=== PATIENT | female | born 1945 | race African-American/Black ===

== ENCOUNTER 2020-10-30 15:00 | Outpatient (RCR) | payer MEDICARE, SELFPAY | END 2020-10-30 23:55 | disposition home or self-care (01) | LOC: HO.PAOS 15:00 | PROVIDERS: Visit Provider Psychologist | DX: F43.20 Adjustment disorder, unspecified (principal) | CPT/HCPCS: 90832; 90834 ==

== ENCOUNTER 2021-01-26 08:24 | Outpatient (REF) | payer MEDICARE, SELFPAY ==
[2021-01-26 09:03] LABS: MANUAL DIFF FLAG NO
[2021-01-26 09:14] LABS: Eosinophils Absolute Auto 0.1 X10*3/uL (0.0-0.4); Eosinophils Percent Auto 3.5 % (0-4); Hematocrit 41.8 % (37-47); Hemoglobin 13.3 g/dl (12.0-16.0); Imm Gran Abs Auto 0.01 X10*3/uL (0.00-0.03); Imm Gran Pct Auto 0.3 % (0.0-0.4); Lymphocytes Absolute Auto 1.2 X10*3/uL (1.2-4.9); Mean Corpuscular HGB Conc 31.8 g/dl (31.0-35.0); Mean Corpuscular Hemoglobin 26.5 pg (27.0-33.0); Mean Corpuscular Volume 83.3 fL (80-98); Mean Platelet Volume 12.5 fL (9.4-12.3); Monocytes Absolute Auto 0.5 X10*3/uL (0.1-1.2); Monocytes Percent Auto 11.8 % (2-11); Neutrophils Absolute Auto 2.1 X10*3/uL (2.0-8.3); Neutrophils Percent Auto 53.4 % (45-73); Platelet Count 142 X10*3/uL (160-400); Red Blood Count 5.02 X10*6/uL (4.20-5.50); Red Cell Distribution Width 15.9 % (11.0-16.0)
[2021-01-26 09:35] LABS: Alanine Aminotransferase 13 U/L (0-31); Albumin Level 4.1 g/dL (3.5-5.0); Alkaline Phosphatase 102 U/L (39-117); Anion Gap 11 (12-20); Aspartate Amino Transferase 21 U/L (5-31); Bilirubin Total 1.2 mg/dL (0.0-1.0); Blood Urea Nitrogen 17 mg/dL (9-16); Calcium 9.1 mg/dL (8.4-10.2); Carbon Dioxide 31 mmol/L (22-29); Chloride 105 mmol/L (96-108); Cholesterol 211 mg/dL; Estimated Glomerular Filt Rate > 60; Glucose Random 94 mg/dL (60-115); HDL Cholesterol 92 mg/dL; LDL Cholesterol Calculated 109 mg/dl; Potassium 4.3 mmol/L (3.3-5.1); Sodium 143 mmol/L (135-145); Triglycerides 51 mg/dL
[2021-01-26 09:57] LABS: Free T4 (Free Thyroxine) 1.12 ng/dL (0.71-1.85); Thyroid Stimulating Hormone 2.73 uIU/mL (0.32-4.0); Vitamin D 25-OH Total 44.8 ng/mL (>30)
[2021-01-26 10:03] LABS: Folate > 20.0 ng/mL (> or = 4.0); Vitamin B12 1561 pg/mL (200-900)
== END 2021-01-26 08:25 | disposition home or self-care (01) ==
LOC: HO.LAB 08:24
PROVIDERS: PCP Internal Medicine; Visit Provider Internal Medicine
DX: I10 Essential (primary) hypertension (principal); E78.00 Pure hypercholesterolemia, unspecified
CPT/HCPCS: 36415; 80053; 80061; 82306; 82607; 82746; 84439; 84443; 85025

== ENCOUNTER 2021-06-02 10:21 | Outpatient (REF) | payer MEDICARE, SELFPAY ==
--- NOTE | ~2021-06-02 | MM_ITS ---
EXAMINATION: MM SCREENING DIGITAL BREAST TOMOSYNTHESIS, BILATERAL CLINICAL INFORMATION: Screening. Asymptomatic. The lifetime risk of breast cancer based on the Tyrer-Cuzick Model is 3%. COMPARISON: Mammography: 05/27/2020, 05/22/2019, 04/14/2018, 03/28/2017, 03/24/2016, 01/22/2015, 11/27/2013 TECHNIQUE: Digital breast tomosynthesis is performed in both the craniocaudal and mediolateral oblique views along with computer-aided detection (CAD). Synthesized 2D images are generated from the tomosynthesis. FINDINGS: The breasts are heterogeneously dense, which may obscure small masses (ACR BI-RADS breast composition Category c). There is fine fibronodular parenchymal pattern with distribution similar to prior studies. Again, there is old scar with adjacent biopsy clip marker central 11:00 left breast. There is a ring biopsy clip marker also present in the central upper outer left breast. Neither breast shows interval mass or interval architectural abnormality. Again, there are scattered benign coarse and bulky popcorn calcifications consistent with degenerating fibroadenomas. There are no significant changes. MM/MM tomosynthesis screening BI IMPRESSION: No significant changes from prior studies. ASSESSMENT: BI-RADS 2: Benign RECOMMENDATION: Routine annual mammography screening. This patient's information was entered into a reminder system with a target due date for their next mammogram.
== END 2021-06-02 10:22 | disposition home or self-care (01) ==
LOC: HO.MAMMO 10:21
PROVIDERS: PCP Internal Medicine; Visit Provider Internal Medicine
DX: Z12.31 Encounter for screening mammogram for malignant neoplasm of breast (principal)
CPT/HCPCS: 77063; 77067

== ENCOUNTER → 2022-03-02 10:21 | Outpatient (BNVA) | payer MEDICARE, SELFPAY | PROVIDERS: PCP Internal Medicine; Visit Provider Advanced Practice Midwife | DX: Z01.419 Encounter for gynecological examination (general) (routine) without abnormal findings (principal) ==

== ENCOUNTER 2022-04-15 08:58 | Outpatient (REF) | payer MEDICARE, SELFPAY ==
--- NOTE | ~2022-04-15 | MM_ITS ---
EXAMINATION: BONE DENSITOMETRY CLINICAL INDICATION: Osteoporosis. COMPARISON: Previous BD dated 12/06/2018 and baseline BD dated 09/13/2006. TECHNIQUE: Using a [employer] DXA System (software version: 13.1) manufactured by [employer], dual-energy x-ray absorptiometry was performed of the lumbar spine and left hip. The images are of good technical quality. Summary results are attached. FINDINGS: AP SPINE L1-L2 (excluding L3 and L4): The data of L1-L4 has been changed to exclude the L3 and L4 vertebral bodies, because degenerative sclerosis at these levels may cause overestimation of lumbar spine density. Current: BMD 1.191 g/cm2, Z-score 0.6, T-score 0.2, normal, 5.0% decrease from previous, 2.6% decrease from baseline (<5% change is not significant). Prior: BMD 1.254 g/cm2. Baseline: BMD 1.223 g/cm2. LEFT FEMUR, NECK: Current: BMD 0.889 g/cm2, Z-score -0.4, T-score -1.1, osteopenia. Prior: BMD 0.928 g/cm2. Baseline: BMD 0.984 g/cm2. LEFT FEMUR, TOTAL: Current: BMD 0.936 g/cm2, Z-score -0.1, T-score -0.6, normal, 12.4% decrease from previous, 13.2% decrease from baseline (<5% change is not significant). Prior: BMD 1.069 g/cm2. Baseline: BMD 1.078 g/cm2. IDENTIFIED RISK FACTORS: Early menopause, height loss, history of fracture (adult), hysterectomy, bilateral oophorectomy, chronic liver disease, osteoporosis, recurrent falls, secondary osteoporosis, Thiazide. HISTORY OF FRACTURE: Wrist. MEDICATIONS: Calcium, vitamin D. MM/XR DEXA axial skeleton IMPRESSION: 1. DIAGNOSIS: Osteopenia based on the lowest T-score value of -1.1 in the femoral neck applying World Health Organization criteria. 2. 10-YEAR FRACTURE RISK PREDICTION, FRAX: Major osteoporotic fracture (clinical spine, forearm, hip or shoulder) 7.4%. Hip fracture 1.2%. 3. Treatment Recommendations: NOF guidelines recommend consideration for treatment in postmenopausal women and men age 50 and older presenting with the following: -A hip or vertebral (clinical or morphometric) fracture. -T-score less than or equal to -2.5 at the femoral neck or spine after appropriate evaluation to exclude secondary causes. -Low bone mass at the hip or spine and a 10-year fracture probability by FRAX of greater than or equal to 3% for hip fracture or greater than or equal to 20% for major osteoporotic fracture based on the [place] adapted WHO algorithm. 4. Other Recommendations: All treatment decisions require clinical judgment and consideration of individual patient factors, including patient preferences, comorbidities, previous drug use, risk factors not captured in the FRAX model (e.g. frailty, falls, vitamin D deficiency, increased bone turnover, interval significant decline in bone density) and possible under or overestimation of fracture risk by FRAX. Additional medical evaluation for secondary cause of low bone mineral density may be appropriate. FUTURE SCAN RECOMMENDATION: People with diagnosed cases of osteoporosis or at high risk for fracture should have regular bone mineral density tests. For patients eligible for Medicare, routine testing is allowed once every 2 years. The testing frequency can be increased to one year for patients who have rapidly progressing disease, those who are receiving or discontinuing medical therapy to restore bone mass, or have additional risk factors.
== END 2022-04-15 08:59 | disposition home or self-care (01) ==
LOC: HO.MAMMO 08:58
PROVIDERS: PCP Internal Medicine; Visit Provider Internal Medicine
DX: M81.0 Age-related osteoporosis without current pathological fracture (principal); Z78.0 Asymptomatic menopausal state
CPT/HCPCS: 77080

== ENCOUNTER 2022-06-01 10:05 | Emergency (ER) | payer MEDICARE, SELFPAY ==
[2022-06-01 10:17] VITALS: BP 145/84; PULSE 68; RESP 18; TEMP 36.6; O2SAT 99; BMI 26.6
[2022-06-01] MEDS: diphenhydrAMINE HCL 50 MG/ML VIAL 25 MG IM (13:27)
--- NOTE | 2022-06-01 14:14 | ED.GENADULT ---
HPI - General Adult General Chief complaint: General Medical Stated complaint: Left Hand Tremors Time Seen by Provider: 06/01/22 12:35 Source: patient Mode of arrival: ambulatory History of Present Illness HPI narrative: 77-year-old female with a past medical history of GERD, HLD, HTN, leukopenia, pernicious anemia, schizophrenia, thrombocytopenia, presenting to the ED complaining of intermittent left 3rd through 4th finger twitching x weeks, admits symptoms are improved at present. Patient states she is having tardive dyskinesia and requesting Cogentin. Patient has been on antipsychotics x many years without recent changes. Denies pain, injury, numbness, tingling Onset (ago): day(s) Related Data Home Medications Medication Instructions Recorded Confirmed artificial tears solution eye drops 1 drp ophthalmic (eye) TID 09/26/20 11/10/21 aspirin 81 mg tablet 81 mg PO DAILY 12/24/20 11/10/21 garlic 1,000 mg capsule 1,000 mg PO DAILY 12/24/20 11/10/21 Previous Rx's Medication Instructions Recorded hydrocortisone-acetic acid 1 %-2 % 4 drp otic (ear) right QID 6 days 09/14/21 ear drops #10 mL atorvastatin 10 mg tablet 10 mg PO DAILY #90 tabs 11/10/21 hydrochlorothiazide 25 mg tablet 25 mg PO DAILY #30 tabs 11/10/21 triamcinolone acetonide 0.1 % 1 appl topical BID 30 days #60 mL 11/10/21 lotion omeprazole magnesium 20 mg 20 mg PO DAILY 90 days #90 caps 11/20/21 capsule,delayed release hydroxyzine HCl 10 mg tablet 10 mg PO DAILY PRN Anxiety 90 days 12/05/21 #90 tabs losartan 25 mg tablet 25 mg PO DAILY 90 days #90 tabs 12/31/21 trifluoperazine 5 mg tablet 5 mg PO DAILY #90 tabs 02/10/22 DISPOSABLE UNDERWEAR #120 ea 04/14/22 Disposable Underpad 30 x 36 heavy #100 ea 04/14/22 flow OFFSET HANDLE CANE #1 ea 04/14/22 PERSONAL CLEASING WIPES #100 ea 04/14/22 diphenhydramine HCl 25 mg capsule 25 mg PO BID PRN Extra pyramidal 06/01/22 (Benadryl) symptoms 30 days #60 caps Allergies Allergy/AdvReac Type Severity Reaction Status Date / Time MYESHA Inhibitors Allergy Severe ANGIOEDEMA Verified 04/09/22 08:29 WITH LISINOPRIL caffeine [CAFFEINE] Allergy Severe EXTREME Verified 04/09/22 08:29 PAIN IN BILATERAL KIDNEYS clozapine [From Clozaril] Allergy Severe Stomach Verified 04/09/22 08:29 Upset lisinopril Allergy Severe ANGIOEDEMA Verified 04/09/22 08:29 amoxicillin [AMOXICILLIN] Allergy Intermediate Stomach Verified 04/09/22 08:29 Upset atropine [Lomotil] Allergy Intermediate Stomach Verified 04/09/22 08:29 Upset bee pollen [BEE STINGS] Allergy Intermediate Swelling Verified 04/09/22 08:29 lovastatin Allergy Intermediate Cramps Verified 04/09/22 08:29 penicillin V Allergy Intermediate Stomach Verified 04/09/22 08:29 Upset ziprasidone [From GEODON] Allergy Intermediate HALLUCINATI Verified 04/09/22 08:29 ONS trifluoperazine Allergy Mild Stomach Verified 04/09/22 08:29 Upset TUNA FISH Allergy Severe SEVERE Uncoded 04/09/22 08:29 INDIGESTION, rash From PROLIXIN Allergy Intermediate UNKNOWN Uncoded 04/09/22 08:29 lovastatin Allergy Intermediate cramping Uncoded 04/09/22 08:29 prolixen Allergy Intermediate seizure Uncoded 04/09/22 08:29 amox Allergy Mild GI upset Uncoded 04/09/22 08:29 Review of Systems Review of Systems: Constitutional: No Fever, No Chills, No Fatigue, No Malaise ENT/Mouth: No Ear Pain, No Nasal Congestion, No sore throat, No Rhinorrhea, No Swallowing Difficulty, +tongue movements Eyes: No Eye Pain, No Swelling, No Redness, No Vision Changes Cardiovascular: No Chest Pain, No SOB, No Palpitations Respiratory: No Cough, No Sputum, No Dyspnea Gastrointestinal: No Nausea, No Vomiting, No Diarrhea, No Constipation, No Abdominal pain Genitourinary: No Dysuria, No Urinary Frequency, No Hematuria, No Flank Pain Musculoskeletal: No joint pain, No Myalgias, No Joint Swelling Skin: No Skin Lesions, No rash Neuro: No Weakness, No Numbness, +tremors,No Dizziness, No Headache Yes all other systems are reviewed and are negative Neurologic: Reports Abnormal speech present PMFSH Past Medical History Attestation statement: The following information was validated with the patient. Medical History GERD (gastroesophageal reflux disease) Hyperbilirubinemia Hypercholesterolemia Hypertension Impacted cerumen Leukopenia Obesity (BMI 30-39.9) Pernicious anemia Schizophrenia Thrombocytopenia Urinary incontinence Vitamin D deficiency Surgical History H/O right wrist surgery History of tonsillectomy History of tooth extraction History of total abdominal hysterectomy and bilateral salpingo-oophorectomy Family History Family History Father Cancer Colon cancer Mother Cancer Colon cancer History of breast cancer Social History Social History Housing: Apartment Alcohol intake: never Patient Tobacco Use Status: Former Tobacco user Tobacco use type: Cigarette e-Cigarette/Vaping Use: Never Used Second Hand Smoke Exposure: No service: No Current occupational status: disabled Cognitive needs: No Hearing needs: No Vision needs: Yes Physical Exam ED Vital Signs: Vital Signs - 24 hr 06/01/22 10:17 06/01/22 14:34 Temperature 98 F 98.5 F Pulse Rate 68 62 Respiratory Rate 18 14 Blood Pressure 145/84 H 180/90 H Pulse Oximetry 99 98 Oxygen Delivery Method Room Air Room Air BMI result Body Mass Index 26.6 Const General: cooperative, healthy appearing and no acute distress Orientation/consciousness: patient oriented x3 Limitations: no limitations HENMT Head: Yes normal to inspection and Yes atraumatic Ears: hearing grossly normal bilaterally General nose exam: Normal external nose present Face and sinus: Yes normal facial exam Mouth: tongue abnormal (+abdnormal movements) and no trismus Throat: Yes tonsils normal, Yes uvula midline, No peritonsillar mass and No uvular edema Eyes General: appearance normal, both eyes and all related structures EOM: EOMs intact bilaterally Neck Neck: Yes normal visual inspection, Yes no meningeal signs, Yes supple and No anterior neck swelling Resp Effort & Inspection: normal respiratory effort and no respiratory distress Cardio Rate: regular rate Heart sounds: S1 normal heart sound present and S2 normal heart sound present Skin Rashes: no rashes Wounds: no wounds Neuro General: patient oriented x3, gait normal, tone normal, moves all extremities, no meningeal signs and no focal motor deficits Speech: Abnormal speech present slurred Gait exam (Neuro): Normal gait present Motor exam (neuro): no tremor noted Extrem General: Yes normal to inspection Course Course Course Narrative: Patient's speech/tongue movements improved after IM Benadryl. 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 Has follow-up with her PCP Dr. Bailey tomorrow. Will initiate Benadryl 25 mg b.i.d. as patient is chronically on her medications. Discussed worrisome signs and symptoms and strict return precautions Medical Decision Making MDM Narrative Medical decision making narrative: 77-year-old female with a past medical history of GERD, HLD, HTN, leukopenia, pernicious anemia, schizophrenia, thrombocytopenia, presenting to the ED complaining of intermittent left 3rd through 4th finger twitching x weeks. Patient states she is having tardive dyskinesia and requesting Cogentin. On exam vital signs stable, NAD, +appreciable abnormal tongue movements and slurred speech/dysarthria consistent with tardive dyskinesia. No appreciable twitching in other locations. No focal neuro deficits. Case discussed with Dr. Moe who also evaluated patient and is in agreement with plan Plan: IM Benadryl Discharge Plan Discharge Clinical Impression: Tardive dyskinesia Patient Disposition: Home, Self-Care Instructions: Tremors (ED) Additional Instructions: Continue taking prescribed medications, in addition start taking Benadryl twice daily. Please follow up with her doctor tomorrow as scheduled. If symptoms recur/persist or worsen please return to the emergency department Prescriptions: New diphenhydramine HCl [Benadryl] 25 mg capsule 25 mg PO BID PRN (Reason: Extra pyramidal symptoms) 30 Days Qty: 60 0RF No Action hydrocortisone-acetic acid 1-2 % drops 4 drp otic (ear) right QID 6 Days Qty: 10 0RF omeprazole magnesium 20 mg capsule,delayed release(DR/EC) 20 mg PO DAILY 90 Days Qty: 90 1RF hydroxyzine HCl 10 mg tablet 10 mg PO DAILY PRN (Reason: Anxiety) 90 Days Qty: 90 1RF losartan 25 mg tablet 25 mg PO DAILY 90 Days Qty: 90 2RF trifluoperazine 5 mg tablet 5 mg PO DAILY Qty: 90 0RF (DME) OFFSET HANDLE CANE See Rx Instructions .Route .MEDSUPPLY Qty: 1 0RF Rx Instructions: As directed (DME) Disposable Underpad 30 x 36 heavy flow See Rx Instructions .Route .MEDSUPPLY Qty: 100 12RF Rx Instructions: As directed (DME) PERSONAL CLEASING WIPES See Rx Instructions .Route .MEDSUPPLY Qty: 100 12RF Rx Instructions: As directed (DME) DISPOSABLE UNDERWEAR XL MODERATE ABSORBENCY See Rx Instructions .Route .MEDSUPPLY Qty: 120 12RF Rx Instructions: As directed artificial tears solution Drops 1 drp OPHTHALMIC (EYE) TID aspirin 81 mg tablet 81 mg PO DAILY garlic 1,000 mg capsule 1,000 mg PO DAILY triamcinolone acetonide 0.1 % lotion 1 appl topical BID 30 Days Qty: 60 0RF atorvastatin 10 mg tablet 10 mg PO DAILY Qty: 90 2RF hydrochlorothiazide 25 mg tablet 25 mg PO DAILY Qty: 30 3RF Referrals: Po,Erik Almonte MD [Primary Care Provider] - 1 day (As scheduled) Interventions: ED Discharge Assessment Last Done: 06/01/22 14:38 Discharge Date/Time: 06/01/22 14:39
[2022-06-01 14:34] VITALS: BP 180/90; PULSE 62; RESP 14; TEMP 36.9; O2SAT 98
== END 2022-06-01 14:39 | disposition home or self-care (01) ==
PROVIDERS: Emergency Provider Emergency Medicine; PCP Internal Medicine
DX: G24.01 Drug induced subacute dyskinesia (principal); I10 Essential (primary) hypertension; Z79.899 Other long term (current) drug therapy; Z87.891 Personal history of nicotine dependence
CPT/HCPCS: 96372; 99283; 99284; J1200

== ENCOUNTER 2022-06-01 14:43 | Outpatient (REF) | payer MEDICARE, SELFPAY ==
[2022-06-01 15:05] LABS: MANUAL DIFF FLAG NO
[2022-06-01 15:27] LABS: Basophils Absolute Auto 0.1 X10*3/uL (0.0-0.2); Basophils Percent Auto 1.1 % (0-2); Eosinophils Absolute Auto 0.1 X10*3/uL (0.0-0.4); Eosinophils Percent Auto 2.4 % (0-4); Hematocrit 42.6 % (37.0-47.0); Hemoglobin 13.6 g/dl (12.0-16.0); Imm Gran Abs Auto 0.01 X10*3/uL (0.00-0.03); Imm Gran Pct Auto 0.2 % (0.0-0.4); Lymphocytes Absolute Auto 1.6 X10*3/uL (1.2-4.9); Lymphocytes Percent Auto 35.9 % (20-40); Mean Corpuscular HGB Conc 31.9 g/dl (31.0-35.0); Mean Corpuscular Hemoglobin 26.5 pg (27.0-33.0); Mean Corpuscular Volume 82.9 fL (80.0-98.0); Mean Platelet Volume 12.2 fL (9.4-12.3); Monocytes Absolute Auto 0.5 X10*3/uL (0.1-1.2); Monocytes Percent Auto 11.6 % (2-11); Neutrophils Absolute Auto 2.2 x10*3/uL (2.0-8.3); Neutrophils Percent Auto 48.8 % (45-73); Platelet Count 155 X10*3/uL (160-400); Red Blood Count 5.14 X10*6/uL (4.20-5.50); Red Cell Distribution Width 15.9 % (11.0-16.0); White Blood Count 4.5 X10*3/uL (4.8-10.8)
[2022-06-01 16:08] LABS: Alanine Aminotransferase 14 U/L (0-31); Albumin Level 4.4 g/dL (3.5-5.0); Alkaline Phosphatase 111 U/L (39-117); Anion Gap 12 (12-20); Aspartate Amino Transferase 22 U/L (5-31); Bilirubin Total 1.1 mg/dL (0.0-1.0); Blood Urea Nitrogen 19 mg/dL (9-16); Calcium 9.4 mg/dL (8.4-10.2); Carbon Dioxide 30 mmol/L (22-29); Chloride 104 mmol/L (96-108); Cholesterol 232 mg/dL; Estimated Glomerular Filt Rate 55; Glucose Random 91 mg/dL (60-115); HDL Cholesterol 81 mg/dL; LDL Cholesterol Calculated 134 mg/dl; Sodium 142 mmol/L (135-145); Total Protein 7.4 g/dL (6.5-8.0); Triglycerides 85 mg/dL
[2022-06-01 16:29] LABS: Free T4 (Free Thyroxine) 1.12 ng/dL (0.71-1.85); Thyroid Stimulating Hormone 1.87 uIU/mL (0.32-4.0); Vitamin D 25-OH Total 50.1 ng/mL (>30)
[2022-06-01 16:57] LABS: Folate > 20.0 ng/mL (> or = 4.0); Vitamin B12 > 2000 pg/mL (200-900)
== END 2022-06-01 14:44 | disposition home or self-care (01) ==
LOC: HO.LAB 14:43
PROVIDERS: PCP Internal Medicine; Visit Provider Internal Medicine
DX: E78.00 Pure hypercholesterolemia, unspecified (principal); I10 Essential (primary) hypertension; M81.0 Age-related osteoporosis without current pathological fracture
CPT/HCPCS: 36415; 80053; 80061; 82306; 82607; 82746; 84439; 84443; 85025; 86900; 86901

== ENCOUNTER 2022-06-15 13:19 | Emergency (ER) | payer MEDICARE, SELFPAY ==
--- NOTE | ~2022-06-15 | CT_ITS ---
EXAMINATION: CT HEAD WITHOUT CONTRAST CLINICAL INFORMATION: Speech difficulty for 2 days. COMPARISON: Head CT from 09/14/2016 TECHNIQUE: Contiguous axial imaging was performed from the skull base to vertex without intravenous administration of contrast. This CT examination was performed using dose optimization techniques as appropriate, variously including the following: *Automated exposure control *Adjustment of mA and/or kV according to patient size (this includes techniques or standardized protocols for targeted exams where dose is matched to indication/reason for exam; i.e. extremities or head) *Use of iterative reconstruction technique DLP: 648 mGy-cm FINDINGS: No intracranial hemorrhage, extra-axial fluid collection, focal mass effect or midline shift. No evidence of an acute major vascular territory infarction. The medeiros-white matter differentiation is maintained. 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 There appear to be old lacunar infarcts in gangliocapsular regions, and findings include old lacunar infarct involving the right caudate head. The mild parenchymal volume loss is associated with commensurate prominence of ventricles and sulci. No hydrocephalus. No acute findings within the posterior fossa. The brainstem is unremarkable. The cerebellar tonsils are in normal position. The visualized paranasal sinuses, mastoid air cells and middle ear cavities are well aerated. The degeneration of temporomandibular joints is mild on the right, moderate on the left. CT/CT head/brain wo con IMPRESSION: No evidence of intracranial mass, hemorrhage or other acute intracranial pathology compared to 09/14/2016. 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
[2022-06-15 14:58] VITALS: BP 134/86; PULSE 65; RESP 18; TEMP 36.4; O2SAT 99; BMI 29.9
[2022-06-15 17:22] LABS: MANUAL DIFF FLAG NO
[2022-06-15 17:25] LABS: Basophils Percent Auto 0.7 % (0-2); Eosinophils Absolute Auto 0.2 X10*3/uL (0.0-0.4); Eosinophils Percent Auto 3.4 % (0-4); Hematocrit 43.3 % (37.0-47.0); Hemoglobin 14.1 g/dl (12.0-16.0); Imm Gran Abs Auto 0.01 X10*3/uL (0.00-0.03); Imm Gran Pct Auto 0.2 % (0.0-0.4); Lymphocytes Absolute Auto 1.3 X10*3/uL (1.2-4.9); Lymphocytes Percent Auto 30.4 % (20-40); Mean Corpuscular HGB Conc 32.6 g/dl (31.0-35.0); Mean Corpuscular Hemoglobin 26.6 pg (27.0-33.0); Mean Corpuscular Volume 81.5 fL (80.0-98.0); Mean Platelet Volume 12.8 fL (9.4-12.3); Monocytes Absolute Auto 0.5 X10*3/uL (0.1-1.2); Monocytes Percent Auto 11.3 % (2-11); Neutrophils Absolute Auto 2.4 x10*3/uL (2.0-8.3); Platelet Count 128 X10*3/uL (160-400); Red Blood Count 5.31 X10*6/uL (4.20-5.50); Red Cell Distribution Width 15.7 % (11.0-16.0); White Blood Count 4.4 X10*3/uL (4.8-10.8)
[2022-06-15 17:31] LABS: Prothrombin Time 11.7 SEC (10.0-13.1)
[2022-06-15 17:34] LABS: Partial Thromboplastin Time 34.5 SEC (24.1-38.0)
[2022-06-15 17:47] LABS: Alanine Aminotransferase 11 U/L (0-31); Albumin Level 4.3 g/dL (3.5-5.0); Alkaline Phosphatase 109 U/L (39-117); Anion Gap 13 (12-20); Aspartate Amino Transferase 20 U/L (5-31); Bilirubin Direct 0.4 mg/dL (0.0-0.5); Bilirubin Total 1.2 mg/dL (0.0-1.0); Blood Urea Nitrogen 22 mg/dL (9-16); Calcium 9.5 mg/dL (8.4-10.2); Carbon Dioxide 27 mmol/L (22-29); Chloride 106 mmol/L (96-108); Estimated Glomerular Filt Rate 49; Ethanol < 10 mg/dL; Glucose Random 90 mg/dL (60-115); Magnesium 2.1 mg/dL (1.6-2.6); Potassium 4.3 mmol/L (3.3-5.1); Sodium 142 mmol/L (135-145); Total Protein 7.4 g/dL (6.5-8.0)
--- NOTE | 2022-06-15 21:35 | ED_ITS ---
HPI - Neuro Symptoms/Deficit General Chief Complaint: Neuro Symptoms/Deficit Stated Complaint: Tremors Time Seen by Provider: 06/15/22 15:11 Source: patient Mode of arrival: ambulatory Limitations: no limitations History of Present Illness HPI Narrative: Patient is a 76 year old female presenting to the emergency department today with resolved tremors and a possible bladder infection. Patient states that she had an episode of tremors a couple days ago that resolved and now she is concerned that she has a bladder infection. Patient denies any dizziness, lightheadedness, abdominal pain, nausea, vomiting, fever, chills, blurry vision, double vision, loss of vision, chest pain, difficulty breathing, shortness of breath, back pain, night sweats, pain with urination, increased urinary frequency, increased urinary urgency, blood in her urine or stool, syncope or a near syncopal episode, recent trauma or falls, bowel incontinence, bladder incontinence, bowel retention, bladder retention, or any other complaints at this time. Onset (ago): day(s) (2) Treatments Prior to Arrival: none Related Data Home Medications Medication Instructions Recorded Confirmed artificial tears solution eye drops 1 drp ophthalmic (eye) TID 09/26/20 06/02/22 aspirin 81 mg tablet 81 mg PO DAILY 12/24/20 06/02/22 garlic 1,000 mg capsule 1,000 mg PO DAILY 12/24/20 06/02/22 Previous Rx's Medication Instructions Recorded hydrocortisone-acetic acid 1 %-2 % 4 drp otic (ear) right QID 6 days 09/14/21 ear drops #10 mL hydrochlorothiazide 25 mg tablet 25 mg PO DAILY #30 tabs 11/10/21 triamcinolone acetonide 0.1 % 1 appl topical BID 30 days #60 mL 11/10/21 lotion omeprazole magnesium 20 mg 20 mg PO DAILY 90 days #90 caps 11/20/21 capsule,delayed release hydroxyzine HCl 10 mg tablet 10 mg PO DAILY PRN Anxiety 90 days 12/05/21 #90 tabs trifluoperazine 5 mg tablet 5 mg PO DAILY #90 tabs 02/10/22 DISPOSABLE UNDERWEAR #120 ea 04/14/22 Disposable Underpad 30 x 36 heavy #100 ea 04/14/22 flow OFFSET HANDLE CANE #1 ea 04/14/22 PERSONAL CLEASING WIPES #100 ea 04/14/22 atorvastatin 10 mg tablet 10 mg PO DAILY #90 tabs 06/02/22 diphenhydramine HCl 25 mg capsule 25 mg PO BID PRN Extra pyramidal 06/02/22 (Benadryl) symptoms 30 days #60 caps losartan 25 mg tablet 25 mg PO DAILY 90 days #90 tabs 06/02/22 cephalexin 500 mg tablet 500 mg PO QID 7 days #28 tabs 06/15/22 Allergies Allergy/AdvReac Type Severity Reaction Status Date / Time MYESHA Inhibitors Allergy Severe ANGIOEDEMA Verified 06/15/22 14:58 WITH LISINOPRIL caffeine [CAFFEINE] Allergy Severe EXTREME Verified 06/15/22 14:58 PAIN IN BILATERAL KIDNEYS clozapine [From Clozaril] Allergy Severe Stomach Verified 06/15/22 14:58 Upset lisinopril Allergy Severe ANGIOEDEMA Verified 06/15/22 14:58 amoxicillin [AMOXICILLIN] Allergy Intermediate Stomach Verified 06/15/22 14:58 Upset atropine [Lomotil] Allergy Intermediate Stomach Verified 06/15/22 14:58 Upset bee pollen [BEE STINGS] Allergy Intermediate Swelling Verified 06/15/22 14:58 lovastatin Allergy Intermediate Cramps Verified 06/15/22 14:58 penicillin V Allergy Intermediate Stomach Verified 06/15/22 14:58 Upset ziprasidone [From GEODON] Allergy Intermediate HALLUCINATI Verified 06/15/22 14:58 ONS trifluoperazine Allergy Mild Stomach Verified 06/15/22 14:58 Upset TUNA FISH Allergy Severe SEVERE Uncoded 06/02/22 11:21 INDIGESTION, rash From PROLIXIN Allergy Intermediate UNKNOWN Uncoded 06/02/22 11:21 lovastatin Allergy Intermediate cramping Uncoded 06/02/22 11:21 prolixen Allergy Intermediate seizure Uncoded 06/02/22 11:21 amox Allergy Mild GI upset Uncoded 06/02/22 11:21 Review of Systems Constitutional: Constitutional: Reports no additional constitutional c omplaints, Denies chills, Denies fever(s) and Denies night sweats Eyes: Eyes: Reports no additional eye complaints, Denies blurry vision, Denies change in vision, Denies diplopia, Denies eye discharge, Denies loss of vision and Denies eye pain ENT: Denies dizziness Cardiovascular: Cardiovascular: Reports no additional cardiovascular complaints, Denies chest pain, Denies lightheadedness, Denies Loss of Consciousness and Denies dyspnea Respiratory: Respiratory: Reports no additional respiratory complaints and Denies dyspnea Gastrointestinal: Gastrointestinal: Reports no additional gastrointestinal complaints, Denies abdominal pain, Denies melena, Denies hematochezia, Denies change in bowel habits and Denies change in stool character Genitourinary: Genitourinary: Denies hematuria, Denies urinary frequency, Denies dysuria, Denies urinary incontinence, Denies urinary hesitancy and Denies urinary urgency Musculoskeletal: Musculoskeletal: Reports no additional musculoskeletal complaints, Denies numbness and Denies tingling Neurologic: Denies dizziness, Denies loss of vision, Denies numbness and Denies tingling Psychiatric: Psychiatric: Reports no additional psychiatric complaints Endocrine: Endocrine: Reports no additional endocrine complaints Hematologic/Lymphatic: Hematologic/Lymphatic: Reports no additional hematologic/lymphatic complaints Allergic/Immunologic: Allergic/Immunologic: Reports no additional allergic/immunologic complaints PMFSH Past Medical History Attestation statement: The following information was validated with the patient. Source: old records reviewed Medical History GERD (gastroesophageal reflux disease) Hyperbilirubinemia Hypercholesterolemia Hypertension Impacted cerumen Leukopenia Obesity (BMI 30-39.9) Pernicious anemia Schizophrenia Thrombocytopenia Urinary incontinence Vitamin D deficiency Surgical History H/O right wrist surgery History of tonsillectomy History of tooth extraction History of total abdominal hysterectomy and bilateral salpingo-oophorectomy Family History Family History Father Cancer Colon cancer Mother Cancer Colon cancer History of breast cancer Social History Social History Housing: Apartment Alcohol intake: never Patient Tobacco Use Status: Former Tobacco user Tobacco use type: Cigarette e-Cigarette/Vaping Use: Never Used Second Hand Smoke Exposure: No Use of substances other than those prescribed or required for medical reasons: No Advance Directives: No Advance Directives Information Provided: No service: No Current occupational status: disabled Cognitive needs: No Hearing needs: No Vision needs: Yes Physical Exam Vital Signs: Vital Signs: Last Vital Signs Temp 97.7 F 06/15/22 21:39 Pulse 60 06/15/22 21:39 Resp 16 06/15/22 21:39 BP 185/87 H 06/15/22 21:39 Pulse Ox 98 06/15/22 21:39 O2 Del Method 06/15/22 21:39 BMI result Body Mass Index 29.9 Const: General: cooperative, no acute distress, alert and awake Nutritional Appearance: well nourished Orientation/consciousness: patient oriented x3 Limitations: no limitations HEENT: Head: Yes normal to inspection and Yes atraumatic Ears: hearing gr ossly normal bilaterally and external ears normal General nose exam: Normal external nose present, no nasal discharge noted and no epistaxis Face and sinus: Yes normal facial exam, No abrasion and No laceration Mouth: Normal oral and palatal mucosa present, no drooling and no muffled voice Eyes: General: appearance normal, both eyes and all related structures Periorbital: periorbital findings normal Eyelids: Yes eyelids normal Conjunctivae: conjunctivae normal Pupils: Equal, round and reactive pupils present EOM: EOMs intact bilaterally Neck: Neck: Yes normal visual inspection, Yes full ROM and Yes no lymphadenopathy Chest: Chest palpation & inspection: normal inspection of the chest Resp: Effort & Inspection: normal respiratory effort and able to speak in c omplete sentences Auscultation: clear to auscultation bilaterally Cardio: Rate: regular rate Rhythm: regular rhythm GI: Inspection: Yes normal to inspection Neuro: General: patient oriented x3 and moves all extremities Cranial nerves: Yes Equal, round and reactive pupils present Cognition (Neuro): normal cognition Motor exam (neuro): 5/5 motor strength present throughout Sensory Exam: Normal double simultaneous stimulation for sensation Coordination: [id number] test normal Extrem: General: Yes normal to inspection, Yes full ROM and Yes capillary refill normal Psych: Appearance: grossly normal Mental Status: mental status grossly normal Affect: normal affect Attitude: cooperative Thought process: Normal thought process present Thought content: Normal thought content present Insight: Good insight present (Psych) MDM - Neuro Symptoms/Deficit MDM Narrative Medical decision making narrative: Patient is a 77 year old female presenting to the emergency department today with resolved tremors and a UTI. Patient's physical exam was unremarkable. Patient's blood work was unremarkable. Patient's urine showed an acute urinary tract infection. Patient's head CT showed no acute process. I explained my physical exam findings as well as all test results to the patient. I answered all questions asked by the patient. I stressed the importance of the patient taking her medication as prescribed. I stressed the importance of the patient following up with her primary care provider and her psychiatrist. I stressed the importance of the patient returning to the emergency department immediately if her symptoms were to worsen or if she were to develop any dizziness, shortness of breath, difficulty breathing, chest pain, blurry vision, loss of vision, nausea, vomiting, abdominal pain, fever, chills, back pain, or any other complaints. Patient verbalized agreement and understanding with this treatment plan and discharge. Medical Records Attestation: I reviewed the patient's medical records. Lab Data Attestation: I reviewed the patient's lab results. Result diagrams: 06/15/22 17:17 06/15/22 17:17 Labs: Lab Results 06/15/22 06/15/22 06/15/22 Range/Units 17:17 17:17 17:17 WBC 4.4 L (4.8-10.8) X10*3/uL RBC 5.31 (4.20-5.50) X10*6/uL Hgb 14.1 (12.0-16.0) g/dl Hct 43.3 (37.0-47.0) % MCV 81.5 (80.0-98.0) fL MCH 26.6 L (27.0-33.0) pg MCHC 32.6 (31.0-35.0) g/dl RDW 15.7 (11.0-16.0) % Plt Count 128 L (160-400) X10*3/uL MPV 12.8 H (9.4-12.3) fL Immature Gran % (Auto) 0.2 (0.0-0.4) % Neut % (Auto) 54.0 (45-73) % Lymph % (Auto) 30.4 (20-40) % [place] % (Auto) 11.3 H (2-11) % Eos % (Auto) 3.4 (0-4) % Baso % (Auto) 0.7 (0-2) % Lymph # (Auto) 1.3 (1.2-4.9) X10*3/uL [place] # (Auto) 0.5 (0.1-1.2) X10*3/uL Eos # (Auto) 0.2 (0.0-0.4) X10*3/uL Baso # (Auto) 0.0 (0.0-0.2) X10*3/uL Abs Immat Gran (auto) 0.01 (0.00-0.03) X10*3/uL Absolute Neuts (auto) 2.4 (2.0-8.3) x10*3/uL Absolute Nucleated RBC 0.000 (0.0-0.012) X10*3/uL Nucleated RBC % (auto) 0.0 (0.0-0.2) /100WBC PT 11.7 (10.0-13.1) SEC INR 1.0 (0.9-1.1) APTT 34.5 (24.1-38.0) SEC Sodium 142 (135-145) mmol/L Potassium 4.3 (3.3-5.1) mmol/L Chloride 106 (96-108) mmol/L Carbon Dioxide 27 (22-29) mmol/L Anion Gap 13 (12-20) BUN 22 H (9-16) mg/dL Creatinine 1.07 (0.5-1.4) mg/dL Estim Creat Clear Calc 45.0 Estimated GFR 49 Random Glucose 90 (60-115) mg/dL Calcium 9.5 (8.4-10.2) mg/dL Magnesium 2.1 (1.6-2.6) mg/dL Total Bilirubin 1.2 H (0.0-1.0) mg/dL Direct Bilirubin 0.4 (0.0-0.5) mg/dL AST 20 (5-31) U/L ALT 11 (0-31) U/L Alkaline Phosphatase 109 (39-117) U/L Total Protein 7.4 (6.5-8.0) g/dL Albumin 4.3 (3.5-5.0) g/dL Urine Color Urine Appearance Urine pH (5.0-8.0) Ur Specific [place] (1.005-1.025) Urine Protein (NEG-TRACE) MG/DL Urine Glucose (UA) (NEG) MG/DL Urine Ketones (NEG) MG/DL Urine Blood (NEG) Urine Nitrite (NEG) Ur Leukocyte Esterase (NEG) Urine RBC (0) /HPF Urine WBC (0-4) /HPF Ur Squamous Epith Cells /LPF Urine Bacteria /LPF Urine Mucus /LPF Urine Opiates Screen (Not Detect) Urine Fentanyl Screen (Not Detect) Ur Barbiturates Screen (Not Detect) Ur Phencyclidine Scrn (Not Detect) Ur Amphetamines Screen (Not Detect) U Benzodiazepines Scrn (Not Detect) Urine Cocaine Screen (Not Detect) U Marijuana (THC) Screen (Not Detect) Ethyl Alcohol < 10 mg/dL 06/15/22 06/15/22 Range/Units 23:02 23:02 WBC (4.8-10.8) X10*3/uL RBC (4.20-5.50) X10*6/uL Hgb (12.0-16.0) g/dl Hct (37.0-47.0) % MCV (80.0-98.0) fL MCH (27.0-33.0) pg MCHC (31.0-35.0) g/dl RDW (11.0-16.0) % Plt Count (160-400) X10*3/uL MPV (9.4-12.3) fL Immature Gran % (Auto) (0.0-0.4) % Neut % (Auto) (45-73) % Lymph % (Auto) (20-40) % [place] % (Auto) (2-11) % Eos % (Auto) (0-4) % Baso % (Auto) (0-2) % Lymph # (Auto) (1.2-4.9) X10*3/uL [place] # (Auto) (0.1-1.2) X10*3/uL Eos # (Auto) (0.0-0.4) X10*3/uL Baso # (Auto) (0.0-0.2) X10*3/uL Abs Immat Gran (auto) (0.00-0.03) X10*3/uL Absolute Neuts (auto) (2.0-8.3) x10*3/uL Absolute Nucleated RBC (0.0-0.012) X10*3/uL Nucleated RBC % (auto) (0.0-0.2) /100WBC PT (10.0-13.1) SEC INR (0.9-1.1) APTT (24.1-38.0) SEC Sodium (135-145) mmol/L Potassium (3.3-5.1) mmol/L Chloride (96-108) mmol/L Carbon Dioxide (22-29) mmol/L Anion Gap (12-20) BUN (9-16) mg/dL Creatinine (0.5-1.4) mg/dL Estim Creat Clear Calc Estimated GFR Random Glucose (60-115) mg/dL Calcium (8.4-10.2) mg/dL Magnesium (1.6-2.6) mg/dL Total Bilirubin (0.0-1.0) mg/dL Direct Bilirubin (0.0-0.5) mg/dL AST (5-31) U/L ALT (0-31) U/L Alkaline Phosphatase (39-117) U/L Total Protein (6.5-8.0) g/dL Albumin (3.5-5.0) g/dL Urine Color YELLOW Urine Appearance HAZY Urine pH 6.0 (5.0-8.0) Ur Specific [place] >= 1.030 H (1.005-1.025) Urine Protein NEG (NEG-TRACE) MG/DL Urine Glucose (UA) NEG (NEG) MG/DL Urine Ketones 15 (NEG) MG/DL Urine Blood TRACE (NEG) Urine Nitrite NEG (NEG) Ur Leukocyte Esterase 2+ H (NEG) Urine RBC 1-4 (0) /HPF Urine WBC 15-29 H (0-4) /HPF Ur Squamous Epith Cells 1+ /LPF Urine Bacteria 2+ /LPF Urine Mucus 1+ /LPF Urine Opiates Screen Not Detected (Not Detect) Urine Fentanyl Screen Not Detected (Not Detect) Ur Barbiturates Screen Not Detected (Not Detect) Ur Phencyclidine Scrn Not Detected (Not Detect) Ur Amphetamines Screen Not Detected (Not Detect) U Benzodiazepines Scrn Not Detected (Not Detect) Urine Cocaine Screen Not Detected (Not Detect) U Marijuana (THC) Screen Not Detected (Not Detect) Ethyl Alcohol mg/dL Imaging Data CT scan - head: Attestation: I personally reviewed and interpreted this imaging study as follows: My impression: No acute process. Radiologist's impression: EXAMINATION: CT HEAD WITHOUT CONTRAST CLINICAL INFORMATION: Speech difficulty for 2 days.? COMPARISON: Head CT from 09/14/2016 TECHNIQUE: Contiguous axial imaging was performed from the skull base to vertex without intravenous administration of contrast. This CT examination was performed using dose optimization techniques as appropriate, variously including the following: *Automated exposure control *Adjustment of mA and/or kV according to patient size (this includes techniques or standardized protocols for targeted exams where dose is matched to indication/reason for exam; i.e. extremities or head) *Use of iterative reconstruction technique DLP: 648 mGy-cm FINDINGS: No intracranial hemorrhage, extra-axial fluid collection, focal mass effect or midline shift. No evidence of an acute major vascular territory infarction. The medeiros-white matter differentiation is maintained. 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 There appear to be old lacunar infarcts in gangliocapsular regions, and findings include old lacunar infarct involving the right caudate head. The mild parenchymal volume loss is associated with commensurate prominence of ventricles and sulci. No hydrocephalus. No acute findings within the posterior fossa. The brainstem is unremarkable. The cerebellar tonsils are in normal position. The visualized paranasal sinuses, mastoid air cells and middle ear cavities are well aerated. The degeneration of temporomandibular joints is mild on the right, moderate on the left. CT/CT head/brain wo con IMPRESSION: No evidence of intracranial mass, hemorrhage or other acute intracranial pathology compared to 09/14/2016. 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 Dictated By: Reyes Aj MD Signed By: Electronically signed by Reyes Aj MD 06/15/22 1673 Discharge Plan Discharge Clinical Impression: Schizophrenia, Urinary tract infection Patient Disposition: Home, Self-Care Instructions: Urinary Tract Infection in Women (ED), Schizophrenia (ED) Additional Instructions: Follow up with your primary care provider and a psychiatrist. Return to the emergency department immediately if your symptoms worsen or if you develop any dizziness, shortness of breath, difficulty breathing, chest pain, blurry vision, loss of vision, nausea, vomiting, abdominal pain, fever, chills, back pain, or any other complaints. Call [phone] to follow up with [facility], per your request. Prescriptions: New cephalexin 500 mg tablet 500 mg PO QID 7 Days Qty: 28 0RF No Action hydrocortisone-acetic acid 1-2 % drops 4 drp otic (ear) right QID 6 Days Qty: 10 0RF omeprazole magnesium 20 mg capsule,delayed release(DR/EC) 20 mg PO DAILY 90 Days Qty: 90 1RF hydroxyzine HCl 10 mg tablet 10 mg PO DAILY PRN (Reason: Anxiety) 90 Days Qty: 90 1RF trifluoperazine 5 mg tablet 5 mg PO DAILY Qty: 90 0RF (DME) OFFSET HANDLE CANE See Rx Instructions .Route .MEDSUPPLY Qty: 1 0RF Rx Instructions: As directed (DME) Disposable Underpad 30 x 36 heavy flow See Rx Instructions .Route .MEDSUPPLY Qty: 100 12RF Rx Instructions: As directed (DME) PERSONAL CLEASING WIPES See Rx Instructions .Route .MEDSUPPLY Qty: 100 12RF Rx Instructions: As directed (DME) DISPOSABLE UNDERWEAR XL MODERATE ABSORBENCY See Rx Instructions .Route .MEDSUPPLY Qty: 120 12RF Rx Instructions: As directed artificial tears solution Drops 1 drp OPHTHALMIC (EYE) TID aspirin 81 mg tablet 81 mg PO DAILY garlic 1,000 mg capsule 1,000 mg PO DAILY diphenhydramine HCl [Benadryl] 25 mg capsule 25 mg PO BID PRN (Reason: Extra pyramidal symptoms) 30 Days Qty: 60 0RF losartan 25 mg tablet 25 mg PO DAILY 90 Days Qty: 90 2RF atorvastatin 10 mg tablet 10 mg PO DAILY Qty: 90 2RF triamcinolone acetonide 0.1 % lotion 1 appl topical BID 30 Days Qty: 60 0RF hydrochlorothiazide 25 mg tablet 25 mg PO DAILY Qty: 30 3RF Referrals: Leo,Erik Almonte MD [Primary Care Provider] - Interventions: ED Discharge Assessment Last Done: 06/15/22 23:55 Discharge Date/Time: 06/15/22 23:56 Print Language: [place]
[2022-06-15 21:39] VITALS: BP 185/87; PULSE 60; RESP 16; TEMP 36.5; O2SAT 98
[2022-06-15 23:11] LABS: Appearance Urine HAZY; Color Urine YELLOW; Glucose Urine UA NEG (NEG); Leukocyte Esterase Urine 2+ (NEG); Nitrite Urine NEG (NEG); Specific Gravity - Urine >= 1.030 (1.005-1.025); UACC Culture Trigger YES; Urine Blood TRACE (NEG); Urine Ketones 15 MG/DL (NEG); Urine Protein NEG (NEG-TRACE)
[2022-06-15 23:28] LABS: Bacteria Urine 2+ /LPF; Mucus Urine 1+ /LPF; Squamous Epithelial Cell Urine 1+ /LPF
[2022-06-15 23:47] LABS: Amphetamine Screen Urine Not Detected (Not Detect); Barbiturates, Urine Not Detected (Not Detect); Benzodiazepines Screen Urine Not Detected (Not Detect); Cannabinoid Screen Urine Not Detected (Not Detect); Cocaine Screen Urine Not Detected (Not Detect); Fentanyl, urine Not Detected (Not Detect); Opiate Screen Urine Not Detected (Not Detect); Phencyclidine Screen Urine Not Detected (Not Detect)
--- NOTE | 2022-06-15 23:52 | PC.NURSE ---
I assumed care of [place] upon her arrival to bed 15 from the waiting room. She presents alert, ambulatory with steady gait, calm and cooperative, flat affect. She makes eye contact with RN. Pt was able to ambulate to and from bathroom and provide urine sample without difficulty. She has been discharged at this time. She denies SI/HI.
== END 2022-06-15 23:56 | disposition home or self-care (01) ==
PROVIDERS: Physician Assistant; Emergency Provider Emergency Medicine; PCP Internal Medicine
DX: F20.9 Schizophrenia, unspecified (principal); N39.0 Urinary tract infection, site not specified; I10 Essential (primary) hypertension; E78.00 Pure hypercholesterolemia, unspecified; Z87.891 Personal history of nicotine dependence; Z79.82 Long term (current) use of aspirin; Z79.02 Long term (current) use of antithrombotics/antiplatelets; Z79.899 Other long term (current) drug therapy
CPT/HCPCS: 36415; 70450; 80048; 80076; 80307; 81001; 82077; 83735; 85025; 85610; 85730; 87086; 99284

== ENCOUNTER 2022-06-20 06:11 | Emergency (ER) | payer MEDICARE, SELFPAY ==
--- NOTE | ~2022-06-20 | CT_ITS ---
EXAMINATION: CT HEAD WITHOUT CONTRAST CLINICAL INFORMATION: Speak changes with 3 days COMPARISON: CT brain 06/15/2022 TECHNIQUE: Contiguous axial imaging was performed from the skull base to vertex without intravenous administration of contrast. This CT examination was performed using dose optimization techniques as appropriate, variously including the following: *Automated exposure control *Adjustment of mA and/or kV according to patient size (this includes techniques or standardized protocols for targeted exams where dose is matched to indication/reason for exam; i.e. extremities or head) *Use of iterative reconstruction technique DLP: 620 mGy-cm FINDINGS: There is no evidence of acute intracranial hemorrhage or territorial infarction. No abnormal mass effect or midline shift is seen. [place] to white matter differentiation is well preserved. No extra-axial fluid collections are identified. The lateral ventricles are symmetrical in size and configuration with mild enlargement. There is diffuse periventricular hypodensity in both cerebral hemispheres suggestive of chronic small vessel ischemic changes. Small lacunar infarction seen in the right basal ganglia. The osseous structures and soft tissues are normal. The mastoid air cells and visualized portions of the paranasal sinuses are well aerated. CT/CT head/brain wo con IMPRESSION: No acute intracranial process seen. Age related cerebral volume loss with chronic small vessel ischemic changes in both cerebral hemispheres. No change from previous study 06/15/2022.
--- NOTE | ~2022-06-20 | CT_ITS ---
EXAMINATION: CT ABDOMEN AND PELVIS WITHOUT CONTRAST CLINICAL INFORMATION: Left flank pain/cord pain COMPARISON: None TECHNIQUE: Multidetector volumetric imaging was performed from the superior aspect of the liver through the pubic symphysis. Sagittal and coronal reformatted images were obtained on the technologist's workstation. This CT examination was performed using dose optimization techniques as appropriate, variously including the following: *Automated exposure control *Adjustment of mA and/or kV according to patient size (this includes techniques or standardized protocols for targeted exams where dose is matched to indication/reason for exam; i.e. extremities or head) *Use of iterative reconstruction technique DLP: 619 mGy-cm FINDINGS: LUNG BASES: There is bibasilar bandlike atelectasis. There is dense breast calcifications. Heart size is normal. LIVER, GALLBLADDER, AND BILIARY TREE: The liver is normal in size, shape, and attenuation. No focal hepatic lesion or biliary ductal dilatation is present. The gallbladder is unremarkable with no evidence of radiopaque gallstones, gallbladder wall thickening, or obvious pericholecystic inflammatory changes. PANCREAS: Unremarkable. SPLEEN: Unremarkable. ADRENAL GLANDS: Unremarkable. KIDNEYS AND URETERS: The kidneys are normal in size, shape, and attenuation. No hydronephrosis, hydroureter, or calculi seen. No perinephric stranding. BLADDER: Unremarkable. GASTROINTESTINAL TRACT: There is scattered stool, diverticula and gas seen throughout the colon without any significant distention or diverticulitis. The small bowel loops are normal caliber. Appendix is normal caliber ABDOMINAL WALL: No significant hernia is appreciated. LYMPH NODES: Normal. VASCULAR: Unremarkable. PELVIC VISCERA: There is no free fluid air or free fluid. OSSEOUS STRUCTURES: No aggressive lytic or sclerotic process seen.. CT/CT abdomen pelvis wo con IMPRESSION: No acute intra-abdominal process seen. Colonic diverticulosis without colitis. There is moderate constipation without obstruction. Fleischner guidelines were followed.
--- NOTE | ~2022-06-20 | XR_ITS ---
EXAMINATION: XR CHEST CLINICAL INFORMATION: Left chest pain COMPARISON: None TECHNIQUE: Frontal view of the chest was obtained. FINDINGS: No significant abnormality is noted involving the heart, lungs, mediastinum, bony thorax or soft tissues. XR/XR chest 1V IMPRESSION: Unremarkable chest examination.
[2022-06-20 06:21] VITALS: PULSE 86; O2SAT 96
[2022-06-20 06:25] VITALS: BP 148/82; PULSE 74; RESP 18; TEMP 37.3; O2SAT 98; BMI 29.9
--- NOTE | 2022-06-20 06:41 | ECG_ITS ---
Test Reason : BACK PAIN Blood Pressure : / mmHG Vent. Rate : 074 BPM Atrial Rate : 074 BPM P-R Int : 144 ms QRS Dur : 128 ms QT Int : 396 ms P-R-T Axes : 051 -57 015 degrees QTc Int : 439 ms Normal sinus rhythm Right bundle branch block Left anterior fascicular block Bifascicular block Abnormal ECG When compared with ECG of 09-OCT-2016 05:03, Left anterior fascicular block is now Present Referred By: Radha Fallon Electronically Signed By:DIANE TAFOYA
[2022-06-20 07:12] LABS: MANUAL DIFF FLAG NO
[2022-06-20 07:14] LABS: Basophils Percent Auto 0.5 % (0-2); Eosinophils Percent Auto 0.2 % (0-4); Hematocrit 42.6 % (37.0-47.0); Hemoglobin 14.1 g/dl (12.0-16.0); Imm Gran Abs Auto 0.02 X10*3/uL (0.00-0.03); Imm Gran Pct Auto 0.3 % (0.0-0.4); Lymphocytes Absolute Auto 0.7 X10*3/uL (1.2-4.9); Mean Corpuscular HGB Conc 33.1 g/dl (31.0-35.0); Mean Corpuscular Hemoglobin 27.1 pg (27.0-33.0); Mean Corpuscular Volume 81.9 fL (80.0-98.0); Mean Platelet Volume 12.8 fL (9.4-12.3); Monocytes Absolute Auto 0.6 X10*3/uL (0.1-1.2); Monocytes Percent Auto 9.7 % (2-11); Neutrophils Absolute Auto 4.7 x10*3/uL (2.0-8.3); Neutrophils Percent Auto 77.3 % (45-73); Platelet Count 107 X10*3/uL (160-400); Red Cell Distribution Width 15.3 % (11.0-16.0); White Blood Count 6.1 X10*3/uL (4.8-10.8)
[2022-06-20 07:21] VITALS: BP 146/97; PULSE 108; RESP 23; TEMP 37.2; O2SAT 95
--- NOTE | 2022-06-20 07:23 | ED_ITS ---
HPI - General Adult General Chief complaint: Back Pain/Injury Stated complaint: back pain Time Seen by Provider: 06/20/22 06:41 Source: patient Mode of arrival: EMS History of Present Illness HPI narrative: 77-year-old female with history of hypertension, hyperlipidemia who presents with left ?kidney pain? that started approximately 21:00 last night and has not been associated with any nausea, vomiting, fever, chills and patient denies any diarrhea and states her last bowel movement was yesterday. Patient denies any worsening of pain with deep inspiration but states that there is more pain when she moves. She ambulates with a cane at baseline, denies any recent fever or chills or shortness of breath but states that she did have some chest tightness over the past week that has since resolved. She also describes urinary pain. But denies any new cough or sore throat. Related Data Home Medications Medication Instructions Recorded Confirmed artificial tears solution eye drops 1 drp ophthalmic (eye) TID 09/26/20 06/02/22 aspirin 81 mg tablet 81 mg PO DAILY 12/24/20 06/02/22 garlic 1,000 mg capsule 1,000 mg PO DAILY 12/24/20 06/02/22 Previous Rx's Medication Instructions Recorded hydrocortisone-acetic acid 1 %-2 % 4 drp otic (ear) right QID 6 days 09/14/21 ear drops #10 mL hydrochlorothiazide 25 mg tablet 25 mg PO DAILY #30 tabs 11/10/21 triamcinolone acetonide 0.1 % 1 appl topical BID 30 days #60 mL 11/10/21 lotion omeprazole magnesium 20 mg 20 mg PO DAILY 90 days #90 caps 11/20/21 capsule,delayed release hydroxyzine HCl 10 mg tablet 10 mg PO DAILY PRN Anxiety 90 days 12/05/21 #90 tabs trifluoperazine 5 mg tablet 5 mg PO DAILY #90 tabs 02/10/22 DISPOSABLE UNDERWEAR #120 ea 04/14/22 Disposable Underpad 30 x 36 heavy #100 ea 04/14/22 flow OFFSET HANDLE CANE #1 ea 04/14/22 PERSONAL CLEASING WIPES #100 ea 04/14/22 atorvastatin 10 mg tablet 10 mg PO DAILY #90 tabs 06/02/22 diphenhydramine HCl 25 mg capsule 25 mg PO BID PRN Extra pyramidal 06/02/22 (Benadryl) symptoms 30 days #60 caps losartan 25 mg tablet 25 mg PO DAILY 90 days #90 tabs 06/02/22 cephalexin 500 mg tablet 500 mg PO QID 7 days #28 tabs 06/15/22 Allergies Allergy/AdvReac Type Severity Reaction Status Date / Time MYESHA Inhibitors Allergy Severe ANGIOEDEMA Verified 06/20/22 06:27 WITH LISINOPRIL caffeine [CAFFEINE] Allergy Severe EXTREME Verified 06/20/22 06:27 PAIN IN BILATERAL KIDNEYS clozapine [From Clozaril] Allergy Severe Stomach Verified 06/20/22 06:27 Upset lisinopril Allergy Severe ANGIOEDEMA Verified 06/20/22 06:27 amoxicillin [AMOXICILLIN] Allergy Intermediate Stomach Verified 06/20/22 06:27 Upset atropine [Lomotil] Allergy Intermediate Stomach Verified 06/20/22 06:27 Upset bee pollen [BEE STINGS] Allergy Intermediate Swelling Verified 06/20/22 06:27 lovastatin Allergy Intermediate Cramps Verified 06/20/22 06:27 penicillin V Allergy Intermediate Stomach Verified 06/20/22 06:27 Upset ziprasidone [From GEODON] Allergy Intermediate HALLUCINATI Verified 06/20/22 06:27 ONS trifluoperazine Allergy Mild Stomach Verified 06/20/22 06:27 Upset TUNA FISH Allergy Severe SEVERE Uncoded 06/20/22 06:27 INDIGESTION, rash From PROLIXIN Allergy Intermediate UNKNOWN Uncoded 06/20/22 06:27 lovastatin Allergy Intermediate cramping Uncoded 06/20/22 06:27 prolixen Allergy Intermediate seizure Uncoded 06/20/22 06:27 amox Allergy Mild GI upset Uncoded 06/20/22 06:27 Review of Systems Review of Systems: Pertinent positives and negatives as stated in HPI 10 point review of systems is otherwise negative. [facility] Past Medical History Source: nursing notes reviewed Medical History GERD (gastroesophageal reflux disease) Hyperbilirubinemia Hypercholesterolemia Hypertension Impacted cerumen Leukopenia Meningitis Obesity (BMI 30-39.9) Pernicious anemia Schizophrenia Thrombocytopenia Urinary incontinence Vitamin D deficiency Surgical History H/O right wrist surgery History of tonsillectomy History of tooth extraction History of total abdominal hysterectomy and bilateral salpingo-oophorectomy Family History Family History Father Cancer Colon cancer Mother Cancer Colon cancer History of breast cancer Social History Social History Housing: Apartment Alcohol intake: never Patient Tobacco Use Status: Former Tobacco user Tobacco use type: Cigarette e-Cigarette/Vaping Use: Never Used Second Hand Smoke Exposure: No Use of substances other than those prescribed or required for medical reasons: No Advance Directives: No Advance Directives Information Provided: Yes service: No Current occupational status: disabled Cognitive needs: No Hearing needs: No Vision needs: Yes Physical Exam ED Vital Signs: Vital Signs - 24 hr 06/20/22 06:25 06/20/22 07:21 Temperature 99.2 F 98.9 F Pulse Rate 74 108 H Respiratory Rate 18 23 H Blood Pressure 148/82 H 146/97 H Pulse Oximetry 98 95 Oxygen Delivery Method Room Air Room Air BMI result Body Mass Index 29.9 VITAL SIGNS: Reviewed. GENERAL: Well developed, well nourished, in no acute distress. HEAD: Normocephalic/atraumatic EYES: PERRLA, EOMI EARS: Ext canals without abnormality OROPHARYNX: no oral lesions noted, posterior pharynx clear LUNGS: Normal breath sounds. No adventitious sounds or accessory muscle use. SpO2<98> CARDIOVASCULAR: Regular rate and rhythm without noted murmurs, no JVD or lower extremity edema. ABDOMEN: Soft, patient has significant discomfort on palpation over the left abdomen from upper quadrant down into lower quadrant without rebound, non- distended with bowel sounds. MUSCULOSKELETAL: No tenderness, deformities, or effusions noted on gross inspection. EXTREMITIES: No cyanosis, clubbing or edema. SKIN: Inspection of the skin reveals no rashes, ulcerations, jaundice, pallor, or petechiae. NEUROLOGIC: Alert and oriented x 4. Strength and sensation to light touch were grossly intact x 4, no facial asymmetry, no pronator drift. Course Course Course Narrative: 77-year-old female with history and clinical presentation mildly suggestive of possible diverticulitis, renal colic, UTI/pyelonephritis. Review of all investigations consistent with UTI and although patient expressed concerns regarding her speech pattern which started approximately [address] of the head is negative and patient was otherwise nonfocal. Patient states her pain has improved after receiving Tylenol and she was provided with 1 dose of Macrobid and patient endorses that she was unable to cook pickled meat her prescription because she was not feeling well. She is otherwise discharged home in stable condition and we will contact her emergency contact to arrange for her antibiotic to be picked up from the pharmacy. Medical Decision Making Lab Data Result diagrams: 06/20/22 07:08 06/20/22 07:08 Labs: Lab Results 06/20/22 06/20/22 06/20/22 Range/Units 07:08 07:08 07:08 WBC 6.1 (4.8-10.8) X10*3/uL RBC 5.20 (4.20-5.50) X10*6/uL Hgb 14.1 (12.0-16.0) g/dl Hct 42.6 (37.0-47.0) % MCV 81.9 (80.0-98.0) fL MCH 27.1 (27.0-33.0) pg MCHC 33.1 (31.0-35.0) g/dl RDW 15.3 (11.0-16.0) % Plt Count 107 L (160-400) X10*3/uL MPV 12.8 H (9.4-12.3) fL Immature Gran % (Auto) 0.3 (0.0-0.4) % Neut % (Auto) 77.3 H (45-73) % Lymph % (Auto) 12.0 L (20-40) % [place] % (Auto) 9.7 (2-11) % Eos % (Auto) 0.2 (0-4) % Baso % (Auto) 0.5 (0-2) % Lymph # (Auto) 0.7 L (1.2-4.9) X10*3/uL [place] # (Auto) 0.6 (0.1-1.2) X10*3/uL Eos # (Auto) 0.0 (0.0-0.4) X10*3/uL Baso # (Auto) 0.0 (0.0-0.2) X10*3/uL Abs Immat Gran (auto) 0.02 (0.00-0.03) X10*3/uL Absolute Neuts (auto) 4.7 (2.0-8.3) x10*3/uL Absolute Nucleated RBC 0.000 (0.0-0.012) X10*3/uL Nucleated RBC % (auto) 0.0 (0.0-0.2) /100WBC PT 12.0 (10.0-13.1) SEC INR 1.0 (0.9-1.1) Sodium 139 (135-145) mmol/L Potassium 3.9 (3.3-5.1) mmol/L Chloride 105 (96-108) mmol/L Carbon Dioxide 21 L (22-29) mmol/L Anion Gap 17 (12-20) BUN 15 (9-16) mg/dL Creatinine 0.87 (0.5-1.4) mg/dL Estim Creat Clear Calc 55.3 Estimated GFR > 60 Random Glucose 115 (60-115) mg/dL Calcium 8.9 D (8.4-10.2) mg/dL Total Bilirubin 1.1 H (0.0-1.0) mg/dL AST 20 (5-31) U/L ALT 9 (0-31) U/L Alkaline Phosphatase 106 (39-117) U/L Troponin I High Sens (<3.5-17.0) ng/L B-Natriuretic Peptide (<100) pg/mL Total Protein 7.1 (6.5-8.0) g/dL Albumin 4.0 (3.5-5.0) g/dL Urine Color Urine Appearance Urine pH (5.0-8.0) Ur Specific [place] (1.005-1.025) Urine Protein (NEG-TRACE) MG/DL Urine Glucose (UA) (NEG) MG/DL Urine Ketones (NEG) MG/DL Urine Blood (NEG) Urine Nitrite (NEG) Ur Leukocyte Esterase (NEG) Urine RBC (0) /HPF Urine WBC (0-4) /HPF Ur Squamous Epith Cells /LPF Urine Bacteria /LPF Urine Mucus /LPF COVID-19 ([facility]) (Negative) COVID-19 Clin Com 06/20/22 06/20/22 06/20/22 Range/Units 07:08 07:49 09:56 WBC (4.8-10.8) X10*3/uL RBC (4.20-5.50) X10*6/uL Hgb (12.0-16.0) g/dl Hct (37.0-47.0) % MCV (80.0-98.0) fL MCH (27.0-33.0) pg MCHC (31.0-35.0) g/dl RDW (11.0-16.0) % Plt Count (160-400) X10*3/uL MPV (9.4-12.3) fL Immature Gran % (Auto) (0.0-0.4) % Neut % (Auto) (45-73) % Lymph % (Auto) (20-40) % [place] % (Auto) (2-11) % Eos % (Auto) (0-4) % Baso % (Auto) (0-2) % Lymph # (Auto) (1.2-4.9) X10*3/uL [place] # (Auto) (0.1-1.2) X10*3/uL Eos # (Auto) (0.0-0.4) X10*3/uL Baso # (Auto) (0.0-0.2) X10*3/uL Abs Immat Gran (auto) (0.00-0.03) X10*3/uL Absolute Neuts (auto) (2.0-8.3) x10*3/uL Absolute Nucleated RBC (0.0-0.012) X10*3/uL Nucleated RBC % (auto) (0.0-0.2) /100WBC PT (10.0-13.1) SEC INR (0.9-1.1) Sodium (135-145) mmol/L Potassium (3.3-5.1) mmol/L Chloride (96-108) mmol/L Carbon Dioxide (22-29) mmol/L Anion Gap (12-20) BUN (9-16) mg/dL Creatinine (0.5-1.4) mg/dL Estim Creat Clear Calc Estimated GFR Random Glucose (60-115) mg/dL Calcium (8.4-10.2) mg/dL Total Bilirubin (0.0-1.0) mg/dL AST (5-31) U/L ALT (0-31) U/L Alkaline Phosphatase (39-117) U/L Troponin I High Sens 4.8 (<3.5-17.0) ng/L B-Natriuretic Peptide 36 (<100) pg/mL Total Protein (6.5-8.0) g/dL Albumin (3.5-5.0) g/dL Urine Color YELLOW Urine Appearance HAZY Urine pH 6.0 (5.0-8.0) Ur Specific [place] 1.010 (1.005-1.025) Urine Protein NEG (NEG-TRACE) MG/DL Urine Glucose (UA) NEG (NEG) MG/DL Urine Ketones 40 (NEG) MG/DL Urine Blood NEG (NEG) Urine Nitrite NEG (NEG) Ur Leukocyte Esterase 2+ H (NEG) Urine RBC 0-2 (0) /HPF Urine WBC 5-9 H (0-4) /HPF Ur Squamous Epith Cells 1+ /LPF Urine Bacteria 1+ /LPF Urine Mucus 1+ /LPF COVID-19 ([facility]) Negative (Negative) COVID-19 Clin Com See Note 06/20/22 Range/Units 10:30 WBC (4.8-10.8) X10*3/uL RBC (4.20-5.50) X10*6/uL Hgb (12.0-16.0) g/dl Hct (37.0-47.0) % MCV (80.0-98.0) fL MCH (27.0-33.0) pg MCHC (31.0-35.0) g/dl RDW (11.0-16.0) % Plt Count (160-400) X10*3/uL MPV (9.4-12.3) fL Immature Gran % (Auto) (0.0-0.4) % Neut % (Auto) (45-73) % Lymph % (Auto) (20-40) % [place] % (Auto) (2-11) % Eos % (Auto) (0-4) % Baso % (Auto) (0-2) % Lymph # (Auto) (1.2-4.9) X10*3/uL [place] # (Auto) (0.1-1.2) X10*3/uL Eos # (Auto) (0.0-0.4) X10*3/uL Baso # (Auto) (0.0-0.2) X10*3/uL Abs Immat Gran (auto) (0.00-0.03) X10*3/uL Absolute Neuts (auto) (2.0-8.3) x10*3/uL Absolute Nucleated RBC (0.0-0.012) X10*3/uL Nucleated RBC % (auto) (0.0-0.2) /100WBC PT (10.0-13.1) SEC INR (0.9-1.1) Sodium (135-145) mmol/L Potassium (3.3-5.1) mmol/L Chloride (96-108) mmol/L Carbon Dioxide (22-29) mmol/L Anion Gap (12-20) BUN (9-16) mg/dL Creatinine (0.5-1.4) mg/dL Estim Creat Clear Calc Estimated GFR Random Glucose (60-115) mg/dL Calcium (8.4-10.2) mg/dL Total Bilirubin (0.0-1.0) mg/dL AST (5-31) U/L ALT (0-31) U/L Alkaline Phosphatase (39-117) U/L Troponin I High Sens 4.9 (<3.5-17.0) ng/L B-Natriuretic Peptide (<100) pg/mL Total Protein (6.5-8.0) g/dL Albumin (3.5-5.0) g/dL Urine Color Urine Appearance Urine pH (5.0-8.0) Ur Specific [place] (1.005-1.025) Urine Protein (NEG-TRACE) MG/DL Urine Glucose (UA) (NEG) MG/DL Urine Ketones (NEG) MG/DL Urine Blood (NEG) Urine Nitrite (NEG) Ur Leukocyte Esterase (NEG) Urine RBC (0) /HPF Urine WBC (0-4) /HPF Ur Squamous Epith Cells /LPF Urine Bacteria /LPF Urine Mucus /LPF COVID-19 ([facility]) (Negative) COVID-19 Clin Com ECG Data Attestation: I personally reviewed and interpreted this ECG as follows: Prior ECG tracings: available for review Interpretation: Normal sinus rhythm, RBBB, HR-74, no STEMI, UT/QTC are within normal limits. Discharge Plan Discharge Clinical Impression: Acute UTI, Abdominal pain Patient Disposition: Home, Self-Care Instructions: Urinary Tract Infection in Women (ED), Abdominal Pain (ED) Additional Instructions: 1. Resume all home medications as prescribed. 2. You must complete the entire course of antibiotics as prescribed to resolve your urinary tract infection. 3. Follow-up with your primary care provider by calling the office in the morning for re-evaluation. Return to the ER for any worsening symptoms. Prescriptions: No Action hydrocortisone-acetic acid 1-2 % drops 4 drp otic (ear) right QID 6 Days Qty: 10 0RF omeprazole magnesium 20 mg capsule,delayed release(DR/EC) 20 mg PO DAILY 90 Days Qty: 90 1RF hydroxyzine HCl 10 mg tablet 10 mg PO DAILY PRN (Reason: Anxiety) 90 Days Qty: 90 1RF trifluoperazine 5 mg tablet 5 mg PO DAILY Qty: 90 0RF (DME) OFFSET HANDLE CANE See Rx Instructions .Route .MEDSUPPLY Qty: 1 0RF Rx Instructions: As directed (DME) Disposable Underpad 30 x 36 heavy flow See Rx Instructions .Route .MEDSUPPLY Qty: 100 12RF Rx Instructions: As directed (DME) PERSONAL CLEASING WIPES See Rx Instructions .Route .MEDSUPPLY Qty: 100 12RF Rx Instructions: As directed (DME) DISPOSABLE UNDERWEAR XL MODERATE ABSORBENCY See Rx Instructions .Route .MEDSUPPLY Qty: 120 12RF Rx Instructions: As directed artificial tears solution Drops 1 drp OPHTHALMIC (EYE) TID cephalexin 500 mg tablet 500 mg PO QID 7 Days Qty: 28 0RF aspirin 81 mg tablet 81 mg PO DAILY garlic 1,000 mg capsule 1,000 mg PO DAILY diphenhydramine HCl [Benadryl] 25 mg capsule 25 mg PO BID PRN (Reason: Extra pyramidal symptoms) 30 Days Qty: 60 0RF losartan 25 mg tablet 25 mg PO DAILY 90 Days Qty: 90 2RF atorvastatin 10 mg tablet 10 mg PO DAILY Qty: 90 2RF triamcinolone acetonide 0.1 % lotion 1 appl topical BID 30 Days Qty: 60 0RF hydrochlorothiazide 25 mg tablet 25 mg PO DAILY Qty: 30 3RF Referrals: Po,Erik Almonte MD [Primary Care Provider] - (Patient has UTI.)
[2022-06-20 07:33] LABS: Troponin-I High Sensitivity 4.8 ng/L (<3.5-17.0)
[2022-06-20 07:34] LABS: Alanine Aminotransferase 9 U/L (0-31); Alkaline Phosphatase 106 U/L (39-117); Anion Gap 17 (12-20); Aspartate Amino Transferase 20 U/L (5-31); Bilirubin Total 1.1 mg/dL (0.0-1.0); Blood Urea Nitrogen 15 mg/dL (9-16); Calcium 8.9 mg/dL (8.4-10.2); Carbon Dioxide 21 mmol/L (22-29); Chloride 105 mmol/L (96-108); Creatinine Clr Calc Pharmacy 55.3; Estimated Glomerular Filt Rate > 60; Glucose Random 115 mg/dL (60-115); Potassium 3.9 mmol/L (3.3-5.1); Sodium 139 mmol/L (135-145); Total Protein 7.1 g/dL (6.5-8.0)
[2022-06-20] MEDS: Acetaminophen 325 MG TABLET 975 MG PO (07:45)
[2022-06-20 08:11] LABS: COVID-19 Test Negative (Negative)
[2022-06-20 09:50] LABS: B Type Natriuretic Peptide 36 pg/mL (<100)
[2022-06-20 10:07] LABS: Appearance Urine HAZY; Color Urine YELLOW; Glucose Urine UA NEG (NEG); Leukocyte Esterase Urine 2+ (NEG); Nitrite Urine NEG (NEG); UACC Culture Trigger YES; Urine Blood NEG (NEG); Urine Ketones 40 MG/DL (NEG); Urine Protein NEG (NEG-TRACE)
[2022-06-20 10:16] LABS: RBC Urine 0-2 /HPF (0)
[2022-06-20 10:17] LABS: Bacteria Urine 1+ /LPF; Mucus Urine 1+ /LPF; Squamous Epithelial Cell Urine 1+ /LPF
[2022-06-20 10:59] LABS: Troponin-I High Sensitivity 4.9 ng/L (<3.5-17.0)
[2022-06-20] MEDS: Nitrofurantoin Monohyd/M-Cryst 100 MG CAPSULE PO (11:08)
== END 2022-06-20 12:14 | disposition home or self-care (01) ==
PROVIDERS: Emergency Provider Student in an Organized Health Care Education/Training Program; PCP Internal Medicine
DX: N39.0 Urinary tract infection, site not specified (principal); R10.9 Unspecified abdominal pain; M54.50 Low back pain, unspecified; R51.9 Headache, unspecified; R07.89 Other chest pain; R06.02 Shortness of breath; Z20.822 Contact with and (suspected) exposure to COVID-19; Z79.899 Other long term (current) drug therapy; Z87.891 Personal history of nicotine dependence
CPT/HCPCS: 36415; 70450; 71045; 74176; 80053; 81001; 83880; 84484; 85025; 85610; 87086; 87635; 93005; 99285

== ENCOUNTER 2022-06-23 12:16 | Emergency (ER) | payer MEDICARE, SELFPAY ==
[2022-06-23 13:06] VITALS: BP 158/96; PULSE 88; O2SAT 96
[2022-06-23 13:13] VITALS: BMI 26.6
[2022-06-23 13:16] VITALS: BP 157/83; PULSE 86; RESP 16; TEMP 37.2; O2SAT 98
--- NOTE | 2022-06-23 15:50 | ED.BACK ---
HPI - Back Pain/Injury General Chief Complaint: Back Pain/Injury <ROBERTH Sal Last Filed: 06/23/22 18:46> Stated Complaint: LOW BACK PAIN 06/30 <ROBERTH Sal Last Filed: 06/23/22 18:46> Time Seen by Provider: 06/23/22 15:03 <ROBERTH Sal Last Filed: 06/23/22 18:46> Source: patient and EMS <ROBERTH Sal Last Filed: 06/23/22 18:46> Mode of arrival: EMS <ROBERTH Sal Last Filed: 06/23/22 18:46> History of Present Illness HPI Narrative: 77-year-old female with a past medical history of GERD, HLD, HTN, meningitis, pernicious anemia, schizophrenia, thrombocytopenia, urinary incontinence, recently seen and treated in our ED on 06/15 and 06/20/2022 diagnosed with UTI, presenting to the ED complaining of persistent left-sided lower back pain intermittently radiating down LLE. Also reports persistent abdominal discomfort. Reports pain worse with movement/ambulation. Denies fever, chills, numbness, tingling, weakness, urinary incontinence/retention, dysuria/hematuria <ROBERTH Sal Last Filed: 06/23/22 18:46> MD elicited complaint: back pain <ROBERTH Sal Last Filed: 06/23/22 18:46> Pertinent past history: prior back pain <ROBERTH Sal Last Filed: 06/23/22 18:46> Onset (ago): day(s) <ROBERTH Sal Last Filed: 06/23/22 18:46> Timing: constant <ROBERTH Sal Last Filed: 06/23/22 18:46> Related Data Home Medications: Home Medications Medication Instructions Recorded Confirmed artificial tears solution eye drops 1 drp ophthalmic (eye) TID 09/26/20 06/02/22 aspirin 81 mg tablet 81 mg PO DAILY 12/24/20 06/02/22 garlic 1,000 mg capsule 1,000 mg PO DAILY 12/24/20 06/02/22 Previous Rx's Medication Instructions Recorded hydrocortisone-acetic acid 1 %-2 % 4 drp otic (ear) right QID 6 days 09/14/21 ear drops #10 mL hydrochlorothiazide 25 mg tablet 25 mg PO DAILY #30 tabs 11/10/21 triamcinolone acetonide 0.1 % 1 appl topical BID 30 days #60 mL 11/10/21 lotion omeprazole magnesium 20 mg 20 mg PO DAILY 90 days #90 caps 11/20/21 capsule,delayed release hydroxyzine HCl 10 mg tablet 10 mg PO DAILY PRN Anxiety 90 days 12/05/21 #90 tabs trifluoperazine 5 mg tablet 5 mg PO DAILY #90 tabs 02/10/22 DISPOSABLE UNDERWEAR #120 ea 04/14/22 Disposable Underpad 30 x 36 heavy #100 ea 04/14/22 flow OFFSET HANDLE CANE #1 ea 04/14/22 PERSONAL CLEASING WIPES #100 ea 04/14/22 atorvastatin 10 mg tablet 10 mg PO DAILY #90 tabs 06/02/22 diphenhydramine HCl 25 mg capsule 25 mg PO BID PRN Extra pyramidal 06/02/22 (Benadryl) symptoms 30 days #60 caps losartan 25 mg tablet 25 mg PO DAILY 90 days #90 tabs 06/02/22 cephalexin 500 mg tablet 500 mg PO QID 7 days #28 tabs 06/15/22 acetaminophen 500 mg tablet 500 mg PO Q6H PRN fever or pain 06/23/22 (Tylenol Extra Strength) #14 tabs cyclobenzaprine 5 mg tablet 5 mg PO Q8H PRN pain (scale score 06/23/22 7-10) 5 days #14 tabs lidocaine 5 % topical patch 1 patch topical DAILY PRN pain #30 06/23/22 (Lidoderm) ea naproxen 500 mg tablet 500 mg PO BID PRN pain 10 days #20 06/23/22 tabs <ROBERTH Sal - Last Filed: 06/23/22 18:46> Allergies/Adverse Reactions: Allergies Allergy/AdvReac Type Severity Reaction Status Date / Time MYESHA Inhibitors Allergy Severe ANGIOEDEMA Verified 06/23/22 13:07 WITH LISINOPRIL caffeine [CAFFEINE] Allergy Severe EXTREME Verified 06/20/22 06:27 PAIN IN BILATERAL KIDNEYS clozapine [From Clozaril] Allergy Severe Stomach Verified 06/20/22 06:27 Upset lisinopril Allergy Severe ANGIOEDEMA Verified 06/20/22 06:27 amoxicillin [AMOXICILLIN] Allergy Intermediate Stomach Verified 06/20/22 06:27 Upset atropine [Lomotil] Allergy Intermediate Stomach Verified 06/20/22 06:27 Upset bee pollen [BEE STINGS] Allergy Intermediate Swelling Verified 06/20/22 06:27 lovastatin Allergy Intermediate Cramps Verified 06/20/22 06:27 penicillin V Allergy Intermediate Stomach Verified 06/20/22 06:27 Upset ziprasidone [From GEODON] Allergy Intermediate HALLUCINATI Verified 06/20/22 06:27 ONS trifluoperazine Allergy Mild Stomach Verified 06/20/22 06:27 Upset TUNA FISH Allergy Severe SEVERE Uncoded 06/20/22 06:27 INDIGESTION, rash From PROLIXIN Allergy Intermediate UNKNOWN Uncoded 06/20/22 06:27 lovastatin Allergy Intermediate cramping Uncoded 06/20/22 06:27 prolixen Allergy Intermediate seizure Uncoded 06/20/22 06:27 amox Allergy Mild GI upset Uncoded 06/20/22 06:27 <ROBERTH Sal Last Filed: 06/23/22 18:46> Review of Systems Review of Systems: Constitutional: No Fever, No Chills, No Fatigue, No Malaise ENT/Mouth: No Ear Pain, No Nasal Congestion, No Sinus Pain, No sore throat, No Rhinorrhea, No Swallowing Difficulty Eyes: No Eye Pain, No Swelling, No Discharge, No Vision Changes Cardiovascular: No Chest Pain, No SOB, No Dyspnea on Exertion, No Orthopnea, No Edema, No Palpitations Respiratory: No Cough, No Sputum, No Dyspnea Gastrointestinal: No Nausea, No Vomiting, No Diarrhea, No Constipation, + Abdominal pain Genitourinary: No Dysuria, No Urinary Frequency, No Hematuria, No Urinary Incontinence/retention, No Urgency, No Flank Pain Musculoskeletal: + back pain, No Myalgias, No Joint Swelling Skin: No Skin Lesions, No rash Neuro: No Weakness, No Numbness, No Paresthesias, No Loss of Consciousness, No Dizziness, No Headache <ROBERTH Sal Last Filed: 06/23/22 18:46> Yes all other systems are reviewed and are negative <ROBERTH Sal Last Filed: 06/23/22 18:46> Constitutional: Constitutional: Reports as per HPI <ROBERTH Sal - Last Filed: 06/23/22 18:46> [facility] Past Medical History Attestation statement: The following information was validated with the patient. <ROBERTH Sal - Last Filed: 06/23/22 18:46> Medical History: Medical History GERD (gastroesophageal reflux disease) Hyperbilirubinemia Hypercholesterolemia Hypertension Impacted cerumen Leukopenia Meningitis Obesity (BMI 30-39.9) Pernicious anemia Schizophrenia Thrombocytopenia Urinary incontinence Vitamin D deficiency <ROBERTH Sal - Last Filed: 06/23/22 18:46> Surgical History: Surgical History H/O right wrist surgery History of tonsillectomy History of tooth extraction History of total abdominal hysterectomy and bilateral salpingo-oophorectomy <ROBERTH Sal - Last Filed: 06/23/22 18:46> Family History Family History: Family History Father Cancer Colon cancer Mother Cancer Colon cancer History of breast cancer <ROBERTH Sal - Last Filed: 06/23/22 18:46> Social History Social History: Social History Housing: Apartment Alcohol intake: never Patient Tobacco Use Status: Former Tobacco user Tobacco use type: Cigarette e-Cigarette/Vaping Use: Never Used Second Hand Smoke Exposure: No Advance Directives: No Advance Directives Information Provided: Yes service: No Current occupational status: disabled Cognitive needs: No Hearing needs: No Vision needs: Yes <ROBERTH Sal - Last Filed: 06/23/22 18:46> Physical Exam Vital Signs: Vital Signs: Last Vital Signs Temp 98.3 F 06/23/22 20:16 Pulse 77 06/23/22 20:16 Resp 16 06/23/22 20:16 BP 131/89 06/23/22 20:16 Pulse Ox 97 06/23/22 20:16 O2 Del Method 06/23/22 20:16 BMI result Body Mass Index 26.6 <ROBERTH Sal - Last Filed: 06/23/22 18:46> Vital Signs: Last Vital Signs Temp 98.3 F 06/23/22 20:16 Pulse 77 06/23/22 20:16 Resp 16 06/23/22 20:16 BP 131/89 06/23/22 20:16 Pulse Ox 97 06/23/22 20:16 O2 Del Method 06/23/22 20:16 BMI result Body Mass Index 26.6 <ROBERTH Morris - Last Filed: 06/23/22 21:32> Const: General: cooperative, healthy appearing and no acute distress <ROBERTH Sal - Last Filed: 06/23/22 18:46> Orientation/consciousness: patient oriented x3 <ROBERTH Sal - Last Filed: 06/23/22 18:46> Limitations: no limitations <ROBERTH Sal - Last Filed: 06/23/22 18:46> HEENT: Head: Yes normal to inspection and Yes atraumatic <ROBERTH Sal - Last Filed: 06/23/22 18:46> Ears: hearing grossly normal bilaterally <ROBERTH Sal - Last Filed: 06/23/22 18:46> General nose exam: Normal external nose present <ROBERTH Sal - Last Filed: 06/23/22 18:46> Face and sinus: Yes normal facial exam <ROBERTH Sal - Last Filed: 06/23/22 18:46> Eyes: General: appearance normal, both eyes and all related structures <ROBERTH Sal - Last Filed: 06/23/22 18:46> EOM: EOMs intact bilaterally <ROBERTH Sal - Last Filed: 06/23/22 18:46> Neck: Neck: Yes normal visual inspection and Yes no meningeal signs <ROBERTH Sal - Last Filed: 06/23/22 18:46> Resp: Effort & Inspection: normal respiratory effort and no respiratory distress <ROBERTH aSl - Last Filed: 06/23/22 18:46> Auscultation: clear to auscultation bilaterally <ROBERTH Sal - Last Filed: 06/23/22 18:46> Cardio: Rate: regular rate <ROBERTH Sal - Last Filed: 06/23/22 18:46> Heart sounds: S1 normal heart sound present and S2 normal heart sound present <ROBERTH Sal - Last Filed: 06/23/22 18:46> GI: Inspection: Yes normal to inspection <ROBERTH Sal - Last Filed: 06/23/22 18:46> Palpation (GI): Soft to palpation, Tenderness to palpation present (GI) in the RLQ; with no rebound tenderness, no guarding and not rigid <ROBERTH Sal - Last Filed: 06/23/22 18:46> : General: Yes CVA tenderness on the left <ROBERTH Sal - Last Filed: 06/23/22 18:46> Back/Spine/Pelvis: Other: No midline thoracic/lumbar spinous tenderness/step-off or deformity. + left-sided lower lumbar MSK tenderness/left buttock tenderness reproducing subjective complaint <ROBERTH Sal - Last Filed: 06/23/22 18:46> Back: CVA tenderness <ROBERTH Sal - Last Filed: 06/23/22 18:46> Skin: Rashes: no rashes <ROBERTH Sal - Last Filed: 06/23/22 18:46> Wounds: no wounds <ROBERTH Sal - Last Filed: 06/23/22 18:46> Neuro: Other: Strength intact throughout. No saddle anesthesia. Sensation intact to light touch. Neurovascular intact distally <ROBERTH Sal - Last Filed: 06/23/22 18:46> General: patient oriented x3, tone normal, moves all extremities and no meningeal signs <ROBERTH Sal - Last Filed: 06/23/22 18:46> Extrem: General: Yes normal to inspection <ROBERTH Sal Last Filed: 06/23/22 18:46> Course Course Course Narrative: -1843--no leukocytosis. BUN chronically elevated. Total bili chronically elevated. Labs otherwise reassuring -1900-- ED care transferred to ROBERTH Wyman pending UA and anticipated d/c home <ROBERTH Sal - Last Filed: 06/23/22 18:46> Reevaluation(s) Reevaluation #1: UA normal. patient has normal gait. patient walked around the ED. patient safe for discharge. <ROBERTH Morris - Last Filed: 06/23/22 21:32> Time: 20:10 <ROBERTH Morris - Last Filed: 06/23/22 21:32> MDM - Back Pain/Injury MDM Narrative Medical decision making narrative: 77-year-old female with a past medical history of GERD, HLD, HTN, meningitis, pernicious anemia, schizophrenia, thrombocytopenia, urinary incontinence, recently seen and treated in our ED on 06/15 and 06/20/2022 diagnosed with UTI, presenting to the ED complaining of persistent left-sided lower back pain intermittently radiating down LLE. Also reports persistent abdominal discomfort. On exam vital signs stable, NAD, nontoxic appearing, abdomen soft with are acute tenderness, no rebound or guarding, + left CVAT, no midline spinous tenderness throughout or red flag symptoms. Concern for MSK back pain/strain vs sciatica vs persistent UTI/? Pyelonephritis. Appendicitis on differential however lower due to recent negative CT on 06/20. Plan: Repeat labs, repeat UA, symptomatic treatment, re-evaluate. Will avoid repeat CT at this time <ROBERTH Sal - Last Filed: 06/23/22 18:46> Differential Diagnosis Differential diagnosis: Likely lumbar radiculopathy, renal colic, pyelonephritis and thoracic back pain <ROBERTH Sal - Last Filed: 06/23/22 18:46> Medical Records Attestation: I reviewed the patient's medical records. <ROBERTH Sal - Last Filed: 06/23/22 18:46> Lab Data Attestation: I reviewed the patient's lab results. <ROBERTH Sal - Last Filed: 06/23/22 18:46> Result diagrams: : 06/23/22 18:05 06/23/22 18:05 <ROBERTH Sal - Last Filed: 06/23/22 18:46> Labs: Lab Results 06/23/22 06/23/22 06/23/22 Range/Units 18:05 18:05 19:37 WBC 8.5 (4.8-10.8) X10*3/uL RBC 5.13 (4.20-5.50) X10*6/uL Hgb 13.6 (12.0-16.0) g/dl Hct 41.1 (37.0-47.0) % MCV 80.1 (80.0-98.0) fL MCH 26.5 L (27.0-33.0) pg MCHC 33.1 (31.0-35.0) g/dl RDW 15.1 (11.0-16.0) % Plt Count 120 L (160-400) X10*3/uL MPV 12.7 H (9.4-12.3) fL Immature Gran % (Auto) 0.5 H (0.0-0.4) % Neut % (Auto) 72.4 (45-73) % Lymph % (Auto) 13.6 L (20-40) % [place] % (Auto) 12.9 H (2-11) % Eos % (Auto) 0.2 (0-4) % Baso % (Auto) 0.4 (0-2) % Lymph # (Auto) 1.2 (1.2-4.9) X10*3/uL [place] # (Auto) 1.1 (0.1-1.2) X10*3/uL Eos # (Auto) 0.0 (0.0-0.4) X10*3/uL Baso # (Auto) 0.0 (0.0-0.2) X10*3/uL Abs Immat Gran (auto) 0.04 H (0.00-0.03) X10*3/uL Absolute Neuts (auto) 6.1 (2.0-8.3) x10*3/uL Absolute Nucleated RBC 0.000 (0.0-0.012) X10*3/uL Nucleated RBC % (auto) 0.0 (0.0-0.2) /100WBC Sodium 141 (135-145) mmol/L Potassium 4.1 (3.3-5.1) mmol/L Chloride 101 (96-108) mmol/L Carbon Dioxide 25 (22-29) mmol/L Anion Gap 19 (12-20) BUN 21 H (9-16) mg/dL Creatinine 0.90 (0.5-1.4) mg/dL Estim Creat Clear Calc 50.6 Estimated GFR > 60 Random Glucose 97 (60-115) mg/dL Calcium 9.0 (8.4-10.2) mg/dL Magnesium 2.1 (1.6-2.6) mg/dL Total Bilirubin 1.9 H (0.0-1.0) mg/dL Direct Bilirubin 0.6 H (0.0-0.5) mg/dL AST 22 (5-31) U/L ALT 10 (0-31) U/L Alkaline Phosphatase 97 (39-117) U/L Total Protein 7.2 (6.5-8.0) g/dL Albumin 3.9 (3.5-5.0) g/dL Lipase 24 (8-78) U/L Urine Color YELLOW Urine Appearance CLEAR Urine pH 6.0 (5.0-8.0) Ur Specific [place] 1.025 (1.005-1.025) Urine Protein TRACE (NEG-TRACE) MG/DL Urine Glucose (UA) NEG (NEG) MG/DL Urine Ketones 40 (NEG) MG/DL Urine Blood NEG (NEG) Urine Nitrite NEG (NEG) Ur Leukocyte Esterase NEG (NEG) <ROBERTH Sal - Last Filed: 06/23/22 18:46> Lab Results 06/23/22 06/23/22 06/23/22 Range/Units 18:05 18:05 19:37 WBC 8.5 (4.8-10.8) X10*3/uL RBC 5.13 (4.20-5.50) X10*6/uL Hgb 13.6 (12.0-16.0) g/dl Hct 41.1 (37.0-47.0) % MCV 80.1 (80.0-98.0) fL MCH 26.5 L (27.0-33.0) pg MCHC 33.1 (31.0-35.0) g/dl RDW 15.1 (11.0-16.0) % Plt Count 120 L (160-400) X10*3/uL MPV 12.7 H (9.4-12.3) fL Immature Gran % (Auto) 0.5 H (0.0-0.4) % Neut % (Auto) 72.4 (45-73) % Lymph % (Auto) 13.6 L (20-40) % [place] % (Auto) 12.9 H (2-11) % Eos % (Auto) 0.2 (0-4) % Baso % (Auto) 0.4 (0-2) % Lymph # (Auto) 1.2 (1.2-4.9) X10*3/uL [place] # (Auto) 1.1 (0.1-1.2) X10*3/uL Eos # (Auto) 0.0 (0.0-0.4) X10*3/uL Baso # (Auto) 0.0 (0.0-0.2) X10*3/uL Abs Immat Gran (auto) 0.04 H (0.00-0.03) X10*3/uL Absolute Neuts (auto) 6.1 (2.0-8.3) x10*3/uL Absolute Nucleated RBC 0.000 (0.0-0.012) X10*3/uL Nucleated RBC % (auto) 0.0 (0.0-0.2) /100WBC Sodium 141 (135-145) mmol/L Potassium 4.1 (3.3-5.1) mmol/L Chloride 101 (96-108) mmol/L Carbon Dioxide 25 (22-29) mmol/L Anion Gap 19 (12-20) BUN 21 H (9-16) mg/dL Creatinine 0.90 (0.5-1.4) mg/dL Estim Creat Clear Calc 50.6 Estimated GFR > 60 Random Glucose 97 (60-115) mg/dL Calcium 9.0 (8.4-10.2) mg/dL Magnesium 2.1 (1.6-2.6) mg/dL Total Bilirubin 1.9 H (0.0-1.0) mg/dL Direct Bilirubin 0.6 H (0.0-0.5) mg/dL AST 22 (5-31) U/L ALT 10 (0-31) U/L Alkaline Phosphatase 97 (39-117) U/L Total Protein 7.2 (6.5-8.0) g/dL Albumin 3.9 (3.5-5.0) g/dL Lipase 24 (8-78) U/L Urine Color YELLOW Urine Appearance CLEAR Urine pH 6.0 (5.0-8.0) Ur Specific [place] 1.025 (1.005-1.025) Urine Protein TRACE (NEG-TRACE) MG/DL Urine Glucose (UA) NEG (NEG) MG/DL Urine Ketones 40 (NEG) MG/DL Urine Blood NEG (NEG) Urine Nitrite NEG (NEG) Ur Leukocyte Esterase NEG (NEG) <ROBERTH Morris - Last Filed: 06/23/22 21:32> Discharge Plan Discharge Clinical Impression: Low back pain <ROBERTH Sal - Last Filed: 06/23/22 18:46> Patient Disposition: Home, Self-Care <ROBERTH Sal Last Filed: 06/23/22 18:46> Instructions: Back Pain (ED) <ROBERTH Sal - Last Filed: 06/23/22 18:46> Additional Instructions: Your blood work was reassuring today in the emergency department. Your pain is likely musculoskeletal Flexeril is a muscle relaxer, take at night as it makes you drowsy, do not drive, drink alcohol, or operate machinery while taking it Naproxen as an anti-inflammatory / pain medication, take with food Lidoderm patches are numbing patches, apply to painful area In addition take Tylenol at home If symptoms persist or worsen, pain becomes unbearable, you developed urinary retention or incontinence, or weakness return to the ED <ROBERTH Sal - Last Filed: 06/23/22 18:46> Prescriptions: New acetaminophen [Tylenol Extra Strength] 500 mg tablet 500 mg PO Q6H PRN (Reason: fever or pain) Qty: 14 0RF lidocaine [Lidoderm] 5 % adhesive patch,medicated 1 patch topical DAILY MDD remove after 12 hours PRN (Reason: pain) Qty: 30 0RF Rx Instructions: leave on most painful area for up to 12 hrs naproxen 500 mg tablet 500 mg PO BID PRN (Reason: pain) 10 Days Qty: 20 0RF cyclobenzaprine 5 mg tablet 5 mg PO Q8H PRN (Reason: pain (scale score 7-10)) 5 Days Qty: 14 0RF No Action hydrocortisone-acetic acid 1-2 % drops 4 drp otic (ear) right QID 6 Days Qty: 10 0RF omeprazole magnesium 20 mg capsule,delayed release(DR/EC) 20 mg PO DAILY 90 Days Qty: 90 1RF hydroxyzine HCl 10 mg tablet 10 mg PO DAILY PRN (Reason: Anxiety) 90 Days Qty: 90 1RF trifluoperazine 5 mg tablet 5 mg PO DAILY Qty: 90 0RF (DME) OFFSET HANDLE CANE See Rx Instructions .Route .MEDSUPPLY Qty: 1 0RF Rx Instructions: As directed (DME) Disposable Underpad 30 x 36 heavy flow See Rx Instructions .Route .MEDSUPPLY Qty: 100 12RF Rx Instructions: As directed (DME) PERSONAL CLEASING WIPES See Rx Instructions .Route .MEDSUPPLY Qty: 100 12RF Rx Instructions: As directed (DME) DISPOSABLE UNDERWEAR XL MODERATE ABSORBENCY See Rx Instructions .Route .MEDSUPPLY Qty: 120 12RF Rx Instructions: As directed artificial tears solution Drops 1 drp OPHTHALMIC (EYE) TID cephalexin 500 mg tablet 500 mg PO QID 7 Days Qty: 28 0RF aspirin 81 mg tablet 81 mg PO DAILY garlic 1,000 mg capsule 1,000 mg PO DAILY diphenhydramine HCl [Benadryl] 25 mg capsule 25 mg PO BID PRN (Reason: Extra pyramidal symptoms) 30 Days Qty: 60 0RF losartan 25 mg tablet 25 mg PO DAILY 90 Days Qty: 90 2RF atorvastatin 10 mg tablet 10 mg PO DAILY Qty: 90 2RF triamcinolone acetonide 0.1 % lotion 1 appl topical BID 30 Days Qty: 60 0RF hydrochlorothiazide 25 mg tablet 25 mg PO DAILY Qty: 30 3RF <ROBERTH Sal - Last Filed: 06/23/22 18:46> Referrals: Po,Erik Almonte MD [Primary Care Provider] - 2 days <ROBERTH Sal - Last Filed: 06/23/22 18:46> Interventions: ED Discharge Assessment Last Done: 06/23/22 20:34 <ROBERTH Sal - Last Filed: 06/23/22 18:46> Discharge Date/Time: 06/23/22 20:35 <ROBERTH Sal - Last Filed: 06/23/22 18:46>
[2022-06-23] MEDS: Ketorolac Tromethamine 30 MG/ML VIAL IM (17:11)
[2022-06-23] MEDS: Cyclobenzaprine HCl 5 MG TABLET PO (17:11)
[2022-06-23 18:14] LABS: MANUAL DIFF FLAG NO
[2022-06-23 18:17] LABS: Basophils Percent Auto 0.4 % (0-2); Eosinophils Percent Auto 0.2 % (0-4); Hematocrit 41.1 % (37.0-47.0); Hemoglobin 13.6 g/dl (12.0-16.0); Imm Gran Abs Auto 0.04 X10*3/uL (0.00-0.03); Imm Gran Pct Auto 0.5 % (0.0-0.4); Lymphocytes Absolute Auto 1.2 X10*3/uL (1.2-4.9); Lymphocytes Percent Auto 13.6 % (20-40); Mean Corpuscular HGB Conc 33.1 g/dl (31.0-35.0); Mean Corpuscular Hemoglobin 26.5 pg (27.0-33.0); Mean Corpuscular Volume 80.1 fL (80.0-98.0); Mean Platelet Volume 12.7 fL (9.4-12.3); Monocytes Absolute Auto 1.1 X10*3/uL (0.1-1.2); Monocytes Percent Auto 12.9 % (2-11); Neutrophils Absolute Auto 6.1 x10*3/uL (2.0-8.3); Neutrophils Percent Auto 72.4 % (45-73); Platelet Count 120 X10*3/uL (160-400); Red Blood Count 5.13 X10*6/uL (4.20-5.50); Red Cell Distribution Width 15.1 % (11.0-16.0); White Blood Count 8.5 X10*3/uL (4.8-10.8)
[2022-06-23 18:34] LABS: Alanine Aminotransferase 10 U/L (0-31); Albumin Level 3.9 g/dL (3.5-5.0); Alkaline Phosphatase 97 U/L (39-117); Anion Gap 19 (12-20); Aspartate Amino Transferase 22 U/L (5-31); Bilirubin Direct 0.6 mg/dL (0.0-0.5); Bilirubin Total 1.9 mg/dL (0.0-1.0); Blood Urea Nitrogen 21 mg/dL (9-16); Carbon Dioxide 25 mmol/L (22-29); Chloride 101 mmol/L (96-108); Creatinine Clr Calc Pharmacy 50.6; Estimated Glomerular Filt Rate > 60; Glucose Random 97 mg/dL (60-115); Lipase 24 U/L (8-78); Magnesium 2.1 mg/dL (1.6-2.6); Potassium 4.1 mmol/L (3.3-5.1); Sodium 141 mmol/L (135-145); Total Protein 7.2 g/dL (6.5-8.0)
[2022-06-23 19:45] LABS: Appearance Urine CLEAR; Color Urine YELLOW; Glucose Urine UA NEG (NEG); Leukocyte Esterase Urine NEG (NEG); Nitrite Urine NEG (NEG); Specific Gravity - Urine 1.025 (1.005-1.025); Urine Blood NEG (NEG); Urine Ketones 40 MG/DL (NEG); Urine Protein TRACE MG/DL (NEG-TRACE)
[2022-06-23 20:16] VITALS: BP 131/89; PULSE 77; RESP 16; TEMP 36.8; O2SAT 97
== END 2022-06-23 20:35 | disposition home or self-care (01) ==
PROVIDERS: Physician Assistant; Emergency Provider Emergency Medicine Emergency Medical Services; PCP Internal Medicine
DX: M54.50 Low back pain, unspecified (principal); I10 Essential (primary) hypertension; Z87.440 Personal history of urinary (tract) infections; Z79.899 Other long term (current) drug therapy; Z87.891 Personal history of nicotine dependence
CPT/HCPCS: 36415; 80048; 80076; 81003; 83690; 83735; 85025; 96372; 99284; J1885

== ENCOUNTER 2022-12-13 16:32 | Emergency (ER) | payer MEDICARE, SELFPAY ==
--- NOTE | 2022-12-13 16:38 | ECG_ITS ---
Test Reason : WEAKNESS Blood Pressure : / mmHG Vent. Rate : 071 BPM Atrial Rate : 071 BPM P-R Int : 142 ms QRS Dur : 124 ms QT Int : 392 ms P-R-T Axes : 051 -54 014 degrees QTc Int : 425 ms Normal sinus rhythm Right bundle branch block Left anterior fascicular block Bifascicular block Abnormal ECG When compared with ECG of 20-JUN-2022 06:43, No significant change was found Referred By: Digna Carrillo Electronically Signed By:DIANE TAFOYA
[2022-12-13 16:46] VITALS: BP 153/74; BP 156/79; PULSE 77; PULSE 89; RESP 18; TEMP 37; O2SAT 98; O2SAT 99; BMI 25.3
[2022-12-13 16:53] VITALS: RESP 16
--- NOTE | 2022-12-13 16:57 | ED.GENADULT ---
HPI - General Adult General Chief complaint: General Medical Stated complaint: GENERAL WEAKNESS Time Seen by Provider: 12/13/22 16:37 Source: patient and EMS Mode of arrival: EMS Limitations: no limitations History of Present Illness HPI narrative: Patient comes to the emergency room via EMS from home. EMS states that the family called for a well check. The patient's family had not heard from the patient for the last 2 weeks. Patient reports that she has been feeling weak for the last 2 weeks, has difficulty ambulating. Patient thinks that all her symptoms are secondary to taking hydroxyzine, states that this is a new medication. Since patient has not been able to get up for couple of days, patient states that she has not taking anything to drink or eat for at least 48 hours. Related Data Home Medications Medication Instructions Recorded Confirmed artificial tears solution eye drops 1 drp ophthalmic (eye) TID 09/26/20 09/15/22 aspirin 81 mg tablet 81 mg PO DAILY 12/24/20 09/15/22 garlic 1,000 mg capsule 1,000 mg PO DAILY 12/24/20 09/15/22 magnesium chloride 64 mg mg PO 09/15/22 09/15/22 (magnesium chloride) tablet Previous Rx's Medication Instructions Recorded omeprazole magnesium 20 mg 20 mg PO DAILY 90 days #90 caps 11/20/21 capsule,delayed release DISPOSABLE UNDERWEAR #120 ea 04/14/22 Disposable Underpad 30 x 36 heavy #100 ea 04/14/22 flow OFFSET HANDLE CANE #1 ea 04/14/22 PERSONAL CLEASING WIPES #100 ea 04/14/22 acetaminophen 500 mg tablet 500 mg PO Q6H PRN fever or pain 06/23/22 (Tylenol Extra Strength) #14 tabs atorvastatin 10 mg tablet 10 mg PO DAILY #90 tabs 08/03/22 hydroxyzine HCl 10 mg tablet 10 mg PO DAILY PRN Anxiety 90 days 08/03/22 #90 tabs losartan 25 mg tablet 25 mg PO DAILY 90 days #90 tabs 08/03/22 triamcinolone acetonide 0.1 % 1 appl topical BID 30 days #60 mL 08/03/22 lotion trifluoperazine 5 mg tablet 5 mg PO DAILY #90 tabs 08/31/22 hydrocortisone-acetic acid 1 %-2 % 4 drp otic (ear) right QID 6 days 09/15/22 ear drops #10 mL FOLDING ALUMINUM ROLLATOR WALKER #1 ea 10/08/22 POWDER FREESYNTHETIC EXAM GLOVES #1 ea 10/08/22 Allergies Allergy/AdvReac Type Severity Reaction Status Date / Time MYESHA Inhibitors Allergy Severe ANGIOEDEMA Verified 12/13/22 16:51 WITH LISINOPRIL caffeine [CAFFEINE] Allergy Severe EXTREME Verified 12/13/22 16:51 PAIN IN BILATERAL KIDNEYS clozapine [From Clozaril] Allergy Severe Stomach Verified 12/13/22 16:51 Upset lisinopril Allergy Severe ANGIOEDEMA Verified 12/13/22 16:51 amoxicillin [AMOXICILLIN] Allergy Intermediate Stomach Verified 12/13/22 16:51 Upset atropine [Lomotil] Allergy Intermediate Stomach Verified 12/13/22 16:51 Upset bee pollen [BEE STINGS] Allergy Intermediate Swelling Verified 12/13/22 16:51 lovastatin Allergy Intermediate Cramps Verified 12/13/22 16:51 penicillin V Allergy Intermediate Stomach Verified 12/13/22 16:51 Upset ziprasidone [From GEODON] Allergy Intermediate HALLUCINATI Verified 12/13/22 16:51 ONS TUNA FISH Allergy Severe SEVERE Uncoded 09/15/22 12:26 INDIGESTION, rash From PROLIXIN Allergy Intermediate UNKNOWN Uncoded 09/15/22 12:26 lovastatin Allergy Intermediate cramping Uncoded 09/15/22 12:26 prolixen Allergy Intermediate seizure Uncoded 09/15/22 12:26 amox Allergy Mild GI upset Uncoded 09/15/22 12:26 Review of Systems Review of Systems: Constitutional : No Weight loss, No Fever, No Chills, No Night Sweats, complaining of fatigue and weakness, generalized malaise ENT/Mouth : No Hearing loss, No Ear Pain, complaining of mild Nasal Congestion, No Sinus Pain, No Hoarseness, No sore throat, No Rhinorrhea, No Swallowing Difficulty Eyes: No Eye Pain, No Swelling, No Redness, No Foreign Body, No Discharge, No Vision Changes Cardiovascular : No Chest Pain, No SOB, No Dyspnea on Exertion, No Orthopnea, No Edema, No Palpitations Respiratory : No Cough, No Sputum, No Wheezing, No Smoke Exposure, No Dyspnea Gastrointestinal : No Nausea, No Vomiting, No Diarrhea, No Constipation, No abdominal Pain, No Hematochezia, No Melena Genitourinary : no irregular bleeding, No Dysuria, No Urinary Frequency, No Hematuria, No Urinary Incontinence, No Urgency, No Flank Pain, No Urinary Flow Changes, No Hesitancy Musculoskeletal : No joint pain, No Myalgias, No Joint Swelling Skin : No Skin Lesions, No rash Neuro : No Weakness, No Numbness, No Paresthesias, No Loss of Consciousness, No Dizziness, No Headache Psych : No Anxiety/Panic, No Depression, No SI/HI/AH/VH, No Social Issues, Heme/Lymph: No Bruising, No Bleeding,No Lymphadenopathy Endocrine : No Polyuria, No Polydipsia, No Temperature Intolerance [facility] Past Medical History Medical History GERD (gastroesophageal reflux disease) Hyperbilirubinemia Hypercholesterolemia Hypertension Impacted cerumen Leukopenia Meningitis Nasal congestion Obesity (BMI 30-39.9) Otitis externa of right ear Pernicious anemia Schizophrenia Thrombocytopenia Tremors of nervous system Upper respiratory infection Urinary incontinence UTI (urinary tract infection) Vitamin D deficiency Surgical History H/O right wrist surgery History of tonsillectomy History of tooth extraction History of total abdominal hysterectomy and bilateral salpingo-oophorectomy Family History Family History Father Cancer Colon cancer Mother Cancer Colon cancer History of breast cancer Social History Social History (Updated 09/15/22 @ 12:53 by Erik Bailey MD) Housing: Apartment Alcohol intake: never Patient Tobacco Use Status: Former Tobacco user Tobacco use type: Cigarette Years Smoked: quit 1960 Smoked in Last 30 Days: No e-Cigarette/Vaping Use: Never Used Second Hand Smoke Exposure: No Use of substances other than those prescribed or required for medical reasons: No Advance Directives: No Advance Directives Information Provided: Yes service: No Current occupational status: disabled Cognitive needs: No Hearing needs: No Vision needs: Yes Physical Exam ED Vital Signs: Vital Signs - 24 hr 12/13/22 16:46 12/13/22 16:53 12/13/22 20:49 Temperature 98.6 F 98.4 F Pulse Rate 77 77 Respiratory Rate 18 16 20 Blood Pressure 156/79 H 187/81 H Pulse Oximetry 99 96 Oxygen Delivery Method Room Air Room Air BMI result Body Mass Index 25.3 Const Other: Appearance: Alert. Oriented X2. No acute distress. Weak Eyes: Pupils equal, round and reactive to light. ENT: Pharynx normal. Neck: Normal inspection. Neck supple. No lymph nodes noted. No crepitus CVS: Normal heart rate and rhythm. Pulses normal. Normal S1 and S2 Respiratory: No respiratory distress. Breath sounds normal. No Wheezing. No rales Abdomen: Soft and nontender. No rigidity. No distention. Skin: Skin warm and dry. Normal skin color. Normal skin turgor. Extremities: No lower extremity edema. No Lacerations. No Rash Neuro: Oriented X 2. No motor deficit. No sensory deficit. Moving all extremities. No slurred speech. CN 2 through 12 grossly intact. Patient has disorganized speech Psych: calm, cooperative, normal affect Course Course Course Narrative: -of patient's labs, EKG, imaging pending -patient being hydrated with IV fluids at this time, patient has no complaints other than feeling weak and having nasal congestion -patient has disorganized speech -patient would likely need to be admitted. Otherwise, patient will need case management Medications Administered Discontinued Medications Generic Name Dose Route Start Last Admin Trade Name Freq PRN Reason Stop Dose Admin Sodium Chloride 1,000 mls @ 999 mls/hr 12/13/22 16:54 12/13/22 20:14 Ns IVCONT 12/13/22 17:54 Infused .Q1H1M ONE Infusion Medical Decision Making Medical Decision Making [facility] Narrative: -patient is significantly weak. However, her labs do not show any significant abnormality to be admitted. -case management and physical therapy consult pending -physician observation started at 21:40 Differential Diagnosis Differential Diagnoses: The differential diagnosis associated with the presentation includes (Failed to thrive, UTI, viral syndrome) Admission/Observation Consideration of admission/observation: Escalation of care including admission/observation considered (I considered admitting the patient if there was any clinical abnormality or lab abnormality which could be treated. However, patient will be seen by Physical therapy. Patient is too weak to go home by herself) Consult Healthcare Provider I discussed the case with case management Lab Data [facility] Lab Attestation statement: I reviewed the patient's lab results. 12/13/22 17:29 12/13/22 18:01 Labs: Lab Results 12/13/22 12/13/22 12/13/22 Range/Units 17:29 17:29 17:29 WBC 7.1 (4.8-10.8) X10*3/uL RBC 5.36 (4.20-5.50) X10*6/uL Hgb 14.0 (12.0-16.0) g/dl Hct 43.3 (37.0-47.0) % MCV 80.8 (80.0-98.0) fL MCH 26.1 L (27.0-33.0) pg MCHC 32.3 (31.0-35.0) g/dl RDW 14.4 (11.0-16.0) % Plt Count 151 L D (160-400) X10*3/uL MPV 12.7 H (9.4-12.3) fL Immature Gran % (Auto) 1.0 H (0.0-0.4) % Neut % (Auto) 76.0 H (45-73) % Lymph % (Auto) 9.1 L (20-40) % [place] % (Auto) 13.2 H (2-11) % Eos % (Auto) 0.3 (0-4) % Baso % (Auto) 0.4 (0-2) % Lymph # (Auto) 0.7 L (1.2-4.9) X10*3/uL [place] # (Auto) 0.9 (0.1-1.2) X10*3/uL Eos # (Auto) 0.0 (0.0-0.4) X10*3/uL Baso # (Auto) 0.0 (0.0-0.2) X10*3/uL Abs Immat Gran (auto) 0.07 H (0.00-0.03) X10*3/uL Absolute Neuts (auto) 5.4 (2.0-8.3) x10*3/uL Absolute Nucleated RBC 0.000 (0.0-0.012) X10*3/uL Nucleated RBC % (auto) 0.0 (0.0-0.2) /100WBC Sodium Cancelled Potassium Cancelled Chloride Cancelled Carbon Dioxide Cancelled Anion Gap Cancelled BUN Cancelled Creatinine Cancelled Estim Creat Clear Calc Cancelled Estimated GFR Cancelled Random Glucose Cancelled Calcium Cancelled Magnesium (1.6-2.6) mg/dL Total Bilirubin Cancelled Direct Bilirubin (0.0-0.5) mg/dL AST Cancelled ALT Cancelled Alkaline Phosphatase Cancelled Troponin I High Sens 6.1 (<3.5-17.0) ng/L Total Protein Cancelled Albumin Cancelled Lipase (8-78) U/L TSH Urine Color Urine Appearance Urine pH (5.0-9.0) Ur Specific [place] (1.005-1.025) Urine Protein (Neg-Trace) mg/dL Urine Glucose (UA) (Negative) mg/dL Urine Ketones (Negative) mg/dL Urine Blood (Negative) Urine Nitrite (Negative) Ur Leukocyte Esterase (Negative) Urine Opiates Screen (Not Detect) Urine Fentanyl Screen (Not Detect) Ur Barbiturates Screen (Not Detect) Ur Phencyclidine Scrn (Not Detect) Ur Amphetamines Screen (Not Detect) U Benzodiazepines Scrn (Not Detect) Urine Cocaine Screen (Not Detect) U Marijuana (THC) Screen (Not Detect) COVID-19 (MARTY) (Negative) COVID-19 Clin Com Influenza Type A (KEVIN) (Negative) Influenza Type B (KEVIN) (Negative) Influenza A & B Note 12/13/22 12/13/22 12/13/22 Range/Units 17:29 17:29 17:29 WBC (4.8-10.8) X10*3/uL RBC (4.20-5.50) X10*6/uL Hgb (12.0-16.0) g/dl Hct (37.0-47.0) % MCV (80.0-98.0) fL MCH (27.0-33.0) pg MCHC (31.0-35.0) g/dl RDW (11.0-16.0) % Plt Count (160-400) X10*3/uL MPV (9.4-12.3) fL Immature Gran % (Auto) (0.0-0.4) % Neut % (Auto) (45-73) % Lymph % (Auto) (20-40) % [place] % (Auto) (2-11) % Eos % (Auto) (0-4) % Baso % (Auto) (0-2) % Lymph # (Auto) (1.2-4.9) X10*3/uL [place] # (Auto) (0.1-1.2) X10*3/uL Eos # (Auto) (0.0-0.4) X10*3/uL Baso # (Auto) (0.0-0.2) X10*3/uL Abs Immat Gran (auto) (0.00-0.03) X10*3/uL Absolute Neuts (auto) (2.0-8.3) x10*3/uL Absolute Nucleated RBC (0.0-0.012) X10*3/uL Nucleated RBC % (auto) (0.0-0.2) /100WBC Sodium Potassium Chloride Carbon Dioxide Anion Gap BUN Creatinine Estim Creat Clear Calc Estimated GFR Random Glucose Calcium Magnesium (1.6-2.6) mg/dL Total Bilirubin Direct Bilirubin (0.0-0.5) mg/dL AST ALT Alkaline Phosphatase Troponin I High Sens (<3.5-17.0) ng/L Total Protein Albumin Lipase (8-78) U/L TSH Cancelled Urine Color Urine Appearance Urine pH (5.0-9.0) Ur Specific [place] (1.005-1.025) Urine Protein (Neg-Trace) mg/dL Urine Glucose (UA) (Negative) mg/dL Urine Ketones (Negative) mg/dL Urine Blood (Negative) Urine Nitrite (Negative) Ur Leukocyte Esterase (Negative) Urine Opiates Screen (Not Detect) Urine Fentanyl Screen (Not Detect) Ur Barbiturates Screen (Not Detect) Ur Phencyclidine Scrn (Not Detect) Ur Amphetamines Screen (Not Detect) U Benzodiazepines Scrn (Not Detect) Urine Cocaine Screen (Not Detect) U Marijuana (THC) Screen (Not Detect) COVID-19 (MARTY) Negative (Negative) COVID-19 Clin Com See Note Influenza Type A (KEVIN) Negative (Negative) Influenza Type B (KEVIN) Negative (Negative) Influenza A & B Note See Note 12/13/22 12/13/22 12/13/22 Range/Units 18:01 19:52 19:52 WBC (4.8-10.8) X10*3/uL RBC (4.20-5.50) X10*6/uL Hgb (12.0-16.0) g/dl Hct (37.0-47.0) % MCV (80.0-98.0) fL MCH (27.0-33.0) pg MCHC (31.0-35.0) g/dl RDW (11.0-16.0) % Plt Count (160-400) X10*3/uL MPV (9.4-12.3) fL Immature Gran % (Auto) (0.0-0.4) % Neut % (Auto) (45-73) % Lymph % (Auto) (20-40) % [place] % (Auto) (2-11) % Eos % (Auto) (0-4) % Baso % (Auto) (0-2) % Lymph # (Auto) (1.2-4.9) X10*3/uL [place] # (Auto) (0.1-1.2) X10*3/uL Eos # (Auto) (0.0-0.4) X10*3/uL Baso # (Auto) (0.0-0.2) X10*3/uL Abs Immat Gran (auto) (0.00-0.03) X10*3/uL Absolute Neuts (auto) (2.0-8.3) x10*3/uL Absolute Nucleated RBC (0.0-0.012) X10*3/uL Nucleated RBC % (auto) (0.0-0.2) /100WBC Sodium 143 Potassium 4.7 Chloride 104 Carbon Dioxide 26 Anion Gap 18 BUN 28 H Creatinine 0.84 Estim Creat Clear Calc 53.0 Estimated GFR > 60 Random Glucose 97 Calcium 9.6 D Magnesium 2.3 (1.6-2.6) mg/dL Total Bilirubin 1.2 H Direct Bilirubin 0.4 (0.0-0.5) mg/dL AST 17 ALT 9 Alkaline Phosphatase 114 Troponin I High Sens (<3.5-17.0) ng/L Total Protein 8.1 H Albumin 4.1 Lipase 29 (8-78) U/L TSH 1.00 Urine Color Yellow Urine Appearance Clear Urine pH 5.5 (5.0-9.0) Ur Specific [place] 1.025 (1.005-1.025) Urine Protein Trace (Neg-Trace) mg/dL Urine Glucose (UA) Negative (Negative) mg/dL Urine Ketones 40 (Negative) mg/dL Urine Blood Negative (Negative) Urine Nitrite Negative (Negative) Ur Leukocyte Esterase Negative (Negative) Urine Opiates Screen Not Detected (Not Detect) Urine Fentanyl Screen Not Detected (Not Detect) Ur Barbiturates Screen Not Detected (Not Detect) Ur Phencyclidine Scrn Not Detected (Not Detect) Ur Amphetamines Screen Not Detected (Not Detect) U Benzodiazepines Scrn Not Detected (Not Detect) Urine Cocaine Screen Not Detected (Not Detect) U Marijuana (THC) Screen Not Detected (Not Detect) COVID-19 (MARTY) (Negative) COVID-19 Clin Com Influenza Type A (KEVIN) (Negative) Influenza Type B (KEVIN) (Negative) Influenza A & B Note Discharge Plan Discharge Clinical Impression: Weakness Patient Disposition: Still a Patient Prescriptions: No Action omeprazole magnesium 20 mg capsule,delayed release(DR/EC) 20 mg PO DAILY 90 Days Qty: 90 1RF (DME) OFFSET HANDLE CANE See Rx Instructions .Route .MEDSUPPLY Qty: 1 0RF Rx Instructions: As directed (DME) Disposable Underpad 30 x 36 heavy flow See Rx Instructions .Route .MEDSUPPLY Qty: 100 12RF Rx Instructions: As directed (DME) PERSONAL CLEASING WIPES See Rx Instructions .Route .MEDSUPPLY Qty: 100 12RF Rx Instructions: As directed (DME) DISPOSABLE UNDERWEAR XL MODERATE ABSORBENCY See Rx Instructions .Route .MEDSUPPLY Qty: 120 12RF Rx Instructions: As directed trifluoperazine 5 mg tablet 5 mg PO DAILY Qty: 90 0RF (DME) FOLDING ALUMINUM ROLLATOR WALKER See Rx Instructions .Route .MEDSUPPLY Qty: 1 12RF Rx Instructions: As directed (DME) POWDER FREESYNTHETIC EXAM GLOVES See Rx Instructions .Route .MEDSUPPLY Qty: 1 0RF Rx Instructions: As directed artificial tears solution Drops 1 drp OPHTHALMIC (EYE) TID acetaminophen [Tylenol Extra Strength] 500 mg tablet 500 mg PO Q6H PRN (Reason: fever or pain) Qty: 14 0RF aspirin 81 mg tablet 81 mg PO DAILY garlic 1,000 mg capsule 1,000 mg PO DAILY magnesium chloride 64 mg magnesium tablet PO hydrocortisone-acetic acid 1-2 % drops 4 drp otic (ear) right QID 6 Days Qty: 10 0RF atorvastatin 10 mg tablet 10 mg PO DAILY Qty: 90 2RF hydroxyzine HCl 10 mg tablet 10 mg PO DAILY PRN (Reason: Anxiety) 90 Days Qty: 90 1RF losartan 25 mg tablet 25 mg PO DAILY 90 Days Qty: 90 2RF triamcinolone acetonide 0.1 % lotion 1 appl topical BID 30 Days Qty: 60 0RF
[2022-12-13] MEDS: 0.9 % Sodium Chloride 1,000 ML 999 ML IVCONT (17:30)
--- NOTE | 2022-12-13 17:35 | PC.NURSE ---
pt alert and oriented, skin appropriate for ethnicity, oral mucosal very dry in appearance, pt reports not feeling well for the last couple of days-general weakness/congestion and unable to ambulate today do to weakness. vs stable at this time, respirations even and unlabored, pt does have some peding edema in the lower extremities about +2, poor po intake per pt
[2022-12-13 17:37] LABS: MANUAL DIFF FLAG NO
[2022-12-13 17:59] LABS: COVID-19 Test Negative (Negative); IDNOW Serial# 16C4AD1C; IDNOW Serial# BCCEAD1C; Influenza A Negative (Negative); Influenza B2 Negative (Negative)
[2022-12-13 18:00] LABS: Basophils Percent Auto 0.4 % (0-2); Eosinophils Percent Auto 0.3 % (0-4); Hematocrit 43.3 % (37.0-47.0); Imm Gran Abs Auto 0.07 X10*3/uL (0.00-0.03); Lymphocytes Absolute Auto 0.7 X10*3/uL (1.2-4.9); Lymphocytes Percent Auto 9.1 % (20-40); Mean Corpuscular HGB Conc 32.3 g/dl (31.0-35.0); Mean Corpuscular Hemoglobin 26.1 pg (27.0-33.0); Mean Corpuscular Volume 80.8 fL (80.0-98.0); Mean Platelet Volume 12.7 fL (9.4-12.3); Monocytes Absolute Auto 0.9 X10*3/uL (0.1-1.2); Monocytes Percent Auto 13.2 % (2-11); Neutrophils Absolute Auto 5.4 x10*3/uL (2.0-8.3); Platelet Count 151 X10*3/uL (160-400); Red Blood Count 5.36 X10*6/uL (4.20-5.50); Red Cell Distribution Width 14.4 % (11.0-16.0); White Blood Count 7.1 X10*3/uL (4.8-10.8)
[2022-12-13 18:01] LABS: Troponin-I High Sensitivity 6.1 ng/L (<3.5-17.0)
[2022-12-13 18:35] LABS: Alanine Aminotransferase 9 U/L (0-31); Albumin Level 4.1 g/dL (3.5-5.0); Alkaline Phosphatase 114 U/L (39-117); Anion Gap 18 (12-20); Aspartate Amino Transferase 17 U/L (5-31); Bilirubin Direct 0.4 mg/dL (0.0-0.5); Bilirubin Total 1.2 mg/dL (0.0-1.0); Blood Urea Nitrogen 28 mg/dL (9-16); Calcium 9.6 mg/dL (8.4-10.2); Carbon Dioxide 26 mmol/L (22-29); Chloride 104 mmol/L (96-108); Estimated Glomerular Filt Rate > 60; Glucose Random 97 mg/dL (60-115); Lipase 29 U/L (8-78); Magnesium 2.3 mg/dL (1.6-2.6); Potassium 4.7 mmol/L (3.3-5.1); Sodium 143 mmol/L (135-145); Total Protein 8.1 g/dL (6.5-8.0)
--- NOTE | 2022-12-13 19:58 | PC.NURSE ---
pt stated that she needed to use the bedpan. this rn placed pt on bedpan at this time. pt able to provide urine at this time. urine obtained and sent down to lab. pt resting on back at this time watching tv. no new needs
[2022-12-13 20:10] LABS: Amphetamine Screen Urine Not Detected (Not Detect); Barbiturates, Urine Not Detected (Not Detect); Benzodiazepines Screen Urine Not Detected (Not Detect); Cannabinoid Screen Urine Not Detected (Not Detect); Cocaine Screen Urine Not Detected (Not Detect); Fentanyl, urine Not Detected (Not Detect); Opiate Screen Urine Not Detected (Not Detect); Phencyclidine Screen Urine Not Detected (Not Detect)
[2022-12-13 20:16] LABS: Appearance Urine Clear; Color Urine Yellow; Glucose Urine UA Negative (Negative); Leukocyte Esterase Urine Negative (Negative); Nitrite Urine Negative (Negative); PH 5.5 (5.0-9.0); Specific Gravity - Urine 1.025 (1.005-1.025); Urine Blood Negative (Negative); Urine Ketones 40 mg/dL (Negative); Urine Protein Trace mg/dL (Neg-Trace)
--- NOTE | 2022-12-13 20:41 | PC.NURSE ---
pt sleeping comfortably on back on stretcher at this time. pt HOB elevated with call schuster within reach
[2022-12-13 20:49] VITALS: BP 187/81; PULSE 77; RESP 20; TEMP 36.9; O2SAT 96
[2022-12-13 22:29] VITALS: BP 160/82; PULSE 83; RESP 20; O2SAT 96
--- NOTE | 2022-12-13 22:48 | PC.NURSE ---
this rn provided pt with pitcher of water and warm blanket. pt repositioned to back at this time. pt reports no new needs at this time
--- NOTE | 2022-12-13 23:21 | MHC.CM.ED ---
CM asked to meet with pt with generalized weakness, difficulty ambulating, poor po intake. Family called ambulance for well check. Pt has hx schizophrenia. Able to answer all CM questions. PCP Dr. Bailey. HCP at ? at home. Pt unsure. Believes HCP is her brother, Bert Geronimo ([phone]). Pt has isotope technician at [facility]-Manuel Jara. Will need to contact both brother and [facility] in the morning. Moderna x2. Pfizer x1. States has no current services, but did have services in the past. Pt agreeable to STR. PT evaluation pending. First choice [facility]. Has been there in the past. Referrals placed that contract with [employer]. Pt will need PASRR level 1. No recent psych hospitalization at [facility].D/C plan: STR. CM to follow for d/c planning.
[2022-12-14 01:33] VITALS: BP 159/72; PULSE 77; RESP 20; TEMP 36.9; O2SAT 96
[2022-12-14] MEDS: Acetaminophen 325 MG TABLET 650 MG PO (01:39)
--- NOTE | 2022-12-14 01:42 | PC.NURSE ---
department editor informed this rn that pt was requesting tylenol for knee pain. this rn notified dr bob of pt request. placed order for 650mg of tylenol po. pt medicated according to jan. pt tolerated po liquids and meds well. pt reports no new needs at this time
[2022-12-14 06:00] VITALS: BP 174/91; PULSE 74; RESP 16; TEMP 36.2; O2SAT 96
--- NOTE | 2022-12-14 06:01 | MHC.EDTECH ---
0600 ROUNDING AND VITALS DONE ,PATIENT AWAKE ,AND DRY PURE CALL LEOS WITHIN REACH .
[2022-12-14] MEDS: Losartan Potassium 25 MG TABLET PO ×2 (06:30→10:50)
--- NOTE | 2022-12-14 07:01 | PC.NURSE ---
Med rec completed with pt's most recent and up to date pharmacy pick ups. This RN unsure if this is a complete list of current home meds. Recommend pharmacy consult.
[2022-12-14 08:06] VITALS: BP 179/84; PULSE 73; RESP 22; O2SAT 100
--- NOTE | 2022-12-14 08:24 | MHC.EDTECH ---
Called kitchen 2x for breakfast tray.
[2022-12-14] MEDS: Atorvastatin Calcium 10 MG TABLET PO (09:39)
[2022-12-14] MEDS: Omeprazole 20 MG CAPSULE.DR PO (09:40)
--- NOTE | 2022-12-14 10:00 | PC.NURSE ---
DIET ORDER PLACED, KITCHEN NOTIFIED X2 FOR BREAKFAST TRAY. A.M. CARE AND COMPLETE BED CHANGE DONE. MEDS GIVEN DOCUMENTED.
--- NOTE | 2022-12-14 10:06 | MHC.CM.ED ---
Addendum entered by Amina Thrasher 12/14/22 13:08: Left voicemail for [employer] welfare case worker, Manuel Ruth at [phone], requesting return telephone call. Original Note: Patient remains in ED overflow. Physical therapy eval completed. Short term rehab is recommended. Clinical updates sent to facilities still following patient: [facility], [facility] and [facility]. Patient will need [facility] PASRR Level 2. T/W already submitted Level 1. Continue to monitor for d/c needs.
--- NOTE | 2022-12-14 14:32 | MHC.CM.ED ---
[facility] is able to offer a bed. Patient aware and accepts bed. [facility] is in the process of obtaining insurance auth. Received return telephone call from Manuel at [facility]. They do not have a HCP on file. Met with patient. HCP completed, signed and witnessed. Original given to patient. Copy placed in chart. Continue to monitor for d/c needs.
--- NOTE | 2022-12-14 17:19 | PC.NURSE ---
THIS RN SPOKE WITH YOANNA IN PHARMACY ABOUT PT'S MED REC. PER YOANNA MED REC COMPLETED. PT'S BROTHER VISITING. PT WAS SEEN BY AI BRENNAN, HOTEL RESERVATION AGENT EARLIER TODAY, HEALTH CARE PROXY SIGNATURE WITNESSED BY THIS RN.
[2022-12-14] MEDS: Acetaminophen 325 MG TABLET 975 MG PO (18:21)
[2022-12-14 18:23] VITALS: BP 151/90; PULSE 77; RESP 16; O2SAT 94
--- NOTE | 2022-12-14 20:32 | PC.NURSE ---
Addendum entered by Erma Harris RN 12/15/22 06:57: Report given to AI Knowles Addendum entered by Erma Harris RN 12/15/22 04:56: incontinent care and bed changed provided Original Note: report received from AI Kuhn pt appear asleep no signs of acute distress notice breathing equally unlabored close monitoring maintain
--- NOTE | 2022-12-14 20:39 | MHC.CM.ED ---
CM met with patient. Aware that [facility] has offered a bed and that we are waiting for insurance authorization. Pt has [facility]. CM to follow for discharge planning.
--- NOTE | 2022-12-15 | ECG_ITS ---
Test Reason : chest pain Blood Pressure : / mmHG Vent. Rate : 072 BPM Atrial Rate : 072 BPM P-R Int : 128 ms QRS Dur : 122 ms QT Int : 410 ms P-R-T Axes : 048 -54 017 degrees QTc Int : 448 ms Normal sinus rhythm Possible Left atrial enlargement Right bundle branch block Left anterior fascicular block Bifascicular block Abnormal ECG When compared with ECG of 13-DEC-2022 17:41, No significant change was found Referred By: Generic ED Physician Electronically Signed By:DIANE TAFOYA
[2022-12-15 04:30] VITALS: BP 181/87; PULSE 70; RESP 16; TEMP 36.7; O2SAT 97
[2022-12-15] MEDS: Omeprazole 20 MG CAPSULE.DR PO (05:29)
[2022-12-15 09:14] VITALS: BP 165/75; PULSE 87; RESP 16; TEMP 36.8; O2SAT 98
[2022-12-15] MEDS: Losartan Potassium 25 MG TABLET PO (09:32)
[2022-12-15] MEDS: Atorvastatin Calcium 10 MG TABLET PO (09:32)
[2022-12-15 17:29] VITALS: BP 149/89; PULSE 79; RESP 18; TEMP 36.7; O2SAT 95
[2022-12-15 22:00] VITALS: BP 145/88; PULSE 77; RESP 18; TEMP 37; O2SAT 99
[2022-12-16] VITALS: BP 150/81; PULSE 86; RESP 14; TEMP 37.1; O2SAT 94
[2022-12-16] MEDS: Omeprazole 20 MG CAPSULE.DR PO (05:38)
[2022-12-16 06:00] VITALS: BP 156/84; PULSE 82; RESP 16; TEMP 37; O2SAT 98
[2022-12-16] MEDS: Ibuprofen 400 MG TABLET PO (08:47)
[2022-12-16] MEDS: Lidocaine 4 % Patch ADH..PATCH 1 PATCH TRANSDERMA (08:48)
[2022-12-16] MEDS: Atorvastatin Calcium 10 MG TABLET PO (08:48)
[2022-12-16] MEDS: Losartan Potassium 25 MG TABLET PO (09:37)
[2022-12-16 13:13] LABS: COVID-19 Test Negative (Negative); IDNOW Serial# BCCEAD1C
--- NOTE | 2022-12-16 14:48 | MHC.CM.ED ---
[facility] has obtained insurance auth. Patient can leave at 2pm. Ricardo HAHN booked. Med nec with chart. Patient, Elena CLOUD and Candice LEPE aware. Continue to monitor for d/c needs.
[2022-12-16 14:50] VITALS: BP 147/85; PULSE 77; TEMP 36.2; O2SAT 99
--- NOTE | 2022-12-16 17:12 | PC.NURSE ---
Pt d/c to [facility] via EMS. Pt denies SOB,chest pain, headache, N/V/D. Pt belonging were given and she left on stretcher with no problem. T/w try to call the facility twice with no response so as to give a report.
== END 2022-12-16 15:00 | disposition skilled nursing facility (03) ==
PROVIDERS: Emergency Medicine; Physician Assistant; Emergency Provider Emergency Medicine
DX: R53.1 Weakness (principal); Z20.822 Contact with and (suspected) exposure to COVID-19; I10 Essential (primary) hypertension; E78.00 Pure hypercholesterolemia, unspecified; Z87.891 Personal history of nicotine dependence; Z79.899 Other long term (current) drug therapy; Z79.82 Long term (current) use of aspirin; Z79.02 Long term (current) use of antithrombotics/antiplatelets
CPT/HCPCS: 36415; 80053; 80076; 80307; 81003; 82248; 83690; 83735; 84443; 84484; 85025; 87502; 87635; 93005; 97162; 97530; 99285

== ENCOUNTER 2023-03-23 17:35 | Inpatient (IN) | payer OTHER, SELFPAY ==
--- NOTE | ~2023-03-23 | XR_ITS ---
EXAMINATION: XR ABDOMEN KUB CLINICAL INDICATION: Pre-MRI COMPARISON: None available. TECHNIQUE: AP view of the abdomen. FINDINGS: There is no radiopaque metallic foreign body seen. The bowel gas pattern is nonspecific. No radiopaque calculi. Mild degenerative facet joint arthropathy L5 L4-L5 and L3-L4 facet joints. No lytic or sclerotic process. XR/XR abdomen 1V IMPRESSION: 1. No radiopaque metallic foreign body seen. 2. Mild degenerative facet joint arthropathy L3-L4 and L4-L5 disc levels.
--- NOTE | ~2023-03-23 | MR_ITS ---
EXAMINATION: MR BRAIN WITHOUT CONTRAST CLINICAL INFORMATION: Change in speech. COMPARISON: CT from 03/24/2023. TECHNIQUE: Multiplanar, multisequence imaging of the brain was performed without contrast. Limited study with motion artifacts. FINDINGS: No diffusion abnormalities are identified to suggest an acute infarct. The ventricles are normal in size. No mass effect or midline shift is seen. Moderate generalized parenchymal volume loss noted with moderate chronic white matter microangiopathy. There is ex vacuo dilatation of the ventricles without evidence of hydrocephalus. No extra-axial fluid collections are seen. The brainstem is normal. Mild small vessel ischemic changes noted in the cerebellar vermis. The gradient refocused acquisition is normal. The craniovertebral junction and marrow signal are normal. The major intracranial flow voids at the level of the [place] are preserved. The dural venous sinus flow voids are maintained. There is a pneumatization variant in the sphenoid bone to the left of midline. The paranasal sinuses are otherwise fairly well aerated. There is trace fluid in the dependent mastoid air cells. An incidental small right-sided 1 cm nasolabial cyst is noted. MR/MR head/brain wo con IMPRESSION: Limited study with motion artifacts. No acute infarct. No acute intracranial process. Moderate chronic white matter microangiopathy and diffuse parenchymal volume loss.
--- NOTE | ~2023-03-23 | XR_ITS ---
EXAMINATION: XR CHEST CLINICAL INFORMATION: Pre-MRI COMPARISON: None available. TECHNIQUE: Frontal view of the chest was obtained. FINDINGS: Lungs are well-expanded and clear. The heart size and pulmonary vascularity is normal. Mild lateral lower dorsal spine spondylosis is noted. XR/XR chest 1V IMPRESSION: No acute cardiopulmonary process seen.
--- NOTE | ~2023-03-23 | CT_ITS ---
EXAMINATION: CT HEAD WITHOUT CONTRAST CLINICAL INFORMATION: Dysphagia. COMPARISON: CT brain 06/15/2022 TECHNIQUE: Contiguous axial imaging was performed from the skull base to vertex without intravenous administration of contrast. This CT examination was performed using dose optimization techniques as appropriate, variously including the following: *Automated exposure control *Adjustment of mA and/or kV according to patient size (this includes techniques or standardized protocols for targeted exams where dose is matched to indication/reason for exam; i.e. extremities or head) *Use of iterative reconstruction technique DLP: 659 mGy-cm FINDINGS: There is no acuteintra-axial, extra-axial bleed, collection, masses or midline shift. There is periventricular hypodensity in both cerebral hemispheres without mass effect. Small punctate calcification is seen in the basal ganglia with small lacunar infarction in right basal ganglia. No mass effect. The lateral ventricles are symmetrical in size and configuration without enlargement. CT/CT head/brain wo IV con IMPRESSION: 1. No acute intracranial process seen. 2. Chronic small vessel ischemic changes in both cerebral hemispheres. 3. No major change compared to previous study 06/15/2022.
--- NOTE | ~2023-03-23 | CT_ITS ---
EXAMINATION: CT ANGIOGRAM NECK WITH CONTRAST CT ANGIOGRAM BRAIN WITH CONTRAST CLINICAL INFORMATION: Change in speech. COMPARISON: Head CT March 23, 2023 TECHNIQUE: Test bolus sequences followed by intravenous administration 100 mL of Omnipaque 350. Helical imaging was performed in the axial plane from the thoracic inlet to the skull vertex. Delayed postcontrast imaging of the head was also performed. The data was processed at the agricultural engineering technologist workstation for generation of MIP sequences. Angled MIPs and volume rendered reformatted images were also generated at an offline 3D workstation. Stenoses are assessed in accordance with NASCET criteria unless otherwise indicated. This CT examination was performed using dose optimization techniques as appropriate, variously including the following: *Automated exposure control *Adjustment of mA and/or kV according to patient size (this includes techniques or standardized protocols for targeted exams where dose is matched to indication/reason for exam; i.e. extremities or head) *Use of iterative reconstruction technique DLP: 2311 mGy-cm FINDINGS: Head CT: There is no intracranial hemorrhage, extra-axial collection, mass effect, or acute large territorial infarction. There are chronic lacunar infarcts within the right basal ganglia moderate chronic microangiopathic changes are seen within the cerebral white matter. The ventricles and sulci are commensurate with mild degree of brain parenchymal volume loss. No hydrocephalus is seen. There is severe degenerative change at the left temporomandibular joint. The extra cranial structures are otherwise unremarkable. Neck CTA: The aortic arch and great vessel origins are patent mild atheromatous changes noted. The bilateral common and internal carotid arteries are patent. No carotid bifurcation stenosis is seen. Both vertebral arteries are patent. Head CTA: No large vessel occlusion is seen. The anterior and posterior circulations are patent without significant stenosis. No aneurysm is seen. Non-vascular findings: The upper lungs are clear. Multilevel degenerative changes are seen in the spine. CT/CT angio head neck IMPRESSION: CT HEAD: No intracranial hemorrhage or large acute infarction. Chronic lacunar infarcts in the right basal ganglia. Moderate chronic microangiopathic changes. CTA NECK: No hemodynamically significant stenosis in the major arteries of the neck. CTA HEAD: No large vessel occlusion or significant stenosis within the intracranial circulation.
[2023-03-23 18:09] VITALS: BP 113/86; PULSE 68; RESP 18; TEMP 36.6; O2SAT 98; BMI 22.5
--- NOTE | 2023-03-23 18:09 | ECG_ITS ---
Test Reason : weakness Blood Pressure : / mmHG Vent. Rate : 077 BPM Atrial Rate : 077 BPM P-R Int : 116 ms QRS Dur : 128 ms QT Int : 438 ms P-R-T Axes : 049 -65 033 degrees QTc Int : 495 ms Normal sinus rhythm Right bundle branch block Left anterior fascicular block Bifascicular block Abnormal ECG When compared with ECG of 15-DEC-2022 04:18, No significant change was found Referred By: Jaspal Mauricio Electronically Signed By:SIMRAN BERNARDO MD
--- NOTE | 2023-03-23 18:10 | ED_ITS ---
HPI - General Adult General Chief complaint: General Medical Stated complaint: abdominal pain, confused, difficulty communicating Time Seen by Provider: 03/23/23 23:12 Related Data Home Medications ?Medication ?Instructions ?Recorded ?Confirmed garlic 1,000 mg capsule 1,000 mg PO DAILY 03/24/23 09/26/23 peg [id number] 1 drp ophthalmic (eye) TID 03/24/23 09/26/23 %-0.2 %-0.2 % eye drops (Artificial Tears ([id number])) trifluoperazine 5 mg tablet 5 mg PO DAILY 03/24/23 09/26/23 Previous Rx's ?Medication ?Instructions ?Recorded DISPOSABLE UNDERWEAR #120 ea 04/14/22 Disposable Underpad 30 x 36 heavy #100 ea 04/14/22 flow OFFSET HANDLE CANE #1 ea 04/14/22 PERSONAL CLEASING WIPES #100 ea 04/14/22 FOLDING ALUMINUM ROLLATOR WALKER #1 ea 10/08/22 POWDER FREESYNTHETIC EXAM GLOVES #1 ea 10/08/22 hydroxyzine HCl 10 mg tablet 10 mg PO DAILY PRN Anxiety 90 days 01/27/23 #90 tabs losartan 25 mg tablet 25 mg PO DAILY 90 days #90 tabs 09/15/23 atorvastatin 10 mg tablet 10 mg PO DAILY #90 tabs 09/27/23 triamcinolone acetonide 0.1 % 1 appl topical BID #30 grams 09/28/23 topical ointment INCONTINENCE BED PADS #100 ea 09/29/23 INCONTINENCE WIPES #1 ea 09/29/23 Incontinence pull ups LARGE #100 ea 09/29/23 QUAD CANE #1 ea 09/29/23 gloves #1 ea 09/29/23 hydrochlorothiazide 25 mg tablet 25 mg PO DAILY #90 tabs 10/30/23 esomeprazole magnesium 20 mg 20 mg PO DAILY #60 caps 05/09/24 capsule,delayed release Allergies Allergy/AdvReac Type Severity Reaction Status Date / Time MYESHA Inhibitors Allergy Severe ANGIOEDEMA Verified 05/17/24 13:33 WITH LISINOPRIL caffeine [CAFFEINE] Allergy Severe EXTREME Verified 05/17/24 13:33 PAIN IN BILATERAL KIDNEYS clozapine [From Clozaril] Allergy Severe Stomach Verified 05/17/24 13:33 Upset lisinopril Allergy Severe ANGIOEDEMA Verified 05/17/24 13:33 amoxicillin [AMOXICILLIN] Allergy Intermediate Stomach Verified 05/17/24 13:33 Upset atropine [Lomotil] Allergy Intermediate Stomach Verified 05/17/24 13:33 Upset bee pollen [BEE STINGS] Allergy Intermediate Swelling Verified 05/17/24 13:33 lovastatin Allergy Intermediate Cramps Verified 05/17/24 13:33 ziprasidone [From GEODON] Allergy Intermediate HALLUCINATI Verified 05/17/24 13:33 ONS TUNA FISH Allergy Severe SEVERE Uncoded 05/17/24 13:33 INDIGESTION, rash From PROLIXIN Allergy Intermediate UNKNOWN Uncoded 05/17/24 13:33 lovastatin Allergy Intermediate cramping Uncoded 05/17/24 13:33 prolixen Allergy Intermediate seizure Uncoded 05/17/24 13:33 amox Allergy Mild GI upset Uncoded 05/17/24 13:33 PMFSH Past Medical History Medical History (Updated 05/20/24 @ 00:01 by Zeferino Yepez) Colon cancer screening Nasal congestion Tremors of nervous system UTI (urinary tract infection) Meningitis Upper respiratory infection Impacted cerumen Otitis externa of right ear Pernicious anemia Obesity (BMI 30-39.9) Hyperbilirubinemia Hypercholesterolemia Schizophrenia Vitamin D deficiency Urinary incontinence GERD (gastroesophageal reflux disease) Hypertension Thrombocytopenia Leukopenia Surgical History History of total abdominal hysterectomy and bilateral salpingo-oophorectomy H/O right wrist surgery History of tooth extraction History of tonsillectomy Family History Family History Father Cancer Colon cancer Mother Cancer Colon cancer History of breast cancer Social History Social History Household Members: Unknown / Unable to assess Household Members Other:: patient states Alone Housing: Apartment Alcohol intake: never Patient Tobacco Use Status: Former Tobacco user Tobacco use type: Cigarette Years Smoked: quit 1960 e-Cigarette/Vaping Use: Never Used Second Hand Smoke Exposure: No Advance Directives: Yes Advance Directives on File: Yes Advance Directives Date on File: 12/14/22 service: No Current occupational status: disabled Cognitive needs: No Hearing needs: No Vision needs: Yes Physical Exam ED Vital Signs: BMI result Body Mass Index 22.5 Course Course Course Narrative: This is an RME: Additional HPI, ROS, PE not included below will be deferred to primary provider. 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 Patient alert and oriented x4, has a very slow speech with aphasia. According to patient this is not new as of today, this has been going on progressively worsening for the past week. physical exam aphasia. Plan labs, imaging. Medications Administered Discontinued Medications Generic Name Dose Route Start Last Admin Trade Name Freq PRN Reason Stop Dose Admin Acetaminophen 650 mg 03/24/23 04:37 03/29/23 00:07 Acetaminophen 325 Mg Tablet PO 650 mg Q6H PRN Administration Pain, Mild (Pain Scale 1-3) Artificial Tears 1 drop 03/24/23 15:00 03/29/23 15:03 Artificial Tears 15 Ml Drops EYE-BOTH Not Given TID NICHELLE Aspirin 81 mg 03/25/23 09:00 03/29/23 08:59 Aspirin Enteric Coated 81 Mg Tablet.Dr PO 81 mg DAILY NICHELLE Administration Atorvastatin Calcium 10 mg 03/25/23 09:00 03/29/23 08:59 Atorvastatin Calcium 10 Mg Tablet PO 10 mg DAILY NICHELLE Administration Diphenhydramine HCl 50 mg 03/28/23 23:35 03/29/23 00:06 Diphenhydramine Hcl 50 Mg/Ml Vial IVPUSH 03/28/23 23:36 50 mg ONCE ONE Administration Enoxaparin Sodium 40 mg 03/24/23 06:00 03/29/23 05:06 Enoxaparin Sodium 40 Mg/0.4 Ml Syringe SUBCUT 40 mg Q24H NICHELLE Administration Hydrochlorothiazide 25 mg 03/25/23 09:00 03/29/23 08:59 Hydrochlorothiazide 25 Mg Tablet PO 25 mg DAILY NICHELLE Administration Protocol Ceftriaxone Sodium 1 gm/ 50 mls @ 100 mls/hr 03/24/23 02:16 03/24/23 04:08 Sodium Chloride IV 03/24/23 02:45 Infused ONCE ONE Infusion Sodium Chloride 1,000 mls @ 999 mls/hr 03/24/23 02:22 03/24/23 19:18 Ns IV 03/24/23 03:22 Infused .Q1H1M ONE Infusion Lactated Ringer's 1,000 mls @ 100 mls/hr 03/24/23 04:45 03/26/23 12:34 Lr IVCONT Infused .Q10H NICHELLE Infusion Ceftriaxone Sodium 1 gm/ 50 mls @ 100 mls/hr 03/24/23 07:30 03/27/23 08:49 Sodium Chloride IV Infused Q24H NICHELLE Infusion Insulin Human Lispro 0 unit 03/24/23 07:30 03/29/23 17:31 Insulin Lispro 100 Unit/Ml 3 Ml Vial SUBCUT Not Given QIDACHS [facility] Protocol Iohexol 100 ml 03/24/23 16:00 03/24/23 16:00 Iohexol 350 Mg/Ml 100 Ml Infus..Btl IV 03/24/23 16:01 70 ml ONCE ONE Administration Lorazepam 0.5 mg 03/24/23 20:23 03/24/23 20:29 Lorazepam 2 Mg/Ml Vial IVPUSH 03/24/23 20:24 0.5 mg ONCE ONE Administration Losartan Potassium 25 mg 03/25/23 09:00 03/29/23 08:59 Losartan Potassium 25 Mg Tablet PO 25 mg DAILY [facility] Administration Protocol Omeprazole 20 mg 03/25/23 06:30 03/29/23 05:06 Omeprazole 20 Mg Capsule.Dr PO 20 mg DAILY@0630 [facility] Administration Sodium Chloride 3 ml 03/24/23 08:00 03/29/23 17:59 0.9 % Sodium Chloride Flush 3 Ml Syringe IVFLUSH Not Given [facility] Trifluoperazine HCl 5 mg 03/25/23 09:00 03/29/23 08:59 Trifluoperazine Hcl 5 Mg Tablet PO 5 mg DAILY NICHELLE Administration Medical Decision Making Lab Data 03/24/23 06:02 03/24/23 Unknown Labs: Lab Results 03/23/23 03/23/23 03/24/23 Range/Units 20:06 23:31 02:34 WBC 5.2 (4.8-10.8) X10*3/uL RBC 4.75 (4.20-5.50) X10*6/uL Hgb 12.6 (12.0-16.0) g/dl Hct 38.6 (37.0-47.0) % MCV 81.3 (80.0-98.0) fL MCH 26.5 L (27.0-33.0) pg MCHC 32.6 (31.0-35.0) g/dl RDW 17.3 H (11.0-16.0) % Plt Count 132 L (160-400) X10*3/uL MPV 12.3 (9.4-12.3) fL Immature Gran % (Auto) 0.2 (0.0-0.4) % Neut % (Auto) 61.5 (45-73) % Lymph % (Auto) 25.1 (20-40) % [place] % (Auto) 11.2 H (2-11) % Eos % (Auto) 0.8 (0-4) % Baso % (Auto) 1.2 (0-2) % Lymph # (Auto) 1.3 (1.2-4.9) X10*3/uL [place] # (Auto) 0.6 (0.1-1.2) X10*3/uL Eos # (Auto) 0.0 (0.0-0.4) X10*3/uL Baso # (Auto) 0.1 (0.0-0.2) X10*3/uL Abs Immat Gran (auto) 0.01 (0.00-0.03) X10*3/uL Absolute Neuts (auto) 3.2 (2.0-8.3) x10*3/uL Absolute Nucleated RBC 0.000 (0.0-0.012) X10*3/uL Nucleated RBC % (auto) 0.0 (0.0-0.2) /100WBC Sodium 143 (135-145) mmol/L Potassium 4.2 (3.3-5.1) mmol/L Chloride 107 (96-108) mmol/L Carbon Dioxide 23 (22-29) mmol/L Anion Gap 17 (12-20) BUN 22 H (9-16) mg/dL Creatinine 0.92 (0.5-1.4) mg/dL Estim Creat Clear Calc 43.9 Estimated GFR 59 Random Glucose 72 (60-115) mg/dL Lactic Acid 0.7 (0.5-2.0) mmol/L Calcium 9.6 (8.4-10.2) mg/dL Magnesium 2.1 (1.6-2.6) mg/dL Total Bilirubin 2.6 H (0.0-1.0) mg/dL AST 21 (5-31) U/L ALT 11 (0-31) U/L Alkaline Phosphatase 100 (39-117) U/L Total Protein 7.4 (6.5-8.0) g/dL Albumin 4.3 (3.5-5.0) g/dL Lipase 17 (8-78) U/L Urine Color Yellow Urine Appearance Clear Urine pH 5.5 (5.0-9.0) Ur Specific [place] 1.025 (1.005-1.025) Urine Protein 30 (1+) H (Neg-Trace) mg/dL Urine Glucose (UA) Negative (Negative) mg/dL Urine Ketones 80 (Negative) mg/dL Urine Blood Negative (Negative) Urine Nitrite Negative (Negative) Ur Leukocyte Esterase Small (1+) H (Negative) Urine RBC 0-2 (0-2) /HPF Urine WBC 21-50 H (0-5) /HPF Ur Squamous Epith Cells 3-5 (0-2) /HPF Urine Bacteria None Seen (None Seen) Hyaline Casts 0-2 (0-2) /LPF COVID-19 (MARTY) Negative (Negative) COVID-19 Clin Com See Note Discharge Plan Discharge Clinical Impression: Metabolic encephalopathy, Schizophrenia, Acute UTI Patient Disposition: Admitted As Inpatient Interventions: Admission Worksheet (ED) Last Done: 03/24/23 18:40 Discharge Date/Time: 03/24/23 18:41
[2023-03-23 20:11] LABS: MANUAL DIFF FLAG NO
[2023-03-23 20:14] LABS: Basophils Absolute Auto 0.1 X10*3/uL (0.0-0.2); Basophils Percent Auto 1.2 % (0-2); Eosinophils Percent Auto 0.8 % (0-4); Hematocrit 38.6 % (37.0-47.0); Hemoglobin 12.6 g/dl (12.0-16.0); Imm Gran Abs Auto 0.01 X10*3/uL (0.00-0.03); Imm Gran Pct Auto 0.2 % (0.0-0.4); Lymphocytes Absolute Auto 1.3 X10*3/uL (1.2-4.9); Lymphocytes Percent Auto 25.1 % (20-40); Mean Corpuscular HGB Conc 32.6 g/dl (31.0-35.0); Mean Corpuscular Hemoglobin 26.5 pg (27.0-33.0); Mean Corpuscular Volume 81.3 fL (80.0-98.0); Mean Platelet Volume 12.3 fL (9.4-12.3); Monocytes Absolute Auto 0.6 X10*3/uL (0.1-1.2); Monocytes Percent Auto 11.2 % (2-11); Neutrophils Absolute Auto 3.2 x10*3/uL (2.0-8.3); Neutrophils Percent Auto 61.5 % (45-73); Platelet Count 132 X10*3/uL (160-400); Red Blood Count 4.75 X10*6/uL (4.20-5.50); Red Cell Distribution Width 17.3 % (11.0-16.0); White Blood Count 5.2 X10*3/uL (4.8-10.8)
[2023-03-23 20:26] LABS: COVID-19 Test Negative (Negative); IDNOW Serial# BCCEAD1C
[2023-03-23 20:35] LABS: Alanine Aminotransferase 11 U/L (0-31); Albumin Level 4.3 g/dL (3.5-5.0); Alkaline Phosphatase 100 U/L (39-117); Anion Gap 17 (12-20); Aspartate Amino Transferase 21 U/L (5-31); Bilirubin Total 2.6 mg/dL (0.0-1.0); Blood Urea Nitrogen 22 mg/dL (9-16); Calcium 9.6 mg/dL (8.4-10.2); Carbon Dioxide 23 mmol/L (22-29); Chloride 107 mmol/L (96-108); Creatinine Clr Calc Pharmacy 43.9; Estimated Glomerular Filt Rate 59; Glucose Random 72 mg/dL (60-115); Lipase 17 U/L (8-78); Magnesium 2.1 mg/dL (1.6-2.6); Potassium 4.2 mmol/L (3.3-5.1); Sodium 143 mmol/L (135-145); Total Protein 7.4 g/dL (6.5-8.0)
[2023-03-23 22:00] VITALS: BP 115/68; PULSE 70; RESP 18; TEMP 36.7; O2SAT 97
[2023-03-23 23:47] LABS: Appearance Urine Clear; Color Urine Yellow; Glucose Urine UA Negative (Negative); Leukocyte Esterase Urine Small (1+) (Negative); Nitrite Urine Negative (Negative); PH 5.5 (5.0-9.0); Specific Gravity - Urine 1.025 (1.005-1.025); UMIC TRIGGER UACC YES; Urine Blood Negative (Negative); Urine Ketones 80 mg/dL (Negative); Urine Protein 30 (1+) mg/dL (Neg-Trace)
[2023-03-23 23:52] LABS: Bacteria Urine None Seen (None Seen); Hyaline Casts Urine 0-2 /LPF (0-2); RBC Urine 0-2 /HPF (0-2); UACC Culture Trigger YES; WBC Urine 21-50 /HPF (0-5)
[2023-03-24 01:42] VITALS: BP 112/76; PULSE 67; RESP 16; TEMP 36.6; O2SAT 96
--- NOTE | 2023-03-24 02:13 | ED_ITS ---
HPI - General Adult General Chief complaint: General Medical Stated complaint: abdominal pain, confused, difficulty communicating Time Seen by Provider: 03/23/23 23:12 History of Present Illness HPI narrative: Patient 78 years old with history of schizophrenia hypercholesteremia hyperten irina very poor historian came with slow speech unsteady gait for last 1 week with multiple complaints unable to get the right answer no fever no chills no vomiting patient lives alone Related Data Previous Rx's Medication Instructions Recorded omeprazole magnesium 20 mg 20 mg PO DAILY 90 days #90 caps 11/20/21 capsule,delayed release DISPOSABLE UNDERWEAR #120 ea 04/14/22 Disposable Underpad 30 x 36 heavy #100 ea 04/14/22 flow OFFSET HANDLE CANE #1 ea 04/14/22 PERSONAL CLEASING WIPES #100 ea 04/14/22 atorvastatin 10 mg tablet 10 mg PO DAILY #90 tabs 08/03/22 losartan 25 mg tablet 25 mg PO DAILY 90 days #90 tabs 08/03/22 FOLDING ALUMINUM ROLLATOR WALKER #1 ea 10/08/22 POWDER FREESYNTHETIC EXAM GLOVES #1 ea 10/08/22 hydroxyzine HCl 10 mg tablet 10 mg PO DAILY PRN Anxiety 90 days 01/27/23 #90 tabs Allergies Allergy/AdvReac Type Severity Reaction Status Date / Time MYESHA Inhibitors Allergy Severe ANGIOEDEMA Verified 12/13/22 16:51 WITH LISINOPRIL caffeine [CAFFEINE] Allergy Severe EXTREME Verified 12/13/22 16:51 PAIN IN BILATERAL KIDNEYS clozapine [From Clozaril] Allergy Severe Stomach Verified 12/13/22 16:51 Upset lisinopril Allergy Severe ANGIOEDEMA Verified 12/13/22 16:51 amoxicillin [AMOXICILLIN] Allergy Intermediate Stomach Verified 12/13/22 16:51 Upset atropine [Lomotil] Allergy Intermediate Stomach Verified 12/13/22 16:51 Upset bee pollen [BEE STINGS] Allergy Intermediate Swelling Verified 12/13/22 16:51 lovastatin Allergy Intermediate Cramps Verified 12/13/22 16:51 penicillin V Allergy Intermediate Stomach Verified 12/13/22 16:51 Upset ziprasidone [From GEODON] Allergy Intermediate HALLUCINATI Verified 12/13/22 16:51 ONS TUNA FISH Allergy Severe SEVERE Uncoded 09/15/22 12:26 INDIGESTION, rash From PROLIXIN Allergy Intermediate UNKNOWN Uncoded 09/15/22 12:26 lovastatin Allergy Intermediate cramping Uncoded 09/15/22 12:26 prolixen Allergy Intermediate seizure Uncoded 09/15/22 12:26 amox Allergy Mild GI upset Uncoded 09/15/22 12:26 Review of Systems Review of Systems: Yes Unobtainable due to mental status [facility] Past Medical History Medical History GERD (gastroesophageal reflux disease) Hyperbilirubinemia Hypercholesterolemia Hypertension Impacted cerumen Leukopenia Meningitis Nasal congestion Obesity (BMI 30-39.9) Otitis externa of right ear Pernicious anemia Schizophrenia Thrombocytopenia Tremors of nervous system Upper respiratory infection Urinary incontinence UTI (urinary tract infection) Vitamin D deficiency Surgical History H/O right wrist surgery History of tonsillectomy History of tooth extraction History of total abdominal hysterectomy and bilateral salpingo-oophorectomy Family History Family History Father Cancer Colon cancer Mother Cancer Colon cancer History of breast cancer Social History Social History Housing: Apartment Alcohol intake: never Patient Tobacco Use Status: Former Tobacco user Tobacco use type: Cigarette Years Smoked: quit 1960 Smoked in Last 30 Days: No e-Cigarette/Vaping Use: Never Used Second Hand Smoke Exposure: No Use of substances other than those prescribed or required for medical reasons: No Advance Directives: Yes Advance Directives on File: Yes Advance Directives Date on File: 12/14/22 service: No Current occupational status: disabled Cognitive needs: No Hearing needs: No Vision needs: Yes Physical Exam ED Vital Signs: Vital Signs - 24 hr 03/23/23 18:09 03/23/23 22:00 03/24/23 01:42 Temperature 98 F 98.1 F 97.9 F Pulse Rate 68 70 67 Respiratory Rate 18 18 16 Blood Pressure 113/86 115/68 112/76 Pulse Oximetry 98 97 96 Oxygen Delivery Method Room Air Room Air Room Air BMI result Body Mass Index 22.5 Appearance: Alert. Oriented X2. No acute distress. Confused Eyes: PERRLA, No Nystagmus ENT: Pharynx normal. Oral Mucosa moist Neck: Normal inspection. Neck supple. CVS: Normal heart rate and rhythm. Pulses normal. Respiratory: No respiratory distress. Equal air entry bilateral, no wheezing/rales/rhonchi Abdomen: Soft and nontender. Bowel sounds are present, no mass palpable, no CVA tenderness Skin: Skin warm and dry. Normal skin color. Normal skin turgor. Extremities: No lower extremity edema. No calf tenderness Neuro: Oriented X2. No motor deficit. No sensory deficit.No cerebellar signs , cranial nerves II-XII intact Medical Decision Making Medical Decision Making [facility] [place] Narrative: Patient with UTI with metabolic encephalopathy with schizophrenia lives alone will admit patient for IV antibiotics and re-evaluation Consult Healthcare Provider Management of the patient was discussed with: Hospitalist Lab Data [facility] [place] Lab Attestation statement: I reviewed the patient's lab results. 03/23/23 20:06 03/23/23 20:06 Labs: Lab Results 03/23/23 03/23/23 03/23/23 Range/Units 20:06 20:06 20:06 WBC 5.2 (4.8-10.8) X10*3/uL RBC 4.75 (4.20-5.50) X10*6/uL Hgb 12.6 (12.0-16.0) g/dl Hct 38.6 (37.0-47.0) % MCV 81.3 (80.0-98.0) fL MCH 26.5 L (27.0-33.0) pg MCHC 32.6 (31.0-35.0) g/dl RDW 17.3 H (11.0-16.0) % Plt Count 132 L (160-400) X10*3/uL MPV 12.3 (9.4-12.3) fL Immature Gran % (Auto) 0.2 (0.0-0.4) % Neut % (Auto) 61.5 (45-73) % Lymph % (Auto) 25.1 (20-40) % [place] % (Auto) 11.2 H (2-11) % Eos % (Auto) 0.8 (0-4) % Baso % (Auto) 1.2 (0-2) % Lymph # (Auto) 1.3 (1.2-4.9) X10*3/uL [place] # (Auto) 0.6 (0.1-1.2) X10*3/uL Eos # (Auto) 0.0 (0.0-0.4) X10*3/uL Baso # (Auto) 0.1 (0.0-0.2) X10*3/uL Abs Immat Gran (auto) 0.01 (0.00-0.03) X10*3/uL Absolute Neuts (auto) 3.2 (2.0-8.3) x10*3/uL Absolute Nucleated RBC 0.000 (0.0-0.012) X10*3/uL Nucleated RBC % (auto) 0.0 (0.0-0.2) /100WBC Sodium 143 (135-145) mmol/L Potassium 4.2 (3.3-5.1) mmol/L Chloride 107 (96-108) mmol/L Carbon Dioxide 23 (22-29) mmol/L Anion Gap 17 (12-20) BUN 22 H (9-16) mg/dL Creatinine 0.92 (0.5-1.4) mg/dL Estim Creat Clear Calc 43.9 Estimated GFR 59 Random Glucose 72 (60-115) mg/dL Calcium 9.6 (8.4-10.2) mg/dL Magnesium 2.1 (1.6-2.6) mg/dL Total Bilirubin 2.6 H (0.0-1.0) mg/dL AST 21 (5-31) U/L ALT 11 (0-31) U/L Alkaline Phosphatase 100 (39-117) U/L Total Protein 7.4 (6.5-8.0) g/dL Albumin 4.3 (3.5-5.0) g/dL Lipase 17 (8-78) U/L Urine Color Urine Appearance Urine pH (5.0-9.0) Ur Specific [place] (1.005-1.025) Urine Protein (Neg-Trace) mg/dL Urine Glucose (UA) (Negative) mg/dL Urine Ketones (Negative) mg/dL Urine Blood (Negative) Urine Nitrite (Negative) Ur Leukocyte Esterase (Negative) Urine RBC (0-2) /HPF Urine WBC (0-5) /HPF Ur Squamous Epith Cells (0-2) /HPF Urine Bacteria (None Seen) Hyaline Casts (0-2) /LPF COVID-19 (M[facility]Y) Negative (Negative) COVID-19 Clin Com See Note 03/23/23 Range/Units 23:31 WBC (4.8-10.8) X10*3/uL RBC (4.20-5.50) X10*6/uL Hgb (12.0-16.0) g/dl Hct (37.0-47.0) % MCV (80.0-98.0) fL MCH (27.0-33.0) pg MCHC (31.0-35.0) g/dl RDW (11.0-16.0) % Plt Count (160-400) X10*3/uL MPV (9.4-12.3) fL Immature Gran % (Auto) (0.0-0.4) % Neut % (Auto) (45-73) % Lymph % (Auto) (20-40) % [place] % (Auto) (2-11) % Eos % (Auto) (0-4) % Baso % (Auto) (0-2) % Lymph # (Auto) (1.2-4.9) X10*3/uL [place] # (Auto) (0.1-1.2) X10*3/uL Eos # (Auto) (0.0-0.4) X10*3/uL Baso # (Auto) (0.0-0.2) X10*3/uL Abs Immat Gran (auto) (0.00-0.03) X10*3/uL Absolute Neuts (auto) (2.0-8.3) x10*3/uL Absolute Nucleated RBC (0.0-0.012) X10*3/uL Nucleated RBC % (auto) (0.0-0.2) /100WBC Sodium (135-145) mmol/L Potassium (3.3-5.1) mmol/L Chloride (96-108) mmol/L Carbon Dioxide (22-29) mmol/L Anion Gap (12-20) BUN (9-16) mg/dL Creatinine (0.5-1.4) mg/dL Estim Creat Clear Calc Estimated GFR Random Glucose (60-115) mg/dL Calcium (8.4-10.2) mg/dL Magnesium (1.6-2.6) mg/dL Total Bilirubin (0.0-1.0) mg/dL AST (5-31) U/L ALT (0-31) U/L Alkaline Phosphatase (39-117) U/L Total Protein (6.5-8.0) g/dL Albumin (3.5-5.0) g/dL Lipase (8-78) U/L Urine Color Yellow Urine Appearance Clear Urine pH 5.5 (5.0-9.0) Ur Specific [place] 1.025 (1.005-1.025) Urine Protein 30 (1+) H (Neg-Trace) mg/dL Urine Glucose (UA) Negative (Negative) mg/dL Urine Ketones 80 (Negative) mg/dL Urine Blood Negative (Negative) Urine Nitrite Negative (Negative) Ur Leukocyte Esterase Small (1+) H (Negative) Urine RBC 0-2 (0-2) /HPF Urine WBC 21-50 H (0-5) /HPF Ur Squamous Epith Cells 3-5 (0-2) /HPF Urine Bacteria None Seen (None Seen) Hyaline Casts 0-2 (0-2) /LPF COVID-19 ([facility]Y) (Negative) COVID-19 Clin Com Discharge Plan Discharge Clinical Impression: Lower extremity injury Patient Disposition: Elopement Prescriptions: No Action omeprazole magnesium 20 mg capsule,delayed release(DR/EC) 20 mg PO DAILY 90 Days Qty: 90 1RF (DME) OFFSET HANDLE CANE See Rx Instructions .Route .MEDSUPPLY Qty: 1 0RF Rx Instructions: As directed (DME) Disposable Underpad 30 x 36 heavy flow See Rx Instructions .Route .MEDSUPPLY Qty: 100 12RF Rx Instructions: As directed (DME) PERSONAL CLEASING WIPES See Rx Instructions .Route .MEDSUPPLY Qty: 100 12RF Rx Instructions: As directed (DME) DISPOSABLE UNDERWEAR XL MODERATE ABSORBENCY See Rx Instructions .Route .MEDSUPPLY Qty: 120 12RF Rx Instructions: As directed (DME) FOLDING ALUMINUM ROLLATOR WALKER See Rx Instructions .Route .MEDSUPPLY Qty: 1 12RF Rx Instructions: As directed (DME) POWDER FREESYNTHETIC EXAM GLOVES See Rx Instructions .Route .MEDSUPPLY Qty: 1 0RF Rx Instructions: As directed hydroxyzine HCl 10 mg tablet 10 mg PO DAILY PRN (Reason: Anxiety) 90 Days Qty: 90 1RF atorvastatin 10 mg tablet 10 mg PO DAILY Qty: 90 2RF losartan 25 mg tablet 25 mg PO DAILY 90 Days Qty: 90 2RF
[2023-03-24] MEDS: 0.9 % Sodium Chloride 1,000 ML 999 ML IV (02:48)
[2023-03-24] MEDS: cefTRIAXone sodium 1 GM in 0.9 % Sodium Chloride 50 ML IV ×2 (02:48→08:34)
[2023-03-24 02:54] LABS: Lactic Acid 0.7 mmol/L (0.5-2.0)
--- NOTE | 2023-03-24 03:20 | PC.NURSE ---
hand off to nicolás khan
[2023-03-24 04:07] VITALS: BP 151/72; PULSE 69; RESP 14; TEMP 36.3; O2SAT 100
--- NOTE | 2023-03-24 04:42 | P.HPHOSP_ITS ---
History of Present Illness Date of Service: 03/24/23 Chief Complaint: Altered mental status 78-year-old female with past medical history of schizophrenia, diabetes, HLD, GERD, presents to the hospital with ?altered mental status, change speech per patient has been going on for few weeks, otherwise very difficult to get much history from the patient otherwise. Has extrapyramidal movements, difficult to express herself, but denies any weakness numbness or tingling in her arms legs. She has no numbness tingling and face. Have any change in vision, unable to assess much of the rest of her review of system On arrival to the ED patient hemodynamically stable with no significant abnormal vitals Labs are significant for WBC of 5.2, otherwise unremarkable, UA shows small leukocyte Estrace and WBC Head CT shows no acute intracranial process, chronic small-vessel ischemic changes, no major change compared to previous study Patient started on antibiotics and will be admitted for further management Review of Systems Review of Systems: Yes all other systems are reviewed and are negative [facility] Medical History GERD (gastroesophageal reflux disease) Hyperbilirubinemia Hypercholesterolemia Hypertension Impacted cerumen Leukopenia Meningitis Nasal congestion Obesity (BMI 30-39.9) Otitis externa of right ear Pernicious anemia Schizophrenia Thrombocytopenia Tremors of nervous system Upper respiratory infection Urinary incontinence UTI (urinary tract infection) Vitamin D deficiency Family History Father Cancer Colon cancer Mother Cancer Colon cancer History of breast cancer Surgical History H/O right wrist surgery History of tonsillectomy History of tooth extraction History of total abdominal hysterectomy and bilateral salpingo-oophorectomy Social History Housing: Apartment Alcohol intake: never Patient Tobacco Use Status: Former Tobacco user Tobacco use type: Cigarette Years Smoked: quit 1960 Smoked in Last 30 Days: No e-Cigarette/Vaping Use: Never Used Second Hand Smoke Exposure: No Use of substances other than those prescribed or required for medical reasons: No Advance Directives: Yes Advance Directives on File: Yes Advance Directives Date on File: 12/14/22 service: No Current occupational status: disabled Cognitive needs: No Hearing needs: No Vision needs: Yes Meds Allergies Allergy/AdvReac Type Severity Reaction Status Date / Time MYESHA Inhibitors Allergy Severe ANGIOEDEMA Verified 12/13/22 16:51 WITH LISINOPRIL caffeine [CAFFEINE] Allergy Severe EXTREME Verified 12/13/22 16:51 PAIN IN BILATERAL KIDNEYS clozapine [From Clozaril] Allergy Severe Stomach Verified 12/13/22 16:51 Upset lisinopril Allergy Severe ANGIOEDEMA Verified 12/13/22 16:51 amoxicillin [AMOXICILLIN] Allergy Intermediate Stomach Verified 12/13/22 16:51 Upset atropine [Lomotil] Allergy Intermediate Stomach Verified 12/13/22 16:51 Upset bee pollen [BEE STINGS] Allergy Intermediate Swelling Verified 12/13/22 16:51 lovastatin Allergy Intermediate Cramps Verified 12/13/22 16:51 penicillin V Allergy Intermediate Stomach Verified 12/13/22 16:51 Upset ziprasidone [From GEODON] Allergy Intermediate HALLUCINATI Verified 12/13/22 16:51 ONS TUNA FISH Allergy Severe SEVERE Uncoded 09/15/22 12:26 INDIGESTION, rash From PROLIXIN Allergy Intermediate UNKNOWN Uncoded 09/15/22 12:26 lovastatin Allergy Intermediate cramping Uncoded 09/15/22 12:26 prolixen Allergy Intermediate seizure Uncoded 09/15/22 12:26 amox Allergy Mild GI upset Uncoded 09/15/22 12:26 Physical Exam Vital Signs and Narrative: Vital Signs: Last Vital Signs Temp 97.4 F 03/24/23 04:07 Pulse 69 03/24/23 04:07 Resp 14 03/24/23 04:07 BP 151/72 H 03/24/23 04:07 Pulse Ox 100 03/24/23 04:07 O2 Del Method Room Air 03/24/23 04:07 BMI result Body Mass Index 22.5 Const: Other: Speech is heavy, but patient is awake, alert, unable to assess orientation General: cooperative and no acute distress HEENT: Other: No facial droop Eyes: General: appearance normal, both eyes and all related structures Pu pils: Equal, round and reactive pupils present Resp: Effort & Inspection: normal respiratory effort Auscultation: clear to auscultation bilaterally Cardio: Rate: regular rate Rhythm: regular rhythm GI: Palpation (GI): Soft to palpation Auscultation: normal bowel sounds Skin: General skin exam: no rashes or lesions noted Neuro: Other: Strength is 5/5 in all extremities, no visual changes Except for heavy speech which patient denies being her baseline, patient does not have any cranial nerve deficiencies Cranial nerves: Yes Equal, round and reactive pupils present Cognition (Neuro): normal cognition Extrem: General: Yes normal to inspection and Yes no pedal edema Results Labs 03/23/23 20:06 03/23/23 20:06 Labs: Laboratory Results - last 24 hr 03/23/23 03/23/23 03/23/23 20:06 20:06 20:06 MCV 81.3 MCH 26.5 L MCHC 32.6 RDW 17.3 H Plt Count 132 L MPV 12.3 Immature Gran % (Auto) 0.2 Neut % (Auto) 61.5 Lymph % (Auto) 25.1 [place] % (Auto) 11.2 H Eos % (Auto) 0.8 Baso % (Auto) 1.2 Lymph # (Auto) 1.3 [place] # (Auto) 0.6 Eos # (Auto) 0.0 Baso # (Auto) 0.1 Abs Immat Gran (auto) 0.01 Absolute Neuts (auto) 3.2 Absolute Nucleated RBC 0.000 Nucleated RBC % (auto) 0.0 Anion Gap 17 Estim Creat Clear Calc 43.9 Estimated GFR 59 Random Glucose 72 Lactic Acid Calcium 9.6 Magnesium 2.1 Total Bilirubin 2.6 H AST 21 ALT 11 Alkaline Phosphatase 100 Total Protein 7.4 Albumin 4.3 Lipase 17 Urine Color Urine Appearance Urine pH Ur Specific [place] Urine Protein Urine Glucose (UA) Urine Ketones Urine Blood Urine Nitrite Ur Leukocyte Esterase Urine RBC Urine WBC Ur Squamous Epith Cells Urine Bacteria Hyaline Casts COVID-19 ([facility]) Negative COVID-19 Clin Com See Note 03/23/23 03/24/23 23:31 02:34 MCV MCH MCHC RDW Plt Count MPV Immature Gran % (Auto) Neut % (Auto) Lymph % (Auto) [place] % (Auto) Eos % (Auto) Baso % (Auto) Lymph # (Auto) [place] # (Auto) Eos # (Auto) Baso # (Auto) Abs Immat Gran (auto) Absolute Neuts (auto) Absolute Nucleated RBC Nucleated RBC % (auto) Anion Gap Estim Creat Clear Calc Estimated GFR Random Glucose Lactic Acid 0.7 Calcium Magnesium Total Bilirubin AST ALT Alkaline Phosphatase Total Protein Albumin Lipase Urine Color Yellow Urine Appearance Clear Urine pH 5.5 Ur Specific [place] 1.025 Urine Protein 30 (1+) H Urine Glucose (UA) Negative Urine Ketones 80 Urine Blood Negative Urine Nitrite Negative Ur Leukocyte Esterase Small (1+) H Urine RBC 0-2 Urine WBC 21-50 H Ur Squamous Epith Cells 3-5 Urine Bacteria None Seen Hyaline Casts 0-2 COVID-19 ([facility]Y) COVID-19 Clin Com Imaging Radiologist's Impressions: Impressions Head CT 03/23/23 20:30 IMPRESSION: 1. No acute intracranial process seen. 2. Chronic small vessel ischemic changes in both cerebral hemispheres. 3. No major change compared to previous study 06/15/2022. Assessment and Plan (1) Alteration in speech: Status: Acute Plan 78-year-old female with history of schizophrenia, diabetes presents to the hospital with altered mentation and speech # altered speech - CVA? Versus baseline although patient denies her speech being a baseline, states been going on for several weeks - head CT negative - will obtain head and neck CT angiogram, MRI - neurology consulted - PT # UTI - has a mild UTI -will treat with IV antibiotics - follow cultures # diabetes - low-dose sinus scale insulin - diabetic diet # hyperlipidemia - continue statin # hypertension - stable - continue antihypertensives DVT prophylaxis: Lovenox Time Spent With Patient Time: Total time managing care of this patient today ____ minutes. Quality Stroke Does the patient have a stroke diagnosis?: No VTE Prior VTE?: No VTE Risk Level:: Medical - moderate - high VTE Device Contraindication: Treatment Not Indicated VTE Drug Contraindication: N/A - Med Ordered
[2023-03-24] MEDS: Enoxaparin Sodium 40 MG/0.4 ML SYRINGE SUBCUT (05:35)
[2023-03-24] MEDS: Lactated Ringers 1,000 ML 100 ML IVCONT ×2 (05:35→17:35)
[2023-03-24 06:00] VITALS: BMI 22.4
[2023-03-24 06:09] VITALS: BP 142/66; PULSE 72; RESP 18; TEMP 36.5; O2SAT 100
--- NOTE | 2023-03-24 06:26 | MHC.EDTECH ---
THIS PCT JUST ASSUMED CARE OF PATIENT ,0600 MORNING WEIGHT DONE ,AND I & O'S ,PATIENT AWAKE IN BED ,FRESH ICE WATER GIVEN .
[2023-03-24 07:09] LABS: Basophils Percent Auto 0.8 % (0-2); Eosinophils Absolute Auto 0.1 X10*3/uL (0.0-0.4); Eosinophils Percent Auto 1.9 % (0-4); Hematocrit 35.5 % (37.0-47.0); Hemoglobin 11.7 g/dl (12.0-16.0); Imm Gran Abs Auto 0.01 X10*3/uL (0.00-0.03); Imm Gran Pct Auto 0.2 % (0.0-0.4); Lymphocytes Absolute Auto 1.1 X10*3/uL (1.2-4.9); Lymphocytes Percent Auto 23.7 % (20-40); MANUAL DIFF FLAG SCAN; Mean Corpuscular Volume 81.8 fL (80.0-98.0); Monocytes Absolute Auto 0.7 X10*3/uL (0.1-1.2); Monocytes Percent Auto 13.5 % (2-11); Neutrophils Absolute Auto 2.9 x10*3/uL (2.0-8.3); Neutrophils Percent Auto 59.9 % (45-73); PLT CLUMP 1; Red Blood Count 4.34 X10*6/uL (4.20-5.50); Red Cell Distribution Width 17.2 % (11.0-16.0); SCAN SMEAR FLAG 1
[2023-03-24 07:10] LABS: White Blood Count 4.8 X10*3/uL (4.8-10.8)
[2023-03-24 07:22] LABS: Platelet Count 105 X10*3/uL (160-400)
[2023-03-24 07:23] LABS: SLIDE REVIEW VERIFIED
[2023-03-24 08:22] LABS: Estimated Average Glucose 97 mg/dL
--- NOTE | 2023-03-24 08:34 | PHA.MEDREC ---
Addendum entered by Tom Kelsey [facility] 03/24/23 10:58: SPOKE WITH [facility] AND UPDATED MED LIST. NURSE SAID SHE DOESN'T BELIEVE PATIENT HAS BEEN TAKING MEDICATIONS Original Note: Pharmacy Consult ? Medication Reconciliation Pharmacy has completed the medication reconciliation. Used pharmacy claims as patient is confused with slurred speech
--- NOTE | 2023-03-24 09:07 | PC.NURSE ---
pt is ao x baseline. ate breakfast. medicated per emar. pt at bedside earlier and ambulated independently with minimal use of walker. plan for ct and mri today.
[2023-03-24 10:19] LABS: Anion Gap 16 (12-20); Blood Urea Nitrogen 17 mg/dL (9-16); Calcium 8.8 mg/dL (8.4-10.2); Carbon Dioxide 22 mmol/L (22-29); Chloride 110 mmol/L (96-108); Creatinine Clr Calc Pharmacy 54.5; Estimated Glomerular Filt Rate > 60; Glucose Random 66 mg/dL (60-115); Potassium 3.9 mmol/L (3.3-5.1); Sodium 144 mmol/L (135-145)
--- NOTE | 2023-03-24 13:54 | MHC.SP.ADU ---
Referring provider: Dr. Conley Reason for Referral: Difficulty with speaking Type of Treatment: 24192 Evaluation Speech Sound Production WITH Language Date of Plan of Treatment: 03/24/24 Onset of Symptoms/Illness: 03/21/24 Date Treatment Started: 03/24/24 Medical Diagnosis: AMS with change in speech. Primary Speech Language Diagnosis: R47.81 Slurred speech Secondary Speech Language Diagnosis: R41.841 Cognitive communication disorder History Patient is an [age] year old woman who was brought to the ED due to concerns regarding increased confusion and slurred speech. Head CT on admission: No acute intercranial process, chronic small vessel ischemic changes in both hemispheres. Patient has significant HX Schizophrenia. Medical History: Diabetes Emotional or Psychological Issues High Blood Pressure Other: Schizophrenia, HLD, GERD, impacted cerumen, leukopenia, meningitis, obesity, otitis externa in R ear; thrombocytopenia, tremors, upper respiratory in fection, urea uti, Vitamin D Deficiency. Medication List: See Chart Recent Hospitalizations: No Respiratory Needs: Room Air Patient Orientation: Person, Place Only Social History: Employment Status: Retired Highest level of education obtained: Unknown/Unable to report Current Living Situation: Patient reportedly lives alone in a private apartment. Assistive Devices in use: Comment: Past Speech Language Therapy: None reported Other Therapies Seen in Current Calendar Year: Other: Swallowing History: Dysphagia Specific: Within Functional Limits Comments: Nursing reports no difficulty with swallowing at this time, patient denies any difficulty with swallowing. Pre-eval Risk for Aspiration: Neurological Condition Pre-evaluation Dietary Consistencies: Regular Pre-eval Liquid Intake: Pre-eval Medication Intake: Reported Speech, Language, Cognition difficulties: Cognition Speaking Comments: Patient noted to have continuous, uncontrolled movement of lips, tongue, jaw and other aspect of facial movement (e.g. eye blinking, head movement) consistent with Tardive Dyskinesia, which patient reported is an existing diagnosis for her, but denies taking any medication for the condition. Speech is at times slurred with imprecise articulation secondary to TD. Patient additionally presents with difficulty planning/sequencing speech, with whole word and syllable repetitions noted, hesitancies, sometimes prolonged, and effortful production of speech at times. Other aspects of communication are also impaired, with slow processing, word finding, disruptive thought, difficulty following directions and general comprehension all areas of weakness. Quality of Life: Guarded Patient Stated Goal of Speech-Language Therapy: Assess scope of communication impairment. Assessment Speech Production: Disorganized Dysarthric Nonfluent Clinical Impression: Impaired Observations: Speech is at times slurred with imprecise articulation secondary to TD. Patient additionally presents with difficulty planning/sequencing speech, with whole word and syllable repetitions noted, hesitancies, sometimes prolonged, and effortful production of speech at times. Informal Voice Assessment: Voice Loudness: Normal Voice Nasal Resonance: Normal Voice Oral Resonance: Normal Voice Phonatory-based Quality: Normal Voice Pitch: Normal Voice Other Observations: Clinical Impression: Intact Clinicial Observations: Tests of Speech & Lang Adults: BDAE BNT Clinical Impression: Impaired Observations: The short form of the BNT/BDAE were attempted today. On the BNT, patient identified 14 of 15 items correctly, however on each presentation, patient evidenced prolonged delays characterized by apparent search for the word, false starts and effortful production of each word. Single error was easel for pallet. On comprehension tasks, patient evidenced some initial confusion, prolonged periods of processing simple direction, completion of some initial tasks for each area with cessation/confusion/interruption with thoughts/comments. Patient became increasingly distracted and uncooperative with tasks (although not agitated, simply pausing for prolonged periods, then making off task comments (e.g. I think you are a psychiatrist I need spiritual counselling. ) Testing was incomplete due to prolonged pauses, difficulty progressing though tasks and level of patient confusion. Tests of Cognition: Clinical Impression: Observations: Augmentative and Alternative Communication: Observations: Impressions and Recommendations Summary: Impact on Daily Function/Activity Limitations: Daily Activities: Severe Interpersonal Interactions: Severe Education: Employment: Community: Severe Prognosis for Improvement: Guarded Comment: Recommendation for Speech Therapy: Further Testing Needed Frequency/Duration: Date Range for Service Requested: Time to Reassess: Epic Kaleidoscope Analyst Goals: Short Term Goals: Goal # : Goal Status: Goal# : Goal Status: Goal # : Goal Status: Goal # : Goal Status: Recommended Referrals to be Discussed with Primary Care Provider: Psychiatric consult Patient Education: Completed: Yes Patient/Caregiver Education: Described Results of Evaluation Comments/Barriers to Learning: Difficult to determine patient's level of understanding at this time. Community Fundraiser Clinican/Clinical Fellow: No Supervisory Statement: N/A Speech Language Pathologist: Aydee Louis M.A., CCC-YEAST WASHER
[2023-03-24 14:38] VITALS: BP 164/76; PULSE 63; RESP 18; TEMP 36.6; O2SAT 96
--- NOTE | 2023-03-24 15:28 | PM.EVENT ---
Event Note Date of Service: 03/24/23 Event Note: Day hospitalist update S: Limited history but states has had speech difficulties for several weeks. Has marked TD. 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
[2023-03-24] MEDS: iohexoL 350 MG/ML 100 ML INFUS..BTL IV (16:00)
[2023-03-24] MEDS: 0.9 % Sodium Chloride Flush 3 ML SYRINGE IVFLUSH ×2 (17:35→20:30)
[2023-03-24 19:32] VITALS: BP 121/84; PULSE 99; RESP 19; TEMP 37.2; O2SAT 99
[2023-03-24 20:20] LABS: Glucose, Whole Blood 117 mg/dL (60-115)
[2023-03-24] MEDS: LORazepam 2 MG/ML VIAL 0.5 MG IVPUSH (20:29)
--- NOTE | 2023-03-24 22:34 | MHC.CM.PN ---
Addendum entered by Ariana Garces 03/24/23 22:44: PT and Speech consults have been ordered, so perhaps STR is an option at discharge. Original Note: IMM 03/24. Reviewed with HCP/brother Bert Geronimo. Pt with speech difficulties and ?ams. CM was unable to understand patient and unsure if pt was altered. Spoke with HCP/brother Bert, as bedside ([phone]). Pt lives alone. Pt has schizophrenia. Had services in past with [facility]. Brother unsure if patient still has services and patient is unable to confirm if she does. Brother states staff reporter is Mr. Ruth at [facility]. Pt lives in [facility] [phone]. CM unable to verify services with [facility] at this time. Pt has had speech difficulties for past several weeks. Uses a cane/walker. [employer] x2 according to medical record. Brother does grocery shopping and assists with rides to MD appointments. D/C plan uncertain at this time pending confirmation of services at patient's home and if she is safe to live alone without services. Brother tells CM that his sister can move in with him in April, as he has a border currently. CM following for discharge planning. CM will need to call [facility].
[2023-03-24 23:30] VITALS: BP 186/91; PULSE 78; RESP 20; TEMP 36.2; O2SAT 98
[2023-03-25] VITALS (7 sets, daily range): BP systolic 130–153; BP diastolic 58–81; PULSE 66–76; RESP 18–20; TEMP 36–36.9; O2SAT 98–100; BMI 23.6
[2023-03-25] MEDS: Omeprazole 20 MG CAPSULE.DR PO (05:12)
[2023-03-25] MEDS: Enoxaparin Sodium 40 MG/0.4 ML SYRINGE SUBCUT (05:12)
[2023-03-25 06:56] LABS: Glucose, Whole Blood 67 mg/dL (60-115)
[2023-03-25 06:56] LABS: Glucose, Whole Blood 60 mg/dL (60-115)
[2023-03-25 06:56] LABS: Glucose, Whole Blood 86 mg/dL (60-115)
[2023-03-25 07:24] LABS: Glucose, Whole Blood 85 mg/dL (60-115)
[2023-03-25 07:38] LABS: Cholesterol 197 mg/dL; HDL Cholesterol 56 mg/dL; LDL Cholesterol Calculated 128 mg/dl; Triglycerides 65 mg/dL
[2023-03-25] MEDS: Trifluoperazine HCL 5 MG TABLET PO (07:58)
[2023-03-25] MEDS: hydroCHLOROthiazide 25 MG TABLET PO (07:59)
[2023-03-25] MEDS: Atorvastatin Calcium 10 MG TABLET PO (07:59)
[2023-03-25] MEDS: Aspirin Enteric Coated 81 MG TABLET.DR PO (07:59)
[2023-03-25] MEDS: cefTRIAXone sodium 1 GM in 0.9 % Sodium Chloride 50 ML IV (08:00)
[2023-03-25] MEDS: 0.9 % Sodium Chloride Flush 3 ML SYRINGE IVFLUSH ×2 (08:00→20:29)
[2023-03-25] MEDS: Losartan Potassium 25 MG TABLET PO (08:06)
[2023-03-25 08:08] LABS: Reflex LDLD? No
--- NOTE | 2023-03-25 09:33 | HO.PM.IMPN ---
Subjective Subjective Date of Service: 03/25/23 Interval History: f/u on cocern of stroke, aphasia interval history: speech is a bit better,MRI is non-diagnostic Physical Exam Vital Signs: Vital Signs: Last Vital Signs Temp 98.0 F 03/25/23 07:29 Pulse 71 03/25/23 07:29 Resp 18 03/25/23 07:29 BP 151/79 H 03/25/23 07:29 Pulse Ox 99 03/25/23 07:29 O2 Del Method Room Air 03/25/23 07:29 BMI result Body Mass Index 23.6 General: AO X 3, no acute distress Resp: CTA bilateral CVS: S1,S2,RRR GI: +BS, NT, no distention Skin: No rash Neuro: motor grossly intact but speech difficult to understand Psych: appropriate affect Objective Data Active Medications Acetaminophen (Acetaminophen 325 Mg Tablet) 650 mg PO Q6H PRN PRN Reason: Pain, Mild (Pain Scale 1-3) Artificial Tears (Artificial Tears 15 Ml Drops) 1 drop EYE-BOTH TID [facility] Last Admin: 03/25/23 08:01 Dose: Not Given Documented By: ELIZABETH Non-Admin Reason: waiting for pharmacy to bring med Aspirin (Aspirin Enteric Coated 81 Mg Tablet.) 81 mg PO DAILY [facility] Last Admin: 03/25/23 07:59 Dose: 81 mg Documented By: ELIZABETH Atorvastatin Calcium (Atorvastatin Calcium 10 Mg Tablet) 10 mg PO DAILY [facility] Last Admin: 03/25/23 07:59 Dose: 10 mg Documented By: ELIZABETH Docusate Sodium (Docusate Sodium 100 Mg Capsule) 100 mg PO DAILY PRN PRN Reason: Constipation Enoxaparin Sodium (Enoxaparin Sodium 40 Mg/0.4 Ml Syringe) 40 mg SUBCUT Q24H [facility] Last Admin: 03/25/23 05:12 Dose: 40 mg Documented By: EFRA Glucose (Glucose Gel 15 Gm Gel..Gram.) 15 gm PO Q15M PRN; Protocol PRN Reason: per Hypoglycemia Standing Ord. Hydrochlorothiazide (Hydrochlorothiazide 25 Mg Tablet) 25 mg PO DAILY [facility]; Protocol Last Admin: 03/25/23 07:59 Dose: 25 mg Documented By: ELIZABETH Hydroxyzine HCl (Hydroxyzine Hcl 10 Mg Tablet) 10 mg PO DAILY PRN PRN Reason: Anxiety Lactated Ringer's (Lr) 1,000 mls @ 100 mls/hr IVCONT .Q10H [facility] Last Infusion: 03/25/23 03:57 Dose: 100 mls/hr Documented By: EFRA Dextrose (D10) 250 mls @ 750 mls/hr IV Q15M PRN; Protocol PRN Reason: per Hypoglycemia Standing Ord. Ceftriaxone Sodium 1 gm/ (Sodium Chloride) 50 mls @ 100 mls/hr IV Q24H [facility] Last Infusion: 03/25/23 08:30 Dose: 0 mls/hr Documented By: ELIZABETH Insulin Human Lispro (Insulin Lispro 100 Unit/Ml 3 Ml Vial) 0 unit SUBCUT QIDACHS [facility]; Protocol Last Admin: 03/25/23 07:29 Dose: Not Given Documented By: ELIZABETH Non-Admin Reason: No Insulin Coverage Losartan Potassium (Losartan Potassium 25 Mg Tablet) 25 mg PO DAILY [facility]; Protocol Last Admin: 03/25/23 08:06 Dose: 25 mg Documented By: ELIZABETH Omeprazole (Omeprazole 20 Mg Capsule.Dr) 20 mg PO DAILY@0630 [facility] Last Admin: 03/25/23 05:12 Dose: 20 mg Documented By: EFRA Ondansetron HCl (Ondansetron Hcl 4 Mg/2 Ml Vial) 4 mg IVPUSH Q8H PRN PRN Reason: Nausea and Vomiting Sodium Chloride (0.9 % Sodium Chloride Flush 3 Ml Syringe) 3 ml IVFLUSH QSHIFT [facility] Last Admin: 03/25/23 08:00 Dose: 3 ml Documented By: ELIZABETH Trifluoperazine HCl (Trifluoperazine Hcl 5 Mg Tablet) 5 mg PO DAILY [facility] Last Admin: 03/25/23 07:58 Dose: 5 mg Documented By: ELIZABETH Labs 03/24/23 06:02 03/24/23 Unknown Labs: Laboratory Results - last 24 hr 03/24/23 03/24/23 03/24/23 07:26 11:55 17:16 Anion Gap Estim Creat Clear Calc Estimated GFR POC Glucose 60 86 67 Random Glucose Calcium Triglycerides Cholesterol LDL Cholesterol, Calc HDL Cholesterol 03/24/23 03/24/23 03/25/23 20:05 Unknown 06:29 Anion Gap 16 Estim Creat Clear Calc 54.5 Estimated GFR > 60 POC Glucose 117 H Random Glucose 66 Calcium 8.8 D Triglycerides 65 Cholesterol 197 LDL Cholesterol, Calc 128 HDL Cholesterol 56 03/25/23 07:02 Anion Gap Estim Creat Clear Calc Estimated GFR POC Glucose 85 Random Glucose Calcium Triglycerides Cholesterol LDL Cholesterol, Calc HDL Cholesterol Microbiology Microbiology Results: Microbiology 03/24/23 02:34 Blood Culture - Preliminary Blood - Venous No growth after 24 hours. 03/24/23 02:34 Blood Culture - Preliminary Blood - Venous No growth after 24 hours. 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 Time Spent With Patient Time: Total time managing care of this patient today ____ minutes. Quality Stroke Does the patient have a stroke diagnosis?: No VTE Prior VTE?: No VTE Risk Level:: Medical - moderate - high VTE Device Contraindication: Treatment Not Indicated VTE Drug Contraindication: N/A - Med Ordered
[2023-03-25 11:56] LABS: Glucose, Whole Blood 128 mg/dL (60-115)
--- NOTE | 2023-03-25 13:09 | P.CNNE_ITS ---
History of Present Illness Data of Consult Service Date: 03/25/23 Primary Care Provider: Erik Bailey MD HPI Reason for consult: Changed speech 78 years old woman who stated that few months ago she could not speak. He said that now she was much better. She said that she could not say what she wanted to say. There was no associated focal weakness. There was no headache or swallowing difficulty. Review of Systems Review of Systems: No breathing or swallowing difficulty PMFSH Past Medical History Medical History GERD (gastroesophageal reflux disease) Hyperbilirubinemia Hypercholesterolemia Hypertension Impacted cerumen Leukopenia Meningitis Nasal congestion Obesity (BMI 30-39.9) Otitis externa of right ear Pernicious anemia Schizophrenia Thrombocytopenia Tremors of nervous system Upper respiratory infection Urinary incontinence UTI (urinary tract infection) Vitamin D deficiency Family History Family History Father Cancer Colon cancer Mother Cancer Colon cancer History of breast cancer Surgical History Surgical History H/O right wrist surgery History of tonsillectomy History of tooth extraction History of total abdominal hysterectomy and bilateral salpingo-oophorectomy Social History Social History Household Members: Unknown / Unable to assess Household Members Other:: patient states Alone Housing: Apartment Alcohol intake: never Patient Tobacco Use Status: Former Tobacco user Tobacco use type: Cigarette Years Smoked: quit 1960 e-Cigarette/Vaping Use: Never Used Second Hand Smoke Exposure: No Advance Directives Date on File: 12/14/22 service: No Current occupational status: disabled Cognitive needs: No Hearing needs: No Vision needs: Yes Meds Allergies Allergy/AdvReac Type Severity Reaction Status Date / Time MYESHA Inhibitors Allergy Severe ANGIOEDEMA Verified 12/13/22 16:51 WITH LISINOPRIL caffeine [CAFFEINE] Allergy Severe EXTREME Verified 12/13/22 16:51 PAIN IN BILATERAL KIDNEYS clozapine [From Clozaril] Allergy Severe Stomach Verified 12/13/22 16:51 Upset lisinopril Allergy Severe ANGIOEDEMA Verified 12/13/22 16:51 amoxicillin [AMOXICILLIN] Allergy Intermediate Stomach Verified 12/13/22 16:51 Upset atropine [Lomotil] Allergy Intermediate Stomach Verified 12/13/22 16:51 Upset bee pollen [BEE STINGS] Allergy Intermediate Swelling Verified 12/13/22 16:51 lovastatin Allergy Intermediate Cramps Verified 12/13/22 16:51 penicillin V Allergy Intermediate Stomach Verified 12/13/22 16:51 Upset ziprasidone [From GEODON] Allergy Intermediate HALLUCINATI Verified 12/13/22 16:51 ONS TUNA FISH Allergy Severe SEVERE Uncoded 09/15/22 12:26 INDIGESTION, rash From PROLIXIN Allergy Intermediate UNKNOWN Uncoded 09/15/22 12:26 lovastatin Allergy Intermediate cramping Uncoded 09/15/22 12:26 prolixen Allergy Intermediate seizure Uncoded 09/15/22 12:26 amox Allergy Mild GI upset Uncoded 09/15/22 12:26 Active Medications: Current Medications Acetaminophen (Acetaminophen 325 Mg Tablet) 650 mg PO Q6H PRN PRN Reason: Pain, Mild (Pain Scale 1-3) Artificial Tears (Artificial Tears 15 Ml Drops) 1 drop EYE-BOTH TID [facility] Last Admin: 03/25/23 08:01 Dose: Not Given Aspirin (Aspirin Enteric Coated 81 Mg Tablet.Dr) 81 mg PO DAILY [facility] Last Admin: 03/25/23 07:59 Dose: 81 mg Atorvastatin Calcium (Atorvastatin Calcium 10 Mg Tablet) 10 mg PO DAILY [facility] Last Admin: 03/25/23 07:59 Dose: 10 mg Docusate Sodium (Docusate Sodium 100 Mg Capsule) 100 mg PO DAILY PRN PRN Reason: Constipation Enoxaparin Sodium (Enoxaparin Sodium 40 Mg/0.4 Ml Syringe) 40 mg SUBCUT Q24H [facility] Last Admin: 03/25/23 05:12 Dose: 40 mg Glucose (Glucose Gel 15 Gm Gel..Gram.) 15 gm PO Q15M PRN; Protocol PRN Reason: per Hypoglycemia Standing Ord. Hydrochlorothiazide (Hydrochlorothiazide 25 Mg Tablet) 25 mg PO DAILY [facility]; Protocol Last Admin: 03/25/23 07:59 Dose: 25 mg Hydroxyzine HCl (Hydroxyzine Hcl 10 Mg Tablet) 10 mg PO DAILY PRN PRN Reason: Anxiety Lactated Ringer's (Lr) 1,000 mls @ 100 mls/hr IVCONT .Q10H [facility] Last Admin: 03/25/23 11:22 Dose: Not Given Dextrose (D10) 250 mls @ 750 mls/hr IV Q15M PRN; Protocol PRN Reason: per Hypoglycemia Standing Ord. Ceftriaxone Sodium 1 gm/ (Sodium Chloride) 50 mls @ 100 mls/hr IV Q24H [facility] Last Infusion: 03/25/23 08:30 Dose: Infused Insulin Human Lispro (Insulin Lispro 100 Unit/Ml 3 Ml Vial) 0 unit SUBCUT QIDACHS [facility]; Protocol Last Admin: 03/25/23 12:32 Dose: Not Given Losartan Potassium (Losartan Potassium 25 Mg Tablet) 25 mg PO DAILY [facility]; Remi col Last Admin: 03/25/23 08:06 Dose: 25 mg Omeprazole (Omeprazole 20 Mg Capsule.Dr) 20 mg PO DAILY@0630 [facility] Last Admin: 03/25/23 05:12 Dose: 20 mg Ondansetron HCl (Ondansetron Hcl 4 Mg/2 Ml Vial) 4 mg IVPUSH Q8H PRN PRN Reason: Nausea and Vomiting Sodium Chloride (0.9 % Sodium Chloride Flush 3 Ml Syringe) 3 ml IVFLUSH QSHIFT [facility] Last Admin: 03/25/23 08:00 Dose: 3 ml Trifluoperazine HCl (Trifluoperazine Hcl 5 Mg Tablet) 5 mg PO DAILY [facility] Last Admin: 03/25/23 07:58 Dose: 5 mg Home Medications Medication Instructions Recorded Confirmed Last Taken Type aspirin 81 mg tablet,delayed 81 mg PO DAILY 03/24/23 03/24/23 Unknown History release garlic 1,000 mg capsule 1,000 mg PO DAILY 03/24/23 03/24/23 Unknown History hydrochlorothiazide 25 mg tablet 25 mg PO DAILY 03/24/23 03/24/23 Unknown History omeprazole 20 mg capsule,delayed 20 mg PO DAILY 03/24/23 03/24/23 Unknown History release peg [id number] 1 1 drp ophthalmic (eye) TID 03/24/23 03/24/23 Unknown History %-0.2 %-0.2 % eye drops (Artificial Tears ([id number])) triamcinolone acetonide 0.1 % 1 appl topical BID 03/24/23 03/24/23 Unknown History topical ointment trifluoperazine 5 mg tablet 5 mg PO DAILY 03/24/23 03/24/23 Unknown History Physical Exam Vital Signs: Vital Signs: Last Vital Signs Temp 98.1 F 03/25/23 11:18 Pulse 71 03/25/23 11:18 Resp 20 03/25/23 11:18 BP 130/70 03/25/23 11:18 Pulse Ox 99 03/25/23 11:18 O2 Del Method Room Air 03/25/23 11:18 BMI result Body Mass Index 23.6 Neuro: Other: She is alert and awake with little bit hoarse and pressured speech. Fluency and comprehension intact. She is able to name and repeat. There is no obvious dysarthria. Tongue is midline. Palate elevates symmetrically. Face is symmetrical. Visual nicholson are full. There is no ptosis. Results Labs 03/24/23 06:02 03/24/23 Unknown Labs: Moderately diffuse cerebral atrophy and moderate chronic microvascular ischemic changes are noted on her brain scan. Microbiology Microbiology Results: Microbiology 03/24/23 08:27 Urine clean catch - Clean Catch Midstream Urine Culture - Final 03/24/23 02:34 Urine clean catch - Urine medeiros top Urine Culture - Final 03/24/23 02:34 Blood - Venous Blood Culture - Preliminary No growth after 24 hours. 03/24/23 02:34 Blood - Venous Blood Culture - Preliminary No growth after 24 hours. Assessment and Plan (1) Alteration in speech: Status: Acute At this point there is no clear indication of aphasia or dysarthria. Her speech is somewhat pressured but not consistently a little bit hoarse. I am not sure if it is due to dry throat or psychogenic. For now outpatient clinical follow- up is recommended, if this problem would reappear Time Spent With Patient Time: Total time managing care of this patient today ____ minutes. Procedures Date of Service Date of Service: 03/25/23
[2023-03-25 16:26] LABS: Glucose, Whole Blood 137 mg/dL (60-115)
[2023-03-25] MEDS: Lactated Ringers 1,000 ML 100 ML IVCONT (17:18)
[2023-03-25] MEDS: Artificial Tears 15 ML DROPS 1 DROP EYE-BOTH (20:29)
[2023-03-25 20:44] LABS: Glucose, Whole Blood 116 mg/dL (60-115)
[2023-03-26] MEDS: Lactated Ringers 1,000 ML 100 ML IVCONT (02:40)
[2023-03-26 03:34] VITALS: BP 166/80; PULSE 71; RESP 18; TEMP 36.8; O2SAT 99
[2023-03-26] MEDS: Enoxaparin Sodium 40 MG/0.4 ML SYRINGE SUBCUT (05:28)
[2023-03-26] MEDS: Omeprazole 20 MG CAPSULE.DR PO (05:28)
[2023-03-26 06:00] VITALS: BMI 24.0
[2023-03-26 07:30] LABS: Glucose, Whole Blood 109 mg/dL (60-115)
[2023-03-26 07:46] VITALS: BP 157/77; PULSE 59; RESP 20; TEMP 36.9; O2SAT 100
[2023-03-26] MEDS: Losartan Potassium 25 MG TABLET PO (08:00)
[2023-03-26] MEDS: Artificial Tears 15 ML DROPS 1 DROP EYE-BOTH ×3 (08:00→21:45)
[2023-03-26] MEDS: Aspirin Enteric Coated 81 MG TABLET.DR PO (08:00)
[2023-03-26] MEDS: Trifluoperazine HCL 5 MG TABLET PO (08:00)
[2023-03-26] MEDS: cefTRIAXone sodium 1 GM in 0.9 % Sodium Chloride 50 ML IV (08:00)
[2023-03-26] MEDS: Acetaminophen 325 MG TABLET 650 MG PO (08:00)
[2023-03-26] MEDS: hydroCHLOROthiazide 25 MG TABLET PO (08:00)
[2023-03-26] MEDS: Atorvastatin Calcium 10 MG TABLET PO (08:00)
[2023-03-26] MEDS: 0.9 % Sodium Chloride Flush 3 ML SYRINGE IVFLUSH ×3 (08:01→21:47)
--- NOTE | 2023-03-26 09:13 | HO.PM.IMPN ---
Subjective Subjective Date of Service: 03/26/23 Interval History: no significant nursing events overnight. Patient states she feels much better since admission. Was evaluated by PT who recommended STR Constitutional Constitutional: Reports no additional constitutional complaints Cardiovascular Cardiovascular: Reports no additional cardiovascular complaints Respiratory Respiratory: Reports no additional respiratory complaints Physical Exam Vital Signs: Vital Signs: Last Vital Signs Temp 98.5 F 03/26/23 07:46 Pulse 59 03/26/23 07:46 Resp 20 03/26/23 07:46 BP 157/77 H 03/26/23 07:46 Pulse Ox 100 03/26/23 07:46 O2 Del Method Room Air 03/26/23 07:46 BMI result Body Mass Index 24.0 Const: Other: Speech is heavy, but patient is awake, alert, unable to assess orientation General: cooperative and no acute distress HEENT: Other: No facial droop Eyes: General: appearance normal, both eyes and all related structures Pupils: Equal, round and reactive pupils present Resp: Effort & Inspection: normal respiratory effort Auscultation: clear to auscultation bilaterally Cardio: Rate: regular rate Rhythm: regular rhythm GI: Palpation (GI): Soft to palpation Auscultation: normal bowel sounds Skin: General skin exam: no rashes or lesions noted Neuro: Other: Strength is 5/5 in all extremities, no visual changes Except for heavy speech which patient denies being her baseline, patient does not have any cranial nerve deficiencies Cranial nerves: Yes Equal, round and reactive pupils present Cognition (Neuro): normal cognition Extrem: General: Yes normal to inspection and Yes no pedal edema Objective Data Active Medications Acetaminophen (Acetaminophen 325 Mg Tablet) 650 mg PO Q6H PRN PRN Reason: Pain, Mild (Pain Scale 1-3) Last Admin: 03/26/23 08:00 Dose: 650 mg Documented By: EVI Artificial Tears (Artificial Tears 15 Ml Drops) 1 drop EYE-BOTH TID [facility] Last Admin: 03/26/23 08:00 Dose: 1 drop Documented By: EVI Aspirin (Aspirin Enteric Coated 81 Mg Tablet.) 81 mg PO DAILY [facility] Last Admin: 03/26/23 08:00 Dose: 81 mg Documented By: EVI Atorvastatin Calcium (Atorvastatin Calcium 10 Mg Tablet) 10 mg PO DAILY [facility] Last Admin: 03/26/23 08:00 Dose: 10 mg Documented By: EVI Docusate Sodium (Docusate Sodium 100 Mg Capsule) 100 mg PO DAILY PRN PRN Reason: Constipation Enoxaparin Sodium (Enoxaparin Sodium 40 Mg/0.4 Ml Syringe) 40 mg SUBCUT Q24H [facility] Last Admin: 03/26/23 05:28 Dose: 40 mg Documented By: DIMA Glucose (Glucose Gel 15 Gm Gel..Gram.) 15 gm PO Q15M PRN; Protocol PRN Reason: per Hypoglycemia Standing Ord. Hydrochlorothiazide (Hydrochlorothiazide 25 Mg Tablet) 25 mg PO DAILY [facility]; Protocol Last Admin: 03/26/23 08:00 Dose: 25 mg Documented By: EVI Hydroxyzine HCl (Hydroxyzine Hcl 10 Mg Tablet) 10 mg PO DAILY PRN PRN Reason: Anxiety Dextrose (D10) 250 mls @ 750 mls/hr IV Q15M PRN; Protocol PRN Reason: per Hypoglycemia Standing Ord. Ceftriaxone Sodium 1 gm/ (Sodium Chloride) 50 mls @ 100 mls/hr IV Q24H [facility] Last Infusion: 03/26/23 08:51 Dose: 0 mls/hr Documented By: EVI Insulin Human Lispro (Insulin Lispro 100 Unit/Ml 3 Ml Vial) 0 unit SUBCUT QIDACHS [facility]; Protocol Last Admin: 03/26/23 07:41 Dose: Not Given Documented By: EVI Non-Admin Reason: No Insulin Coverage Losartan Potassium (Losartan Potassium 25 Mg Tablet) 25 mg PO DAILY [facility]; Protocol Last Admin: 03/26/23 08:00 Dose: 25 mg Documented By: EVI Omeprazole (Omeprazole 20 Mg Capsule.) 20 mg PO DAILY@0630 [facility] Last Admin: 03/26/23 05:28 Dose: 20 mg Documented By: DIMA Ondansetron HCl (Ondansetron Hcl 4 Mg/2 Ml Vial) 4 mg IVPUSH Q8H PRN PRN Reason: Nausea and Vomiting Sodium Chloride (0.9 % Sodium Chloride Flush 3 Ml Syringe) 3 ml IVFLUSH QSHIFT [facility] Last Admin: 03/26/23 08:01 Dose: 3 ml Documented By: EVI Trifluoperazine HCl (Trifluoperazine Hcl 5 Mg Tablet) 5 mg PO DAILY [facility] Last Admin: 03/26/23 08:00 Dose: 5 mg Documented By: FOGARTB Labs 03/24/23 06:02 03/24/23 Unknown Labs: Laboratory Results - last 24 hr 03/25/23 03/25/23 03/25/23 11:22 16:07 20:32 POC Glucose 128 H 137 H 116 H 03/26/23 07:13 POC Glucose 109 Microbiology Microbiology Results: Microbiology 03/24/23 02:34 Blood Culture - Preliminary Blood - Venous No growth after 48 hours. 03/24/23 02:34 Blood Culture - Preliminary Blood - Venous No growth after 48 hours. 03/24/23 08:27 Urine Culture - Final Urine clean catch - Clean Catch Midstream 03/24/23 02:34 Urine Culture - Final Urine clean catch - Urine medeiros top Assessment and Plan (1) Alteration in speech: Status: Acute Plan 78yo F with schizophrenia + DM presenting with subacute speech difficulties + ?mental status changes though history limited # altered speech - CT negative, MRI no acute changes, distorted by motion artifact - evaluated by Neurology who recommended outpatient follow-up. Psych consult pending. - Evaluated by Physical therapy who recommended STR # UTI - UCx pending, continue ceftriaxone ( initiated 03/24) # HTN - continue losartan + HCTZ # schizophrenia - continue Stelazine # Tardive Dyskenesia - Psych consult pending # VTE ppx: LMWH # dispo: STR In my clinical judgment, the patient requires continued inpatient hospitalization for the following reasons: safe disposition Time Spent With Patient Time: Total time managing care of this patient today ____ minutes. Quality Stroke Does the patient have a stroke diagnosis?: No VTE Prior VTE?: No VTE Risk Level:: Medical - moderate - high VTE Device Contraindication: Treatment Not Indicated VTE Drug Contraindication: N/A - Med Ordered
[2023-03-26 12:00] VITALS: BP 131/71; PULSE 65; RESP 20; TEMP 36.2; O2SAT 100
[2023-03-26 12:08] LABS: Glucose, Whole Blood 151 mg/dL (60-115)
[2023-03-26] MEDS: Insulin Lispro 100 UNIT/ML 3 ML VIAL SUBCUT (12:33)
[2023-03-26 15:23] VITALS: BP 167/73; PULSE 70; RESP 20; TEMP 36.3; O2SAT 99
[2023-03-26 16:24] LABS: Glucose, Whole Blood 95 mg/dL (60-115)
[2023-03-26 19:02] VITALS: BP 153/87; PULSE 80; RESP 20; TEMP 37.1; O2SAT 96
[2023-03-26 20:07] LABS: Glucose, Whole Blood 108 mg/dL (60-115)
[2023-03-26 23:23] VITALS: BP 158/87; PULSE 70; RESP 12; TEMP 36.9; O2SAT 99
[2023-03-27 03:38] VITALS: BP 145/78; PULSE 68; RESP 18; TEMP 36.8; O2SAT 98
[2023-03-27] MEDS: Omeprazole 20 MG CAPSULE.DR PO (05:23)
[2023-03-27] MEDS: Enoxaparin Sodium 40 MG/0.4 ML SYRINGE SUBCUT (05:23)
[2023-03-27 05:27] VITALS: BMI 23.5
[2023-03-27 07:24] LABS: Glucose, Whole Blood 99 mg/dL (60-115)
[2023-03-27 07:41] VITALS: BP 144/82; PULSE 62; RESP 20; TEMP 37; O2SAT 99
[2023-03-27] MEDS: Atorvastatin Calcium 10 MG TABLET PO (08:13)
[2023-03-27] MEDS: Losartan Potassium 25 MG TABLET PO (08:13)
[2023-03-27] MEDS: 0.9 % Sodium Chloride Flush 3 ML SYRINGE IVFLUSH ×3 (08:13→20:14)
[2023-03-27] MEDS: cefTRIAXone sodium 1 GM in 0.9 % Sodium Chloride 50 ML IV (08:13)
[2023-03-27] MEDS: Artificial Tears 15 ML DROPS 1 DROP EYE-BOTH ×3 (08:14→20:14)
[2023-03-27] MEDS: hydroCHLOROthiazide 25 MG TABLET PO (08:14)
[2023-03-27] MEDS: Trifluoperazine HCL 5 MG TABLET PO (08:14)
[2023-03-27] MEDS: Aspirin Enteric Coated 81 MG TABLET.DR PO (08:14)
[2023-03-27] MEDS: Acetaminophen 325 MG TABLET 650 MG PO (08:20)
--- NOTE | 2023-03-27 09:33 | HO.PM.IMPN ---
Subjective Subjective Date of Service: 03/27/23 Interval History: No significant nursing events overnight. Patient states she feels much better since admission. Was evaluated by PT who recommended STR. Her speech seems to be improving Constitutional Constitutional: Reports no additional constitutional complaints Cardiovascular Cardiovascular: Reports no additional cardiovascular complaints Respiratory Respiratory: Reports no additional respiratory complaints Gastrointestinal Gastrointestinal: Reports no additional gastrointestinal complaints Physical Exam Vital Signs: Vital Signs: Last Vital Signs Temp 98.6 F 03/27/23 07:41 Pulse 62 03/27/23 07:41 Resp 20 03/27/23 07:41 BP 144/82 H 03/27/23 07:41 Pulse Ox 99 03/27/23 07:41 O2 Del Method Room Air 03/27/23 07:41 BMI result Body Mass Index 23.5 Const:?? Other: Speech is heavy, but patient is awake, alert, unable to assess o rientation ? Gener al: cooperative an d no acute distres s HEENT:?? Other: No facial droop Eyes:?? General: appearanc e normal, both eye s and all related structures? Pupils : Equal, round and reactive pupils p resent Resp:?? Effort & Inspectio n: normal respirat ory effort? Auscul tation: clear to a uscultation bilate rally Cardio:?? Rate: regular rate ? Rhythm: regular rhythm GI:?? Palpation (GI): So ft to palpation? A uscultation: yamilet l bowel sounds Skin:?? General skin exam: no rashes or lesi ons noted Neuro:?? Other: Strength i s 5/5 in all extre mities, no visual changes Except for heavy speech whic h patient denies b eing her baseline, patient does not have any cranial n erve deficiencies ? Cranial nerves: Yes Equal, round a nd reactive pupils present? Cognitio n (Neuro): normal cognition Extrem:?? General: Yes yamilet l to inspection an d Yes no pedal sherwin ma Const: Other: Speech is heavy, but patient is awake, alert, unable to assess orientation General: cooperative and no acute distress HEENT: Other: No facial droop Eyes: General: appearance normal, both eyes and all related structures Pupils: Equal, round and reactive pupils present Resp: Effort & Inspection: normal respiratory effort Auscultation: clear to auscultation bilaterally Cardio: Rate: regular rate Rhythm: regular rhythm GI: Palpation (GI): Soft to palpation Auscultation: normal bowel sounds Skin: General skin exam: no rashes or lesions noted Neuro: Other: Strength is 5/5 in all extremities, no visual changes Except for heavy speech which patient denies being her baseline, patient does not have any cranial nerve deficiencies Cranial nerves: Yes Equal, round and reactive pupils present Cognition (Neuro): normal cognition Extrem: General: Yes normal to inspection and Yes no pedal edema Objective Data Active Medications Acetaminophen (Acetaminophen 325 Mg Tablet) 650 mg PO Q6H PRN PRN Reason: Pain, Mild (Pain Scale 1-3) Last Admin: 03/27/23 08:20 Dose: 650 mg Documented By: EVI Artificial Tears (Artificial Tears 15 Ml Drops) 1 drop EYE-BOTH TID [facility] Last Admin: 03/27/23 08:14 Dose: 1 drop Documented By: EVI Aspirin (Aspirin Enteric Coated 81 Mg Tablet.Dr) 81 mg PO DAILY [facility] Last Admin: 03/27/23 08:14 Dose: 81 mg Documented By: EVI Atorvastatin Calcium (Atorvastatin Calcium 10 Mg Tablet) 10 mg PO DAILY [facility] Last Admin: 03/27/23 08:13 Dose: 10 mg Documented By: EVI Docusate Sodium (Docusate Sodium 100 Mg Capsule) 100 mg PO DAILY PRN PRN Reason: Constipation Enoxaparin Sodium (Enoxaparin Sodium 40 Mg/0.4 Ml Syringe) 40 mg SUBCUT Q24H [facility] Last Admin: 03/27/23 05:23 Dose: 40 mg Documented By: JOHNATHAN Glucose (Glucose Gel 15 Gm Gel..Gram.) 15 gm PO Q15M PRN; Protocol PRN Reason: per Hypoglycemia Standing Ord. Hydrochlorothiazide (Hydrochlorothiazide 25 Mg Tablet) 25 mg PO DAILY [facility]; Protocol Last Admin: 03/27/23 08:14 Dose: 25 mg Documented By: EVI Hydroxyzine HCl (Hydroxyzine Hcl 10 Mg Tablet) 10 mg PO DAILY PRN PRN Reason: Anxiety Dextrose (D10) 250 mls @ 750 mls/hr IV Q15M PRN; Protocol PRN Reason: per Hypoglycemia Standing Ord. Ceftriaxone Sodium 1 gm/ (Sodium Chloride) 50 mls @ 100 mls/hr IV Q24H [facility] Last Infusion: 03/27/23 08:49 Dose: 0 mls/hr Documented By: VEI Insulin Human Lispro (Insulin Lispro 100 Unit/Ml 3 Ml Vial) 0 unit SUBCUT QIDACHS [facility]; Protocol Last Admin: 03/27/23 07:23 Dose: Not Given Documented By: EVI Non-Admin Reason: No Insulin Coverage Losartan Potassium (Losartan Potassium 25 Mg Tablet) 25 mg PO DAILY [facility]; Protocol Last Admin: 03/27/23 08:13 Dose: 25 mg Documented By: EVI Omeprazole (Omeprazole 20 Mg Capsule.) 20 mg PO DAILY@0630 [facility] Last Admin: 03/27/23 05:23 Dose: 20 mg Documented By: JOHNATHAN Ondansetron HCl (Ondansetron Hcl 4 Mg/2 Ml Vial) 4 mg IVPUSH Q8H PRN PRN Reason: Nausea and Vomiting Sodium Chloride (0.9 % Sodium Chloride Flush 3 Ml Syringe) 3 ml IVFLUSH QSHIFT [facility] Last Admin: 03/27/23 08:13 Dose: 3 ml Documented By: EVI Trifluoperazine HCl (Trifluoperazine Hcl 5 Mg Tablet) 5 mg PO DAILY [facility] Last Admin: 03/27/23 08:14 Dose: 5 mg Documented By: EVI Labs 03/24/23 06:02 03/24/23 Unknown Labs: Laboratory Results - last 24 hr 03/26/23 03/26/23 03/26/23 11:45 16:15 20:00 POC Glucose 151 H 95 108 03/27/23 07:07 POC Glucose 99 Assessment and Plan (1) Alteration in speech: Status: Acute Plan 78yo F with schizophrenia + DM presenting with subacute speech difficulties + ?mental status changes though history limited # altered speech - CT negative, MRI no acute changes, distorted by motion artifact - evaluated by Neurology who recommended outpatient follow-up. - Evaluated by Physical therapy who recommended STR # UTI - Completed Abx course # HTN - continue losartan + HCTZ # schizophrenia - continue Stelazine # Tardive Dyskenesia - Psych consult pending # VTE ppx: LMWH # dispo: STR In my clinical judgment, the patient requires continued inpatient hospitalization for the following reasons: safe disposition Time Spent With Patient Time: Total time managing care of this patient today ____ minutes. Quality Stroke Does the patient have a stroke diagnosis?: No VTE Prior VTE?: No VTE Risk Level:: Medical - moderate - high VTE Device Contraindication: Treatment Not Indicated VTE Drug Contraindication: N/A - Med Ordered
[2023-03-27 11:59] LABS: Glucose, Whole Blood 129 mg/dL (60-115)
[2023-03-27 12:00] VITALS: BP 123/74; PULSE 69; RESP 20; TEMP 36.1; O2SAT 98
[2023-03-27 14:57] VITALS: BP 151/81; PULSE 77; RESP 20; TEMP 37.1; O2SAT 98
[2023-03-27 16:13] LABS: Glucose, Whole Blood 146 mg/dL (60-115)
[2023-03-27 19:55] VITALS: BP 148/86; PULSE 78; RESP 18; TEMP 37.1; O2SAT 100
[2023-03-27 19:57] LABS: Glucose, Whole Blood 128 mg/dL (60-115)
[2023-03-27 23:55] VITALS: BP 143/76; PULSE 76; RESP 18; TEMP 36.8; O2SAT 100
[2023-03-28 04:00] VITALS: BP 144/72; PULSE 75; RESP 18; TEMP 37; O2SAT 100
[2023-03-28] MEDS: Enoxaparin Sodium 40 MG/0.4 ML SYRINGE SUBCUT (05:11)
[2023-03-28] MEDS: Omeprazole 20 MG CAPSULE.DR PO (05:11)
[2023-03-28 06:00] VITALS: BMI 21.9
[2023-03-28 07:25] VITALS: BP 136/77; PULSE 70; RESP 20; TEMP 36.3; O2SAT 97
[2023-03-28] MEDS: Trifluoperazine HCL 5 MG TABLET PO (08:45)
[2023-03-28] MEDS: Losartan Potassium 25 MG TABLET PO (08:45)
[2023-03-28] MEDS: Aspirin Enteric Coated 81 MG TABLET.DR PO (08:46)
[2023-03-28] MEDS: hydroCHLOROthiazide 25 MG TABLET PO (08:46)
[2023-03-28] MEDS: Artificial Tears 15 ML DROPS 1 DROP EYE-BOTH ×3 (08:46→21:22)
[2023-03-28] MEDS: Atorvastatin Calcium 10 MG TABLET PO (08:46)
[2023-03-28] MEDS: 0.9 % Sodium Chloride Flush 3 ML SYRINGE IVFLUSH ×3 (08:47→21:23)
--- NOTE | 2023-03-28 10:46 | P.PNIM_ITS ---
Subjective Subjective Date of Service: 03/28/23 Interval History: f/u altered in speech, and stroke rule out weak, PT is recommending rehab, speech is back to baseline Physical Exam Vital Signs: Vital Signs: Last Vital Signs Temp 97.3 F 03/28/23 07:25 Pulse 70 03/28/23 07:25 Resp 20 03/28/23 07:25 BP 136/77 03/28/23 07:25 Pulse Ox 97 03/28/23 07:25 O2 Del Method Room Air 03/28/23 07:25 BMI result Body Mass Index 21.9 Const: Other: General: AO X 3, no acute distress (generally weak) Resp: CTA bilateral CVS: S1,S2,RRR GI: +BS, NT, no distention Skin: No rash Neuro: motor grossly intact Psych: appropriate affect Objective Data Active Medications Acetaminophen (Acetaminophen 325 Mg Tablet) 650 mg PO Q6H PRN PRN Reason: Pain, Mild (Pain Scale 1-3) Last Admin: 03/27/23 08:20 Dose: 650 mg Documented By: EVI Artificial Tears (Artificial Tears 15 Ml Drops) 1 drop EYE-BOTH TID [facility] Last Admin: 03/28/23 08:46 Dose: 1 drop Documented By: LEIGHA Aspirin (Aspirin Enteric Coated 81 Mg Tablet.Dr) 81 mg PO DAILY [facility] Last Admin: 03/28/23 08:46 Dose: 81 mg Documented By: LEIGHA Atorvastatin Calcium (Atorvastatin Calcium 10 Mg Tablet) 10 mg PO DAILY [facility] Last Admin: 03/28/23 08:46 Dose: 10 mg Documented By: LEIGHA Docusate Sodium (Docusate Sodium 100 Mg Capsule) 100 mg PO DAILY PRN PRN Reason: Constipation Enoxaparin Sodium (Enoxaparin Sodium 40 Mg/0.4 Ml Syringe) 40 mg SUBCUT Q24H [facility] Last Admin: 03/28/23 05:11 Dose: 40 mg Documented By: LAMBERTO-MEHRDAD Glucose (Glucose Gel 15 Gm Gel..Gram.) 15 gm PO Q15M PRN; Protocol PRN Reason: per Hypoglycemia Standing Ord. Hydrochlorothiazide (Hydrochlorothiazide 25 Mg Tablet) 25 mg PO DAILY [facility]; Protocol Last Admin: 03/28/23 08:46 Dose: 25 mg Documented By: LEIGHA Hydroxyzine HCl (Hydroxyzine Hcl 10 Mg Tablet) 10 mg PO DAILY PRN PRN Reason: Anxiety Dextrose (D10) 250 mls @ 750 mls/hr IV Q15M PRN; Protocol PRN Reason: per Hypoglycemia Standing Ord. Insulin Human Lispro (Insulin Lispro 100 Unit/Ml 3 Ml Vial) 0 unit SUBCUT QIDACHS [facility]; Protocol Last Admin: 03/28/23 08:15 Dose: Not Given Documented By: LEIGHA Non-Admin Reason: No Insulin Coverage Losartan Potassium (Losartan Potassium 25 Mg Tablet) 25 mg PO DAILY [facility]; Protocol Last Admin: 03/28/23 08:45 Dose: 25 mg Documented By: LEIGHA Omeprazole (Omeprazole 20 Mg Capsule.) 20 mg PO DAILY@0630 [facility] Last Admin: 03/28/23 05:11 Dose: 20 mg Documented By: JODY Ondansetron HCl (Ondansetron Hcl 4 Mg/2 Ml Vial) 4 mg IVPUSH Q8H PRN PRN Reason: Nausea and Vomiting Sodium Chloride (0.9 % Sodium Chloride Flush 3 Ml Syringe) 3 ml IVFLUSH QSHIFT [facility] Last Admin: 03/28/23 08:47 Dose: 3 ml Documented By: LEIGHA Trifluoperazine HCl (Trifluoperazine Hcl 5 Mg Tablet) 5 mg PO DAILY [facility] Last Admin: 03/28/23 08:45 Dose: 5 mg Documented By: LEIGHA Labs 03/24/23 06:02 03/24/23 Unknown Labs: Laboratory Results - last 24 hr 03/27/23 03/27/23 03/27/23 11:44 16:05 19:52 POC Glucose 129 H 146 H 128 H Assessment and Plan (1) Alteration in speech: Status: Acute Plan 78yo F with schizophrenia + DM presenting with subacute speech difficulties + ?mental status changes though history limited # altered speech--speech is back to baseline ? Psychogenic changes - CT negative, MRI no acute changes, distorted by motion artifact - evaluated by Neurology who recommended outpatient follow-up. - Physical therapy who recommended STR # UTI - Completed Abx course # HTN - continue losartan + HCTZ # schizophrenia - continue Stelazine # Tardive Dyskenesia - Psych consult pending # VTE ppx: LMWH # dispo: STR In my clinical judgment, the patient requires continued inpatient hospitalization for the following reasons: safe disposition Time Spent With Patient Time: Total time managing care of this patient today ____ minutes. Quality Stroke Does the patient have a stroke diagnosis?: No VTE Prior VTE?: No VTE Risk Level:: Medical - moderate - high VTE Device Contraindication: Treatment Not Indicated VTE Drug Contraindication: N/A - Med Ordered
[2023-03-28 11:10] VITALS: BP 111/76; PULSE 89; RESP 20; TEMP 36.7; O2SAT 98
[2023-03-28 11:46] LABS: Glucose, Whole Blood 131 mg/dL (60-115)
[2023-03-28 11:46] LABS: Glucose, Whole Blood 112 mg/dL (60-115)
--- NOTE | 2023-03-28 13:30 | MHC.CM.PN ---
Patient has been clinically accepted at [facility] pending their confirmation that they have a MD to prescribe the Antipsychotic AND [facility] auth. CM met with Patient at bedside and addressed the IMM with her, providing her vwith the original and placing a copy on the chart. Patient and her Brother/HCP/Bert @ [phone] are aware of and in agreement with the dc plan. CM awaits word from [facility] for final confirmations.
[2023-03-28 15:46] VITALS: BP 128/62; PULSE 71; RESP 18; TEMP 36.7; O2SAT 100
[2023-03-28 16:55] LABS: Glucose, Whole Blood 103 mg/dL (60-115)
[2023-03-28 19:45] VITALS: BP 114/59; PULSE 82; RESP 17; TEMP 36.2; O2SAT 97
[2023-03-28 20:49] LABS: Glucose, Whole Blood 117 mg/dL (60-115)
[2023-03-29] VITALS: BP 113/61; PULSE 83; RESP 16; TEMP 37.6; O2SAT 98
[2023-03-29] MEDS: diphenhydrAMINE HCL 50 MG/ML VIAL IVPUSH (00:06)
[2023-03-29] MEDS: Acetaminophen 325 MG TABLET 650 MG PO (00:07)
[2023-03-29 03:09] VITALS: BP 118/78; PULSE 73; RESP 18; TEMP 37.2; O2SAT 97
[2023-03-29] MEDS: Enoxaparin Sodium 40 MG/0.4 ML SYRINGE SUBCUT (05:06)
[2023-03-29] MEDS: Omeprazole 20 MG CAPSULE.DR PO (05:06)
[2023-03-29 06:00] VITALS: BMI 21.2
[2023-03-29 07:20] LABS: Glucose, Whole Blood 101 mg/dL (60-115)
[2023-03-29 07:27] VITALS: BP 136/73; PULSE 60; RESP 18; TEMP 37; O2SAT 100
[2023-03-29] MEDS: Losartan Potassium 25 MG TABLET PO (08:59)
[2023-03-29] MEDS: hydroCHLOROthiazide 25 MG TABLET PO (08:59)
[2023-03-29] MEDS: Aspirin Enteric Coated 81 MG TABLET.DR PO (08:59)
[2023-03-29] MEDS: Trifluoperazine HCL 5 MG TABLET PO (08:59)
[2023-03-29] MEDS: Atorvastatin Calcium 10 MG TABLET PO (08:59)
[2023-03-29] MEDS: 0.9 % Sodium Chloride Flush 3 ML SYRINGE IVFLUSH (09:00)
[2023-03-29] MEDS: Artificial Tears 15 ML DROPS 1 DROP EYE-BOTH (09:01)
[2023-03-29 11:16] LABS: Glucose, Whole Blood 95 mg/dL (60-115)
[2023-03-29 11:21] VITALS: BP 140/86; PULSE 70; RESP 19; TEMP 37.1; O2SAT 98
--- NOTE | 2023-03-29 11:26 | PM.DS ---
DS: Providers Provider Date of Service: 03/29/23 Date of admission: 03/24/23 04:36 Primary care physician: Erik Bailey MD Consults: 03/24/23 07:04 Consult to Neurology Routine Consulting Provider: [facility] Reason for consultation: changed speech Has provider been notified: No 03/24/23 11:16 Consult to Psychiatry Routine Consulting Provider: Psych [facility] Reason for consultation: tardive dyskinesia DS: Diagnosis Discharge Diagnosis (1) Alteration in speech: Status: Resolved DS: Summary Hospital Course Hospital Course: Chief Complaint: Altered mental status 78-year-old female with past medical history of schizophrenia, diabetes, HLD, GERD, presents to the hospital with ?altered mental status, change speech per patient has been going on for few weeks, otherwise very difficult to get much history from the patient otherwise.? Has extrapyramidal movements, difficult to express herself, but denies any weakness numbness or tingling in her arms legs.? She has no numbness tingling and face.? Have any change in vision, unable to assess much of the rest of her review of system On arrival to the ED patient hemodynamically stable with no significant abnormal vitals Labs are significant for WBC of 5.2, otherwise unremarkable, UA shows small leukocyte Estrace and WBC Head CT shows no acute intracranial process, chronic small-vessel ischemic changes, no major change compared to previous study Patient started on antibiotics and will be admitted for further management Hospital course: She presented with altered speech with initial concern of stroke. Head CT was unremarkable and MRI showed no acute finding, however with some distortion with motion artifact. She was seen by speech and Neurology, the pattern of speech seems to come and go. Neurology saw her with no further recommendation for work up and her presentation likely Psychogenic in nature. # UTI- Completed Abx course, urine culture negative # HTN - continue losartan and HCTZ # schizophrenia - continue Stelazine # Tardive Dyskenesia--initial concern seems to have resolved. Patient was seen by PT with recommendation for STR for less than 30 days Time Spent with Patient Time attestation: Total time managing care of this patient today ____ minutes. Discharge coordination time: Greater than 30 minutes Quality: Safe Use of Opioids Does Pt have an Active Cancer Diagnosis on the Problem List?: No Quality: Stroke Does the patient have a stroke diagnosis?: No Physical Exam Vital Signs: Vital Signs: Last Vital Signs Temp 98.8 F 03/29/23 11:21 Pulse 70 03/29/23 11:21 Resp 19 03/29/23 11:21 BP 140/86 H 03/29/23 11:21 Pulse Ox 98 03/29/23 11:21 O2 Del Method Room Air 03/29/23 11:21 BMI result Body Mass Index 21.2 Const: Other: General: AO X 3, no acute distress Resp: CTA bilateral CVS: S1,S2,RRR GI: +BS, NT, no distention Skin: No rash Neuro: motor grossly intact Psych: appropriate affect DS: Data Data Completed and Pending Labs on day of discharge: Laboratory Results - last 24 hr 03/28/23 03/28/23 03/28/23 07:27 11:13 15:52 POC Glucose 112 131 H 103 03/28/23 03/29/23 03/29/23 19:50 07:06 11:02 POC Glucose 117 H 101 95 Discharge Plan Discharge Anticipated Discharge Date/Time: 03/29/23 11:26 Patient Disposition: Xfer SNF Discharge Diagnosis: Altered speech, weakness Referrals: [facility] [Outside] - 1 Week Po,Erik Almonte MD [Primary Care Provider] - 1 Week Discharge Medications: Continued (DME) OFFSET HANDLE CANE See Rx Instructions .Route .MEDSUPPLY Qty: 1 0RF Rx Instructions: As directed (DME) Disposable Underpad 30 x 36 heavy flow See Rx Instructions .Route .MEDSUPPLY Qty: 100 12RF Rx Instructions: As directed (DME) PERSONAL CLEASING WIPES See Rx Instructions .Route .MEDSUPPLY Qty: 100 12RF Rx Instructions: As directed (DME) DISPOSABLE UNDERWEAR XL MODERATE ABSORBENCY See Rx Instructions .Route .MEDSUPPLY Qty: 120 12RF Rx Instructions: As directed (DME) FOLDING ALUMINUM ROLLATOR WALKER See Rx Instructions .Route .MEDSUPPLY Qty: 1 12RF Rx Instructions: As directed (DME) POWDER FREESYNTHETIC EXAM GLOVES See Rx Instructions .Route .MEDSUPPLY Qty: 1 0RF Rx Instructions: As directed hydroxyzine HCl 10 mg tablet 10 mg PO DAILY PRN (Reason: Anxiety) 90 Days Qty: 90 1RF Artificial Tears([id number]) 1-0.2-0.2 % Drops 1 drp ophthalmic (eye) TID trifluoperazine 5 mg Tablet 5 mg PO DAILY aspirin 81 mg Tablet,Delayed Release (Dr/Ec) 81 mg PO DAILY garlic 1,000 mg Capsule 1,000 mg PO DAILY omeprazole 20 mg Capsule,Delayed Release(Dr/Ec) 20 mg PO DAILY atorvastatin 10 mg tablet 10 mg PO DAILY Qty: 90 2RF losartan 25 mg tablet 25 mg PO DAILY 90 Days Qty: 90 2RF No Action hydrochlorothiazide 25 mg tablet 25 mg PO DAILY Qty: 90 1RF triamcinolone acetonide 0.1 % ointment 1 appl TOPICAL BID Qty: 30 0RF Discharge Orders: Discharge Order (Routine); Ordered 03/29/23 Ordered By: Abrahan Kumar Diet: Advance to usual diet Activity on Discharge: As tolerated Stand Alone Forms: Patient Portal Discharge page Care Plan Goals: Full recovery from weakness, altered speech. Health Concerns: General weakness, altered speech, schizophrenia. Plan of Treatment: To short-term rehab Assessment: as above Discharge Date/Time: 03/29/23 18:15
--- NOTE | 2023-03-29 13:49 | P.PNIM_ITS ---
Subjective Subjective Date of Service: 03/29/23 Interval History: f/u altered in speech, and stroke rule out no new issues. Speech is normal Physical Exam Vital Signs: Vital Signs: Last Vital Signs Temp 98.8 F 03/29/23 11:21 Pulse 70 03/29/23 11:21 Resp 19 03/29/23 11:21 BP 140/86 H 03/29/23 11:21 Pulse Ox 98 03/29/23 11:21 O2 Del Method Room Air 03/29/23 11:21 BMI result Body Mass Index 21.2 Const: Other: General: AO X 3, no acute distress Resp: CTA bilateral CVS: S1,S2,RRR GI: +BS, NT, no distention Skin: No rash Neuro: motor grossly intact Psych: appropriate affect Objective Data Active Medications Acetaminophen (Acetaminophen 325 Mg Tablet) 650 mg PO Q6H PRN PRN Reason: Pain, Mild (Pain Scale 1-3) Last Admin: 03/29/23 00:07 Dose: 650 mg Documented By: JODY Artificial Tears (Artificial Tears 15 Ml Drops) 1 drop EYE-BOTH TID [facility] Last Admin: 03/29/23 09:01 Dose: 1 drop Documented By: IJGNA Aspirin (Aspirin Enteric Coated 81 Mg Tablet.Dr) 81 mg PO DAILY [facility] Last Admin: 03/29/23 08:59 Dose: 81 mg Documented By: JIGNA Atorvastatin Calcium (Atorvastatin Calcium 10 Mg Tablet) 10 mg PO DAILY [facility] Last Admin: 03/29/23 08:59 Dose: 10 mg Documented By: JIGNA Docusate Sodium (Docusate Sodium 100 Mg Capsule) 100 mg PO DAILY PRN PRN Reason: Constipation Enoxaparin Sodium (Enoxaparin Sodium 40 Mg/0.4 Ml Syringe) 40 mg SUBCUT Q24H [facility] Last Admin: 03/29/23 05:06 Dose: 40 mg Documented By: JODY Glucose (Glucose Gel 15 Gm Gel..Gram.) 15 gm PO Q15M PRN; Protocol PRN Reason: per Hypoglycemia Standing Ord. Hydrochlorothiazide (Hydrochlorothiazide 25 Mg Tablet) 25 mg PO DAILY [facility]; Protocol Last Admin: 03/29/23 08:59 Dose: 25 mg Documented By: JIGNA Hydroxyzine HCl (Hydroxyzine Hcl 10 Mg Tablet) 10 mg PO DAILY PRN PRN Reason: Anxiety Dextrose (D10) 250 mls @ 750 mls/hr IV Q15M PRN; Protocol PRN Reason: per Hypoglycemia Standing Ord. Insulin Human Lispro (Insulin Lispro 100 Unit/Ml 3 Ml Vial) 0 unit SUBCUT QIDACHS [facility]; Protocol Last Admin: 03/29/23 11:23 Dose: Not Given Documented By: JIGNA Non-Admin Reason: No Insulin Coverage Losartan Potassium (Losartan Potassium 25 Mg Tablet) 25 mg PO DAILY [facility]; Protocol Last Admin: 03/29/23 08:59 Dose: 25 mg Documented By: JIGNA Melatonin (Melatonin 3 Mg Tablet) 6 mg PO BEDTIME PRN PRN Reason: Insomnia Omeprazole (Omeprazole 20 Mg Capsule.Dr) 20 mg PO DAILY@0630 [facility] Last Admin: 03/29/23 05:06 Dose: 20 mg Documented By: JODY Ondansetron HCl (Ondansetron Hcl 4 Mg/2 Ml Vial) 4 mg IVPUSH Q8H PRN PRN Reason: Nausea and Vomiting Sodium Chloride (0.9 % Sodium Chloride Flush 3 Ml Syringe) 3 ml IVFLUSH QSHIFT [facility] Last Admin: 03/29/23 09:00 Dose: 3 ml Documented By: JIGNA Trifluoperazine HCl (Trifluoperazine Hcl 5 Mg Tablet) 5 mg PO DAILY [facility] Last Admin: 03/29/23 08:59 Dose: 5 mg Documented By: JIGNA Labs 03/24/23 06:02 03/24/23 Unknown Labs: Laboratory Results - last 24 hr 03/28/23 03/28/23 03/29/23 15:52 19:50 07:06 POC Glucose 103 117 H 101 03/29/23 11:02 POC Glucose 95 Microbiology Microbiology Results: Microbiology 03/24/23 02:34 Blood Culture - Final Blood - Venous No growth after 5 days. 03/24/23 02:34 Blood Culture - Final Blood - Venous No growth after 5 days. Assessment and Plan (1) Alteration in speech: Status: Acute Plan 78yo F with schizophrenia + DM presenting with subacute speech difficulties + ?mental status changes though history limited # altered speech--speech is back to baseline ? Psychogenic changes - CT negative, MRI no acute changes, distorted by motion artifact - evaluated by Neurology who recommended outpatient follow-up. - Physical therapy who recommended STR # UTI - Completed Abx course # HTN - continue losartan + HCTZ # schizophrenia - continue Stelazine # Tardive Dyskenesia concern.. no longer having it and Psych consult no longer indicated # VTE ppx: LMWH # dispo: STR In my clinical judgment, the patient requires continued inpatient hospitalization for the following reasons: safe disposition Time Spent With Patient Time: Total time managing care of this patient today ____ minutes. Quality Stroke Does the patient have a stroke diagnosis?: No VTE Prior VTE?: No VTE Risk Level:: Medical - moderate - high VTE Device Contraindication: Treatment Not Indicated VTE Drug Contraindication: N/A - Med Ordered
--- NOTE | 2023-03-29 14:51 | MHC.CM.PN ---
Patient has been medically cleared for dc to SNF/STR today. Patient will dc to [facility] today at 6PM, via [facility]. IMM was addressed yesterday at bedside with Patient (original given to her and a copy placed on the chart). CM has left a detailed message for Patient's Brother/HCP/Bert @ [phone], informing him of the dc plan.
[2023-03-29 15:41] LABS: COVID-19 Test Negative (Negative); IDNOW Serial# BCCEAD1C
[2023-03-29 16:00] VITALS: BP 125/66; PULSE 71; RESP 20; TEMP 36.4; O2SAT 98
--- NOTE | 2023-03-29 16:29 | PC.NURSE ---
called x 2 to do nurse to nurse report - unsuccessful in getting though - calls were dropped.
[2023-03-29 17:15] LABS: Glucose, Whole Blood 131 mg/dL (60-115)
--- NOTE | 2023-03-29 18:13 | PC.NURSE ---
IV out, EMS to transport pt to receiving facility. belongings given back to pt. pt A&O, vitals within normal limits.
== END 2023-03-29 18:15 | disposition skilled nursing facility (03) | DRG 690 ==
LOC: HO.ED 03-24 02:41 → HO.EDOVER 03-24 04:45 → HO.IMC 03-24 17:04
PROVIDERS: Family Medicine; Physician Assistant; Student in an Organized Health Care Education/Training Program; Admitting Provider Internal Medicine; Emergency Provider Internal Medicine; PCP Internal Medicine; Visit Provider Internal Medicine
DX: N39.0 Urinary tract infection, site not specified (principal); E78.00 Pure hypercholesterolemia, unspecified; F20.9 Schizophrenia, unspecified; E11.9 Type 2 diabetes mellitus without complications; E78.5 Hyperlipidemia, unspecified; G24.01 Drug induced subacute dyskinesia; I10 Essential (primary) hypertension; Z20.822 Contact with and (suspected) exposure to COVID-19; Z87.891 Personal history of nicotine dependence; Z88.0 Allergy status to penicillin; Z88.8 Allergy status to other drugs, medicaments and biological substances; Z79.899 Other long term (current) drug therapy
CPT/HCPCS: 36415; 70450; 70496; 70498; 70551; 71045; 74018; 80048; 80053; 80061; 81001; 82947; 83036; 83605; 83690; 83735; 85025; 87040; 87086; 87635; 92523; 93005; 97116; 97162; 97530; 99222; 99285; J0696; J1200; J1650; J2060; Q9967

== ENCOUNTER 2023-09-26 12:24 | Outpatient (AMB) | payer MEDICARE, SELFPAY ==
[2023-09-26 12:26] VITALS: BP 148/88; PULSE 57; O2SAT 99; BMI 24.3
--- NOTE | 2023-09-26 12:26 | A.OFFPC_ITS ---
Vital Signs 3 09/26/23 12:26 Height 5 ft 5 in Weight 146 lb BMI 24.3 BP 148/88 H Blood Pressure Location Lt brachial Position Sitting Pulse 57 Pulse Source Pulse Oximeter Pulse Oximetry (%) 99 Oxygen Delivery Method Room Air Intake Visit Reasons: Annual Physical Allergies MYESHA Inhibitors Allergy (Severe, Verified 09/26/23 12:27) ANGIOEDEMA WITH LISINOPRIL caffeine [CAFFEINE] Allergy (Severe, Verified 09/26/23 12:27) EXTREME PAIN IN BILATERAL KIDNEYS clozapine [From Clozaril] Allergy (Severe, Verified 09/26/23 12:27) Stomach Upset lisinopril Allergy (Severe, Verified 09/26/23 12:27) ANGIOEDEMA amoxicillin [AMOXICILLIN] Allergy (Intermediate, Verified 09/26/23 12:27) Stomach Upset atropine [Lomotil] Allergy (Intermediate, Verified 09/26/23 12:27) Stomach Upset bee pollen [BEE STINGS] Allergy (Intermediate, Verified 09/26/23 12:27) Swelling lovastatin Allergy (Intermediate, Verified 09/26/23 12:27) Cramps penicillin V Allergy (Intermediate, Verified 09/26/23 12:27) Stomach Upset ziprasidone [From GEODON] Allergy (Intermediate, Verified 09/26/23 12:27) HALLUCINATIONS TUNA FISH Allergy (Severe, Uncoded 09/26/23 12:27) SEVERE INDIGESTION, rash From PROLIXIN Allergy (Intermediate, Uncoded 09/26/23 12:27) UNKNOWN lovastatin Allergy (Intermediate, Uncoded 09/26/23 12:27) cramping prolixen Allergy (Intermediate, Uncoded 09/26/23 12:27) seizure amox Allergy (Mild, Uncoded 09/26/23 12:27) GI upset Medication List - Last Reconciled 09/26/23 by Erik Bailey MD atorvastatin 10 mg PO DAILY [Disposable Underpad 30 x 36 heavy flow As directed] [DISPOSABLE UNDERWEAR As directed] [FOLDING ALUMINUM ROLLATOR WALKER As directed] garlic 1,000 mg PO DAILY hydrochlorothiazide 25 mg PO DAILY hydroxyzine HCl 10 mg PO DAILY PRN 90 days losartan 25 mg PO DAILY 90 days [OFFSET HANDLE CANE As directed] omeprazole 20 mg PO DAILY omeprazole 20 mg PO DAILY peg [id number] 1-0.2-0.2 % (Artificial Tears ([id number])) 1 drp ophthalmic (eye) TID [PERSONAL CLEASING WIPES As directed] [POWDER FREESYNTHETIC EXAM GLOVES As directed] triamcinolone acetonide 0.1% 1 appl topical BID trifluoperazine 5 mg PO DAILY Tobacco use date assessed: 05/12/23 Fall risk assessment: No Falls in past year Last assessed Fall Risk: 09/26/23 Dental Screening Dental Screen Date: 09/26/23 Did you have a dental visit in the last 12 months?: Yes Did you have a dental problem in the last 6 months where you did not have access to dental care?: No Was dental information given to patient?: Patient has dentist HPI Annual Physical 2 HPI0 Details 78 year old female with hypertension, hy percholesterolemia, GERD coming in for annual well visit. Last seen in April 2023. Patient's mammogram is due bone density up-to-date as for colonoscopy patient has declined testing. ? L breast mass. occ dizzy. has hemorrhoids - will use prep h and not constipated anymore. mass breast 2 months ago L eft [facility] Medical History (Updated 09/26/23 @ 13:00 by Erik Bailey MD) Colon cancer screening Nasal congestion Tremors of nervous system UTI (urinary tract infection) Meningitis Upper respiratory infection Impacted cerumen Otitis externa of right ear Pernicious anemia Obesity (BMI 30-39.9) Hyperbilirubinemia Hypercholesterolemia Schizophrenia Vitamin D deficiency Urinary incontinence GERD (gastroesophageal reflux disease) Hypertension Thrombocytopenia Leukopenia Surgical History History of total abdominal hysterectomy and bilateral salpingo-oophorectomy H/O right wrist surgery History of tooth extraction History of tonsillectomy Family History (Updated 09/26/23 @ 12:28 by Claudia Arredondo CMA) Father Cancer Colon cancer Mother Cancer Colon cancer History of breast cancer Social History Household Members: Unknown / Unable to assess Household Members Other:: patient states Alone Housing: Apartment Alcohol intake: never Patient Tobacco Use Status: Former Tobacco user Tobacco use type: Cigarette Years Smoked: quit 1960 e-Cigarette/Vaping Use: Never Used Second Hand Smoke Exposure: No Advance Directives Date on File: 12/14/22 service: No Current occupational status: disabled Cognitive needs: No Hearing needs: No Vision needs: Yes Questionnaire PHQ-9 Over the last 2 weeks, how often have you been bothered by any of the following problems? 1. Little interest or pleasure in doing things: several days 2. Feeling down, depressed, or hopeless: several days 3. Trouble falling or staying asleep, or sleeping too much: not at all 4. Feeling tired or having little energy: not at all 5. Poor appetite or overeating: not at all 6. Feeling bad about yourself - or that you are a failure or have let yourself or your family down: not at all 7. Trouble concentrating on things, such as reading the newspaper or watching television: not at all 8. Moving or speaking so slowly that other people could have noticed. Or the opposite - being so fidgety or restless that you have been moving around a lot more than usual: not at all 9. Thoughts that you would be better off or of hurting yourself in some way: not at all Total score: 2 Depression Screening Interpretation: Positive Depression Screening Done: Yes Source: Developed by Drs. Alejandro Barnes, Kianna Garcia, Devan Freeman and colleagues, with an educational neetu from [employer]. Thrive Questionnaire Date Thrive assessed: 09/26/23 I am a: Patient What is your living situation today?: I have a steady place to live Within the past 12 months, did the food you bought not last and you didn't have the money to get more?: Never true Within the past 12 months, did you worry whether your food would run out before you got money to buy more?: Never true Do you have trouble paying for medicines?: No Do you have trouble getting transportation to medical appointments?: No Do you have trouble paying your heating and electricity bill?: No Do you have trouble taking care of your child, family member or friend?: No Do you have trouble with day-to-day activities such as bathing, preparing meals, shopping, managing finances, etc.?: No Are you currently unemployed and looking for a job?: No Are you interested in more education?: No Currently or been in a relationship where the following occur: no concerns reported AUDIT C Alcohol Use Questionnaire (AUDIT-C) 1. How often do you have a drink containing alcohol?: Never 3. How often do you have six or more drinks on one occasion?: Never Total Score: 0 TRACEE-7 AMB Questionnaire TRACEE-7 Date TRACEE - 7 assessed: 09/26/23 Feeling nervous, anxious, or on edge: 0 = Not at all Not being able to stop or control worryin = Not at all Worrying too much about different things: 0 = Not at all Trouble relaxin = Not at all Being so restless that it is hard to sit still: 0 = Not at all Becoming easily annoyed or irritable: 0 = Not at all Feeling afraid as if something awful might happen: 0 = Not at all Total RTACEE-7 score (0-4 normal; 5-9 mild; 10-14 moderate; 15-21 severe): 0 Source: Developed by Drs. Alejandro Barnes, Kianna Garcia, Devan Freeman and colleagues, with an educational neetu from [employer]. Review of Systems Const Denies poor appetite and Denies weakness Eyes Denies no additional complaints ENT Reports Normal hearing present, Denies dizziness, Denies nasal congestion, Denies tinnitus and Denies sore throat Card Denies chest pain, Denies syncope, Denies rapid heart rate and Denies dyspnea Resp Denies cough and Denies dyspnea GI Denies change in stool character, Reports constipation, Denies diarrhea, Denies nausea and Denies vomiting Denies urinary frequency, Denies difficulty voiding and Denies dysuria Neuro Reports Normal hearing present, Denies confusion, Denies dizziness, Denies syncope and Denies weakness Psych Denies confusion Physical exam (Primary Care) Vital Signs: Last Vital Signs Pulse 57 09/26/23 12:26 BP 148/88 H 09/26/23 12:26 Pulse Ox 99 09/26/23 12:26 Oxygen Delivery Method Room Air 09/26/23 12:26 BMI result Body Mass Index 24.3 Tobacco/Smoking Status: Tobacco use Status Tobacco use date assessed 05/12/23 09/26/23 12:33 Patient Tobacco Use Status Former Tobacco user 09/26/23 12:33 Tobacco use type Cigarette 09/26/23 12:33 e-Cigarette/Vaping Use Never Used 09/26/23 12:33 PHQ-9: PHQ-9 Score PHQ-9: Total score 2 09/26/23 12:33 Depression Screening Interpretation: Positive Thrive Assessment: Date of Thrive Assessment Date Thrive assessed 09/26/23 09/26/23 12:33 Currently or been in a relationship where the following occur: no concerns reported Const General: No confusion Orientation/consciousness: No confusion HENMT Head: Yes normocephalic Ears: external ears normal and TM's normal bilaterally Face and sinus: Yes normal facial exam Mouth: moist mucous membranes Throat: Yes tonsils normal Eyes Conjunctivae: conjunctivae normal Pupils: Equal, round and reactive pupils present and Pupil accommodation reflex normal Direct Ophthalmoscopy: normal light reflex Neck Neck: No lymphadenopathy Thyroid: Thyroid normal Chest Chest palpation & inspection: normal inspection of the chest Resp Effort & Inspection: normal respiratory effort and no audible wheezes Auscultation: clear to auscultation bilaterally, no crackles, no wheezes and lung sounds not diminished Cardio Rate: regular rate Rhythm: regular rhythm Peripheral pulses: radial pulses present and dorsalis pedis present GI Palpation (GI): no masses Auscultation: normal bowel sounds and normoactive bowel sounds Rectal Exam - Female: deferred Abdomen image: 2 1. 2 cm mass 3 oclocl area L breast Skin General skin exam: no rashes or lesions noted Rashes: no rashes Neuro General: No confusion Cranial nerves: Yes Equal, round and reactive pupils present and Yes Normal hearing present Cognition (Neuro): normal cognition Gait exam (Neuro): Normal gait present Motor exam (neuro): 5/5 motor strength present throughout Deep tendon reflexes (DTR's): Right brachioradialis reflex intensity grade: 2+, Left brachioradialis reflex intensity grade: 2+, Right patellar reflex intensity grade: 2+ and Left patellar reflex intensity grade: 2+ Extrem General: No edema Assessment and Plan Assessment & Plan (1) Hypertension: Code(s): I10 - Essential (primary) hypertension Qualifiers: Hypertension type: essential hypertension Qualified Code(s): I10 - Essential (primary) hypertension Plan: Blood pressure is elevated today, monitor BP , continue with present med and will ff up (2) GERD (gastroesophageal reflux disease): Code(s): K21.9 - Gastro-esophageal reflux disease without esophagitis Qualifiers: Esophagitis presence: without esophagitis Qualified Code(s): K21.9 - Gastro-esophageal reflux disease without esophagitis Plan: Avoid the foods that causes that usually spicy foods, tomato products, juices, coffee, soda and foods that your sensitive to. After eating do not lie down, allow 3-4 hours before in lie down. And keep the head of bed above 30 degrees to avoid the acid from going up. (3) Hypercholesterolemia: Code(s): E78.00 - Pure hypercholesterolemia, unspecified Plan: Avoid fried foods, chicken skin, eggs, butter margarine, pastries and meat. Be it pork or beef they have a lot of cholesterol LDL goal of less than 130 and triglyceride of less than 150 (4) Annual physical exam: Code(s): Z00.00 - Encounter for general adult medical examination without abnormal findings (5) Hearing difficulty of right ear: Code(s): H91.91 - Unspecified hearing loss, right ear Plan: impacted cerumen bilateral - need to have irrigation (6) Left breast mass: Comment: 3 oclock L breast mass 2 cm rounded Code(s): N63.20 - Unspecified lump in the left breast, unspecified quadrant Plan: Diagnostic mammogram as well as ultrasound requested Orders: Orders 2 MM diagnostic mammo BI Today N63.20 - Unspecified lump in the left breast, unspecified quadrant US breast LT limited Today N63.20 - Unspecified lump in the left breast, unspecified quadrant Referrals 2 Gastroenterology Referral K21.9 - Gastro-esophageal reflux disease without esophagitis Coding Level of Care Code Est Pt Prev Care >65y(60245) Diagnoses Essential hypertension I10 Hypertension type: essential hypertension Gastroesophageal reflux disease without esophagitis K21.9 Esophagitis presence: without esophagitis Hypercholesterolemia E78.00 Annual physical exam Z00.00 Hearing difficulty of right ear H91.91 Left breast mass N63.20
== END 2023-09-26 13:19 | disposition home or self-care (01) ==
PROVIDERS: Visit Provider Internal Medicine
DX: Z00.00 Encounter for general adult medical examination without abnormal findings (principal); I10 Essential (primary) hypertension; K21.9 Gastro-esophageal reflux disease without esophagitis; E78.00 Pure hypercholesterolemia, unspecified; H91.91 Unspecified hearing loss, right ear; N63.21 Unspecified lump in the left breast, upper outer quadrant; Z23 Encounter for immunization
CPT/HCPCS: 90471; 90686; 99397

== ENCOUNTER 2023-10-25 10:58 | Outpatient (AMB) | payer OTHER, SELFPAY ==
[2023-10-25 11:00] VITALS: BP 152/82; PULSE 60; O2SAT 99; BMI 23.9
--- NOTE | 2023-10-25 11:00 | MHC.PC.OV ---
Vital Signs 10/25/23 11:00 Height 5 ft 5 in Weight 143 lb 6 oz BMI 23.9 BP 152/82 H Blood Pressure Location Lt brachial Position Sitting Pulse 60 Pulse Source Pulse Oximeter Pulse Oximetry (%) 99 Oxygen Delivery Method Room Air Intake Visit Reasons: Ear Irrigation Intake Note: The patient is seeking an ENT referral due to a potential ear infection or wax issue Building Surveyor Required: No Accompanied by: Self / Same As Patient Allergies MYESHA Inhibitors Allergy (Severe, Verified 10/25/23 11:13) ANGIOEDEMA WITH LISINOPRIL caffeine [CAFFEINE] Allergy (Severe, Verified 10/25/23 11:13) EXTREME PAIN IN BILATERAL KIDNEYS clozapine [From Clozaril] Allergy (Severe, Verified 10/25/23 11:13) Stomach Upset lisinopril Allergy (Severe, Verified 10/25/23 11:13) ANGIOEDEMA amoxicillin [AMOXICILLIN] Allergy (Intermediate, Verified 10/25/23 11:13) Stomach Upset atropine [Lomotil] Allergy (Intermediate, Verified 10/25/23 11:13) Stomach Upset bee pollen [BEE STINGS] Allergy (Intermediate, Verified 10/25/23 11:13) Swelling lovastatin Allergy (Intermediate, Verified 10/25/23 11:13) Cramps penicillin V Allergy (Intermediate, Verified 10/25/23 11:13) Stomach Upset ziprasidone [From GEODON] Allergy (Intermediate, Verified 10/25/23 11:13) HALLUCINATIONS TUNA FISH Allergy (Severe, Uncoded 10/25/23 11:13) SEVERE INDIGESTION, rash From PROLIXIN Allergy (Intermediate, Uncoded 10/25/23 11:13) UNKNOWN lovastatin Allergy (Intermediate, Uncoded 10/25/23 11:13) cramping prolixen Allergy (Intermediate, Uncoded 10/25/23 11:13) seizure amox Allergy (Mild, Uncoded 10/25/23 11:13) GI upset Tobacco use date assessed: 05/12/23 Fall risk assessment: No Falls in past year Last assessed Fall Risk: 10/25/23 Dental Screening Dental Screen Date: 10/25/23 Did you have a dental visit in the last 12 months?: Yes Did you have a dental problem in the last 6 months where you did not have access to dental care?: No Was dental information given to patient?: Patient has dentist HPI HPI Comments History of Present Illness Details 78-year-old female past medical history significant for hypertension, GERD, hypercholesteremia, osteopenia among others. Patient presents today for ear lavage. Patient was noted to have bilateral cerumen impaction. Left ear lavage patient reported dizziness and feeling of being a little woozy. Left ear lavage discontinued, patient did not want a proceed with ear lavage on right side. Patient continues to have cerumen impaction and bilateral ears. Blood pressure elevated office today 152/82. Patient reports that she was in a tan this morning and did not take her blood pressure medication prior to coming to her appointment.. BP rechecked prior to discharge continues to be elevated 150/80. Patient reports wooziness and dizziness has resolved and she was discharged home. Patient advised if she continues to have difficulties with her ears to discuss further with PCP for possible referral to ENT if needed. [facility] Medical History (Updated 09/26/23 @ 13:00 by Erik Bailey MD) Colon cancer screening Nasal congestion Tremors of nervous system UTI (urinary tract infection) Meningitis Upper respiratory infection Impacted cerumen Otitis externa of right ear Pernicious anemia Obesity (BMI 30-39.9) Hyperbilirubinemia Hypercholesterolemia Schizophrenia Vitamin D deficiency Urinary incontinence GERD (gastroesophageal reflux disease) Hypertension Thrombocytopenia Leukopenia Surgical History History of total abdominal hysterectomy and bilateral salpingo-oophorectomy H/O right wrist surgery History of tooth extraction History of tonsillectomy Family History Father Cancer Colon cancer Mother Cancer Colon cancer History of breast cancer Social History Household Members: Unknown / Unable to assess Household Members Other:: patient states Alone Housing: Apartment Alcohol intake: never Patient Tobacco Use Status: Former Tobacco user Tobacco use type: Cigarette Years Smoked: quit 1960 e-Cigarette/Vaping Use: Never Used Second Hand Smoke Exposure: No Advance Directives Date on File: 12/14/22 service: No Current occupational status: disabled Cognitive needs: No Hearing needs: No Vision needs: Yes Questionnaire Thrive Questionnaire Date Thrive assessed: 09/26/23 TRACEE-7 AMB Questionnaire TRACEE-7 Date TRACEE - 7 assessed: 09/26/23 Source: Developed by Drs. Alejandro Barnes, Kianna Garcia, Devan Freeman and colleagues, with an educational neetu from [employer]. Physical exam (Primary Care) Vital Signs: Last Vital Signs Pulse 60 10/25/23 11:00 BP 152/82 H 10/25/23 11:00 Pulse Ox 99 10/25/23 11:00 Oxygen Delivery Method Room Air 10/25/23 11:00 BMI result Body Mass Index 23.9 Tobacco/Smoking Status: Tobacco use Status Tobacco use date assessed 05/12/23 10/25/23 11:02 Patient Tobacco Use Status Former Tobacco user 10/25/23 11:02 Tobacco use type Cigarette 10/25/23 11:02 e-Cigarette/Vaping Use Never Used 10/25/23 11:02 Thrive Assessment: Date of Thrive Assessment Date Thrive assessed 09/26/23 10/25/23 11:02 Office Procedures Cerumen Removal From which ear canal was the cerumen removed: left Removal: irrigation [id number]-[id number] Irrigation/Lavage (Ear lavage discontinued when patient reported dizziness, did not want a proceed with right ear lavag) Assessment and Plan Assessment & Plan (1) Hearing difficulty of right ear: Code(s): H91.91 - Unspecified hearing loss, right ear (2) Cerumen impaction: Code(s): H61.20 - Impacted cerumen, unspecified ear Plan: Bilateral ear canals remain impacted with cerumen patient unable to tolerate left ear lavage developed dizziness and woozy feeling ear lavage was discontinued at that time blood pressure rechecked, continues to be elevated patient advised to take blood pressure medication when she returns home from this appointment. Dizziness resolved prior to discharge. Plan Keep scheduled follow-up with PCP or follow-up sooner if needed Coding Level of Care Code Est Pt Level 2 (51792) Diagnoses Hearing difficulty of right ear H91.91 Cerumen impaction H61.20 CPT Codes Office Procedure - CPT: 56697-Xwh Irrigation/Lavage ([id number])
== END 2023-10-25 12:09 | disposition home or self-care (01) ==
PROVIDERS: PCP Internal Medicine; Visit Provider Nurse Practitioner Family
DX: H61.23 Impacted cerumen, bilateral (principal)
CPT/HCPCS: 69209

== ENCOUNTER 2023-10-31 14:29 | Outpatient (AMB) | payer OTHER, SELFPAY ==
--- NOTE | 2023-10-31 14:39 | MHC.OFFVIS ---
Intake Vital Signs 10/31/23 14:42 Height 5 ft 5 in Weight 143 lb BMI 23.8 BP 138/68 Blood Pressure Location Lt brachial Position Sitting Pulse 61 Intake Visit Reasons: Gastro-esophageal reflux disease Intake Note: Patient new consult for GERD. Patient cc: GERD. Yarn Sizer Required: No Accompanied by: Self / Same As Patient Allergies MYESHA Inhibitors Allergy (Severe, Verified 10/31/23 14:41) ANGIOEDEMA WITH LISINOPRIL caffeine [CAFFEINE] Allergy (Severe, Verified 10/31/23 14:41) EXTREME PAIN IN BILATERAL KIDNEYS clozapine [From Clozaril] Allergy (Severe, Verified 10/31/23 14:41) Stomach Upset lisinopril Allergy (Severe, Verified 10/31/23 14:41) ANGIOEDEMA amoxicillin [AMOXICILLIN] Allergy (Intermediate, Verified 10/31/23 14:41) Stomach Upset atropine [Lomotil] Allergy (Intermediate, Verified 10/31/23 14:41) Stomach Upset bee pollen [BEE STINGS] Allergy (Intermediate, Verified 10/31/23 14:41) Swelling lovastatin Allergy (Intermediate, Verified 10/31/23 14:41) Cramps penicillin V Allergy (Intermediate, Verified 10/31/23 14:41) Stomach Upset ziprasidone [From GEODON] Allergy (Intermediate, Verified 10/31/23 14:41) HALLUCINATIONS TUNA FISH Allergy (Severe, Uncoded 10/25/23 11:13) SEVERE INDIGESTION, rash From PROLIXIN Allergy (Intermediate, Uncoded 10/25/23 11:13) UNKNOWN lovastatin Allergy (Intermediate, Uncoded 10/25/23 11:13) cramping prolixen Allergy (Intermediate, Uncoded 10/25/23 11:13) seizure amox Allergy (Mild, Uncoded 10/25/23 11:13) GI upset Medication List - Last Reconciled 10/31/23 by Mable Lewis PA-C atorvastatin 10 mg PO DAILY [Disposable Underpad 30 x 36 heavy flow As directed] [DISPOSABLE UNDERWEAR As directed] [FOLDING ALUMINUM ROLLATOR WALKER As directed] garlic 1,000 mg PO DAILY [gloves As directed1. Quad Cane 2. Incontinence pull ups 3. Gloves 4. Incontinence wipes 5. Incontinence bed pads] hydrochlorothiazide 25 mg PO DAILY hydroxyzine HCl 10 mg PO DAILY PRN 90 days [INCONTINENCE BED PADS As directed1. Quad Cane 2. Incontinence pull ups 3. Gloves 4. Incontinence wipes 5. Incontinence bed pads] [Incontinence pull ups LARGE As directed1. Quad Cane 2. Incontinence pull ups 3. Gloves 4. Incontinence wipes 5. Incontinence bed pads] [INCONTINENCE WIPES As directed1. Quad Cane 2. Incontinence pull ups 3. Gloves 4. Incontinence wipes 5. Incontinence bed pads] losartan 25 mg PO DAILY 90 days [OFFSET HANDLE CANE As directed] omeprazole 20 mg PO DAILY peg [id number] 1-0.2-0.2 % (Artificial Tears ([id number])) 1 drp ophthalmic (eye) TID [PERSONAL CLEASING WIPES As directed] [POWDER FREESYNTHETIC EXAM GLOVES As directed] [QUAD CANE As directed1. Quad Cane 2. Incontinence pull ups 3. Gloves 4. Incontinence wipes 5. Incontinence bed pads] triamcinolone acetonide 0.1% 1 appl topical BID trifluoperazine 5 mg PO DAILY HPI HPI Comments History of Present Illness Details An 78 y/o female acid reflux-off and on for a year she buys it over the counter- Now taking omeprazole about 3 times a week- she was she watches her diet-cooks for her self-excellent appetite-she has dentures that seemed to slip quite frequently she has a chronic irritation in her chest and tummy if I don't take omeprazole - for awhile , she also tries to tell a story of having GI issues in her younger days-unclear she is intentionally losing weight- she has a normal BM QD- no issues She does wear pads- incont. urine-doing better- that she times BR She has had no nausea, vomiting, hematemesis, hematochezia fever or chills [facility] Medical History (Updated 11/02/23 @ 14:54 by Mable Lewis PA-C) Colon cancer screening Nasal congestion Tremors of nervous system UTI (urinary tract infection) Meningitis Upper respiratory infection Impacted cerumen Otitis externa of right ear Pernicious anemia Obesity (BMI 30-39.9) Hyperbilirubinemia Hypercholesterolemia Schizophrenia Vitamin D deficiency Urinary incontinence GERD (gastroesophageal reflux disease) Hypertension Thrombocytopenia Leukopenia Surgical History History of total abdominal hysterectomy and bilateral salpingo-oophorectomy H/O right wrist surgery History of tooth extraction History of tonsillectomy Family History Father Cancer Colon cancer Mother Cancer Colon cancer History of breast cancer Social History Household Members: Unknown / Unable to assess Household Members Other:: patient states Alone Housing: Apartment Alcohol intake: never Patient Tobacco Use Status: Former Tobacco user Tobacco use type: Cigarette Years Smoked: quit 1960 e-Cigarette/Vaping Use: Never Used Second Hand Smoke Exposure: No Advance Directives Date on File: 12/14/22 service: No Current occupational status: disabled Cognitive needs: No Hearing needs: No Vision needs: Yes Review of Systems Const All systems reviewed & are unremarkable except as noted in HPI and below Denies chills, Denies fever(s) and Denies poor appetite ENT Denies dizziness Card Denies chest pain, Denies dyspnea and Denies dyspnea on exertion Resp Denies dyspnea and Denies dyspnea on exertion GI Reports dyspepsia Musc Reports abnormal gait and Reports arthralgias Neuro Reports abnormal gait and Denies dizziness Physical Exam Vital Signs: Last Vital Signs Pulse 61 10/31/23 14:42 BP 138/68 10/31/23 14:42 BMI result Body Mass Index 23.8 Const General: cooperative and comfortable Orientation/consciousness: patient oriented x3 Limitations: ambulation with cane Eyes Other: mottled sclera Sclerae: scleral abnormal (Mottled) Chest Chest palpation & inspection: no tenderness Resp Effort & Inspection: normal respiratory effort and able to speak in complete sentences Auscultation: clear to auscultation bilaterally and no wheezes Cardio Rate: regular rate Rhythm: regular rhythm Neuro General: patient oriented x3 Psych Appearance: well kempt Speech and movement: Slurred speech present (Ill fitted dentures) Attitude: cooperative Thought content: suicidality and no homicidality Judgement: Fair judgement present (Psych) Assessment & Plan Assessment & Plan (1) GERD (gastroesophageal reflux disease): Comment: Very pleasant somewhat difficult to assess 78-year-old frail female referred with GERD, symptoms vague She does mention distant past GI issues difficult to follow no detail Taking PPI p.r.n. She was here today alone-for visit, had transportation Code(s): K21.9 - Gastro-esophageal reflux disease without esophagitis Qualifiers: Esophagitis presence: without esophagitis Qualified Code(s): K21.9 - Gastro-esophageal reflux disease without esophagitis Plan: Omeprazole 20 mg daily Reflux precautions (2) Thrombocytopenia: Comment: Labs reviewed back to 2018 Code(s): D69.6 - Thrombocytopenia, unspecified Plan Barium swallow- Omeprazole 20 mg daily reinforced Encouraged to have dentures assessed Call pt w/ results- uses cane - takes bus Orders: Orders [place] barium swallow 10/31/23 K21.9 - Gastro-esophageal reflux disease without esophagitis, R13.10 - Dysphagia, unspecified Medications: New esomeprazole magnesium 20 mg PO DAILY 30 days 30 caps 6RF Patient Instructions: Pleasant, 78-year-old female referred with persistent reflux, somewhat difficult to assess-unclear she history as as details she is able to provide. Omeprazole 20 mg daily-reinforced, take daily on empty stomach Barium swallow for further assessment Likely benefit from dental evaluation-clearly dentures are ill-fitted Encourage recalls with any questions or concerns Coding Level of Care Code New Pt Level 4 (49522) Diagnoses Gastroesophageal reflux disease without esophagitis K21.9 Esophagitis presence: without esophagitis Thrombocytopenia D69.6 Time Spent (min) 40
[2023-10-31 14:42] VITALS: BP 138/68; PULSE 61; BMI 23.8
== END 2023-10-31 16:24 | disposition home or self-care (01) ==
PROVIDERS: PCP Internal Medicine; Visit Provider Physician Assistant
DX: K21.9 Gastro-esophageal reflux disease without esophagitis (principal); D69.6 Thrombocytopenia, unspecified
CPT/HCPCS: 99204

== ENCOUNTER → 2023-10-31 14:29 | Outpatient (BNVA) | payer OTHER, SELFPAY | PROVIDERS: PCP Internal Medicine; Visit Provider Physician Assistant | DX: K21.9 Gastro-esophageal reflux disease without esophagitis (principal); D69.6 Thrombocytopenia, unspecified | CPT/HCPCS: 99202 ==

== ENCOUNTER 2023-12-03 12:52 | Emergency (ER) | payer OTHER, SELFPAY ==
--- NOTE | ~2023-12-03 | XR_ITS ---
EXAMINATION: XR CHEST CLINICAL INFORMATION: Shortness of breath COMPARISON: Chest radiograph 03/24/2023. TECHNIQUE: 2 views of the chest were obtained. FINDINGS: Clear lungs. No pleural effusion or pneumothorax. Cardiomediastinal silhouette is unchanged. XR/XR chest 2V IMPRESSION: No acute cardiopulmonary abnormality.
[2023-12-03 14:24] VITALS: BP 147/79; PULSE 72; RESP 18; TEMP 36.6; O2SAT 96; BMI 22.8
--- NOTE | 2023-12-03 14:25 | ED.GENADULT ---
HPI - General Adult General Chief complaint: Upper Respiratory Symptoms Stated complaint: bad hearing? flu like symptoms Time Seen by Provider: 12/03/23 23:15 Source: patient, RN notes reviewed and old records reviewed Mode of arrival: ambulatory Limitations: no limitations History of Present Illness HPI narrative: 78-year-old female with past medical history significant for GERD, hypertension, gait instability presents for evaluation of multiple complaints Patient reports that she has had flu-like symptoms for last couple of days including fever, cough, congestion. Denies any significant shortness of breath. She also complains of a whooshing sound in her right ear ?that sounds like the ocean. ? She states that currently she has the wishing her ears but no other symptoms Denies any chest pain currently Related Data Home Medications Medication Instructions Recorded Confirmed garlic 1,000 mg capsule 1,000 mg PO DAILY 03/24/23 09/26/23 peg [id number] 1 1 drp ophthalmic (eye) TID 03/24/23 09/26/23 %-0.2 %-0.2 % eye drops (Artificial Tears ([id number])) trifluoperazine 5 mg tablet 5 mg PO DAILY 03/24/23 09/26/23 omeprazole 20 mg capsule,delayed 20 mg PO DAILY 09/26/23 09/26/23 release Previous Rx's Medication Instructions Recorded DISPOSABLE UNDERWEAR #120 ea 04/14/22 Disposable Underpad 30 x 36 heavy #100 ea 04/14/22 flow OFFSET HANDLE CANE #1 ea 04/14/22 PERSONAL CLEASING WIPES #100 ea 04/14/22 FOLDING ALUMINUM ROLLATOR WALKER #1 ea 10/08/22 POWDER FREESYNTHETIC EXAM GLOVES #1 ea 10/08/22 hydroxyzine HCl 10 mg tablet 10 mg PO DAILY PRN Anxiety 90 days 01/27/23 #90 tabs losartan 25 mg tablet 25 mg PO DAILY 90 days #90 tabs 09/15/23 atorvastatin 10 mg tablet 10 mg PO DAILY #90 tabs 09/27/23 triamcinolone acetonide 0.1 % 1 appl topical BID #30 grams 09/28/23 topical ointment INCONTINENCE BED PADS #100 ea 09/29/23 INCONTINENCE WIPES #1 ea 09/29/23 Incontinence pull ups LARGE #100 ea 09/29/23 QUAD CANE #1 ea 09/29/23 gloves #1 ea 09/29/23 hydrochlorothiazide 25 mg tablet 25 mg PO DAILY #90 tabs 10/30/23 esomeprazole magnesium 20 mg 20 mg PO DAILY 30 days #30 caps 10/31/23 capsule,delayed release Allergies Allergy/AdvReac Type Severity Reaction Status Date / Time MYESHA Inhibitors Allergy Severe ANGIOEDEMA Verified 12/03/23 14:24 WITH LISINOPRIL caffeine [CAFFEINE] Allergy Severe EXTREME Verified 12/03/23 14:24 PAIN IN BILATERAL KIDNEYS clozapine [From Clozaril] Allergy Severe Stomach Verified 12/03/23 14:24 Upset lisinopril Allergy Severe ANGIOEDEMA Verified 12/03/23 14:24 amoxicillin [AMOXICILLIN] Allergy Intermediate Stomach Verified 12/03/23 14:24 Upset atropine [Lomotil] Allergy Intermediate Stomach Verified 12/03/23 14:24 Upset bee pollen [BEE STINGS] Allergy Intermediate Swelling Verified 12/03/23 14:24 lovastatin Allergy Intermediate Cramps Verified 12/03/23 14:24 ziprasidone [From GEODON] Allergy Intermediate HALLUCINATI Verified 12/03/23 14:24 ONS TUNA FISH Allergy Severe SEVERE Uncoded 10/25/23 11:13 INDIGESTION, rash From PROLIXIN Allergy Intermediate UNKNOWN Uncoded 10/25/23 11:13 lovastatin Allergy Intermediate cramping Uncoded 10/25/23 11:13 prolixen Allergy Intermediate seizure Uncoded 10/25/23 11:13 amox Allergy Mild GI upset Uncoded 10/25/23 11:13 Review of Systems Constitutional: Constitutional: Reports body ache(s), Reports chills, Denies fever(s) and Reports headache(s) ENT: Denies ear discharge, Denies otalgia, Reports headache(s), Reports nasal congestion and Denies sore throat Cardiovascular: Cardiovascular: Reports chest pain and Denies dyspnea Respiratory: Respiratory: Reports cough and Denies dyspnea Gastrointestinal: Gastrointestinal: Denies abdominal pain, Denies nausea and Denies vomiting Musculoskeletal: Musculoskeletal: Denies back pain Neurologic: Reports headache(s) PMFSH Past Medical History Onset Date is defined in the Problem List Problems that require an onset date and time if occurred within 24 hrs of arrival to the ED Aortic Dissection and Rupture; Neurologic impairment; Cardiopulmonary Arrest; Endotracheal Intubation; Insertion or Replacement of Mechanical Circulatory Assist Device Medical History (Updated 12/04/23 @ 00:09 by Bubba Maritnez) Colon cancer screening Nasal congestion Tremors of nervous system UTI (urinary tract infection) Meningitis Upper respiratory infection Impacted cerumen Otitis externa of right ear Pernicious anemia Obesity (BMI 30-39.9) Hyperbilirubinemia Hypercholesterolemia Schizophrenia Vitamin D deficiency Urinary incontinence GERD (gastroesophageal reflux disease) Hypertension Thrombocytopenia Leukopenia Surgical History History of total abdominal hysterectomy and bilateral salpingo-oophorectomy H/O right wrist surgery History of tooth extraction History of tonsillectomy Family History Family History Father Cancer Colon cancer Mother Cancer Colon cancer History of breast cancer Social History Social History Household Members: Unknown / Unable to assess Household Members Other:: patient states Alone Housing: Apartment Alcohol intake: never Patient Tobacco Use Status: Former Tobacco user Tobacco use type: Cigarette Years Smoked: quit 1960 Smoked in Last 30 Days: No e-Cigarette/Vaping Use: Never Used Second Hand Smoke Exposure: No Use of substances other than those prescribed or required for medical reasons: No Advance Directives: Yes Advance Directives on File: Yes Advance Directives Date on File: 12/14/22 service: No Current occupational status: disabled Cognitive needs: No Hearing needs: No Vision needs: Yes Physical Exam ED Vital Signs: Vital Signs - 24 hr 12/03/23 14:24 12/03/23 20:51 12/04/23 00:07 Temperature 97.9 F 97.9 F 97.9 F Pulse Rate 72 79 64 Respiratory Rate 18 18 16 Blood Pressure 147/79 H 156/88 H 153/81 H Pulse Oximetry 96 99 99 Oxygen Delivery Method Room Air Room Air Room Air BMI result Body Mass Index 22.8 Const General: healthy appearing, comfortable, no acute distress, alert and awake Nutritional Appearance: well nourished Orientation/consciousness: patient oriented x3 HENMT Other: Bilateral cerumen impaction. Head: Yes normocephalic and Yes atraumatic Ears: external ears normal Eyes Eyelids: Yes eyelids normal Conjunctivae: conjunctivae normal Sclerae: sclerae normal Corneas: corneas normal Pupils: Equal, round and reactive pupils present EOM: EOMs intact bilaterally Neck Neck: Yes full ROM Resp Effort & Inspection: normal respiratory effort, able to speak in complete sentences and not labored GI Inspection: No distended Palpation (GI): Soft to palpation, not firm, nontender, no guarding and not rigid Skin General skin exam: no rashes or lesions noted and elasticity normal Neuro General: patient oriented x3 Cranial nerves: Yes Equal, round and reactive pupils present and Yes Bilaterally intact EOM present Cognition (Neuro): normal cognition Extrem Other: Moving all extremities well without any obvious deformities Course Course Course Narrative: This is an RME: Additional HPI, ROS, PE not included below will be deferred to primary provider. This is a 19-abss-qre-female, schizophrenia, hypercholesteremia hypertension very poor historian presenting to the ER with complaints of upset stomach , congestion and right ear ringing x several days. Had cough tuesday and tuesday. Reporting some shortness of breath. Plan: Labs, EKG, CXR, Viral swabs Reevaluation(s) Reevaluation #1: patient w/o complaints. patients ride is here. Tollerating PO. Patient to be discharge per plan of preivious provider. Time: 07:56 Medical Decision Making Medical Decision Making [facility] Narrative: Patient is currently only complaining of a whooshing sound in her right ear. She does not have any chest pain currently no viral symptoms. Her vital signs have been stable, her workup is reviewed without any acute findings. I offered cerumen disimpaction and the patient declines stating ?last time I had my ears flushed I was dizzy and woozy for 48 hours. ? She states that she would prefer to go home and use Debrox drops in lieu of irrigation of the ear. Patient's labs are consistent with her baseline, chest x-ray was clear. EKG is unchanged when compared to March of last year. Differential Diagnosis Differential Diagnoses: The differential diagnosis associated with the presentation includes Cerumen impaction Otitis media Otitis externa Mastoiditis Viral syndrome Upper respiratory infection ACS less likely Lab Data [facility] Lab Attestation statement: I reviewed the patient's lab results. Mild leukopenia and thrombocytopenia consistent with the patient's baseline. No significant electrolyte abnormalities. The patient has a chronic slightly elevated bilirubin. Troponin is undetectable 12/03/23 14:58 12/03/23 14:58 Labs: Lab Results 12/03/23 12/04/23 Range/Units 14:58 06:08 WBC 3.5 L (4.8-10.8) X10*3/uL RBC 5.16 (4.20-5.50) X10*6/uL Hgb 14.0 (12.0-16.0) g/dl Hct 42.2 (37.0-47.0) % MCV 81.8 (80.0-98.0) fL MCH 27.1 (27.0-33.0) pg MCHC 33.2 (31.0-35.0) g/dl RDW 15.3 (11.0-16.0) % Plt Count 155 L D (160-400) X10*3/uL MPV 11.9 (9.4-12.3) fL Immature Gran % (Auto) 0.0 (0.0-0.4) % Neut % (Auto) 52.9 (45-73) % Lymph % (Auto) 35.0 (20-40) % Sawyer % (Auto) 9.3 (2-11) % Eos % (Auto) 1.7 (0-4) % Baso % (Auto) 1.1 (0-2) % Lymph # (Auto) 1.2 (1.2-4.9) X10*3/uL Sawyer # (Auto) 0.3 (0.1-1.2) X10*3/uL Eos # (Auto) 0.1 (0.0-0.4) X10*3/uL Baso # (Auto) 0.0 (0.0-0.2) X10*3/uL Abs Immat Gran (auto) 0.00 (0.00-0.03) X10*3/uL Absolute Neuts (auto) 1.9 L (2.0-8.3) x10*3/uL Absolute Nucleated RBC 0.000 (0.0-0.012) X10*3/uL Nucleated RBC % (auto) 0.0 (0.0-0.2) /100WBC Sodium 142 (135-145) mmol/L Potassium 3.4 (3.3-5.1) mmol/L Chloride 104 (96-108) mmol/L Carbon Dioxide 28 (22-29) mmol/L Anion Gap 13 (12-20) BUN 15 (9-16) mg/dL Creatinine 0.83 (0.5-1.4) mg/dL Estim Creat Clear Calc 48.6 Estimated GFR > 60 Random Glucose 95 (60-115) mg/dL Calcium 9.7 D (8.4-10.2) mg/dL Total Bilirubin 1.6 H (0.0-1.0) mg/dL Direct Bilirubin 0.5 (0.0-0.5) mg/dL AST 21 (5-31) U/L ALT 13 (0-31) U/L Alkaline Phosphatase 89 (39-117) U/L Troponin I High Sens < 2.7 D (<3.5-17.0) ng/L Total Protein 7.5 (6.5-8.0) g/dL Albumin 4.1 (3.5-5.0) g/dL Lipase 24 (8-78) U/L Urine Color Yellow Urine Appearance Clear Urine pH 5.5 (5.0-9.0) Ur Specific Glidden 1.020 (1.005-1.025) Urine Protein Negative (Neg-Trace) mg/dL Urine Glucose (UA) Negative (Negative) mg/dL Urine Ketones 40 (Negative) mg/dL Urine Blood Negative (Negative) Urine Nitrite Negative (Negative) Ur Leukocyte Esterase Negative (Negative) COVID-19 (MARTY) Negative (Negative) COVID-19 Clin Com See Note Influenza Type A (KEVIN) Negative (Negative) Influenza Type B (KEVIN) Negative (Negative) Influenza A & B Note See Note Independent Interpretation I performed an independent interpretation of an: EKG (Sinus rhythm with a rate of 62 beats per minute. No ectopy. No significant change when compared to previous from March 23, 2023) and Plain X-Ray (No acute infiltrates) Radiology Impression Discussion of test interpretation with radiology: I have reviewed the radiologist's reading. (No acute cardiopulmonary disease) Discharge Plan Discharge Clinical Impression: Bilateral impacted cerumen Patient Disposition: Home, Self-Care Instructions: Carbamide Peroxide (Into the ear) Additional Instructions: Your workup in the ER today was reassuring The sound in your ears is likely due to buildup of ear wax You declined to have your ears irrigated today I recommend that you use Debrox drops that are [id number] You should put a few drops into each ear every 4 hours Prescriptions: No Action (DME) OFFSET HANDLE CANE See Rx Instructions .Route .MEDSUPPLY Qty: 1 0RF Rx Instructions: As directed (DME) Disposable Underpad 30 x 36 heavy flow See Rx Instructions .Route .MEDSUPPLY Qty: 100 12RF Rx Instructions: As directed (DME) PERSONAL CLEASING WIPES See Rx Instructions .Route .MEDSUPPLY Qty: 100 12RF Rx Instructions: As directed (DME) DISPOSABLE UNDERWEAR XL MODERATE ABSORBENCY See Rx Instructions .Route .MEDSUPPLY Qty: 120 12RF Rx Instructions: As directed (DME) FOLDING ALUMINUM ROLLATOR WALKER See Rx Instructions .Route .MEDSUPPLY Qty: 1 12RF Rx Instructions: As directed (DME) POWDER FREESYNTHETIC EXAM GLOVES See Rx Instructions .Route .MEDSUPPLY Qty: 1 0RF Rx Instructions: As directed hydroxyzine HCl 10 mg tablet 10 mg PO DAILY PRN (Reason: Anxiety) 90 Days Qty: 90 1RF losartan 25 mg tablet 25 mg PO DAILY 90 Days Qty: 90 2RF atorvastatin 10 mg tablet 10 mg PO DAILY Qty: 90 2RF triamcinolone acetonide 0.1 % ointment 1 appl TOPICAL BID Qty: 30 0RF (DME) gloves See Rx Instructions .Route .MEDSUPPLY Qty: 1 12RF Rx Instructions: As directed1. Quad Cane 2. Incontinence pull ups 3. Gloves 4. Incontinence wipes 5. Incontinence bed pads (DME) INCONTINENCE BED PADS See Rx Instructions .Route .MEDSUPPLY Qty: 100 12RF Rx Instructions: As directed1. Quad Cane 2. Incontinence pull ups 3. Gloves 4. Incontinence wipes 5. Incontinence bed pads (DME) Incontinence pull ups LARGE See Rx Instructions .Route .MEDSUPPLY Qty: 100 11RF Rx Instructions: As directed1. Quad Cane 2. Incontinence pull ups 3. Gloves 4. Incontinence wipes 5. Incontinence bed pads (DME) INCONTINENCE WIPES See Rx Instructions .Route .MEDSUPPLY Qty: 1 12RF Rx Instructions: As directed1. Quad Cane 2. Incontinence pull ups 3. Gloves 4. Incontinence wipes 5. Incontinence bed pads (DME) QUAD CANE See Rx Instructions .Route .MEDSUPPLY Qty: 1 0RF Rx Instructions: As directed1. Quad Cane 2. Incontinence pull ups 3. Gloves 4. Incontinence wipes 5. Incontinence bed pads hydrochlorothiazide 25 mg tablet 25 mg PO DAILY Qty: 90 1RF Artificial Tears(ps-jumh-fhch) 1-0.2-0.2 % Drops 1 drp ophthalmic (eye) TID trifluoperazine 5 mg Tablet 5 mg PO DAILY garlic 1,000 mg Capsule 1,000 mg PO DAILY omeprazole 20 mg capsule,delayed release(DR/EC) 20 mg PO DAILY esomeprazole magnesium 20 mg capsule,delayed release(DR/EC) 20 mg PO DAILY 30 Days Qty: 30 6RF Referrals: Leo,Erik Almonte MD [Primary Care Provider] - 2 days
--- NOTE | 2023-12-03 14:27 | ECG_ITS ---
Test Reason : SOB Blood Pressure : / mmHG Vent. Rate : 062 BPM Atrial Rate : 062 BPM P-R Int : 140 ms QRS Dur : 128 ms QT Int : 444 ms P-R-T Axes : 058 -75 032 degrees QTc Int : 450 ms Normal sinus rhythm Right bundle branch block Left anterior fascicular block Bifascicular block Abnormal ECG When compared with ECG of 23-MAR-2023 19:57, No significant change was found Referred By: Dolores Lindsey Electronically Signed By:SIMRAN BERNARDO MD
[2023-12-03 15:03] LABS: MANUAL DIFF FLAG NO
[2023-12-03 15:09] LABS: Basophils Percent Auto 1.1 % (0-2); Eosinophils Absolute Auto 0.1 X10*3/uL (0.0-0.4); Eosinophils Percent Auto 1.7 % (0-4); Hematocrit 42.2 % (37.0-47.0); Lymphocytes Absolute Auto 1.2 X10*3/uL (1.2-4.9); Mean Corpuscular HGB Conc 33.2 g/dl (31.0-35.0); Mean Corpuscular Hemoglobin 27.1 pg (27.0-33.0); Mean Corpuscular Volume 81.8 fL (80.0-98.0); Mean Platelet Volume 11.9 fL (9.4-12.3); Monocytes Absolute Auto 0.3 X10*3/uL (0.1-1.2); Monocytes Percent Auto 9.3 % (2-11); Neutrophils Absolute Auto 1.9 x10*3/uL (2.0-8.3); Neutrophils Percent Auto 52.9 % (45-73); Platelet Count 155 X10*3/uL (160-400); Red Blood Count 5.16 X10*6/uL (4.20-5.50); Red Cell Distribution Width 15.3 % (11.0-16.0); White Blood Count 3.5 X10*3/uL (4.8-10.8)
[2023-12-03 15:20] LABS: COVID-19 Test Negative (Negative); IDNOW Serial# 08D9AD1C
[2023-12-03 15:22] LABS: IDNOW Serial# 152EDE1D; Influenza A Negative (Negative); Influenza B2 Negative (Negative)
[2023-12-03 15:23] LABS: Alanine Aminotransferase 13 U/L (0-31); Albumin Level 4.1 g/dL (3.5-5.0); Alkaline Phosphatase 89 U/L (39-117); Anion Gap 13 (12-20); Aspartate Amino Transferase 21 U/L (5-31); Bilirubin Direct 0.5 mg/dL (0.0-0.5); Bilirubin Total 1.6 mg/dL (0.0-1.0); Blood Urea Nitrogen 15 mg/dL (9-16); Calcium 9.7 mg/dL (8.4-10.2); Carbon Dioxide 28 mmol/L (22-29); Chloride 104 mmol/L (96-108); Creatinine Clr Calc Pharmacy 48.6; Estimated Glomerular Filt Rate > 60; Glucose Random 95 mg/dL (60-115); Lipase 24 U/L (8-78); Potassium 3.4 mmol/L (3.3-5.1); Sodium 142 mmol/L (135-145); Total Protein 7.5 g/dL (6.5-8.0)
[2023-12-03 15:31] LABS: Troponin-I High Sensitivity < 2.7 ng/L (<3.5-17.0)
[2023-12-03 20:51] VITALS: BP 156/88; PULSE 79; RESP 18; TEMP 36.6; O2SAT 99
[2023-12-04 00:07] VITALS: BP 153/81; PULSE 64; RESP 16; TEMP 36.6; O2SAT 99
--- NOTE | 2023-12-04 00:09 | PC.NURSE ---
Pt ca&ox4, no signs of distress. Pt reports tinnitus and some chest tightness. Plan of care ongoing.
[2023-12-04 06:16] LABS: Appearance Urine Clear; Color Urine Yellow; Glucose Urine UA Negative (Negative); Leukocyte Esterase Urine Negative (Negative); Nitrite Urine Negative (Negative); PH 5.5 (5.0-9.0); Urine Blood Negative (Negative); Urine Ketones 40 mg/dL (Negative); Urine Protein Negative (Neg-Trace)
== END 2023-12-04 08:05 | disposition home or self-care (01) ==
PROVIDERS: Physician Assistant; Physician Assistant Medical; Emergency Provider Internal Medicine; PCP Internal Medicine
DX: H61.23 Impacted cerumen, bilateral (principal); I10 Essential (primary) hypertension; E78.00 Pure hypercholesterolemia, unspecified; Z11.52 Encounter for screening for COVID-19; Z79.02 Long term (current) use of antithrombotics/antiplatelets; Z79.899 Other long term (current) drug therapy
CPT/HCPCS: 71046; 80048; 80076; 81003; 83690; 84484; 85025; 87502; 87635; 93005; 99283; 99284

== ENCOUNTER → 2023-12-03 14:27 | Outpatient (BNV) | payer OTHER, SELFPAY | PROVIDERS: Emergency Provider Internal Medicine; PCP Internal Medicine; Visit Provider Internal Medicine Cardiovascular Disease | DX: I45.2 Bifascicular block (principal); R94.31 Abnormal electrocardiogram [ECG] [EKG] | CPT/HCPCS: 93010 ==

== ENCOUNTER 2023-12-14 12:00 | Outpatient (AMB) | payer OTHER, SELFPAY ==
[2023-12-14 12:01] VITALS: BP 128/78; PULSE 73; O2SAT 97; BMI 23.6
--- NOTE | 2023-12-14 12:01 | MHC.PC.OV ---
Vital Signs 12/14/23 12:01 Height 5 ft 5 in Weight 142 lb BMI 23.6 BP 128/78 Blood Pressure Location Lt brachial Position Sitting Pulse 73 Pulse Source Pulse Oximeter Pulse Oximetry (%) 97 Oxygen Delivery Method Room Air Intake Visit Reasons: [facility] - [facility] Impacted Cerumen Allergies MYESHA Inhibitors Allergy (Severe, Verified 12/14/23 12:01) ANGIOEDEMA WITH LISINOPRIL caffeine [CAFFEINE] Allergy (Severe, Verified 12/14/23 12:01) EXTREME PAIN IN BILATERAL KIDNEYS clozapine [From Clozaril] Allergy (Severe, Verified 12/14/23 12:01) Stomach Upset lisinopril Allergy (Severe, Verified 12/14/23 12:01) ANGIOEDEMA amoxicillin [AMOXICILLIN] Allergy (Intermediate, Verified 12/14/23 12:01) Stomach Upset atropine [Lomotil] Allergy (Intermediate, Verified 12/14/23 12:01) Stomach Upset bee pollen [BEE STINGS] Allergy (Intermediate, Verified 12/14/23 12:01) Swelling lovastatin Allergy (Intermediate, Verified 12/14/23 12:01) Cramps ziprasidone [From GEODON] Allergy (Intermediate, Verified 12/14/23 12:01) HALLUCINATIONS TUNA FISH Allergy (Severe, Uncoded 12/14/23 12:01) SEVERE INDIGESTION, rash From PROLIXIN Allergy (Intermediate, Uncoded 12/14/23 12:01) UNKNOWN lovastatin Allergy (Intermediate, Uncoded 12/14/23 12:01) cramping prolixen Allergy (Intermediate, Uncoded 12/14/23 12:01) seizure amox Allergy (Mild, Uncoded 12/14/23 12:01) GI upset Tobacco use date assessed: 12/14/23 Fall risk assessment: No Falls in past year Last assessed Fall Risk: 12/14/23 Dental Screening Dental Screen Date: 12/14/23 Did you have a dental visit in the last 12 months?: No Did you have a dental problem in the last 6 months where you did not have access to dental care?: No Was dental information given to patient?: No HPI [facility] - [facility] Impacted Cerumen HPI Details impacted cerumen Bilateral wanted irrgiation PFSH Medical History (Updated 12/05/23 @ 00:00 by Background Daemjoi) Colon cancer screening Nasal congestion Tremors of nervous system UTI (urinary tract infection) Meningitis Upper respiratory infection Impacted cerumen Otitis externa of right ear Pernicious anemia Obesity (BMI 30-39.9) Hyperbilirubinemia Hypercholesterolemia Schizophrenia Vitamin D deficiency Urinary incontinence GERD (gastroesophageal reflux disease) Hypertension Thrombocytopenia Leukopenia Surgical History History of total abdominal hysterectomy and bilateral salpingo-oophorectomy H/O right wrist surgery History of tooth extraction History of tonsillectomy Family History Father Cancer Colon cancer Mother Cancer Colon cancer History of breast cancer Social History Household Members: Unknown / Unable to assess Household Members Other:: patient states Alone Housing: Apartment Alcohol intake: never Patient Tobacco Use Status: Former Tobacco user Tobacco use type: Cigarette Years Smoked: quit 1960 e-Cigarette/Vaping Use: Never Used Second Hand Smoke Exposure: No Advance Directives Date on File: 12/14/22 service: No Current occupational status: disabled Cognitive needs: No Hearing needs: No Vision needs: Yes Questionnaire PHQ-9 Over the last 2 weeks, how often have you been bothered by any of the following problems? 1. Little interest or pleasure in doing things: several days 2. Feeling down, depressed, or hopeless: several days 3. Trouble falling or staying asleep, or sleeping too much: not at all 4. Feeling tired or having little energy: not at all 5. Poor appetite or overeating: not at all 6. Feeling bad about yourself - or that you are a failure or have let yourself or your family down: not at all 7. Trouble concentrating on things, such as reading the newspaper or watching television: not at all 8. Moving or speaking so slowly that other people could have noticed. Or the opposite - being so fidgety or restless that you have been moving around a lot more than usual: not at all 9. Thoughts that you would be better off or of hurting yourself in some way: not at all Total score: 2 Depression Screening Interpretation: Positive Depression Screening Done: Yes Source: Developed by Drs. Alejandro Barnes, Kianna Garcia, Devan Freeman and colleagues, with an educational neetu from [employer]. Thrive Questionnaire Date Thrive assessed: 12/14/23 I am a: Patient What is your living situation today?: I have a steady place to live Within the past 12 months, did the food you bought not last and you didn't have the money to get more?: Never true Within the past 12 months, did you worry whether your food would run out before you got money to buy more?: Never true Do you have trouble paying for medicines?: No Do you have trouble getting transportation to medical appointments?: No Do you have trouble paying your heating and electricity bill?: No Do you have trouble taking care of your child, family member or friend?: No Do you have trouble with day-to-day activities such as bathing, preparing meals, shopping, managing finances, etc.?: No Are you currently unemployed and looking for a job?: No Are you interested in more education?: No Currently or been in a relationship where the following occur: no concerns reported THRIVE Score: 0 AUDIT C Alcohol Use Questionnaire (AUDIT-C) 1. How often do you have a drink containing alcohol?: Never 3. How often do you have six or more drinks on one occasion?: Never Total Score: 0 TRACEE-7 AMB Questionnaire TRACEE-7 Date TRACEE - 7 assessed: 12/14/23 Feeling nervous, anxious, or on edge: 0 = Not at all Not being able to stop or control worryin = Not at all Worrying too much about different things: 0 = Not at all Trouble relaxin = Not at all Being so restless that it is hard to sit still: 0 = Not at all Becoming easily annoyed or irritable: 0 = Not at all Feeling afraid as if something awful might happen: 0 = Not at all Total TRACEE-7 score (0-4 normal; 5-9 mild; 10-14 moderate; 15-21 severe): 0 Source: Developed by Drs. Alejandro Barnes, Kianna Garcia, Devan Freeman and colleagues, with an educational neetu from [employer]. Physical exam (Primary Care) Vital Signs: Last Vital Signs Pulse 73 12/14/23 12:01 BP 128/78 12/14/23 12:01 Pulse Ox 97 12/14/23 12:01 Oxygen Delivery Method Room Air 12/14/23 12:01 BMI result Body Mass Index 23.6 Tobacco/Smoking Status: Tobacco use Status Tobacco use date assessed 12/14/23 12/14/23 12:03 Patient Tobacco Use Status Former Tobacco user 12/14/23 12:03 Tobacco use type Cigarette 12/14/23 12:03 e-Cigarette/Vaping Use Never Used 12/14/23 12:03 PHQ-9: PHQ-9 Score PHQ-9: Total score 2 12/14/23 12:03 Depression Screening Interpretation: Positive Thrive Assessment: Date of Thrive Assessment Date Thrive assessed 12/14/23 12/14/23 12:03 Currently or been in a relationship where the following occur: no concerns reported Const Other: bilateral impacted cerumen Office Procedures Cerumen Removal From which ear canal was the cerumen removed: left Removal: irrigation, otoscope w/curette, cerumen loop/spoon and other Notes: patient tolerated procedure well, no complications and ear canal clear [id number] Irrigation/Lavage Assessment and Plan Assessment & Plan (1) Bilateral impacted cerumen: Code(s): H61.23 - Impacted cerumen, bilateral Plan: irrigation done L TM intact , scoop and irrigation done. R TM not visualized not succesful as very sensitive. Coding Level of Care Code Est Pt Level 3 (65599) Diagnoses Bilateral impacted cerumen H61.23 CPT Codes Office Procedure - CPT: 09890-Gke Irrigation/Lavage ([id number])
== END 2023-12-14 13:33 | disposition home or self-care (01) ==
LOC: HO.HMGH 12:00
PROVIDERS: PCP Internal Medicine; Visit Provider Internal Medicine
DX: H61.23 Impacted cerumen, bilateral (principal)
CPT/HCPCS: 69210

== ENCOUNTER 2023-12-27 08:25 | Outpatient (REF) | payer OTHER, SELFPAY ==
--- NOTE | ~2023-12-27 | MM_ITS ---
EXAMINATION: MM DIAGNOSTIC DIGITAL BREAST TOMOSYNTHESIS, BILATERAL US BREAST LIMITED, LEFT MAMMOGRAPHY: CLINICAL INFORMATION: 78-year-old female complaining of palpable abnormality in the 3:00 axis of the left breast, described as 2 cm round hard mass x3 months. History of 2 separate benign biopsies in the approximate 12:00 axis left breast. Patient describes an 80 pound weight loss since prior mammogram. COMPARISON: Mammography: 06/02/2021, 05/27/2020, 05/22/2019, 04/14/2018, 03/28/2017, 03/24/2016, 01/22/2015, 11/27/2013 TECHNIQUE: Digital breast tomosynthesis is performed in both the craniocaudal and mediolateral oblique views along with computer-aided detection (CAD). Synthesized 2D images are generated from the tomosynthesis. In addition to standard views, spot compression 3-D views of the palpable area of concern left breast were obtained, as well as a 3-D full-field 90 degree left mediolateral view. FINDINGS: The breasts are heterogeneously dense, which may obscure small masses (ACR BI-RADS breast composition Category c). There is stable marked distortion in the mid 11:00 left breast, unchanged from numerous prior exams, and previously biopsied in 2013 with result of dense fibrosis. There is an abutting top hat type biopsy clip, and slightly more superiorly there is a ring-type biopsy clip. There are bilateral popcorn-type calcifications and dystrophic calcifications related to degenerating fibroadenomas and oil cysts. No suspicious grouped calcifications. BB marker placed at the 3:00 axis left breast appears to immediately above a 1.2 cm large popcorn-type calcification, which may represent the palpable focus of concern. There are benign vascular calcifications. Otherwise, no suspicious masses, or new areas of architectural distortion are identified in either breast. The overall parenchymal pattern is similar to numerous prior studies within the confines of significant weight loss. ULTRASOUND: CLINICAL INFORMATION: As above. COMPARISON: None contributory. TECHNIQUE: Targeted sonographic left breast evaluation was performed using a high frequency linear transducer. Attention was given to the palpable focus of concern in the left 3:00 axis. Selected archived documentation. FINDINGS: LEFT BREAST: In the region of palpable concern, 2:00 left breast medial, there are 2 shadowing large calcifications, which are palpable and represent the palpable focus of concern. They are adjacent to each other and measure both approximately 1.2 cm maximally. Otherwise, no additional mass, cystic abnormality, abnormal shadowing, or edema within the soft tissue planes. MM/MM tomosynthesis diagnostic BI IMPRESSION: There are no findings suspicious for malignancy in either breast. Palpable focus of abnormality in the 2-3 o'clock axis of the left breast represents a 1.2 cm popcorn-type calcification and is benign. There is an abutting 1.2 cm similar calcification. There is a stable parenchymal scar in the 11:00 axis of the left breast with 2 abutting adjacent biopsy clips. This is unchanged over several years and benign. Prior biopsy demonstrated dense fibrosis. OVERALL ASSESSMENT: Mammography: BI-RADS 2 - Benign Findings Ultrasound: BI-RADS 2 - Benign Findings RECOMMENDATION: 1 year F/U This patient's information was entered into a reminder system with a target due date for their next mammogram.
== END 2023-12-27 08:26 | disposition home or self-care (01) ==
LOC: HO.MAMMO 08:25
PROVIDERS: PCP Internal Medicine; Visit Provider Internal Medicine
DX: N63.25 Unspecified lump in the left breast, overlapping quadrants (principal)
CPT/HCPCS: 76642; 77062; 77066

== ENCOUNTER → 2023-12-27 09:30 | Outpatient (BNV) | payer OTHER, SELFPAY | PROVIDERS: PCP Internal Medicine; Visit Provider Radiology Diagnostic Radiology | DX: R92.1 Mammographic calcification found on diagnostic imaging of breast (principal) | CPT/HCPCS: 76642; 77066; G0279 ==

== ENCOUNTER 2024-01-19 09:24 | Outpatient (REF) | payer OTHER, SELFPAY ==
--- NOTE | ~2024-01-19 | FL_ITS ---
EXAMINATION: XR FLUOROSCOPY UPPER GI WITH AIR CLINICAL INFORMATION: Dysphagia. Reflux . COMPARISON: 03/04/2015 TECHNIQUE: Fluoroscopic air contrast upper GI examination was performed utilizing standard techniques with thin and thick barium and effervescent granules. Numerous spot images were obtained. FINDINGS: Lateral cine images of the oropharynx and hypopharynx demonstrate normal swallow mechanism with normal epiglottic inversion and soft palate elevation. No tracheal penetration, glottic or subglottic aspiration identified. No nasopharyngeal reflux present. Hypopharyngeal structures appear normal without evidence of mass or diverticulum. There is moderate cricopharyngeal achalasia present. Dual and single contrast images of the esophagus demonstrate normal caliber, contour, and mucosal pattern. No evidence of stricture, mass, or ulcerations identified. There is to and fro motion of the barium column with moderately disorganized esophageal peristalsis. There is narrowing of the GE junction likely representing a benign stricture versus achalasia. No evidence of hiatus hernia identified. No significant gastroesophageal reflux was seen during the course of the examination and on reflux views. Dual contrast and single contrast images of the stomach demonstrated a normal contour. The gastric rugal folds appear mildly thickened. No evidence of mass or ulcerations. Contrast freely passed into the gastric antrum and duodenal bulb without delay. Single and air-contrast images of the duodenal bulb demonstrate no abnormality. The duodenal sweep has a normal appearance, course, and mucosal fold appearance. No malrotation. The imaged proximal jejunum has a normal fold pattern and caliber. FLUOROSCOPY TIME: 6 minutes 8 seconds Number of Spot Images: 9 Number of Cine: 16 DOSE AREA PRODUCT: [id number] uGy-m2 (microgray-meter squared) FL/FL barium swallow IMPRESSION: 1. Moderate cricopharyngeal achalasia. 2. Significant gastroesophageal dysmotility. 3. Short segment narrowing of the GE junction likely representing moderate achalasia. Cannot definitively exclude a short segment benign stricture. 4. Mildly thickened gastric rugal folds possibly representing gastritis. This procedure was performed by Bubba Rivera PA-C, and supervised by Dr. Krueger
== END 2024-01-19 09:25 | disposition home or self-care (01) ==
LOC: HO.XRAY 09:24
PROVIDERS: PCP Internal Medicine; Visit Provider Physician Assistant
DX: R13.10 Dysphagia, unspecified (principal); K21.9 Gastro-esophageal reflux disease without esophagitis
CPT/HCPCS: 74220

== ENCOUNTER → 2024-01-19 09:25 | Outpatient (BNV) | payer OTHER, SELFPAY | PROVIDERS: PCP Internal Medicine; Visit Provider Physician Assistant Surgical | DX: R13.10 Dysphagia, unspecified (principal); K21.9 Gastro-esophageal reflux disease without esophagitis | CPT/HCPCS: 74221 ==

== ENCOUNTER 2024-02-20 13:42 | Outpatient (AMB) | payer OTHER, SELFPAY ==
--- NOTE | 2024-02-20 13:49 | MHC.OFFVIS ---
Intake Vital Signs 02/20/24 13:57 Height 5 ft 3 in Weight 140 lb BMI 24.8 BP 146/70 H Blood Pressure Location Lt brachial Position Sitting Pulse 68 Intake Visit Reasons: follow up after Bar Swallow Intake Note: Patient follow up for Barium swallow results Patient denies any GI issues. Metalizer Field Operation Required: No Accompanied by: Self / Same As Patient Allergies MYESHA Inhibitors Allergy (Severe, Verified 02/20/24 13:56) ANGIOEDEMA WITH LISINOPRIL caffeine [CAFFEINE] Allergy (Severe, Verified 02/20/24 13:56) EXTREME PAIN IN BILATERAL KIDNEYS clozapine [From Clozaril] Allergy (Severe, Verified 02/20/24 13:56) Stomach Upset lisinopril Allergy (Severe, Verified 02/20/24 13:56) ANGIOEDEMA amoxicillin [AMOXICILLIN] Allergy (Intermediate, Verified 02/20/24 13:56) Stomach Upset atropine [Lomotil] Allergy (Intermediate, Verified 02/20/24 13:56) Stomach Upset bee pollen [BEE STINGS] Allergy (Intermediate, Verified 02/20/24 13:56) Swelling lovastatin Allergy (Intermediate, Verified 02/20/24 13:56) Cramps ziprasidone [From GEODON] Allergy (Intermediate, Verified 02/20/24 13:56) HALLUCINATIONS TUNA FISH Allergy (Severe, Uncoded 12/14/23 12:01) SEVERE INDIGESTION, rash From PROLIXIN Allergy (Intermediate, Uncoded 12/14/23 12:01) UNKNOWN lovastatin Allergy (Intermediate, Uncoded 12/14/23 12:01) cramping prolixen Allergy (Intermediate, Uncoded 12/14/23 12:01) seizure amox Allergy (Mild, Uncoded 12/14/23 12:01) GI upset Medication List - Last Reconciled 02/20/24 by Mable Lewis PA-C atorvastatin 10 mg PO DAILY [Disposable Underpad 30 x 36 heavy flow As directed] [DISPOSABLE UNDERWEAR As directed] esomeprazole magnesium 20 mg PO DAILY 30 days [FOLDING ALUMINUM ROLLATOR WALKER As directed] garlic 1,000 mg PO DAILY [gloves As directed1. Quad Cane 2. Incontinence pull ups 3. Gloves 4. Incontinence wipes 5. Incontinence bed pads] hydrochlorothiazide 25 mg PO DAILY hydroxyzine HCl 10 mg PO DAILY PRN 90 days [INCONTINENCE BED PADS As directed1. Quad Cane 2. Incontinence pull ups 3. Gloves 4. Incontinence wipes 5. Incontinence bed pads] [Incontinence pull ups LARGE As directed1. Quad Cane 2. Incontinence pull ups 3. Gloves 4. Incontinence wipes 5. Incontinence bed pads] [INCONTINENCE WIPES As directed1. Quad Cane 2. Incontinence pull ups 3. Gloves 4. Incontinence wipes 5. Incontinence bed pads] losartan 25 mg PO DAILY 90 days [OFFSET HANDLE CANE As directed] peg [id number] 1-0.2-0.2 % (Artificial Tears ([id number])) 1 drp ophthalmic (eye) TID [PERSONAL CLEASING WIPES As directed] [POWDER FREESYNTHETIC EXAM GLOVES As directed] [QUAD CANE As directed1. Quad Cane 2. Incontinence pull ups 3. Gloves 4. Incontinence wipes 5. Incontinence bed pads] triamcinolone acetonide 0.1% 1 appl topical BID trifluoperazine 5 mg PO DAILY HPI HPI Comments History of Present Illness Details An 79-year-old alert, female follows up she is eating well- esomeprazole with good response- bowels are normal-no issues She has no complaints today- she came by bus- Lives alone- cooks- She had recent BS - she is scheduled for an EGD w/ bx- 05/10- Reviewed findings on barium swallow appropriate questions asked, answered to her satisfaction She is trying to follow-up to have her dentures adjusted- She has no nausea, vomiting, dysphagia, diarrhea, fever or chills PFSH Medical History (Updated 02/20/24 @ 14:42 by Mable Lewis PA-C) Colon cancer screening Nasal congestion Tremors of nervous system UTI (urinary tract infection) Meningitis Upper respiratory infection Impacted cerumen Otitis externa of right ear Pernicious anemia Obesity (BMI 30-39.9) Hyperbilirubinemia Hypercholesterolemia Schizophrenia Vitamin D deficiency Urinary incontinence GERD (gastroesophageal reflux disease) Hypertension Thrombocytopenia Leukopenia Surgical History History of total abdominal hysterectomy and bilateral salpingo-oophorectomy H/O right wrist surgery History of tooth extraction History of tonsillectomy Family History Father Cancer Colon cancer Mother Cancer Colon cancer History of breast cancer Social History Household Members: Unknown / Unable to assess Household Members Other:: patient states Alone Housing: Apartment Alcohol intake: never Patient Tobacco Use Status: Former Tobacco user Tobacco use type: Cigarette Years Smoked: quit 1960 e-Cigarette/Vaping Use: Never Used Second Hand Smoke Exposure: No Advance Directives Date on File: 12/14/22 service: No Current occupational status: disabled Cognitive needs: No Hearing needs: No Vision needs: Yes Review of Systems Const All systems reviewed & are unremarkable except as noted in HPI and below ENT Denies dysphagia Card Denies chest pain and Denies dyspnea Resp Denies dyspnea GI Denies dysphagia and Denies heartburn Physical Exam Const General: cooperative and comfortable Orientation/consciousness: patient oriented x3 Limitations: ambulation with cane Resp Effort & Inspection: normal respiratory effort and able to speak in complete sentences Auscultation: clear to auscultation bilaterally, no rhonchi and no wheezes Cardio Rate: regular rate Rhythm: regular rhythm Heart sounds: S1 normal heart sound present and S2 normal heart sound present GI Palpation (GI): Soft to palpation and nontender Auscultation: normal bowel sounds Skin General skin exam: no rashes or lesions noted Neuro General: patient oriented x3 Psych Appearance: well kempt Affect: normal affect Attitude: cooperative Thought process: Normal thought process present Thought content: Normal thought content present Insight: Good insight present (Psych) Results Reviewed Results Reviewed: FL/FL barium swallow IMPRESSION: 1. Moderate cricopharyngeal achalasia. 2. Significant gastroesophageal dysmotility. 3. Short segment narrowing of the GE junction likely representing moderate achalasia. Cannot definitively exclude a short segment benign stricture. 4. Mildly thickened gastric rugal folds possibly representing gastritis. Assessment & Plan Assessment & Plan (1) Abnormal barium swallow: Comment: Reviewed with patient-appropriate questions asked Code(s): R93.3 - Abnormal findings on diagnostic imaging of other parts of digestive tract Plan: Reviewed barium swallow Discussed procedure rare risk need for escort Plan EGD as scheduled Patient Instructions: EGD- 05/10 Reviewed- procedure- needs escort- says she has it all arranged- Eat slowly, chew well Encouraged to call with questions or concerns Coding Level of Care Code Est Pt Level 3 (42504) Diagnoses Abnormal barium swallow R93.3 Time Spent (min) 30
[2024-02-20 13:57] VITALS: BP 146/70; PULSE 68; BMI 24.8
== END 2024-02-20 16:07 | disposition home or self-care (01) ==
PROVIDERS: PCP Internal Medicine; Visit Provider Physician Assistant
DX: R93.3 Abnormal findings on diagnostic imaging of other parts of digestive tract (principal)
CPT/HCPCS: 99213

== ENCOUNTER → 2024-02-20 13:42 | Outpatient (BNVA) | payer OTHER, SELFPAY | PROVIDERS: PCP Internal Medicine; Visit Provider Physician Assistant | DX: R93.3 Abnormal findings on diagnostic imaging of other parts of digestive tract (principal) | CPT/HCPCS: 99212 ==

== ENCOUNTER 2024-05-17 13:29 | Emergency (ER) | payer OTHER, SELFPAY ==
--- NOTE | ~2024-05-17 | XR_ITS ---
EXAMINATION: XR CHEST 2 VIEW CLINICAL INFORMATION: CT COMPARISON: 12/03/2023 TECHNIQUE: PA and lateral views of the chest obtained. FINDINGS: The lungs are clear. There are no pleural effusions. The cardiomediastinal silhouette is normal. XR/XR chest 2V IMPRESSION: No acute cardiopulmonary disease.
[2024-05-17 13:32] VITALS: BP 146/98; PULSE 70; RESP 19; TEMP 36.6; O2SAT 99; BMI 24.0
--- NOTE | 2024-05-17 13:32 | ED.GENADULT ---
HPI - General Adult General Chief complaint: General Medical Stated complaint: medication Related Data Home Medications ?Medication ?Instructions ?Recorded ?Confirmed garlic 1,000 mg capsule 1,000 mg PO DAILY 03/24/23 09/26/23 peg [id number] 1 1 drp ophthalmic (eye) TID 03/24/23 09/26/23 %-0.2 %-0.2 % eye drops (Artificial Tears ([id number])) trifluoperazine 5 mg tablet 5 mg PO DAILY 03/24/23 09/26/23 Previous Rx's ?Medication ?Instructions ?Recorded DISPOSABLE UNDERWEAR #120 ea 04/14/22 Disposable Underpad 30 x 36 heavy #100 ea 04/14/22 flow OFFSET HANDLE CANE #1 ea 04/14/22 PERSONAL CLEASING WIPES #100 ea 04/14/22 FOLDING ALUMINUM ROLLATOR WALKER #1 ea 10/08/22 POWDER FREESYNTHETIC EXAM GLOVES #1 ea 10/08/22 hydroxyzine HCl 10 mg tablet 10 mg PO DAILY PRN Anxiety 90 days 01/27/23 #90 tabs losartan 25 mg tablet 25 mg PO DAILY 90 days #90 tabs 09/15/23 atorvastatin 10 mg tablet 10 mg PO DAILY #90 tabs 09/27/23 triamcinolone acetonide 0.1 % 1 appl topical BID #30 grams 09/28/23 topical ointment INCONTINENCE BED PADS #100 ea 09/29/23 INCONTINENCE WIPES #1 ea 09/29/23 Incontinence pull ups LARGE #100 ea 09/29/23 QUAD CANE #1 ea 09/29/23 gloves #1 ea 09/29/23 hydrochlorothiazide 25 mg tablet 25 mg PO DAILY #90 tabs 10/30/23 esomeprazole magnesium 20 mg 20 mg PO DAILY #60 caps 05/09/24 capsule,delayed release Allergies Allergy/AdvReac Type Severity Reaction Status Date / Time MYESHA Inhibitors Allergy Severe ANGIOEDEMA Verified 05/17/24 13:33 WITH LISINOPRIL caffeine [CAFFEINE] Allergy Severe EXTREME Verified 05/17/24 13:33 PAIN IN BILATERAL KIDNEYS clozapine [From Clozaril] Allergy Severe Stomach Verified 05/17/24 13:33 Upset lisinopril Allergy Severe ANGIOEDEMA Verified 05/17/24 13:33 amoxicillin [AMOXICILLIN] Allergy Intermediate Stomach Verified 05/17/24 13:33 Upset atropine [Lomotil] Allergy Intermediate Stomach Verified 05/17/24 13:33 Upset bee pollen [BEE STINGS] Allergy Intermediate Swelling Verified 05/17/24 13:33 lovastatin Allergy Intermediate Cramps Verified 05/17/24 13:33 ziprasidone [From GEODON] Allergy Intermediate HALLUCINATI Verified 05/17/24 13:33 ONS TUNA FISH Allergy Severe SEVERE Uncoded 05/17/24 13:33 INDIGESTION, rash From PROLIXIN Allergy Intermediate UNKNOWN Uncoded 05/17/24 13:33 lovastatin Allergy Intermediate cramping Uncoded 05/17/24 13:33 prolixen Allergy Intermediate seizure Uncoded 05/17/24 13:33 amox Allergy Mild GI upset Uncoded 05/17/24 13:33 [facility] Past Medical History Medical History (Updated 05/19/24 @ 09:28 by ROBERTH Dickey) Colon cancer screening Nasal congestion Tremors of nervous system UTI (urinary tract infection) Meningitis Upper respiratory infection Impacted cerumen Otitis externa of right ear Pernicious anemia Obesity (BMI 30-39.9) Hyperbilirubinemia Hypercholesterolemia Schizophrenia Vitamin D deficiency Urinary incontinence GERD (gastroesophageal reflux disease) Hypertension Thrombocytopenia Leukopenia Surgical History History of total abdominal hysterectomy and bilateral salpingo-oophorectomy H/O right wrist surgery History of tooth extraction History of tonsillectomy Family History Family History Father Cancer Colon cancer Mother Cancer Colon cancer History of breast cancer Social History Social History Household Members: Unknown / Unable to assess Household Members Other:: patient states Alone Housing: Apartment Alcohol intake: never Patient Tobacco Use Status: Former Tobacco user Tobacco use type: Cigarette Years Smoked: quit 1960 e-Cigarette/Vaping Use: Never Used Second Hand Smoke Exposure: No Advance Directives: Yes Advance Directives on File: Yes Advance Directives Date on File: 12/14/22 service: No Current occupational status: disabled Cognitive needs: No Hearing needs: No Vision needs: Yes Physical Exam ED Vital Signs: BMI result Body Mass Index 24.0 Course Course Course Narrative: This is an RME: Additional HPI, ROS, PE not included below will be deferred to primary provider. RME assessment and note performed by: Dolores Lindsey PA-C This is a [id number]-female, GERD, hypertension, gait instability, who presents to the ER due to not feeling well . She states that she has felt some nausea and congestion. Plan: Labs, ekg, cxr Reevaluation(s) Reevaluation #1: Patient left without completing treatment. Medical Decision Making Lab Data 05/17/24 14:47 05/17/24 14:47 Labs: Lab Results 05/17/24 Range/Units 14:47 WBC 4.0 L (4.8-10.8) X10*3/uL RBC 5.20 (4.20-5.50) X10*6/uL Hgb 13.9 (12.0-16.0) g/dl Hct 42.5 (37.0-47.0) % MCV 81.7 (80.0-98.0) fL MCH 26.7 L (27.0-33.0) pg MCHC 32.7 (31.0-35.0) g/dl RDW 15.4 (11.0-16.0) % Plt Count 129 L (160-400) X10*3/uL MPV 12.4 H (9.4-12.3) fL Immature Gran % (Auto) 1.3 H (0.0-0.4) % Neut % (Auto) 51.6 (45-73) % Lymph % (Auto) 33.8 (20-40) % [place] % (Auto) 9.5 (2-11) % Eos % (Auto) 2.0 (0-4) % Baso % (Auto) 1.8 (0-2) % Lymph # (Auto) 1.4 (1.2-4.9) X10*3/uL [place] # (Auto) 0.4 (0.1-1.2) X10*3/uL Eos # (Auto) 0.1 (0.0-0.4) X10*3/uL Baso # (Auto) 0.1 (0.0-0.2) X10*3/uL Abs Immat Gran (auto) 0.05 H (0.00-0.03) X10*3/uL Absolute Neuts (auto) 2.1 (2.0-8.3) x10*3/uL Absolute Nucleated RBC 0.000 (0.0-0.012) X10*3/uL Nucleated RBC % (auto) 0.0 (0.0-0.2) /100WBC Sodium 139 (135-145) mmol/L Potassium 3.8 (3.3-5.1) mmol/L Chloride 105 (96-108) mmol/L Carbon Dioxide 25 (22-29) mmol/L Anion Gap 13 (12-20) BUN 22 H (9-16) mg/dL Creatinine 1.04 (0.5-1.4) mg/dL Estim Creat Clear Calc 38.2 Estimated GFR 51 Random Glucose 86 (60-115) mg/dL Calcium 9.3 (8.4-10.2) mg/dL Magnesium 2.0 (1.6-2.6) mg/dL Total Bilirubin 1.5 H (0.0-1.0) mg/dL Direct Bilirubin 0.5 (0.0-0.5) mg/dL AST 22 (5-31) U/L ALT 14 (0-31) U/L Alkaline Phosphatase 86 (39-117) U/L Troponin I High Sens < 2.7 (<3.5-17.0) ng/L Total Protein 7.2 (6.5-8.0) g/dL Albumin 4.1 (3.5-5.0) g/dL Lipase 30 (8-78) U/L Influenza Type A (PCR) NEGATIVE (Negative) Influenza Type B (PCR) NEGATIVE (Negative) RSV RNA Qual (PCR) NEGATIVE (Negative) SARS-CoV-2 RNA (RT-PCR) NEGATIVE (Negative) S. pyogenes GrpA KEVIN Negative (Negative) Discharge Plan Discharge Clinical Impression: Abdominal pain Patient Disposition: Left W/O Completing Treatment Prescriptions: No Action (DME) OFFSET HANDLE CANE See Rx Instructions .Route .MEDSUPPLY Qty: 1 0RF Rx Instructions: As directed (DME) Disposable Underpad 30 x 36 heavy flow See Rx Instructions .Route .MEDSUPPLY Qty: 100 12RF Rx Instructions: As directed (DME) PERSONAL CLEASING WIPES See Rx Instructions .Route .MEDSUPPLY Qty: 100 12RF Rx Instructions: As directed (DME) DISPOSABLE UNDERWEAR XL MODERATE ABSORBENCY See Rx Instructions .Route .MEDSUPPLY Qty: 120 12RF Rx Instructions: As directed (DME) FOLDING ALUMINUM ROLLATOR WALKER See Rx Instructions .Route .MEDSUPPLY Qty: 1 12RF Rx Instructions: As directed (DME) POWDER FREESYNTHETIC EXAM GLOVES See Rx Instructions .Route .MEDSUPPLY Qty: 1 0RF Rx Instructions: As directed hydroxyzine HCl 10 mg tablet 10 mg PO DAILY PRN (Reason: Anxiety) 90 Days Qty: 90 1RF losartan 25 mg tablet 25 mg PO DAILY 90 Days Qty: 90 2RF atorvastatin 10 mg tablet 10 mg PO DAILY Qty: 90 2RF triamcinolone acetonide 0.1 % ointment 1 appl TOPICAL BID Qty: 30 0RF (DME) gloves See Rx Instructions .Route .MEDSUPPLY Qty: 1 12RF Rx Instructions: As directed1. Quad Cane 2. Incontinence pull ups 3. Gloves 4. Incontinence wipes 5. Incontinence bed pads (DME) INCONTINENCE BED PADS See Rx Instructions .Route .MEDSUPPLY Qty: 100 12RF Rx Instructions: As directed1. Quad Cane 2. Incontinence pull ups 3. Gloves 4. Incontinence wipes 5. Incontinence bed pads (DME) Incontinence pull ups LARGE See Rx Instructions .Route .MEDSUPPLY Qty: 100 11RF Rx Instructions: As directed1. Quad Cane 2. Incontinence pull ups 3. Gloves 4. Incontinence wipes 5. Incontinence bed pads (DME) INCONTINENCE WIPES See Rx Instructions .Route .MEDSUPPLY Qty: 1 12RF Rx Instructions: As directed1. Quad Cane 2. Incontinence pull ups 3. Gloves 4. Incontinence wipes 5. Incontinence bed pads (DME) QUAD CANE See Rx Instructions .Route .MEDSUPPLY Qty: 1 0RF Rx Instructions: As directed1. Quad Cane 2. Incontinence pull ups 3. Gloves 4. Incontinence wipes 5. Incontinence bed pads hydrochlorothiazide 25 mg tablet 25 mg PO DAILY Qty: 90 1RF esomeprazole magnesium 20 mg capsule,delayed release(DR/EC) 20 mg PO DAILY Qty: 60 5RF Artificial Tears(dc-fird-qctn) 1-0.2-0.2 % Drops 1 drp ophthalmic (eye) TID trifluoperazine 5 mg Tablet 5 mg PO DAILY garlic 1,000 mg Capsule 1,000 mg PO DAILY Interventions: GUILLERMINA Worksheet Last Done: 05/17/24 19:23 Discharge Date/Time: 05/17/24 19:25
--- NOTE | 2024-05-17 13:33 | ECG_ITS ---
Test Reason : FATIGUE Blood Pressure : / mmHG Vent. Rate : 055 BPM Atrial Rate : 055 BPM P-R Int : 162 ms QRS Dur : 122 ms QT Int : 478 ms P-R-T Axes : 043 -62 -04 degrees QTc Int : 457 ms Sinus bradycardia Right bundle branch block Left anterior fascicular block Bifascicular block Abnormal ECG When compared with ECG of 03-DEC-2023 14:52, Non-specific change in ST segment in Inferior leads Referred By: Dolores Lindsey Electronically Signed By:SIMRAN BERNARDO MD
[2024-05-17 14:51] LABS: MANUAL DIFF FLAG NO
[2024-05-17 14:53] LABS: Basophils Absolute Auto 0.1 X10*3/uL (0.0-0.2); Basophils Percent Auto 1.8 % (0-2); Eosinophils Absolute Auto 0.1 X10*3/uL (0.0-0.4); Hematocrit 42.5 % (37.0-47.0); Hemoglobin 13.9 g/dl (12.0-16.0); Imm Gran Abs Auto 0.05 X10*3/uL (0.00-0.03); Imm Gran Pct Auto 1.3 % (0.0-0.4); Lymphocytes Absolute Auto 1.4 X10*3/uL (1.2-4.9); Lymphocytes Percent Auto 33.8 % (20-40); Mean Corpuscular HGB Conc 32.7 g/dl (31.0-35.0); Mean Corpuscular Hemoglobin 26.7 pg (27.0-33.0); Mean Corpuscular Volume 81.7 fL (80.0-98.0); Mean Platelet Volume 12.4 fL (9.4-12.3); Monocytes Absolute Auto 0.4 X10*3/uL (0.1-1.2); Monocytes Percent Auto 9.5 % (2-11); Neutrophils Absolute Auto 2.1 x10*3/uL (2.0-8.3); Neutrophils Percent Auto 51.6 % (45-73); Platelet Count 129 X10*3/uL (160-400); Red Cell Distribution Width 15.4 % (11.0-16.0)
[2024-05-17 15:01] LABS: IDNOW Serial# 58CA691E; Strep A Nucleic Acid Negative (Negative)
[2024-05-17 15:08] LABS: Alanine Aminotransferase 14 U/L (0-31); Albumin Level 4.1 g/dL (3.5-5.0); Alkaline Phosphatase 86 U/L (39-117); Anion Gap 13 (12-20); Aspartate Amino Transferase 22 U/L (5-31); Bilirubin Direct 0.5 mg/dL (0.0-0.5); Bilirubin Total 1.5 mg/dL (0.0-1.0); Blood Urea Nitrogen 22 mg/dL (9-16); Calcium 9.3 mg/dL (8.4-10.2); Carbon Dioxide 25 mmol/L (22-29); Chloride 105 mmol/L (96-108); Creatinine Clr Calc Pharmacy 38.2; Estimated Glomerular Filt Rate 51; Glucose Random 86 mg/dL (60-115); Lipase 30 U/L (8-78); Potassium 3.8 mmol/L (3.3-5.1); Sodium 139 mmol/L (135-145); Total Protein 7.2 g/dL (6.5-8.0)
[2024-05-17 15:15] LABS: Troponin-I High Sensitivity < 2.7 ng/L (<3.5-17.0)
[2024-05-17 15:38] LABS: Influenza A PCR NEGATIVE (Negative); Influenza B PCR NEGATIVE (Negative); Resp Syncy Virus RNA Qual PCR NEGATIVE (Negative); SARS COV2 PCR INHOUSE NEGATIVE (Negative)
== END 2024-05-17 19:25 | disposition left against medical advice (07) ==
PROVIDERS: Physician Assistant Medical; Emergency Provider Emergency Medicine; PCP Internal Medicine
DX: R10.9 Unspecified abdominal pain (principal); R00.1 Bradycardia, unspecified; R11.0 Nausea; I10 Essential (primary) hypertension; K21.9 Gastro-esophageal reflux disease without esophagitis; R26.89 Other abnormalities of gait and mobility; Z03.818 Encounter for observation for suspected exposure to other biological agents ruled out; Z79.02 Long term (current) use of antithrombotics/antiplatelets; Z79.899 Other long term (current) drug therapy
CPT/HCPCS: 0241U; 71046; 80048; 80076; 83690; 83735; 84484; 85025; 87651; 93005; 99283

== ENCOUNTER → 2024-05-17 13:33 | Outpatient (BNV) | payer OTHER, SELFPAY | PROVIDERS: Emergency Provider Emergency Medicine; PCP Internal Medicine; Visit Provider Internal Medicine Cardiovascular Disease | DX: R94.31 Abnormal electrocardiogram [ECG] [EKG] (principal) | CPT/HCPCS: 93010 ==

== ENCOUNTER 2024-06-05 13:51 | Outpatient (AMB) | payer OTHER, SELFPAY ==
--- NOTE | 2024-06-05 14:01 | A.OFFPC_ITS ---
Vital Signs 06/05/24 14:02 Height 5 ft 5 in Weight 145 lb 0.4 oz BMI 24.1 BP 144/78 H Blood Pressure Location Lt brachial Position Sitting Pulse 78 Pulse Source Pulse Oximeter Pulse Oximetry (%) 98 Oxygen Delivery Method Room Air Intake Visit Reasons: [facility] Flu-like symptoms, abdomen pain Intake Note: Patient is here to follow-up after a visit the emergency department at [facility] on 05/17/2024 Allergies MYESHA Inhibitors Allergy (Severe, Verified 06/05/24 14:04) ANGIOEDEMA WITH LISINOPRIL caffeine [CAFFEINE] Allergy (Severe, Verified 06/05/24 14:04) EXTREME PAIN IN BILATERAL KIDNEYS clozapine [From Clozaril] Allergy (Severe, Verified 06/05/24 14:04) Stomach Upset lisinopril Allergy (Severe, Verified 06/05/24 14:04) ANGIOEDEMA amoxicillin [AMOXICILLIN] Allergy (Intermediate, Verified 06/05/24 14:04) Stomach Upset atropine [Lomotil] Allergy (Intermediate, Verified 06/05/24 14:04) Stomach Upset bee pollen [BEE STINGS] Allergy (Intermediate, Verified 06/05/24 14:04) Swelling lovastatin Allergy (Intermediate, Verified 06/05/24 14:04) Cramps ziprasidone [From GEODON] Allergy (Intermediate, Verified 06/05/24 14:04) HALLUCINATIONS TUNA FISH Allergy (Severe, Uncoded 06/05/24 14:04) SEVERE INDIGESTION, rash From PROLIXIN Allergy (Intermediate, Uncoded 06/05/24 14:04) UNKNOWN lovastatin Allergy (Intermediate, Uncoded 06/05/24 14:04) cramping prolixen Allergy (Intermediate, Uncoded 06/05/24 14:04) seizure amox Allergy (Mild, Uncoded 06/05/24 14:04) GI upset Medication List - Last Reconciled 06/05/24 by Monica Hannah PA-C atorvastatin 10 mg PO DAILY [Disposable Underpad 30 x 36 heavy flow As directed] [DISPOSABLE UNDERWEAR As directed] esomeprazole magnesium 20 mg PO DAILY [FOLDING ALUMINUM ROLLATOR WALKER As directed] garlic 1,000 mg PO DAILY [gloves As directed1. Quad Cane 2. Incontinence pull ups 3. Gloves 4. Incontinence wipes 5. Incontinence bed pads] hydrochlorothiazide 25 mg PO DAILY hydroxyzine HCl 10 mg PO DAILY PRN 90 days [INCONTINENCE BED PADS As directed1. Quad Cane 2. Incontinence pull ups 3. Gloves 4. Incontinence wipes 5. Incontinence bed pads] [Incontinence pull ups LARGE As directed1. Quad Cane 2. Incontinence pull ups 3. Gloves 4. Incontinence wipes 5. Incontinence bed pads] [INCONTINENCE WIPES As directed1. Quad Cane 2. Incontinence pull ups 3. Gloves 4. Incontinence wipes 5. Incontinence bed pads] losartan 25 mg PO DAILY 90 days [OFFSET HANDLE CANE As directed] peg [id number] 1-0.2-0.2 % (Artificial Tears ([id number])) 1 drp ophthalmic (eye) TID [PERSONAL CLEASING WIPES As directed] [POWDER FREESYNTHETIC EXAM GLOVES As directed] [QUAD CANE As directed1. Quad Cane 2. Incontinence pull ups 3. Gloves 4. Incontinence wipes 5. Incontinence bed pads] triamcinolone acetonide 0.5% 1 appl topical DAILY trifluoperazine 5 mg PO DAILY Tobacco use date assessed: 12/14/23 Fall risk assessment: No Falls in past year Last assessed Fall Risk: 06/05/24 Dental Screening Dental Screen Date: 12/14/[address] [facility] Flu-like symptoms, abdomen pain HPI Details 79-year-old female with past medical his tory hypercholesterolemia, GERD, hypertension, and osteopenia last seen by Dr. Bailey 12/14/[address] [facility] ED follow up.? Patient was seen in the ER 05/21/2024 due to ?not feeling well?.? Patient left without completing treatment.? In review of the notes patient was seen by Gastroenterology for 03/02/2024 for GERD and to review findings of barium swallow which showed significant gastroesophageal dysmotility and narrowing of the GE junction likely representing moderate achalasia.?Patient to be scheduled for follow up EGD. Patient also completed mammogram 12/27/2023 due to breast mass which found no suspicious findings for malignancy in either breast BI-RADS 2. Patient states back in April she had flu-like symptoms with weakness as well as abdominal discomfort and diarrhea. She used [id number]-[id number] [place], Emergen-C, and other cold and flu medications with some relief. Continued abdominal discomfort, loss of appetite and diarrhea ongoing after her flu-like symptoms resolved. The diarrhea ended 2 days ago and she has been having solid stools and also notes feeling much better. Her appetite has improved and abdominal pain has gone away. She does mention she has been having a itchy, dry rash on both hands ongoing for the past few years and uses Vaseline with mild relief. [facility] Medical History (Updated 06/05/24 @ 14:54 by Monica Hannah PA-C) Upper respiratory infection Colon cancer screening Nasal congestion Tremors of nervous system UTI (urinary tract infection) Meningitis Impacted cerumen Otitis externa of right ear Pernicious anemia Obesity (BMI 30-39.9) Hyperbilirubinemia Hypercholesterolemia Schizophrenia Vitamin D deficiency Urinary incontinence GERD (gastroesophageal reflux disease) Hypertension Thrombocytopenia Leukopenia Surgical History History of total abdominal hysterectomy and bilateral salpingo-oophorectomy H/O right wrist surgery History of tooth extraction History of tonsillectomy Family History Father Cancer Colon cancer Mother Cancer Colon cancer History of breast cancer Social History Household Members: Unknown / Unable to assess Household Members Other:: patient states Alone Housing: Apartment Alcohol intake: never Patient Tobacco Use Status: Former Tobacco user Tobacco use type: Cigarette Years Smoked: quit 1960 e-Cigarette/Vaping Use: Never Used Second Hand Smoke Exposure: No Advance Directives Date on File: 12/14/22 service: No Current occupational status: disabled Cognitive needs: No Hearing needs: No Vision needs: Yes Questionnaire Thrive Questionnaire Date Thrive assessed: 12/14/23 TRACEE-7 AMB Questionnaire TRACEE-7 Date TRACEE - 7 assessed: 12/14/23 Source: Developed by Drs. Alejandro Barnes, Kianna Garcia, Devan Freeman and colleagues, with an educational neetu from [employer]. Review of Systems Const Denies body aches, Denies chills, Denies fever(s), Denies headache(s) and Denies poor appetite Eyes Reports no additional complaints ENT Denies dysphagia, Denies dizziness, Denies headache(s), Denies odynophagia and Denies sore throat Card Denies chest pain, Denies syncope, Denies edema, Denies irregular heart rhythm, Denies lightheadedness and Denies dyspnea Resp Denies cough and Denies dyspnea GI Denies abdominal pain, Denies constipation, Denies dysphagia, Denies diarrhea, Denies nausea, Denies odynophagia and Denies vomiting Reports no additional complaints Musc Reports no additional complaints and Denies abnormal gait Skin/Breast Details: Bilateral itchy, dry rash on hands. Neuro Denies abnormal gait, Denies dizziness, Denies syncope and Denies headache(s) Psych Reports no additional complaints Physical exam (Primary Care) Tobacco/Smoking Status: Tobacco use Status Tobacco use date assessed 12/14/23 05/29/24 10:13 Patient Tobacco Use Status Former Tobacco user 05/29/24 10:13 Tobacco use type Cigarette 05/29/24 10:13 e-Cigarette/Vaping Use Never Used 05/29/24 10:13 Thrive Assessment: Date of Thrive Assessment Date Thrive assessed 12/14/23 05/29/24 10:13 Const General: cooperative, healthy appearing, comfortable and no acute distress Orientation/consciousness: patient oriented x3 HENMT Head: Yes normocephalic Ears: hearing grossly normal bilaterally General nose exam: Normal external nose present Eyes General: appearance normal, both eyes and all related structures Conjunctivae: conjunctivae normal Neck Neck: Yes full ROM and Yes no lymphadenopathy Resp Effort & Inspection: normal respiratory effort Auscultation: clear to auscultation bilaterally, no crackles, no rales, no rhonchi and no wheezes Cardio Rate: regular rate Rhythm: regular rhythm Skin Other: Small patches of dry rash on bilateral hands without erythema Neuro General: patient oriented x3 Gait exam (Neuro): Normal gait present Extrem General: Yes normal to inspection, Yes full ROM and No edema Psych Affect: normal affect Attitude: cooperative Insight: Good insight present (Psych) Judgement: Good judgement present (Psych) Assessment and Plan Assessment & Plan (1) Dermatitis: Code(s): L30.9 - Dermatitis, unspecified Plan: Patient has been having dry, itchy rash ongoing for the past few years. Was previously given with steroid cream which was not covered by insurance and was unable to use this. Sent over new prescription for steroid cream to trial. Steroid cream should not be used for longer than 2 weeks, and side effects were reviewed with patient. She agrees to reach out if cream is not covered by insurance. We will follow up at the next appointment. (2) Upper respiratory infection: Code(s): J06.9 - Acute upper respiratory infection, unspecified Plan: Patient was seen in the ER for upper respiratory symptoms and abdominal discomfort and diarrhea. Labs and x-ray were within normal limits in the ED. patient states all symptoms have resolved at this time. She has no further concerns. Agrees to follow up if symptoms return. Plan Thank you for allowing me to participate in the care of this patient. I personally spent 30 minutes reviewing, examining and charting on this patient. Medications: New triamcinolone acetonide 0.5% 1 appl topical DAILY 15 grams 0RF Discontinued triamcinolone acetonide 0.1% Discontinued Reason: Insurance Denied 1 appl topical BID 30 grams 0RF Coding Level of Care Code Est Pt Level 4 (84829) Diagnoses Dermatitis L30.9 Upper respiratory infection J06.9
[2024-06-05 14:02] VITALS: BP 144/78; PULSE 78; O2SAT 98; BMI 24.1
== END 2024-06-05 14:36 | disposition home or self-care (01) ==
PROVIDERS: PCP Internal Medicine
DX: L30.9 Dermatitis, unspecified (principal); J06.9 Acute upper respiratory infection, unspecified
CPT/HCPCS: 99214

== ENCOUNTER → 2024-07-18 13:47 | Outpatient (RCR) | payer MEDICARE, SELFPAY ==
[2020-11-03 15:17] LABS: MANUAL DIFF FLAG NO
[2020-11-03 15:19] VITALS: BMI 33.0
[2020-11-03 15:20] LABS: Basophils Percent Auto 0.9 % (0-2); Eosinophils Absolute Auto 0.2 X10*3/uL (0.0-0.4); Eosinophils Percent Auto 3.8 % (0-4); Hematocrit 39.8 % (37-47); Imm Gran Abs Auto 0.01 X10*3/uL (0.00-0.03); Imm Gran Pct Auto 0.2 % (0.0-0.4); Lymphocytes Absolute Auto 1.6 X10*3/uL (1.2-4.9); Lymphocytes Percent Auto 36.5 % (20-40); Mean Corpuscular HGB Conc 32.7 g/dl (31.0-35.0); Mean Corpuscular Volume 82.7 fL (80-98); Mean Platelet Volume 11.4 fL (9.4-12.3); Monocytes Absolute Auto 0.5 X10*3/uL (0.1-1.2); Monocytes Percent Auto 10.8 % (2-11); Neutrophils Percent Auto 47.8 % (45-73); Platelet Count 153 X10*3/uL (160-400); Red Blood Count 4.81 X10*6/uL (4.20-5.50); Red Cell Distribution Width 15.9 % (11.0-16.0); White Blood Count 4.3 X10*3/uL (4.8-10.8)
[2020-11-03 15:21] VITALS: BP 145/79; PULSE 66; RESP 18; TEMP 37.1; O2SAT 98
--- NOTE | 2020-11-03 15:31 | PM.HEMONCPN ---
Medical Summary - Medical Summary Date of Service: 11/03/20 Medical Summary: DIAGNOSIS: 1. LEUKOPENIA. 2. THROMBOCYTOPENIA. Interval History Interval history: This is a pleasant 75-year-old lady, here for a follow-up visit. Overall she is well. Sometimes he feels a little bit tired. She is busy around the house. Does her chores and dishes. She stands up to do ironing, then she can rest. She has some clutter around the house, but her vision has declined lately due to glaucoma and cataracts and so it takes her longer to clean. She had a rash on her legs. Dr. Bailey gave a cream and that helped clear it up. She denies any fever nor chills. No headache nor dizziness. No chest pain or trouble breathing. She denies any abdominal pain nausea vomiting heartburn indigestion. Bowels are working without any gross blood in it. She enjoys a good appetite. She has gained weight. She tells me she had to give up coffee. She can only drink 1 cup per day She is in good spirits. Rest of the review of systems is unremarkable. Review of Systems - Constitutional Reports system reviewed and no additional complaints, except as documented, Reports lack of energy, Denies malaise - Eyes Reports system reviewed and no additional complaints, except as documented, Reports blurry vision - ENT Reports system reviewed and no additional complaints, except as documented - Cardiovascular Reports system reviewed and no additional complaints, except as documented, Denies chest pain at rest - Respiratory Reports no additional respiratory complaints, Reports chest congestion, Denies dyspnea on exertion - Gastrointestinal Reports system reviewed and no additional complaints, except as documented, Denies abdominal pain, Denies change in bowel habits - Genitourinary Reports no additional female genitourinary complaints - Musculoskeletal Reports system reviewed and no additional complaints, except as documented - Integumentary/Breasts Skin/Breast: Reports no additional skin complaints - Neurologic Reports system reviewed and no additional complaints, except as documented - Psychiatric Reports system reviewed and no additional complaints, except as documented, Denies anxiety - Endocrine Reports no additional endocrine complaints, Denies excessive sweating - Hematologic/Lymphatic Reports system reviewed and no additional complaints, except as documented, Denies easy bleeding - Allergic/Immunologic Reports system reviewed and no additional complaints, except as documented, Denies GI upset with certain foods PMFSH Medical History: Medical History (Last Updated 09/26/20 @ 08:40 by Yasmine Clemente) Leukopenia Thrombocytopenia Functional capacity: independent ambulation Patient : No Family History: Family History (Last Updated 11/03/20 @ 12:16 by DANIEL Mendieta) Father Cancer Mother Cancer Surgical History: Surgical History (Last Updated 11/03/20 @ 12:15 by DANIEL Mendieta) H/O right wrist surgery History of tonsillectomy History of tooth extraction History of total abdominal hysterectomy and bilateral salpingo-oophorectomy Smoking status: Never smoker Home Medications and Allergies Home Medications Medication Instructions Recorded Confirmed Type artificial tears solution 1 drp OPHTHALMIC (EYE) TID 09/26/20 09/26/20 History atorvastatin 1 tab PO DAILY 09/26/20 09/26/20 History hydrochlorothiazide 25 mg PO BID 09/26/20 09/26/20 History hydroxyzine HCl 1 tab PO DAILY PRN 09/26/20 09/26/20 History Allergies Allergy/AdvReac Type Severity Reaction Status Date / Time MYESHA Inhibitors Allergy Severe ANGIOEDEMA Unverified 08/07/20 15:17 WITH LISINOPRIL caffeine [CAFFEINE] Allergy Severe EXTREME Unverified 08/07/20 15:17 PAIN IN BILATERAL KIDNEYS lisinopril Allergy Severe ANGIOEDEMA Unverified 08/07/20 15:17 ziprasidone [From GEODON] Allergy Intermediate HALLUCINATI Unverified 08/07/20 15:17 ONS amoxicillin [AMOXICILLIN] Allergy Unknown UNKNOWN Unverified 08/07/20 15:17 atropine [Lomotil] Allergy Unknown Verified 05/15/20 00:00 bee pollen [BEE STINGS] Allergy Unknown UNKNOWN Unverified 08/07/20 15:17 clozapine [From Clozaril] Allergy Unknown UNKNOWN Unverified 08/07/20 15:17 diphenoxylate [Lomotil] Allergy Unknown Verified 05/15/20 00:00 lovastatin Allergy Unknown Verified 05/15/20 00:00 penicillin V Allergy Unknown Verified 05/15/20 00:00 trifluoperazine Allergy Unknown Verified 05/15/20 00:00 TUNA FISH Allergy Severe SEVERE Uncoded 08/07/20 15:17 INDIGESTION amox Allergy Unknown GI upset Uncoded 02/11/17 00:00 Caffeine Allergy Unknown Uncoded 05/15/20 00:00 caffeine Allergy Unknown kidney Uncoded 02/11/17 00:00 problems From PROLIXIN Allergy Unknown UNKNOWN Uncoded 08/07/20 15:17 lovastatin Allergy Unknown Uncoded 02/11/17 00:00 Prolixen Allergy Unknown Uncoded 05/15/20 00:00 prolixen Allergy Unknown seizure Uncoded 02/11/17 00:00 Exam Vital signs: Vital Signs Temp 98.8 F 11/03/20 15:21 Pulse 66 11/03/20 15:21 Resp 18 11/03/20 15:21 BP 145/79 H 11/03/20 15:21 Pulse Ox 98 11/03/20 15:21 Intake & Output 11/02/20 11/03/20 11/03/20 18:59 06:59 18:59 Other: Weight 90.1 kg Weight 90.1 kg Body Mass Index 33.0 - Constitutional Present: no acute distress - Routine HEENT Exam Head: Present: normal inspection Eye: Present: normal appearance ENT: Present: mucous membranes moist - Routine Neck Exam Present: full ROM - Routine Respiratory Exam Present: CTAB - Routine Cardiovascular Exam Cardiovascular: Present: RRR, S1, S2 - Routine Abdominal Exam Present: soft, nontender - Routine Rectal Exam Patient deferred: digital exam - Routine Extremities Exam Present: nontender - Routine Back/Spine/Pelvis Exam Back/Spine: Present: full ROM - Routine Skin Exam Present: intact - Routine Neurological Exam Present: alert, oriented X3 - Routine Psychiatric Exam Present: normal affect Data - Labs CBC & Chem 7: 11/03/20 15:12 11/03/20 15:12 Labs: 11/03/20 15:12 Complete Blood Count Auto Diff Routine Laboratory Last Values WBC 4.3 X10*3/uL (4.8-10.8) L 11/03/20 15:12 RBC 4.81 X10*6/uL (4.20-5.50) 11/03/20 15:12 Hgb 13.0 g/dl (12.0-16.0) 11/03/20 15:12 Hct 39.8 % (37-47) 11/03/20 15:12 MCV 82.7 fL (80-98) 11/03/20 15:12 MCH 27.0 pg (27.0-33.0) 11/03/20 15:12 MCHC 32.7 g/dl (31.0-35.0) 11/03/20 15:12 RDW 15.9 % (11.0-16.0) 11/03/20 15:12 Plt Count 153 X10*3/uL (160-400) L 11/03/20 15:12 MPV 11.4 fL (9.4-12.3) 11/03/20 15:12 Immature Gran % (Auto) 0.2 % (0.0-0.4) 11/03/20 15:12 Neut % (Auto) 47.8 % (45-73) 11/03/20 15:12 Lymph % (Auto) 36.5 % (20-40) 11/03/20 15:12 [place] % (Auto) 10.8 % (2-11) 11/03/20 15:12 Eos % (Auto) 3.8 % (0-4) 11/03/20 15:12 Baso % (Auto) 0.9 % (0-2) 11/03/20 15:12 Lymph # (Auto) 1.6 X10*3/uL (1.2-4.9) 11/03/20 15:12 [place] # (Auto) 0.5 X10*3/uL (0.1-1.2) 11/03/20 15:12 Eos # (Auto) 0.2 X10*3/uL (0.0-0.4) 11/03/20 15:12 Baso # (Auto) 0.0 X10*3/uL (0.0-0.2) 11/03/20 15:12 Abs Immat Gran (auto) 0.01 X10*3/uL (0.00-0.03) 11/03/20 15:12 Absolute Neuts (auto) 2.0 X10*3/uL (2.0-8.3) 11/03/20 15:12 Absolute Nucleated RBC 0.000 X10*3/uL (0.0-0.012) 11/03/20 15:12 Nucleated RBC % (auto) 0.0 /100WBC (0.0-0.2) 11/03/20 15:12 Progress Note: A/P (1) Thrombocytopenia Status: Acute Assessment and plan: This is a pleasant 75-year-old lady, with history of mild chronic Leukopenia. This is most likely a benign etiology related to her race. In addition, she has mild Thrombocytopenia. Most likely she has ITP. She has previously had a workup which was non revealing. Collagen vascular profile and SIEP were normal. She is clinically asymptomatic. PLAN: Will continue to follow her along. She will return in 6 months for a follow-up. She will call for any questions or problems prior to that time. Thank you CC: Dr. Bailey. Dr. Chau. - Time Spent With Patient Total time spent is greater than 50% in coordination of care (as documented) at patient's floor/unit and/or counseling patient: 25 - 35 minutes
[2020-11-03 15:46] LABS: Alanine Aminotransferase 12 U/L (0-31); Albumin Level 4.1 g/dL (3.5-5.0); Alkaline Phosphatase 95 U/L (39-117); Anion Gap 11 (12-20); Aspartate Amino Transferase 19 U/L (5-31); Blood Urea Nitrogen 19 mg/dL (9-16); Calcium 8.2 mg/dL (8.4-10.2); Carbon Dioxide 27 mmol/L (22-29); Chloride 105 mmol/L (96-108); Creatinine Clr Calc Pharmacy 64.4; Estimated Glomerular Filt Rate > 60; Glucose Random 96 mg/dL (60-115); Potassium 4.2 mmol/l (3.3-5.1); Sodium 139 mmol/L (135-145); Total Protein 6.8 g/dL (6.5-8.0)
== END | disposition home or self-care (01) ==
LOC: HO.ONC 11-03 14:55
PROVIDERS: PCP Internal Medicine; Visit Provider Internal Medicine Medical Oncology
DX: D72.819 Decreased white blood cell count, unspecified (principal); D69.6 Thrombocytopenia, unspecified
CPT/HCPCS: 36415; 80053; 85025; 99214

== ENCOUNTER 2024-07-26 09:33 | Outpatient (AMB) | payer OTHER, SELFPAY ==
--- NOTE | 2024-07-26 10:08 | MHC.PC.OV ---
Vital Signs 07/26/24 10:12 Height 5 ft 5 in Weight 134 lb BMI 22.3 BP 110/78 Blood Pressure Location Lt brachial Position Sitting Pulse 64 Pulse Source Pulse Oximeter Pulse Oximetry (%) 99 Oxygen Delivery Method Room Air Intake Visit Reasons: Hypertension/ear irrigation Allergies MYESHA Inhibitors Allergy (Severe, Verified 06/05/24 14:04) ANGIOEDEMA WITH LISINOPRIL caffeine [CAFFEINE] Allergy (Severe, Verified 06/05/24 14:04) EXTREME PAIN IN BILATERAL KIDNEYS clozapine [From Clozaril] Allergy (Severe, Verified 06/05/24 14:04) Stomach Upset lisinopril Allergy (Severe, Verified 06/05/24 14:04) ANGIOEDEMA amoxicillin [AMOXICILLIN] Allergy (Intermediate, Verified 06/05/24 14:04) Stomach Upset atropine [Lomotil] Allergy (Intermediate, Verified 06/05/24 14:04) Stomach Upset bee pollen [BEE STINGS] Allergy (Intermediate, Verified 06/05/24 14:04) Swelling lovastatin Allergy (Intermediate, Verified 06/05/24 14:04) Cramps ziprasidone [From GEODON] Allergy (Intermediate, Verified 06/05/24 14:04) HALLUCINATIONS TUNA FISH Allergy (Severe, Uncoded 06/05/24 14:04) SEVERE INDIGESTION, rash From PROLIXIN Allergy (Intermediate, Uncoded 06/05/24 14:04) UNKNOWN lovastatin Allergy (Intermediate, Uncoded 06/05/24 14:04) cramping prolixen Allergy (Intermediate, Uncoded 06/05/24 14:04) seizure amox Allergy (Mild, Uncoded 06/05/24 14:04) GI upset Tobacco use date assessed: 12/14/23 Fall risk assessment: No Falls in past year Last assessed Fall Risk: 07/26/24 Dental Screening Dental Screen Date: 12/14/23 HPI Hypertension/ear irrigation HPI Details 79-year-old female(noted 10 lb weight loss. With hypertension GERD hypercholesterolemia coming in for follow-up. Last seen in May 2024 having dermatitis and upper respiratory tract infection. Mammogram is up-to-date colonoscopy Cologuard declined. states has the flu 3 days dizziness, low fevers, sob, couging , notsore the [facility] Medical History (Updated 06/05/24 @ 14:54 by Monica Hannah PA-C) Upper respiratory infection Colon cancer screening Nasal congestion Tremors of nervous system UTI (urinary tract infection) Meningitis Impacted cerumen Otitis externa of right ear Pernicious anemia Obesity (BMI 30-39.9) Hyperbilirubinemia Hypercholesterolemia Schizophrenia Vitamin D deficiency Urinary incontinence GERD (gastroesophageal reflux disease) Hypertension Thrombocytopenia Leukopenia Surgical History History of total abdominal hysterectomy and bilateral salpingo-oophorectomy H/O right wrist surgery History of tooth extraction History of tonsillectomy Family History Father Cancer Colon cancer Mother Cancer Colon cancer History of breast cancer Social History Household Members: Unknown / Unable to assess Household Members Other:: patient states Alone Housing: Apartment Alcohol intake: never Patient Tobacco Use Status: Former Tobacco user Tobacco use type: Cigarette Years Smoked: quit 1960 e-Cigarette/Vaping Use: Never Used Second Hand Smoke Exposure: No Advance Directives Date on File: 12/14/22 service: No Current occupational status: disabled Cognitive needs: No Hearing needs: No Vision needs: Yes Questionnaire Thrive Questionnaire Date Thrive assessed: 12/14/23 AUDIT C Alcohol Use Questionnaire (AUDIT-C) 1. How often do you have a drink containing alcohol?: Never 3. How often do you have six or more drinks on one occasion?: Never Total Score: 0 TRACEE-7 AMB Questionnaire TRACEE-7 Date TRACEE - 7 assessed: 12/14/23 Source: Developed by Drs. Alejandro Barnes, Kianna Garcia, Devan Freeman and colleagues, with an educational neetu from [employer]. Physical exam (Primary Care) Vital Signs: Last Vital Signs Pulse 64 07/26/24 10:12 BP 110/78 07/26/24 10:12 Pulse Ox 99 07/26/24 10:12 Oxygen Delivery Method Room Air 07/26/24 10:12 BMI result Body Mass Index 22.3 Tobacco/Smoking Status: Tobacco use Status Tobacco use date assessed 12/14/23 07/26/24 10:08 Patient Tobacco Use Status Former Tobacco user 07/26/24 10:08 Tobacco use type Cigarette 07/26/24 10:08 e-Cigarette/Vaping Use Never Used 07/26/24 10:08 Thrive Assessment: Date of Thrive Assessment Date Thrive assessed 12/14/23 07/26/24 10:08 Const General: alert; No acute distress Eyes Conjunctivae: conjunctivae normal Resp Auscultation: clear to auscultation bilaterally Cardio Rate: regular rate Rhythm: regular rhythm GI Inspection: Yes normal to inspection Extrem General: Yes normal to inspection and No edema Assessment and Plan Assessment & Plan (1) Hypertension: Code(s): I10 - Essential (primary) hypertension Qualifiers: Hypertension type: essential hypertension Qualified Code(s): I10 - Essential (primary) hypertension Plan: Continue with blood pressure medication. Decrease salt intake and exercise patient takes losartan 25 mg once a day hydrochlorothiazide 25 mg once a day (2) Hypercholesterolemia: Code(s): E78.00 - Pure hypercholesterolemia, unspecified Plan: Avoid fried foods, chicken skin, eggs, butter margarine, pastries and meat. Be it pork or beef they have a lot of cholesterol on atorvastatin 10 mg once a day (3) GERD (gastroesophageal reflux disease): Comment: Very pleasant somewhat difficult to assess 78-year-old frail female referred with GERD, symptoms vague She does mention distant past GI issues difficult to follow no detail Taking PPI p.r.n. She was here today alone-for visit, had transportation Code(s): K21.9 - Gastro-esophageal reflux disease without esophagitis Qualifiers: Esophagitis presence: without esophagitis Qualified Code(s): K21.9 - Gastro-esophageal reflux disease without esophagitis (4) Upper respiratory infection: Code(s): J06.9 - Acute upper respiratory infection, unspecified Plan: advised to increase fluids and rest . tylenol for fever. delsym for dry cough and mucinex for productive cough Orders: Orders Complete Blood Count Auto Diff Today E78.00 - Pure hypercholesterolemia, unspecified Vitamin B12 and Folate Today E78.00 - Pure hypercholesterolemia, unspecified Comprehensive Met. Panel Today E78.00 - Pure hypercholesterolemia, unspecified Free T4 (Free Thyroxine) Today E78.00 - Pure hypercholesterolemia, unspecified Thyroid Stimulating Hormone Today E78.00 - Pure hypercholesterolemia, unspecified Lipid Panel Today E78.00 - Pure hypercholesterolemia, unspecified Vitamin D 25-OH Total Today E78.00 - Pure hypercholesterolemia, unspecified SARS-CoV2/FLU/RSV Today J06.9 - Acute upper respiratory infection, unspecified Medications: Refilled triamcinolone acetonide 0.5% 1 appl topical DAILY 15 grams 0RF J06.9 - Acute upper respiratory infection, unspecified Coding Level of Care Code Est Pt Level 4 (04357) Diagnoses Essential hypertension I10 Hypertension type: essential hypertension Hypercholesterolemia E78.00 Gastroesophageal reflux disease without esophagitis K21.9 Esophagitis presence: without esophagitis Upper respiratory infection J06.9
[2024-07-26 10:12] VITALS: BP 110/78; PULSE 64; O2SAT 99; BMI 22.3
== END 2024-07-26 10:42 | disposition home or self-care (01) ==
PROVIDERS: PCP Internal Medicine; Visit Provider Internal Medicine
DX: I10 Essential (primary) hypertension (principal); E78.00 Pure hypercholesterolemia, unspecified; K21.9 Gastro-esophageal reflux disease without esophagitis; J06.9 Acute upper respiratory infection, unspecified
CPT/HCPCS: 99214

== ENCOUNTER 2024-11-08 12:26 | Outpatient (AMB) | payer OTHER, MEDICAID, SELFPAY ==
--- OUTSIDE RECORDS SUMMARY | 2024-11-08 12:28 | XMS_ITS ---
Author Organization [facility] Address [address] [place] [address] Care Team Providers Care Cork Slabs Sawyer Name Role Phone Po Erik ALEXANDER Primary Care Provider Alejandro Anglin [phone] ALLERGIES Allergen (clinical drug ingredient) Drug/Non Drug Allergy documented on EMR Reaction Allergy Type Onset Date Status amoxicillin Amoxicillin Unknown Drug Allergy Act babar prolixin (uncoded) Unknown Allergy A ctive REASON FOR VISIT Patient presents today for a colon screening MEDICATIONS Medication SIG (Take, Route, Frequency, Duration) Notes Start Date End Date Status Omeprazole 20 MG TAKE 1 CAPSULE BY MOUTH EVERY DAY Oral for 90 Active Atorvastatin Calcium 10 MG TAKE ONE TABL ET BY MOUTH EVERY DAY Oral for 90 Active Pain Reliever Extra Strength 500 MG TAKE 1 TABLET BY MOUTH EVERY 6 HOURS NEEDED FOR FEVER OR PAIN Oral for 3 Active Vitamin C Active Losartan Potassium 25 MG TAKE ONE TABLET BY MOUTH EVERY DAY Oral for 90 Active Aspir-81 Active hydroCHLOROthiazide Active Melatonin 6mg Active Garlic 100 MG as directed Orally Active Vitamin D Active Vitamin E Active Flax Seeds Active Vitamin B Complex Ac tive Fish Oil Active hydrOXYzine HCl 10 MG TAKE ONE TABLET BY MOUTH EVERY DAY NEEDED ANXIETY Oral for 90 Active PROBLEMS Problem Type ICD Code Onset Dates Problem Status W/U Status Risk SNOMED Code Notes Problem Constipation, unspecified constipation type (K59.00) Active confirmed 57066080 VITAL SIGNS BMI 23.83 kg/m2 11/02/2023 Blood pressure systolic 000 mm Hg 11/02/20 23 Blood pressure diastolic 00 mm Hg 023 Height 64.5 in 11/02/2023 Temperature 96.8 degrees Fahrenheit 12/13/20 23 Weight 141 lbs 11/02/2023 Encounters Encounter Location Date Provider Diagnosis [facility] [address] [place] [address] 11/02/2023 Alejandro Chau Encounter for screening for malignant neoplasm of colon Z12.11 ; Constipation, unspecified constipation type K59.00 ; Encounter for screening for malignant neoplasm of rectum Z12.12 and History of adenomatous polyp of colon Z86.010 ASSESSMENTS Encounter Date Diagnosis Assessment Notes Treatment Notes Treatment Clinical Notes 11/02/2023 Encounter for screening for malignant neoplasm of colon (ICD-10 - Z12.11) 11/02/2023 Constipation, unspecified constipation type (ICD-10 - K59.00) Continue the herbal tea with Senna to keep the BM's regular 11/02/2023 Encounter for screening for malignant neoplasm of rectum (ICD-10 - Z12.12) 11/02/2023 History of adenomatous polyp of colon (ICD-10 - Z86.010) PLAN OF TREATMENT Treatment Notes Assessment Notes Constipation, unspecified constipation t ype Continue the herbal tea with Senna to keep the BM's regular Next Appt Details Follow Up: prn, Reason: Progress Notes * Examination Category Sub-Category Detail Notes General Examination GENERAL APPEARANCE: pleasant , well nourished, well developed, in no acute distress EYES: sclera non-icteric NECK/THYROID: no cervical lymphade nopathy, neck supple HEART: S1, S2 normal LUNGS: clear to auscultatio n bilaterally ABDOMEN: normal bowel sounds, no guarding or rigidity, no hepatosplenomegaly, no masses palpable, soft, nontender, nondistended. NEUROLOGIC: alert and oriented SKIN: nonjaundiced, no spi sharon angiomata. EXTREMITIES: no edema ORAL CAVITY: mucosa moist
--- OUTSIDE RECORDS SUMMARY | 2024-11-08 12:28 | XMS_ITS | Patient Health Record ---
Author Organization [facility] Address [address] [place] [address] Care Team Providers Care Rail Technician Name Role Phone Po Erik ALEXANDER Primary Care Provider Alejandro Anglin [phone] ALLERGIES Allergen (clinical drug ingredient) Drug/Non Drug Allergy documented on EMR Reaction Allergy Type Onset Date Status amoxicillin Amoxicillin Unknown Drug Allergy Act babar prolixin (uncoded) Unknown Allergy A ctive REASON FOR REFERRAL No Information MEDICATIONS Medication SIG (Take, Route, Frequency, Duration) Notes Start Date End Date Status Vitamin E Active Flax Seeds Active Omeprazole 20 MG TAKE 1 CAPSULE BY MOUTH EVERY DAY Oral for 90 Active Vitamin B Complex Ac tive Atorvastatin Calcium 10 MG TAKE ONE TABL ET BY MOUTH EVERY DAY Oral for 90 Active Pain Reliever Extra Strength 500 MG TAKE 1 TABLET BY MOUTH EVERY 6 HOURS NEEDED FOR FEVER OR PAIN Oral for 3 Active Vitamin C Active Aspir-81 Active hydroCHLOROthiazide Active Melatonin 6mg Active Garlic 100 MG as directed Orally Active Vitamin D Active Fish Oil Active hydrOXYzine HCl 10 MG TAKE ONE TABLET BY MOUTH EVERY DAY NEEDED ANXIETY Oral for 90 Active Losartan Potassium 25 MG TAKE ONE TABLET BY MOUTH EVERY DAY Oral for 90 Active IMMUNIZATIONS Vaccine Route Administration Date Status Comme nts Influenza Unknown 07/22/2021 Administered Influenza Unknown 10/21/2023 Administered SOCIAL HISTORY Sex Assigned At : Social History Observation Description Sex Assigned At Unknown PROBLEMS Problem Type ICD Code Onset Dates Problem Status W/U Status Risk SNOMED Code Notes Problem Encounter for screening for malignant neoplasm of colon (Z12.11) Active confirmed 449940362 Problem History of adenomatous polyp of colon (Z86.010) Active confirmed 597904464 Problem Encounter for screening for malignant neoplasm of rectum (Z12.12) Active confirmed Screening for malignant neoplasm of rectum (165995791) Problem Preprocedural examination (Z01.818) Active confirmed 512362849 Problem Long-term use of aspirin therapy (Z79.82) Active confirmed 114547056 Problem Constipation, unspecified constipation type (K59.00) Active confirmed 07496243 PLAN OF TREATMENT Future Test Test Name Order Date COLONOSCOPY 12/10/2011 COLONOSCOPY 03/17/2017 Insurance Providers Payer Name Payer Address Payer Phone Subscriber Number Group Number Insured Name Patient Relationship to Insured Coverage Start Date Coverage End Date [facility] [address] [address] [place] [address] [id number] [place], [place] Self - patient is the insured MEDICAL (GENERAL) HISTORY Medical History History ICD Code Small tubular adenoma remove d in 2000 during a screening colonoscopy----negative colonoscopies in 2005 and 12/2011 except for diverticulosis and internal hemorrhoids Hypertension Bipolar disease and schizophrenia Hyperlipidemia Denies GA,DM,CVA,Lung disease,renal dise ase Negative CT of abdomen in 05/2022 except some diverticulosis and constipation Surgical History Surgery Date(Month/Year) ALANNA Benign breast biopsies Broken right wrist
--- OUTSIDE RECORDS SUMMARY | 2024-11-08 12:28 | XMS_ITS ---
Author Organization [facility] Address [address] [place] [address] Care Team Providers Care Steel Erecting Pusher Name Role Phone Po Erik ALEXANDER Primary Care Provider Alejandro Anglin [phone] Encounters Encounter Location Date Provider Diagnosis [facility] [address] [place] [address] 07/22/2023 Alejandro Chau PLAN OF TREATMENT No Information
[2024-11-08 12:54] VITALS: BP 124/78; PULSE 61; O2SAT 99; BMI 22.6
--- NOTE | 2024-11-08 12:54 | MHC.PC.OV ---
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 Required: No Accompanied by: Self / Same As Patient Allergies MYESHA Inhibitors Allergy (Severe, Verified 11/08/24 12:55) ANGIOEDEMA WITH LISINOPRIL caffeine [CAFFEINE] Allergy (Severe, Verified 11/08/24 12:55) EXTREME PAIN IN BILATERAL KIDNEYS clozapine [From Clozaril] Allergy (Severe, Verified 11/08/24 12:55) Stomach Upset lisinopril Allergy (Severe, Verified 11/08/24 12:55) ANGIOEDEMA amoxicillin [AMOXICILLIN] Allergy (Intermediate, Verified 11/08/24 12:55) Stomach Upset atropine [Lomotil] Allergy (Intermediate, Verified 11/08/24 12:55) Stomach Upset bee pollen [BEE STINGS] Allergy (Intermediate, Verified 11/08/24 12:55) Swelling lovastatin Allergy (Intermediate, Verified 11/08/24 12:55) Cramps ziprasidone [From GEODON] Allergy (Intermediate, Verified 11/08/24 12:55) HALLUCINATIONS TUNA FISH Allergy (Severe, Uncoded 11/08/24 12:55) SEVERE INDIGESTION, rash From PROLIXIN Allergy (Intermediate, Uncoded 11/08/24 12:55) UNKNOWN lovastatin Allergy (Intermediate, Uncoded 11/08/24 12:55) cramping prolixen Allergy (Intermediate, Uncoded 11/08/24 12:55) seizure amox Allergy (Mild, Uncoded 11/08/24 12:55) GI upset Tobacco use date assessed: 11/08/24 Fall risk assessment: No Falls in past year Last assessed Fall Risk: 11/08/24 Dental Screening Dental Screen Date: 11/08/24 Did you have a dental visit in the last 12 months?: No Did you have a dental problem in the last 6 months where you did not have access to dental care?: No Was dental information given to patient?: Patient has dentist HPI Hypertension HPI Details The patient is an 79-year-old female presenting with hearing difficulties. She reports having trouble hearing soft sounds, which she attributes partially to earwax in her ear canals. The patient has been using ear drops for her ears, which appears to be contributing to the impaction of wax. No previous hearing tests have been conducted, and she has requested a referral to an ear, nose, and throat specialist. Furthermore, the patient is managing several chronic conditions. She is on medications for hypertension including hydrochlorothiazide and losartan, and for hyperlipidemia with atorvastatin. She has been diagnosed with bipolar disorder and takes hydroxyzine for its management, with a request to increase the dosage to twice daily for anxiety management, with the evening dose intended to aid sleep. This medication adjustment requires coordination with her psychiatrist. The patient is also monitored for osteopenia, having undergone a bone density test in 2021, which she agreed to repeat soon. She mentioned maintaining a diet with fruit juice mixed with green powder and collagen, and she reported consuming herbal teas for digestive health. She declined a flu shot during the visit, citing past advice regarding flu symptoms. No alcohol or tobacco use was discussed. The conversation included discussions on previous and current management strategies for her conditions. FORMERLY [facility], [facility] Medical History (Updated 11/08/24 @ 13:33 by Erik Bailey MD) Schizophrenia Breast cancer screening by mammogram Upper respiratory infection Colon cancer screening Nasal congestion Tremors of nervous system UTI (urinary tract infection) Meningitis Impacted cerumen Otitis externa of right ear Pernicious anemia Obesity (BMI 30-39.9) Hyperbilirubinemia Hypercholesterolemia Vitamin D deficiency Urinary incontinence GERD (gastroesophageal reflux disease) Hypertension Thrombocytopenia Leukopenia Surgical History History of total abdominal hysterectomy and bilateral salpingo-oophorectomy H/O right wrist surgery History of tooth extraction History of tonsillectomy Family History Father Cancer Colon cancer Mother Cancer Colon cancer History of breast cancer Social History Household Members: Unknown / Unable to assess Household Members Other:: patient states Alone Housing: Apartment Alcohol intake: never Patient Tobacco Use Status: Former Tobacco user Tobacco use type: Cigarette Years Smoked: quit 1960 e-Cigarette/Vaping Use: Never Used Second Hand Smoke Exposure: No Advance Directives Date on File: 12/14/22 service: No Current occupational status: disabled Cognitive needs: No Hearing needs: No Vision needs: Yes Questionnaire PHQ-9 Over the last 2 weeks, how often have you been bothered by any of the following problems? 1. Little interest or pleasure in doing things: several days 2. Feeling down, depressed, or hopeless: several days 3. Trouble falling or staying asleep, or sleeping too much: not at all 4. Feeling tired or having little energy: not at all 5. Poor appetite or overeating: not at all 6. Feeling bad about yourself - or that you are a failure or have let yourself or your family down: not at all 7. Trouble concentrating on things, such as reading the newspaper or watching television: not at all 8. Moving or speaking so slowly that other people could have noticed. Or the opposite - being so fidgety or restless that you have been moving around a lot more than usual: not at all 9. Thoughts that you would be better off or of hurting yourself in some way: not at all Total score: 2 Depression Screening Interpretation: Positive Depression Screening Done: Yes Source: Developed by Drs. Alejandro Barnes, Kianna Garcia, Devan Freeman and colleagues, with an educational neetu from [employer]. Thrive Questionnaire Date Thrive assessed: 11/08/24 I am a: Patient What is your living situation today?: I have a steady place to live Within the past 12 months, did the food you bought not last and you didn't have the money to get more?: Never true Within the past 12 months, did you worry whether your food would run out before you got money to buy more?: Never true Do you have trouble paying for medicines?: No Do you have trouble getting transportation to medical appointments?: No Do you have trouble paying your heating and electricity bill?: No Do you have trouble taking care of your child, family member or friend?: No Do you have trouble with day-to-day activities such as bathing, preparing meals, shopping, managing finances, etc.?: No Are you currently unemployed and looking for a job?: No Are you interested in more education?: No Please select the resources that you would like help with: None Currently or been in a relationship where the following occur: No concerns reported THRIVE Score: 0 AUDIT C Alcohol Use Questionnaire (AUDIT-C) 1. How often do you have a drink containing alcohol?: Never 3. How often do you have six or more drinks on one occasion?: Never Total Score: 0 TRACEE-7 AMB Questionnaire TRACEE-7 Date TRACEE - 7 assessed: 11/08/24 Feeling nervous, anxious, or on edge: 0 = Not at all Not being able to stop or control worryin = Not at all Worrying too much about different things: 0 = Not at all Trouble relaxin = Not at all Being so restless that it is hard to sit still: 0 = Not at all Becoming easily annoyed or irritable: 0 = Not at all Feeling afraid as if something awful might happen: 0 = Not at all Total TRACEE-7 score (0-4 normal; 5-9 mild; 10-14 moderate; 15-21 severe): 0 Source: Developed by Drs. Alejandro Barnes, Kianna Garcia, Devan Freeman and colleagues, with an educational neetu from [employer]. Physical exam (Primary Care) Vital Signs: Last Vital Signs Pulse 61 11/08/24 12:54 BP 124/78 11/08/24 12:54 Pulse Ox 99 11/08/24 12:54 Oxygen Delivery Method Room Air 11/08/24 12:54 BMI result Body Mass Index 22.6 Tobacco/Smoking Status: Tobacco use Status Tobacco use date assessed 11/08/24 11/08/24 12:57 Patient Tobacco Use Status Former Tobacco user 11/08/24 12:57 Tobacco use type Cigarette 11/08/24 12:57 e-Cigarette/Vaping Use Never Used 11/08/24 12:57 PHQ-9: PHQ-9 Score PHQ-9: Total score 2 11/08/24 13:43 Depression Screening Interpretation: Positive Thrive Assessment: Date of Thrive Assessment Date Thrive assessed 11/08/24 11/08/24 13:06 Currently or been in a relationship where the following occur: No concerns reported Const General: alert; No acute distress Eyes Conjunctivae: conjunctivae normal Resp Auscultation: clear to auscultation bilaterally Cardio Rate: regular rate Rhythm: regular rhythm GI Inspection: Yes normal to inspection Extrem General: Yes normal to inspection and No edema Office Procedures Flu Questionnaire Does the patient have a severe egg allergy?: No Does the patient have severe life threatening allergies?: No Does the patient have a fever or illness today?: No Has the patient ever had Guillain-Louisa Syndrome?: No Has the patient ever had any past reaction to a flu shot?: No Immunizations Fluarix Triv [id number] (PF) 45 mcg (15 mcg x 3)/0.5 mL IM syringe Performing Provider: Erik Bailey MD [facility] Administered by: DANIEL Deal on 11/08/24 13:43 Dose Route Admin Location Dispensed Lot Number Expiration Date NDC Composite Technician 0.5 mL IM Left Deltoid 0.5 mL [id number] 05/20/25 78055-277-10 [employer] VIS Given Date VIS Provided VIS Publication Date 11/08/24 Single Vaccine 21 Eligibility Eligibility Date Funding Source Not [facility] Eligible 11/08/24 Private Coding Level of Care Code Est Pt Level 4 (73860) Diagnoses Hypercholesterolemia E78.00 Gastroesophageal reflux disease without esophagitis K21.9 Esophagitis presence: without esophagitis Essential hypertension I10 Hypertension type: essential hypertension Osteopenia of multiple sites M85.89 Osteopenia location: multiple sites Bilateral impacted cerumen H61.23 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 She was here today alone-for visit, had transportation Code(s): K21.9 - Gastro-esophageal reflux disease without esophagitis Category: Medical Qualifiers: Esophagitis presence: without esophagitis Qualified Code(s): K21.9 - Gastro-esophageal reflux disease without esophagitis (3) Hypertension: Code(s): I10 - Essential (primary) hypertension Category: Medical Qualifiers: Hypertension type: essential hypertension Qualified Code(s): I10 - Essential (primary) hypertension (4) Osteopenia: Code(s): M85.80 - Other specified disorders of bone density and structure, unspecified site Category: Medical Qualifiers: Osteopenia location: multiple sites Qualified Code(s): M85.89 - Other specified disorders of bone density and structure, multiple sites (5) Bilateral impacted cerumen: Code(s): H61.23 - Impacted cerumen, bilateral Category: Medical Plan: scoop used but not successful (6) Schizophrenia: Comment: Dr. Guevara psychologist Code(s): F20.9 - Schizophrenia, unspecified Category: Medical Plan The patient is an 79-year-old female presenting with hearing difficulties. She reports having trouble hearing soft sounds, which she attributes partially to earwax in her ear canals. The patient has been using ear drops for her ears, which appears to be contributing to the impaction of wax. No previous hearing tests have been conducted, and she has requested a referral to an ear, nose, and throat specialist. Furthermore, the patient is managing several chronic conditions. She is on medications for hypertension including hydrochlorothiazide and losartan, and for hyperlipidemia with atorvastatin. She has been diagnosed with bipolar disorder and takes hydroxyzine for its management, with a request to increase the dosage to twice daily for anxiety management, with the evening dose intended to aid sleep. This medication adjustment requires coordination with her psychiatrist. The patient is also monitored for osteopenia, having undergone a bone density test in 2021, which she agreed to repeat soon. She mentioned maintaining a diet with fruit juice mixed with green powder and collagen, and she reported consuming herbal teas for digestive health. She declined a flu shot during the visit, citing past advice regarding flu symptoms. No alcohol or tobacco use was discussed. The conversation included discussions on previous and current management strategies for her conditions. Orders: Orders Influenza [id number] Immunization Today Z23 - Encounter for immunization Referrals Ear/Nose/Throat Referral H61.23 - Impacted cerumen, bilateral, H91.90 - Unspecified hearing loss, unspecified ear Medications: Changed From hydroxyzine HCl 10 mg PO DAILY 90 days PRN 90 tabs 1RF Anxiety F20.1 - Disorganized schizophrenia To hydroxyzine HCl 10 mg PO .QD PRN 90 tabs 1RF Anxiety 90 days F20.1 - Disorganized schizophrenia
== END 2024-11-08 13:46 | disposition home or self-care (01) ==
PROVIDERS: PCP Internal Medicine; Visit Provider Internal Medicine
DX: E78.00 Pure hypercholesterolemia, unspecified (principal); K21.9 Gastro-esophageal reflux disease without esophagitis; I10 Essential (primary) hypertension; M85.89 Other specified disorders of bone density and structure, multiple sites; H61.23 Impacted cerumen, bilateral; F20.9 Schizophrenia, unspecified; Z23 Encounter for immunization

== ENCOUNTER → 2024-11-08 12:26 | Outpatient (BNVA) | payer MEDICARE, MEDICAID, SELFPAY | PROVIDERS: PCP Internal Medicine; Visit Provider Internal Medicine | DX: E78.00 Pure hypercholesterolemia, unspecified (principal); K21.9 Gastro-esophageal reflux disease without esophagitis; I10 Essential (primary) hypertension; M85.89 Other specified disorders of bone density and structure, multiple sites; Z23 Encounter for immunization; H61.23 Impacted cerumen, bilateral; F20.9 Schizophrenia, unspecified; Z79.899 Other long term (current) drug therapy | CPT/HCPCS: 90471; 90656; 96127; 99212 ==

== ENCOUNTER 2025-02-11 12:26 | Outpatient (AMB) | payer OTHER, SELFPAY ==
[2025-02-11 12:38] VITALS: BP 140/78; PULSE 72; TEMP 36.1; O2SAT 97; BMI 22.6
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
[2025-02-11 12:53] VITALS: BP 138/70
== END 2025-02-11 13:23 | disposition home or self-care (01) ==
LOC: HO.HMCH 12:27
PROVIDERS: PCP Internal Medicine; Visit Provider Internal Medicine
DX: Z00.00 Encounter for general adult medical examination without abnormal findings (principal); D69.6 Thrombocytopenia, unspecified; F20.9 Schizophrenia, unspecified; K21.9 Gastro-esophageal reflux disease without esophagitis; E78.00 Pure hypercholesterolemia, unspecified; I10 Essential (primary) hypertension; H61.23 Impacted cerumen, bilateral

== ENCOUNTER → 2025-02-11 12:26 | Outpatient (BNVA) | payer OTHER, SELFPAY | PROVIDERS: PCP Internal Medicine; Visit Provider Internal Medicine | DX: Z00.00 Encounter for general adult medical examination without abnormal findings (principal); K21.9 Gastro-esophageal reflux disease without esophagitis; E78.00 Pure hypercholesterolemia, unspecified; I10 Essential (primary) hypertension; D69.6 Thrombocytopenia, unspecified; F20.9 Schizophrenia, unspecified; H61.23 Impacted cerumen, bilateral | CPT/HCPCS: 96127; 99397 ==

== ENCOUNTER 2025-02-28 13:27 | Outpatient (AMB) | payer OTHER, SELFPAY ==
[2025-02-28 13:29] VITALS: BP 132/78; PULSE 64; O2SAT 98; BMI 23.1
--- NOTE | 2025-02-28 13:29 | A.OFFPC_ITS ---
Vital Signs 02/28/25 13:29 Height 5 ft 5 in Weight 139 lb BMI 23.1 BP 132/78 Blood Pressure Location Lt brachial Position Sitting Pulse 64 Pulse Source Pulse Oximeter Pulse Oximetry (%) 98 Oxygen Delivery Method Room Air Intake Visit Reasons: Ear Irrigation Shelter Supervisor Required: No Accompanied by: Self / Same As Patient Allergies MYESHA Inhibitors Allergy (Severe, Verified 02/28/25 13:31) ANGIOEDEMA WITH LISINOPRIL caffeine [CAFFEINE] Allergy (Severe, Verified 02/28/25 13:31) EXTREME PAIN IN BILATERAL KIDNEYS clozapine [From Clozaril] Allergy (Severe, Verified 02/28/25 13:31) Stomach Upset lisinopril Allergy (Severe, Verified 02/28/25 13:31) ANGIOEDEMA amoxicillin [AMOXICILLIN] Allergy (Intermediate, Verified 02/28/25 13:31) Stomach Upset atropine [Lomotil] Allergy (Intermediate, Verified 02/28/25 13:31) Stomach Upset bee pollen [BEE STINGS] Allergy (Intermediate, Verified 02/28/25 13:31) Swelling lovastatin Allergy (Intermediate, Verified 02/28/25 13:31) Cramps ziprasidone [From GEODON] Allergy (Intermediate, Verified 02/28/25 13:31) HALLUCINATIONS TUNA FISH Allergy (Severe, Uncoded 02/28/25 13:31) SEVERE INDIGESTION, rash From PROLIXIN Allergy (Intermediate, Uncoded 02/28/25 13:31) UNKNOWN lovastatin Allergy (Intermediate, Uncoded 02/28/25 13:31) cramping prolixen Allergy (Intermediate, Uncoded 02/28/25 13:31) seizure amox Allergy (Mild, Uncoded 02/28/25 13:31) GI upset Medication List - Last Reconciled 02/28/25 by Monica Hannah PA-C atorvastatin 10 mg PO DAILY [Disposable Underpad 30 x 36 heavy flow As directed] [DISPOSABLE UNDERWEAR As directed] esomeprazole magnesium 20 mg PO DAILY [FOLDING ALUMINUM ROLLATOR WALKER As directed] garlic 1,000 mg PO DAILY [gloves As directed1. Quad Cane 2. Incontinence pull ups 3. Gloves 4. Incontinence wipes 5. Incontinence bed pads] hydrochlorothiazide 25 mg PO DAILY hydroxyzine HCl 10 mg PO .QD PRN 90 days [INCONTINENCE BED PADS As directed1. Quad Cane 2. Incontinence pull ups 3. Gloves 4. Incontinence wipes 5. Incontinence bed pads] [Incontinence pull ups LARGE As directed1. Quad Cane 2. Incontinence pull ups 3. Gloves 4. Incontinence wipes 5. Incontinence bed pads] [INCONTINENCE WIPES As directed1. Quad Cane 2. Incontinence pull ups 3. Gloves 4. Incontinence wipes 5. Incontinence bed pads] losartan 25 mg PO DAILY 90 days magnesium oxide 400 mg PO DAILY kstttqyz-zwawxwqrt-OL 3.5-10,000-1 mg/mL-unit/mL-% 4 drps otic (ears) Q8H 7 days [OFFSET HANDLE CANE As directed] peg 554-ctcjlypblvrf-sfnsityr 1-0.2-0.2 % (Artificial Tears ([id number])) 1 drp ophthalmic (eye) TID [PERSONAL CLEASING WIPES As directed] [POWDER FREESYNTHETIC EXAM GLOVES As directed] [QUAD CANE As directed1. Quad Cane 2. Incontinence pull ups 3. Gloves 4. Incontinence wipes 5. Incontinence bed pads] triamcinolone acetonide 0.5% 1 appl topical DAILY trifluoperazine 5 mg PO DAILY vitamin B complex 1 tab PO DAILY vitamin E mixed units PO Tobacco use date assessed: 02/28/25 Fall risk assessment: No Falls in past year Last assessed Fall Risk: 02/28/25 Dental Screening Dental Screen Date: 02/28/25 Did you have a dental visit in the last 12 months?: No Did you have a dental problem in the last 6 months where you did not have access to dental care?: No Was dental information given to patient?: No HPI Ear Irrigation HPI Details 80-year-old female with past medical his tory of urinary incontinence, hypercholesterolemia, GERD, hypertension, osteopenia and schizophrenia last seen 01/2025 coming in for ear flushing. [facility] Medical History (Updated 02/28/25 @ 13:33 by Monica Hannah PA-C) Impacted cerumen Schizophrenia Breast cancer screening by mammogram Upper respiratory infection Nasal congestion Tremors of nervous system UTI (urinary tract infection) Meningitis Otitis externa of right ear Pernicious anemia Obesity (BMI 30-39.9) Hyperbilirubinemia Hypercholesterolemia Vitamin D deficiency Urinary incontinence GERD (gastroesophageal reflux disease) Hypertension Thrombocytopenia Leukopenia Surgical History History of total abdominal hysterectomy and bilateral salpingo-oophorectomy H/O right wrist surgery History of tooth extraction History of tonsillectomy Family History Father Cancer Colon cancer Mother Cancer Colon cancer History of breast cancer Social History Household Members: Unknown / Unable to assess Household Members Other:: patient states Alone Housing: Apartment Alcohol intake: never Patient Tobacco Use Status: Former Tobacco user Tobacco use type: Cigarette Years Smoked: quit 1960 e-Cigarette/Vaping Use: Never Used Second Hand Smoke Exposure: No Advance Directives Date on File: 12/14/22 service: No Current occupational status: disabled Cognitive needs: No Hearing needs: No Vision needs: Yes Questionnaire PHQ-9 Over the last 2 weeks, how often have you been bothered by any of the following problems? 1. Little interest or pleasure in doing things: not at all 2. Feeling down, depressed, or hopeless: several days 3. Trouble falling or staying asleep, or sleeping too much: not at all 4. Feeling tired or having little energy: several days 5. Poor appetite or overeating: not at all 6. Feeling bad about yourself - or that you are a failure or have let yourself or your family down: not at all 7. Trouble concentrating on things, such as reading the newspaper or watching television: not at all 8. Moving or speaking so slowly that other people could have noticed. Or the opposite - being so fidgety or restless that you have been moving around a lot more than usual: not at all 9. Thoughts that you would be better off or of hurting yourself in some way: not at all Total score: 2 31600 - PHQ-9 Billing: Yes Source: Developed by Drs. Alejandro Barnes, Kianna Garcia, Devan Freeman and colleagues, with an educational neetu from [employer]. Thrive Questionnaire Date Thrive assessed: 02/28/25 I am a: Patient What is your living situation today?: I have a steady place to live Within the past 12 months, did the food you bought not last and you didn't have the money to get more?: Never true Within the past 12 months, did you worry whether your food would run out before you got money to buy more?: Sometimes True Do you have trouble paying for medicines?: No Do you have trouble getting transportation to medical appointments?: No Do you have trouble paying your heating and electricity bill?: No Do you have trouble taking care of your child, family member or friend?: I choose not to answer this question Do you have trouble with day-to-day activities such as bathing, preparing meals, shopping, managing finances, etc.?: No Are you currently unemployed and looking for a job?: Yes Are you interested in more education?: Yes Please select the resources that you would like help with: None Currently or been in a relationship where the following occur: No concerns reported THRIVE Score: 1 AUDIT C Alcohol Use Questionnaire (AUDIT-C) 1. How often do you have a drink containing alcohol?: Never 3. How often do you have six or more drinks on one occasion?: Never Total Score: 0 TRACEE-7 AMB Questionnaire TRACEE-7 Date TRACEE - 7 assessed: 02/28/25 Feeling nervous, anxious, or on edge: 0 = Not at all Not being able to stop or control worryin = Not at all Worrying too much about different things: 0 = Not at all Trouble relaxin = Not at all Being so restless that it is hard to sit still: 0 = Not at all Becoming easily annoyed or irritable: 2 = More than half the days Feeling afraid as if something awful might happen: 0 = Not at all Total TRACEE-7 score (0-4 normal; 5-9 mild; 10-14 moderate; 15-21 severe): 2 Source: Developed by Drs. Alejandro Barnes, Kianna Garcia, Devan Freeman and colleagues, with an educational neetu from [employer]. TRACEE-7 Assessment Billing TRACEE-7 Assessment Tool: TRACEE-7 Assessment 05810 Review of Systems ENT Details: Decreased hearing and ear clogged feeling bilaterally Physical exam (Primary Care) Vital Signs: Oxygen Delivery Method Room Air 02/28/25 13:29 BMI result Body Mass Index 23.1 Tobacco/Smoking Status: Tobacco use Status Tobacco use date assessed 02/11/25 02/28/25 13:30 Patient Tobacco Use Status Former Tobacco user 02/28/25 13:30 Tobacco use type Cigarette 02/28/25 13:30 e-Cigarette/Vaping Use Never Used 02/28/25 13:30 PHQ-9: PHQ-9 Score PHQ-9: Total score 2 02/28/25 13:34 Thrive Assessment: Date of Thrive Assessment Date Thrive assessed 02/11/25 02/28/25 13:30 Currently or been in a relationship where the following occur: No concerns reported Const General: cooperative, healthy appearing, comfortable and no acute distress Orientation/consciousness: patient oriented x3 HENMT Head: Yes normocephalic Ears: hearing grossly normal bilaterally and Abnormal EAC present excessive cerumen bilateral General nose exam: Normal external nose present Resp Effort & Inspection: normal respiratory effort Cardio Rate: regular rate Rhythm: regular rhythm Neuro General: patient oriented x3 Gait exam (Neuro): Normal gait present Psych Affect: normal affect Attitude: cooperative Insight: Good insight present (Psych) Judgement: Good judgement present (Psych) Office Procedures Cerumen Removal From which ear canal was the cerumen removed: bilateral Removal: cerumen loop/spoon Notes: patient tolerated procedure well, no complications and ear canal clear [id number] Wax Removal by Spoon/Curette Coding Level of Care Code Est Pt Level 3 (38501) Diagnoses Impacted cerumen H61.20 CPT Codes Office Procedure - CPT: 81879-Cvf Wax Removal by Spoon/Curette ([id number]) Additional Codes TRACEE-7 Assessment Billing - TRACEE-7 Assessment Tool: TRACEE-7 Assessment 78862 ([id number]) PHQ-9 - 53156 - PHQ-9 Billing: Yes ([id number]) Assessment & Plan Assessment & Plan (1) Impacted cerumen: Code(s): H61.20 - Impacted cerumen, unspecified ear Category: Medical Plan: Cerumen and tissue successfully removed using lighted curette. Patient tolerated the procedure well TMs were visualized as intact with well aerated middle ear spaces. After removal of the tissue, underlying tissue appeared Erythematous and raw. Plan to send steroid and antibiotic drops to pharmacy to prevent infection help with inflammation in the canal. Plan This note was constructed using voice recognition software. While every effort has been made to ensure accuracy and poultry pinner, still areas may have been included sometimes these areas may affect the content or meeting of the given symptoms. Total time spent caring for the patient today was 20 minutes. This includes time spent before the visit reviewing the chart, time spent during the visit, and time spent after the visit and documentation. Medications: New oldxqprv-obvlidcev-SG 3.5-10,000-1 mg/mL-unit/mL-% 4 drps otic (ears) Q8H 7 days 10 mL 0RF
--- OUTSIDE RECORDS SUMMARY | 2025-02-28 16:13 | XMS_ITS | Encounter Summary ---
Author Organization [employer] Address [address] [place] [address] [address] [place] [address] Care Team Providers Care Shipping Assistant Name Role Phone Unavailable Primary Care Provider Unavailabl e Encounter Details Date Type Department Care Team (Latest Contact Info) Description 09/03/2022 Abstract [facility] CONVERSIONS Dental, Provider, DDS Social History Tobacco Use Types Packs/Day Years Used Date Smoking Tobacco: Never Assessed Comments Unknown Sex and Gender Information Value Date Recorded Sex Assigned at Female 09/20/2022 10:14 AM EDT Legal Sex Female 10:14 AM EDT Gender Identity Female 06/10/2023 11:18 AM EDT Sexual Orientation Choose not to disclose 2021 10:14 AM EDT documented as of this encounter Plan of Treatment Not on file documented as of this encounter Visit Diagnoses Not on filedocumented in this encounter
--- OUTSIDE RECORDS SUMMARY | 2025-02-28 16:14 | XMS_ITS | Patient Health Record ---
Author Organization [facility] Address [address] [place] [address] Care Team Providers Care Recycling Operator Name Role Phone Po Erik ALEXANDER Primary Care Provider Alejandro Anglin [phone] Allergies Allergen (clinical drug ingredient) Drug/Non Drug Allergy documented on EMR Reaction Allergy Type Onset Date Status amoxicillin Amoxicillin Unknown Drug Allergy Act babar prolixin (uncoded) Unknown Allergy A ctive Reason For Referral No Information Medications Medication SIG (Take, Route, Frequency, Duration) Notes [...] MOUTH EVERY DAY Oral for 90 Active Immunizations Vaccine Route Administration Date Status Comme nts Influenza Unknown 07/22/2021 Administered Influenza Unknown 10/21/2023 Administered Problems Problem Type SNOMED Code ICD Code Onset Dates Problem Status W/U Status Risk Notes Problem 929200707 Encounter for screening for malignant neoplasm of colon (Z12.11) Active confirmed Problem 867334188 History of adenomatous polyp of colon (Z86.010) Active confirmed Problem Screening for malignant neoplasm of rectum (101140687) Encounter for screening for malignant neoplasm of rectum (Z12.12) Active confirmed Problem 581869766 Preprocedural examination (Z01.818) Active confirmed Problem 181342926 Long-term use of aspirin therapy (Z79.82) Active confirmed Problem 65644001 Constipation, unspecified constipation type (K59.00) Active confirmed Plan Of Treatment Future Test Test Name Order Date COLONOSCOPY 12/10/2011 COLONOSCOPY 03/17/2017 Insurance Providers Payer Name Payer Address Payer Phone Subscriber Number Group Number Insured Name Patient Relationship to Insured Coverage Start Date Coverage End Date [employer] [address] [address] [place] [phone] [id number] [place], [place] Self - patient is the insured Medical (General) History Medical History History ICD Code Small tubular adenoma remove d in 2000 during a screening colonoscopy----negative colonoscopies in 2005 and 12/2011 except for diverticulosis and internal hemorrhoids Hypertension Bipolar disease and schizophrenia Hyperlipidemia Denies NC,DM,CVA,Lung disease,renal dise ase Negative CT of abdomen in 05/2022 except some diverticulosis and constipation Surgical History Surgery Date(Month/Year) ALANNA Benign breast biopsies Broken right wrist
--- OUTSIDE RECORDS SUMMARY | 2025-02-28 16:14 | XMS_ITS | Clinical Summary ---
Author Organization [employer] Address [address] [place] [address] [address] [place] [address] Care Team Providers Care Home Improvement Advisor Name Role Phone Unavailable Primary Care Provider Unavailabl e Allergies Active Allergy Reactions Criticality Noted Date Comments Amoxicillin Other 06/10/2023 Caffeine Other 06/10/2023 Pork Allergy Other 06/10/2023 Fish Oil Other 06/10/2023 Medications No known medications Social History Tobacco Use Types Packs/Day Years Used Date Smoking Tobacco: Never Smokeless Tobacco: Never Tobacco Cessation:Counseling Given: Not Answered Alcohol Use Standard Drinks/Week Comments Not Currently 0 (1 standard drink = 0.6 oz pur e alcohol) Comments Unknown Sex and Gender Information Value Date Recorded Sex Assigned at Female 09/20/2022 10:14 AM EDT Legal Sex Female 10:14 AM EDT Gender Identity Female 06/10/2023 11:18 AM EDT Sexual Orientation Choose not to disclose 2021 10:14 AM EDT Last Filed Vital Signs Vital Sign Reading Time Taken Comments Blood Pressure 140/80 06/15/2023 2:30 PM EDT Pulse - - Temperature - - Respiratory Rate - - Oxygen Saturation - - Inhaled Oxygen Concentration - - Weight - - Height - - Body Mass Index - - Plan of Treatment Health Maintenance Due Date Last Done Comments Depression Screening 1945 SDOH Screening 1945 Alcohol/Substance Use Screening 1955 Dental Prophylaxis 07/23/2012 01/20/2012, 0 12/15/2010, 06/11/2010, Additional history exists RSV Patients and Patients Aged 60 years or older (1 - 1-dose 75+ series) 2018 Zoster Vaccines (2 of 2) 11/20/2021 09/25/2021 Dental X-Ray: Bitewings 09/04/2023 09/03/2022, 04/07 Dental Oral Exam 12/12/2023 06/10/2023, , 12/15/2010 Tobacco Screening 06/15/2024 06/15/2023 COVID-19 Vaccine (2 - season) 2024 03/17/2021 Influenza Vaccine (#1) 2024 3, 09/15/2022, 09/15/2021, Additional history exists Dental X-Ray: Full Mouth 09/04/2025 09/03/2022 DTaP/Tdap/Td Vaccines (3 - Td or Tdap) 03/15/2028 03/15/2018, 01/11/2013 Pneumococcal Vaccine: 50+ Years Completed 01/12/2022, 12/05/2017, 12/04/2014 HIB Vaccines Aged Out No longer eligi ble based on patient's age to complete this topic HPV Vaccines Aged Out No longer eligi ble based on patient's age to complete this topic Hepatitis A Vaccines Aged Out No long er eligible based on patient's age to complete this topic Hepatitis B Vaccines Aged Out No long er eligible based on patient's age to complete this topic IPV Vaccines Aged Out No longer eligi ble based on patient's age to complete this topic Meningococcal Vaccine Aged Out No riley wili eligible based on patient's age to complete this topic RSV under 20 months Aged Out No longe r eligible based on patient's age to complete this topic Rotavirus Vaccines Aged Out No longer eligible based on patient's age to complete this topic Procedures Procedure Name Priority Date/Time Associated Diagnosis Comments PERIODIC ORAL EVALUATION - ESTABLISHED PATIENT Routine 06/10/2023 11:00 AM EDT Dental caries Periodontal disease INTRAORAL - COMPLETE SERIES OF RADIOGRAPHIC IMAGES Routine 09/03/2022 12:00 AM EDT PROPHYLAXIS - ADULT Routine 01/20/2012 1 2:00 AM EST from Last 3 Months or Most Recently Relevant to Health Maintenance Insurance [facility] DUAL COMPLETE DENTAL - [facility]
--- OUTSIDE RECORDS SUMMARY | 2025-02-28 16:14 | XMS_ITS ---
Author Organization [facility] Address [address] [place] [address] Care Team Providers Care Ic Design Manager Name Role Phone Po Erik ALEXANDER Primary Care Provider Alejandro Anglin [phone] Allergies Allergen (clinical drug ingredient) Drug/Non Drug Allergy documented on EMR Reaction Allergy Type Onset Date Status amoxicillin Amoxicillin Unknown Drug Allergy Act babar prolixin (uncoded) Unknown Allergy A ctive REASON FOR VISIT Patient presents today for a colon screening Medications Medication SIG (Take, Route, Frequency, Duration) [...] DAY NEEDED ANXIETY Oral for 90 Active Problems Problem Type SNOMED Code ICD Code Onset Dates Problem Status W/U Status Risk Notes Problem [id number] Constipation, unspecified constipation type (K59.00) Active confirmed Vital Signs Temperature 96.8 degrees Fahrenheit 11/02/20 23 Blood pressure systolic 000 mm Hg 11/02/20 23 Blood pressure diastolic 00 mm Hg 023 Height 64.5 in 11/02/2023 Weight 141 lbs 11/02/2023 BMI 23.83 kg/m2 11/02/2023 Encounters Encounter Location Date Provider Diagnosis [facility] [address] [place] [address] 11/02/2023 Alejandro Chau Encounter for screening for malignant neoplasm of colon Z12.11 ; Constipation, unspecified constipation type K59.00 ; Encounter for screening for malignant neoplasm of rectum Z12.12 and History of adenomatous polyp of colon Z86.010 Assessments Encounter Date Diagnosis (ICD Code) Assessment Notes Treatment Notes Treatment Clinical Notes Section Notes 11/02/2023 Encounter for screening for malignant neoplasm of colon (ICD-10 - Z12.11) Overall, Hannah appears well. We did review that at this point she is not having any new or worrisome GI complaints. She has also had 3 previous colonoscopies with the only finding being that of a minimal tubular adenoma on her original exam over 20 years ago. There is no definitive family history of colon cancer as far as she can recall, although she does report that her father may have had some type of bowel trouble . We did review that current guidelines would recommend against a screening colonoscopy in an asymptomatic 78-year-old patient. While colonoscopies are safe, we feel the benefit of the colonoscopy would not significantly outweigh any theoretical risk of the procedure. Therefore, I advised her that we should hold off on a colonoscopy at this time. We did review that if anything was to change such as a significant change in bowel habits or bleeding she should then contact me for reevaluation. If things otherwise remain well she will see me on a p.r.n. basis. Hannah seemed very comfortable with this plan. Thank you again for allowing me to have participated in Hannah's care. Please do not hesitate to contact me if I can be of any further assistance in the future. 11/02/2023 Constipation, unspecified constipation type (ICD-10 - K59.00) Continue the herbal tea with Senna to keep the BM's regular Overall, Hannah appears well. We did review that at this point she is not having any new or worrisome GI complaints. She has also had 3 previous colonoscopies with the only finding being that of a minimal tubular adenoma on her original exam over 20 years ago. There is no definitive family history of colon cancer as far as she can recall, although she does report that her father may have had some type of bowel trouble . We did review that current guidelines would recommend against a screening colonoscopy in an asymptomatic 80-year-old patient. While colonoscopies are safe, we feel the benefit of the colonoscopy would not significantly outweigh any theoretical risk of the procedure. Therefore, I advised her that we should hold off on a colonoscopy at this time. We did review that if anything was to change such as a significant change in bowel habits or bleeding she should then contact me for reevaluation. If things otherwise remain well she will see me on a p.r.n. basis. Hannah seemed very comfortable with this plan. Thank you again for allowing me to have participated in [facility]. Please do not hesitate to contact me if I can be of any further assistance in the future. 11/02/2023 Encounter for screening for malignant neoplasm of rectum (ICD-10 - Z12.12) Overall, Hannah appears well. We did review that at this point she is not having any new or worrisome GI complaints. She has also had 3 previous colonoscopies with the only finding being that of a minimal tubular adenoma on her original exam over 20 years ago. There is no definitive family history of colon cancer as far as she can recall, although she does report that her father may have had some type of bowel trouble . We did review that current guidelines would recommend against a screening colonoscopy in an asymptomatic 78-year-old patient. While colonoscopies are safe, we feel the benefit of the colonoscopy would not significantly outweigh any theoretical risk of the procedure. Therefore, I advised her that we should hold off on a colonoscopy at this time. We did review that if anything was to change such as a significant change in bowel habits or bleeding she should then contact me for reevaluation. If things otherwise remain well she will see me on a p.r.n. basis. Hannah seemed very comfortable with this plan. Thank you again for allowing me to have participated in [facility]. Please do not hesitate to contact me if I can be of any further assistance in the future. 11/02/2023 History of adenomatous polyp of colon (ICD-10 - Z86.010) Overall, Hannah appears well. We did review that at this point she is not having any new or worrisome GI complaints. She has also had 3 previous colonoscopies with the only finding being that of a minimal tubular adenoma on her original exam over 20 years ago. There is no definitive family history of colon cancer as far as she can recall, although she does report that her father may have had some type of bowel trouble . We did review that current guidelines would recommend against a screening colonoscopy in an asymptomatic 80-year-old patient. While colonoscopies are safe, we feel the benefit of the colonoscopy would not significantly outweigh any theoretical risk of the procedure. Therefore, I advised her that we should hold off on a colonoscopy at this time. We did review that if anything was to change such as a significant change in bowel habits or bleeding she should then contact me for reevaluation. If things otherwise remain well she will see me on a p.r.n. basis. Hannah seemed very comfortable with this plan. Thank you again for allowing me to have participated in Hannah's care. Please do not hesitate to contact me if I can be of any further assistance in the future. Plan Of Treatment Treatment Notes Assessment Notes Constipation, unspecified constipation t ype Continue the herbal tea with Senna to keep the BM's regular Next Appt Details Follow Up: prn, Reason: Progress Notes * HANNAH CHRISTIANSON MDOB:[birth year] (78 yo F)Acc No.[id number]:11/02/2023 Progress Notes Patient:?SAMMYHANNAH HENDERSON Tonia Provider:?Alejandro Chau MD :1945???Age:78 Y???Sex:Female D ate:11/02/2023 Address:[address] [place], [place] [id number] Pcp:Erik Bailey MD Subjective: * Chief Complaints: * ???Patient presents today fo r a colon screening * HPI: ???incontinence:? I saw Hannah in the office today for reevaluation of possible colorectal cancer screening. ?I last saw Hannah in July of 2022, at which time we discussed the possibility of her undergoing a colonoscopy for screening purposes. She has had 3 previous colonoscopies, with the initial exam in 2000 revealing a small tubular adenoma that was removed. She then had negative colonoscopies in 2005 and 2011. When I saw her last year she was doing well and we had reviewed that the guidelines would recommend against a screening colonoscopy in an asymptomatic patient in their late 70s. ?She presently feels well. She enjoys a good appetite, without any significant heartburn or dysphagia. Her bowel movements have been regular with the use of a herbal tea with senna. She denies any significant constipation or diarrhea. She has not noticed any hematochezia nor melena. She denies abdominal pain, jaundice, nor early satiety. She does describe having lost about 30 pounds on a purposeful diet. ?She did have a negative CT scan of the abdomen in May of 2022 other than the finding of some diverticulosis and constipation. * ROS:?General/Constitutional:?Change in appetite?denies.?Chills?denies.?Fatigue?denies.?Ophthalmologic:?Patient denies? Negative..?ENT:?Patient denies?Negative..?Respiratory:?Patient denies?No coughing/hemoptysis..?Cardiovascular:?Patient denies? No chest pain/orthopnea..?Gastrointestinal:?Comments?See HPI for details.?Genitourinary:?Patient denies? No dysuria/hematuria..?Musculoskeletal:?Patient denies? No specific arthralgias/myalgias..?Skin:?Patient denies?No rash/pruritus..?Neurologic:?Patient denies? No headaches/seizures..?Psychiatric:?Patient denies?Negative..? * Medical History:? * Surgical History:?ALANNA Benign breast biopsies Broken right wrist * Hospitalization/Major Diagno stic Procedure:?No Hospitalization History. * Family History:?Father: dece ased.?Mother: .? Father possibly had colon cancer in his 70's but she is not sure; mother may have had colon cancer. * Social History:?Tobacco Use:?Tobacco Use/Smoking?Are you a: former smoker , How long has it been since you last smoked?: > 10 years.?Drugs/Alcohol:?Alcohol Screen?Points: 0, Interpretation: Negative.?Miscellaneous:?Marital status: single. Occupation: retired. ???Currently does not smoke or use any significant amounts of alcohol. * Medications:?TakingVitamin B Complex Flax Seeds Vitamin E Fish Oil Vitamin D Garlic 100 MG Tablet as directed Orally Melatonin 6mg hydroCHLOROthiazide Aspir-81 Vitamin C Pain Reliever Extra Strength 500 MG Tablet TAKE 1 TABLET BY MOUTH EVERY 6 HOURS NEEDED FOR FEVER OR PAIN Oral Atorvastatin Calcium 10 MG Tablet TAKE ONE TABLET BY MOUTH EVERY DAY Oral Omeprazole 20 MG Capsule Delayed Release TAKE 1 CAPSULE BY MOUTH EVERY DAY Oral Losartan Potassium 25 MG Tablet TAKE ONE TABLET BY MOUTH EVERY DAY Oral hydrOXYzine HCl 10 MG Tablet TAKE ONE TABLET BY MOUTH EVERY DAY NEEDED ANXIETY Oral Taking Vitamin B Complex Taking Flax Seeds Taking Vitamin E Taking Fish Oil Taking Vitamin D Taking Garlic 100 MG Tablet as directed Orally Taking Melatonin 6mg Taking hydroCHLOROthiazide Taking Aspir-81 Taking Vitamin C Taking Pain Reliever Extra Strength 500 MG Tablet TAKE 1 TABLET BY MOUTH EVERY 6 HOURS NEEDED FOR FEVER OR PAIN Oral Taking Atorvastatin Calcium 10 MG Tablet TAKE ONE TABLET BY MOUTH EVERY DAY Oral Taking Omeprazole 20 MG Capsule Delayed Release TAKE 1 CAPSULE BY MOUTH EVERY DAY Oral Taking Losartan Potassium 25 MG Tablet TAKE ONE TABLET BY MOUTH EVERY DAY Oral Taking hydrOXYzine HCl 10 MG Tablet TAKE ONE TABLET BY MOUTH EVERY DAY NEEDED ANXIETY Oral DiscontinuedZestril 20mg PriLOSEC 20 MG Capsule Delayed Release Orally bidMedication List reviewed and reconciled with the patientDiscontinued Zestril 20mg Discontinued PriLOSEC 20 MG Capsule Delayed Release Orally bidMedication List reviewed and reconciled with the patient * Allergies:?Amoxicillinprolix inyes[Allergies Verified] Objective: * Vitals:?Wt: 141 lbs, Ht: 64. 5 in, BMI:23.83 Index, BP: 000/00 mm Hg, Temp: 96.8. * Examination: ???General Examination: ?GENERAL APPEARANCE:?pleasant, well nourished, well developed, in no acute distress.?EYES:?sclera non-icteric.?ORAL CAVITY:?mucosa moist.?NECK/THYROID:?no cervical lymphadenopathy, neck supple.?SKIN:?nonjaundiced, no spider angiomata..?HEART:?S1, S2 normal.?LUNGS:?clear to auscultation bilaterally.?ABDOMEN:?normal bowel sounds, no guarding or rigidity, no hepatosplenomegaly, no masses palpable, soft, nontender, nondistended..?EXTREMITIES:?no edema.?NEUROLOGIC:?alert and oriented.? Assessment: * Assessment: 1.?Constipation, unspecified constipation type - K59.00 (Primary)?2.?Encounter for screening for malignant neoplasm of colon - Z12.11?3.?Encounter for screening for malignant neoplasm of rectum - Z12.12?4.?History of adenomatous polyp of colon - Z86.010? Overall, Hannah appears we ll. We did review that at this point she is not having any new or worrisome GI complaints. She has also had 3 previous colonoscopies with the only finding being that of a minimal tubular adenoma on her original exam over 20 years ago. There is no definitive family history of colon cancer as far as she can recall, although she does report that her father may have had some type of bowel trouble . We did review that current guidelines would recommend against a screening colonoscopy in an asymptomatic 80-year-old patient. While colonoscopies are safe, we feel the benefit of the colonoscopy would not significantly outweigh any theoretical risk of the procedure. Therefore, I advised her that we should hold off on a colonoscopy at this time. We did review that if anything was to change such as a significant change in bowel habits or bleeding she should then contact me for reevaluation. If things otherwise remain well she will see me on a p.r.n. basis. Hannah seemed very comfortable with this plan. Thank you again for allowing me to have participated in Hannah's care. Please do not hesitate to contact me if I can be of any further assistance in the future. Plan: * Treatment: * Procedure Codes:?1036F TOBAC CO [id number] BP SCR NOT PRFRM REC REASON NOS * Preventive Medicine:? ??Urinary Incontinence:?Urinary Incontinence?Assessment:?Present,?Plan of care documented:?Yes,?Type of plan of care:?Lifestyle interventions.? * Follow Up:?prn * * Sign off status: Completed true * Provider:?lAejandro Chau MD Date:? 023 Generated for Merritti tyler/Meet/eTransmitting on:?02/28/2025 04:13 PM EDT History and Physical Notes * HPI (History of Present Illness) Category Sub-Category Detail Notes Category Not es incontinence I saw Hannah in the office today for reevaluation of possible colorectal cancer screening. I last saw Hannah in July of 2022, at which time we discussed the possibility of her undergoing a colonoscopy for screening purposes. She has had 3 previous colonoscopies, with the initial exam in 2000 revealing a small tubular adenoma that was removed. She then had negative colonoscopies in 2005 and 2011. When I saw her last year she was doing well and we had reviewed that the guidelines would recommend against a screening colonoscopy in an asymptomatic patient in their late 70s. She presently feels well. She enjoys a good appetite, without any significant heartburn or dysphagia. Her bowel movements have been regular with the use of a herbal tea with senna. She denies any significant constipation or diarrhea. She has not noticed any hematochezia nor melena. She denies abdominal pain, jaundice, nor early satiety. She does describe having lost about 30 pounds on a purposeful diet. She did have a negative CT scan of the abdomen in May of 2022 other than the finding of some diverticulosis and constipation. Examination Category Sub-Category Detail Notes Category Not es General Examination GENERAL APPEARANCE: pleasant , well [...]
== END 2025-02-28 14:01 | disposition home or self-care (01) ==
LOC: HO.HMCH 13:27
PROVIDERS: PCP Internal Medicine
DX: H61.23 Impacted cerumen, bilateral (principal)

== ENCOUNTER → 2025-02-28 13:27 | Outpatient (BNVA) | payer OTHER, SELFPAY | PROVIDERS: PCP Internal Medicine | DX: H61.23 Impacted cerumen, bilateral (principal); R32 Unspecified urinary incontinence; E78.00 Pure hypercholesterolemia, unspecified; K21.9 Gastro-esophageal reflux disease without esophagitis; I10 Essential (primary) hypertension; M85.80 Other specified disorders of bone density and structure, unspecified site; F20.9 Schizophrenia, unspecified | CPT/HCPCS: 69210; 96127 ==

== ENCOUNTER 2025-03-14 11:18 | Outpatient (REF) | payer OTHER, SELFPAY ==
[2025-03-14 12:55] LABS: MANUAL DIFF FLAG NO
[2025-03-14 13:13] LABS: Basophils Percent Auto 1.2 % (0-2); Eosinophils Absolute Auto 0.1 X10*3/uL (0.0-0.4); Eosinophils Percent Auto 1.5 % (0-4); Hematocrit 38.2 % (37.0-47.0); Hemoglobin 12.6 g/dl (12.0-16.0); Imm Gran Abs Auto 0.01 X10*3/uL (0.00-0.03); Imm Gran Pct Auto 0.3 % (0.0-0.4); Lymphocytes Absolute Auto 1.1 X10*3/uL (1.2-4.9); Lymphocytes Percent Auto 33.1 % (20-40); Mean Corpuscular Hemoglobin 26.8 pg (27.0-33.0); Mean Corpuscular Volume 81.1 fL (80.0-98.0); Mean Platelet Volume 11.6 fL (9.4-12.3); Monocytes Absolute Auto 0.4 X10*3/uL (0.1-1.2); Monocytes Percent Auto 11.3 % (2-11); Neutrophils Absolute Auto 1.8 x10*3/uL (2.0-8.3); Neutrophils Percent Auto 52.6 % (45-73); Platelet Count 146 X10*3/uL (160-400); Red Blood Count 4.71 X10*6/uL (4.20-5.50); White Blood Count 3.4 X10*3/uL (4.8-10.8)
--- OUTSIDE RECORDS SUMMARY | 2025-03-14 13:32 | XMS_ITS ---
Author Organization [facility] Address [address] [place] [address] Care Team Providers Care Hydro Electric Station Operator Name Role Phone Po Erik ALEXANDER Primary Care Provider Alejandro Anglin [phone] Allergies Allergen (clinical drug ingredient) Drug/Non Drug [...] Problem Status W/U Status Risk Notes Problem [id number] Constipation, unspecified constipation type (K59.00) Active confirmed Vital Signs Temperature 96.8 degrees Fahrenheit 11/02/20 23 Blood pressure systolic 000 mm Hg 11/02/20 23 Blood pressure diastolic 00 mm Hg 023 Height 64.5 in 11/02/2023 Weight 141 lbs 11/02/2023 BMI 23.83 kg/m2 11/02/2023 Encounters Encounter Location Date Provider Diagnosis [facility] [address] [place] [address] 11/02/2023 Alejandro Chau Encounter for screening for [...] for allowing me to have participated in [facility]. Please do not hesitate to contact me [...] for allowing me to have participated in [facility]. Please do not hesitate to contact me [...] * HANNAH CHRISTIANSON MDOB:[birth year] (78 yo F)Acc No.[id number]:11/02/2023 Progress Notes Patient:?SAMMYHANNAH HENDERSON Tonia Provider:?Alejandro Chau MD :1945???Age:78 Y???Sex:Female D ate:11/02/2023 Address:[address] [place], [place] [id number] Pcp:Erik Bailey MD Subjective: * Chief Complaints: [...] * Treatment: * Procedure Codes:?1036F TOBAC CO [id number] BP SCR NOT PRFRM REC REASON NOS * Preventive Medicine:? ??Urinary Incontinence:?Urinary Incontinence?Assessment:?Present,?Plan of care documented:?Yes,?Type of plan of care:?Lifestyle interventions.? * Follow Up:?prn * * Sign off status: Completed true * Provider:?Alejandro Chau MD Date:? 023 Generated for Merritti tyler/Meet/eTransmitting on:?03/14/2025 01:32 PM EDT History and Physical Notes * [...]
--- OUTSIDE RECORDS SUMMARY | 2025-03-14 13:32 | XMS_ITS | Encounter Summary ---
Author Organization [employer] Address [address] [place] [address] [address] [place] [address] Care Team Providers Care Information Security Manager Name Role Phone Unavailable Primary Care Provider Unavailabl e Encounter Details Date Type Department Care Team (Latest Contact Info) Description 09/03/2022 Abstract [facility] CONVERSIONS Dental, Provider, DDS Social History Tobacco [...]
--- OUTSIDE RECORDS SUMMARY | 2025-03-14 13:32 | XMS_ITS | Clinical Summary ---
Author Organization [employer] Address [address] [place] [address] [address] [place] [address] Care Team Providers Care Top Tile Decorator Name Role Phone Unavailable Primary Care Provider [...] Most Recently Relevant to Health Maintenance Insurance [facility]
--- OUTSIDE RECORDS SUMMARY | 2025-03-14 13:33 | XMS_ITS | Patient Health Record ---
Author Organization [facility] Address [address] [place] [address] Care Team Providers Care Facility Maintenance Worker Name Role Phone Po Erik ALEXANDER Primary Care Provider Alejandro Anglin [phone] Allergies Allergen (clinical drug ingredient) Drug/Non Drug [...] Problem Status W/U Status Risk Notes Problem 364501428 Encounter for screening for malignant neoplasm of colon (Z12.11) Active confirmed Problem 095432892 History of adenomatous polyp of colon (Z86.010) Active confirmed Problem Screening for malignant neoplasm of rectum (693117190) Encounter for screening for malignant neoplasm of rectum (Z12.12) Active confirmed Problem 175170645 Preprocedural examination (Z01.818) Active confirmed Problem 336401749 Long-term use of aspirin therapy (Z79.82) Active confirmed Problem 26717283 Constipation, unspecified constipation type (K59.00) Active confirmed Plan Of Treatment Future Test Test Name Order Date COLONOSCOPY 12/10/2011 COLONOSCOPY 03/17/2017 Insurance Providers Payer Name Payer Address Payer Phone Subscriber Number Group Number Insured Name Patient Relationship to Insured Coverage Start Date Coverage End Date [facility] [address] [address] [place] [phone] [id number] [place], [place] Self - patient is the insured Medical (General) History Medical History History ICD Code Small tubular adenoma remove d in 2000 during a screening colonoscopy----negative colonoscopies in 2005 and 12/2011 except for diverticulosis and internal hemorrhoids Hypertension Bipolar disease and schizophrenia Hyperlipidemia Denies AK,DM,CVA,Lung disease,renal dise ase Negative CT of abdomen in 05/2022 except some diverticulosis and constipation Surgical History Surgery Date(Month/Year) ALANNA Benign breast biopsies Broken right wrist
[2025-03-14 13:36] LABS: Alanine Aminotransferase 15 U/L (0-31); Albumin Level 4.2 g/dL (3.5-5.0); Alkaline Phosphatase 81 U/L (39-117); Anion Gap 12 (12-20); Aspartate Amino Transferase 26 U/L (5-31); Bilirubin Total 1.4 mg/dL (0.0-1.0); Blood Urea Nitrogen 17 mg/dL (9-16); Calcium 9.6 mg/dL (8.4-10.2); Carbon Dioxide 29 mmol/L (22-29); Chloride 103 mmol/L (96-108); Cholesterol 195 mg/dL (<200); Estimated Glomerular Filt Rate > 60; Free T4 (Free Thyroxine) 1.21 ng/dL (0.71-1.85); Glucose Random 88 mg/dL (60-115); HDL Cholesterol 87 mg/dL (>40); LDL Cholesterol Calculated 99 mg/dL (<100); Potassium 3.6 mmol/L (3.3-5.1); Sodium 140 mmol/L (135-145); Thyroid Stimulating Hormone 1.48 uIU/mL (0.32-4.0); Total Protein 7.2 g/dL (6.5-8.0); Triglycerides 46 mg/dL (<150); Vitamin D 25-OH Total 48.4 ng/mL (>30)
[2025-03-14 13:51] LABS: Folate 15.7 ng/mL (> or = 4.0); Vitamin B12 1722 pg/mL (200-900)
== END 2025-03-14 11:19 | disposition home or self-care (01) ==
LOC: HO.10HDL 11:18
PROVIDERS: Visit Provider Internal Medicine
DX: E78.00 Pure hypercholesterolemia, unspecified (principal)
CPT/HCPCS: 36415; 80053; 80061; 82306; 82607; 82746; 84439; 84443; 85025

== ENCOUNTER 2025-03-20 10:15 | Outpatient (AMB) | payer OTHER, SELFPAY ==
--- NOTE | 2025-03-20 11:01 | A.OFFVIS_ITS ---
VS Expanded 03/20/25 11:02 Height 5 ft 5 in Weight 138 lb 14.259 oz BMI 23.1 Intake Visit Reasons: Pure hypercholesterolemia Allergies MYESHA Inhibitors Allergy (Severe, Verified 02/28/25 13:31) ANGIOEDEMA WITH LISINOPRIL caffeine [CAFFEINE] Allergy (Severe, Verified 02/28/25 13:31) EXTREME PAIN IN BILATERAL KIDNEYS clozapine [From Clozaril] Allergy (Severe, Verified 02/28/25 13:31) Stomach Upset lisinopril Allergy (Severe, Verified 02/28/25 13:31) ANGIOEDEMA amoxicillin [AMOXICILLIN] Allergy (Intermediate, Verified 02/28/25 13:31) Stomach Upset atropine [Lomotil] Allergy (Intermediate, Verified 02/28/25 13:31) Stomach Upset bee pollen [BEE STINGS] Allergy (Intermediate, Verified 02/28/25 13:31) Swelling lovastatin Allergy (Intermediate, Verified 02/28/25 13:31) Cramps ziprasidone [From GEODON] Allergy (Intermediate, Verified 02/28/25 13:31) HALLUCINATIONS TUNA FISH Allergy (Severe, Uncoded 02/28/25 13:31) SEVERE INDIGESTION, rash From PROLIXIN Allergy (Intermediate, Uncoded 02/28/25 13:31) UNKNOWN lovastatin Allergy (Intermediate, Uncoded 02/28/25 13:31) cramping prolixen Allergy (Intermediate, Uncoded 02/28/25 13:31) seizure amox Allergy (Mild, Uncoded 02/28/25 13:31) GI upset Nutrition Presentation Details: Pt presents for MNT for hyperlipidemia Pt has question regarding constipation last bm : this AM typical meal B:Slovenian muffin with peanut butter and tea with honey snack: fruit or yogurt L: sand ham/cheese/lettuce, milk Dinner: potatoes in soup and beef , carrots snack on crackers, low sodium chips,w ater PA: ADL smoking/etoh: denies BS Monitoring Most Recent Diabetes Results: Cholesterol 195 mg/dL (<200) 03/14/25 HDL Cholesterol 87 mg/dL (>40) 03/14/25 Triglycerides 46 mg/dL (<150) 03/14/25 Creatinine 0.74 mg/dL (0.5-1.4) 03/14/25 Blood Urea Nitrogen 17 mg/dL (9-16) H 03/14/25 Sodium 140 mmol/L (135-145) 03/14/25 Potassium 3.6 mmol/L (3.3-5.1) 03/14/25 Chloride 103 mmol/L (96-108) 03/14/25 Carbon Dioxide 29 mmol/L (22-29) 03/14/25 Calcium 9.6 mg/dL (8.4-10.2) 03/14/25 AST 26 U/L (5-31) 03/14/25 ALT 15 U/L (0-31) 03/14/25 Total Protein 7.2 g/dL (6.5-8.0) 03/14/25 Albumin 4.2 g/dL (3.5-5.0) 03/14/25 SVZ-Zygmrqv-Gw.Jeor Equation Height: 5 ft 5 in Weight: 139 lb Resting Metabolic Rate: 1097.30 Calculated Activity Level: Mild Activity Calories Needed to Maintain Weight: 1508.79 Diagnosis Nutrition problem #1: altered nutrition labs As related to (etiology) #1: diagnosis As evidenced by (sign/symptom) #1: food recall [facility] Medical History (Updated 02/28/25 @ 13:33 by Monica Hannah PA-C) Impacted cerumen Schizophrenia Breast cancer screening by mammogram Upper respiratory infection Nasal congestion Tremors of nervous system UTI (urinary tract infection) Meningitis Otitis externa of right ear Pernicious anemia Obesity (BMI 30-39.9) Hyperbilirubinemia Hypercholesterolemia Vitamin D deficiency Urinary incontinence GERD (gastroesophageal reflux disease) Hypertension Thrombocytopenia Leukopenia Surgical History History of total abdominal hysterectomy and bilateral salpingo-oophorectomy H/O right wrist surgery History of tooth extraction History of tonsillectomy Family History Father Cancer Colon cancer Mother Cancer Colon cancer History of breast cancer Social History Household Members: Unknown / Unable to assess Household Members Other:: patient states Alone Housing: Apartment Alcohol intake: never Patient Tobacco Use Status: Former Tobacco user Tobacco use type: Cigarette Years Smoked: quit 1960 e-Cigarette/Vaping Use: Never Used Second Hand Smoke Exposure: No Advance Directives Date on File: 12/14/22 service: No Current occupational status: disabled Cognitive needs: No Hearing needs: No Vision needs: Yes Assessment & Plan Assessment & Plan (1) Hypercholesterolemia: Code(s): E78.00 - Pure hypercholesterolemia, unspecified Category: Medical Plan: Wt: 63 Kg ( 03/15 ) Est kcal needs as per MSJ: 7432-7870 (40% carb, 30% protein/fat) Est fluid needs as per 25-30 ml/d: 1900 Est prot per day as per 1 g/kg bw: 60- 72 Recommend fiber intake : 8-10 g per day and gradually increase to 25-28 g per day for women and 35-38 g for men or as tolerated Recommend sodium intake per day : less than 2000 mg Educated patient on: ( R = reviewed V = verbalizes understanding N/R = needs review N/A = not applicable * Food sources of carbohydrate, adequate serving sizes and its role in various health conditions: R V N/R * Differences between complex carbohydrates a simple carbohydrates, role of fiber in diet: R * Lean protein sources of foods: R * Differences between types of fats and role in diet (mono on saturated fat fatty acids, saturated fatty acids, trans fats): R V N/R * Food sources of sodium in salt and healthy modifications for heart health in kidney health: R V R/V * Vitamins and minerals: R V N/R * Healthy plate method concept: R * Physical activity: Benefits a precaution: R V N/R * Patient Instructions: Include fiber rich foods : have oatmeal 2 times a week, add beans or lentils to your soups Keep hydrated by choosing water/1% or 2% fat milk, prune juice diluted with water Coding Level of Care Code Nutr Indiv Intake (60622) Diagnoses Hypercholesterolemia E78.00 Time Spent (min) 30
[2025-03-20 11:02] VITALS: BMI 23.1
--- OUTSIDE RECORDS SUMMARY | 2025-03-20 11:27 | XMS_ITS | Clinical Summary ---
Author Organization [employer] Address [address] [place] [address] [address] [place] [address] Care Team Providers Care Setter Molding And Coremaking Machines Name Role Phone Unavailable Primary Care Provider [...] Most Recently Relevant to Health Maintenance Insurance [facility]TE [facility] - [facility]
--- OUTSIDE RECORDS SUMMARY | 2025-03-20 11:27 | XMS_ITS | Encounter Summary ---
Author Organization [employer] Address [address] [place] [address] [address] [place] [address] Care Team Providers Care Gis Specialist Name Role Phone Unavailable Primary Care Provider Unavailabl e Encounter Details Date Type Department Care Team (Latest Contact Info) Description 09/03/2022 Abstract [facility] CONVERSIONS Dental, Provider, DDS Social History [...]
[2025-03-26 21:42] VITALS: BMI 23.1
== END 2025-03-20 11:41 | disposition home or self-care (01) ==
LOC: HO.ENCR 10:16
PROVIDERS: PCP Internal Medicine; Visit Provider Dietitian, Registered
DX: E78.00 Pure hypercholesterolemia, unspecified (principal)

== ENCOUNTER → 2025-03-20 10:15 | Outpatient (BNVA) | payer OTHER, SELFPAY | PROVIDERS: PCP Internal Medicine; Visit Provider Dietitian, Registered | DX: E78.00 Pure hypercholesterolemia, unspecified (principal); Z71.3 Dietary counseling and surveillance | CPT/HCPCS: 97802 ==

== ENCOUNTER 2025-04-12 11:31 | Outpatient (AMB) | payer OTHER, SELFPAY ==
--- OUTSIDE RECORDS SUMMARY | 2025-04-12 11:34 | XMS_ITS | Encounter Summary ---
Author Organization [employer] Address [address] [place] [address] [address] [place] [address] Care Team Providers Care Rubber Insulator Name Role Phone Unavailable Primary Care Provider Unavailabl e Encounter Details Date Type Department Care Team (Latest Contact Info) Description 09/03/2022 Abstract [facility] CONVERSIONS Dental, Provider, DDS Social History Tobacco [...]
--- NOTE | 2025-04-12 11:35 | MHC.PC.OV ---
Vital Signs 04/12/25 11:36 Height 5 ft 5 in Weight 139 lb 6 oz BMI 23.2 BP 130/60 Blood Pressure Location Lt brachial Position Sitting Pulse 62 Pulse Source Pulse Oximeter Temp 97.1 F Temp Source Temporal Artery Scan Pulse Oximetry (%) 97 Oxygen Delivery Method Room Air Intake Visit Reasons: check on her ears Intake Note: Patient is here to follow up on [facility] check. Special Services Agent Required: No Die Operator: Not Required per policy Accompanied by: Self / Same As Patient Allergies MYESHA Inhibitors Allergy (Severe, Verified 04/12/25 11:47) ANGIOEDEMA WITH LISINOPRIL caffeine [CAFFEINE] Allergy (Severe, Verified 04/12/25 11:47) EXTREME PAIN IN BILATERAL KIDNEYS clozapine [From Clozaril] Allergy (Severe, Verified 04/12/25 11:47) Stomach Upset lisinopril Allergy (Severe, Verified 04/12/25 11:47) ANGIOEDEMA amoxicillin [AMOXICILLIN] Allergy (Intermediate, Verified 04/12/25 11:47) Stomach Upset atropine [Lomotil] Allergy (Intermediate, Verified 04/12/25 11:47) Stomach Upset bee pollen [BEE STINGS] Allergy (Intermediate, Verified 04/12/25 11:47) Swelling lovastatin Allergy (Intermediate, Verified 04/12/25 11:47) Cramps ziprasidone [From GEODON] Allergy (Intermediate, Verified 04/12/25 11:47) HALLUCINATIONS TUNA FISH Allergy (Severe, Uncoded 04/12/25 11:47) SEVERE INDIGESTION, rash From PROLIXIN Allergy (Intermediate, Uncoded 04/12/25 11:47) UNKNOWN lovastatin Allergy (Intermediate, Uncoded 04/12/25 11:47) cramping prolixen Allergy (Intermediate, Uncoded 04/12/25 11:47) seizure amox Allergy (Mild, Uncoded 04/12/25 11:47) GI upset Medication List - Last Reconciled 04/12/25 by Monica Hannah PA-C atorvastatin 10 mg PO DAILY [Disposable Underpad 30 x 36 heavy flow As directed] [DISPOSABLE UNDERWEAR As directed] esomeprazole magnesium 20 mg PO DAILY [FOLDING ALUMINUM ROLLATOR WALKER As directed] garlic 1,000 mg PO DAILY [gloves As directed1. Quad Cane 2. Incontinence pull ups 3. Gloves 4. Incontinence wipes 5. Incontinence bed pads] hydrochlorothiazide 25 mg PO DAILY hydroxyzine HCl 10 mg PO .QD PRN 90 days [INCONTINENCE BED PADS As directed1. Quad Cane 2. Incontinence pull ups 3. Gloves 4. Incontinence wipes 5. Incontinence bed pads] [Incontinence pull ups LARGE As directed1. Quad Cane 2. Incontinence pull ups 3. Gloves 4. Incontinence wipes 5. Incontinence bed pads] [INCONTINENCE WIPES As directed1. Quad Cane 2. Incontinence pull ups 3. Gloves 4. Incontinence wipes 5. Incontinence bed pads] losartan 25 mg PO DAILY 90 days magnesium oxide 400 mg PO DAILY fqefokir-htnvatmcr-PA 3.5-10,000-1 mg/mL-unit/mL-% 4 drps otic (ears) Q8H 7 days [OFFSET HANDLE CANE As directed] peg [id number]-fsatztmqrntv-jqrmyupa 1-0.2-0.2 % (Artificial Tears ([id number])) 1 drp ophthalmic (eye) TID [PERSONAL CLEASING WIPES As directed] [POWDER FREESYNTHETIC EXAM GLOVES As directed] [QUAD CANE As directed1. Quad Cane 2. Incontinence pull ups 3. Gloves 4. Incontinence wipes 5. Incontinence bed pads] triamcinolone acetonide 0.5% 1 appl topical DAILY trifluoperazine 5 mg PO DAILY vitamin B complex 1 tab PO DAILY vitamin E mixed units PO Tobacco use date assessed: 04/12/25 Fall risk assessment: No Falls in past year Last assessed Fall Risk: 04/12/25 Dental Screening Dental Screen Date: 02/28/25 HPI check on her ears HPI Details 80-year-old female with past medical history of urinary incontinence, hypercholesterolemia, GERD, hypertension, osteopenia and schizophrenia last seen 02/2025 coming in for follow up on ears. Presenting with ear ringing and ear discomfort. Symptomatic ear ringing, described as a roaring sound, occurs every night, affecting the left ear. Originally commenced ufxz-cdt-zcxhxnn ear drops intended for ear discomfort. Clinical symptoms suggest a fungal infection potentially exacerbated by prior antibiotic ear drop usage. Current issues began with an episode of suspected bacterial infection, managed initially by provided antibiotic ear drops, but subsequently progressed to possible fungal otitis. No additional symptoms such as fever, otorrhea, or aural bleeding have been reported. [facility] Medical History Impacted cerumen Schizophrenia Breast cancer screening by mammogram Upper respiratory infection Nasal congestion Tremors of nervous system UTI (urinary tract infection) Meningitis Otitis externa of right ear Pernicious anemia Obesity (BMI 30-39.9) Hyperbilirubinemia Hypercholesterolemia Vitamin D deficiency Urinary incontinence GERD (gastroesophageal reflux disease) Hypertension Thrombocytopenia Leukopenia Surgical History History of total abdominal hysterectomy and bilateral salpingo-oophorectomy H/O right wrist surgery History of tooth extraction History of tonsillectomy Family History Father Cancer Colon cancer Mother Cancer Colon cancer History of breast cancer Social History Household Members: Unknown / Unable to assess Household Members Other:: patient states Alone Housing: Apartment Alcohol intake: never Patient Tobacco Use Status: Former Tobacco user Tobacco use type: Cigarette Years Smoked: quit 1960 e-Cigarette/Vaping Use: Never Used Second Hand Smoke Exposure: Yes Advance Directives Date on File: 12/14/22 service: No Current occupational status: disabled Cognitive needs: No Hearing needs: No Vision needs: Yes Questionnaire Thrive Questionnaire Date Thrive assessed: 02/11/25 I am a: Patient What is your living situation today?: I have a steady place to live Within the past 12 months, did the food you bought not last and you didn't have the money to get more?: Never true Within the past 12 months, did you worry whether your food would run out before you got money to buy more?: Sometimes True Do you have trouble paying for medicines?: No Do you have trouble getting transportation to medical appointments?: No Do you have trouble paying your heating and electricity bill?: No Do you have trouble taking care of your child, family member or friend?: I choose not to answer this question Do you have trouble with day-to-day activities such as bathing, preparing meals, shopping, managing finances, etc.?: No Are you currently unemployed and looking for a job?: Yes Are you interested in more education?: Yes THRIVE Score: 1 TRACEE-7 AMB Questionnaire TRACEE-7 Date TRACEE - 7 assessed: 02/28/25 Source: Developed by Drs. Alejandro Barnes, Kianna Garcia, Devan Freeman and colleagues, with an educational neetu from [employer]. Review of Systems Const Denies body aches, Denies chills, Denies fever(s), Denies headache(s) and Denies poor appetite Eyes Reports no additional complaints ENT Reports as per HPI, Denies dysphagia, Denies dizziness, Denies headache(s) and Denies odynophagia Card Denies chest pain, Denies syncope, Denies edema, Denies irregular heart rhythm, Denies lightheadedness and Denies dyspnea Resp Denies cough and Denies dyspnea GI Denies abdominal pain, Denies constipation, Denies dysphagia, Denies diarrhea, Denies nausea, Denies odynophagia and Denies vomiting Reports no additional complaints Musc Reports no additional complaints and Denies abnormal gait Skin/Breast Reports system reviewed and no additional complaints, except as documented Neuro Denies abnormal gait, Denies dizziness, Denies syncope and Denies headache(s) Psych Reports no additional complaints Physical exam (Primary Care) Vital Signs: Last Vital Signs Temp 97.1 F 04/12/25 11:36 Pulse 62 04/12/25 11:36 BP 130/60 04/12/25 11:36 Pulse Ox 97 04/12/25 11:36 Oxygen Delivery Method Room Air 04/12/25 11:36 BMI result Body Mass Index 23.2 Tobacco/Smoking Status: Tobacco use Status Tobacco use date assessed 04/12/25 04/12/25 11:42 Patient Tobacco Use Status Former Tobacco user 04/12/25 11:42 Tobacco use type Cigarette 04/12/25 11:42 e-Cigarette/Vaping Use Never Used 04/12/25 11:42 Thrive Assessment: Date of Thrive Assessment Date Thrive assessed 02/11/25 04/12/25 11:42 Const General: cooperative, healthy appearing, comfortable and no acute distress Orientation/consciousness: patient oriented x3 HENMT Head: Yes normocephalic Ears: hearing grossly normal bilaterally, TM's normal bilaterally and Abnormal EAC present otic discharge (fungal) other General nose exam: Normal external nose present Eyes General: appearance normal, both eyes and all related structures Conjunctivae: conjunctivae normal Neck Neck: Yes full ROM and Yes no lymphadenopathy Resp Effort & Inspection: normal respiratory effort Auscultation: clear to auscultation bilaterally, no crackles, no rales, no rhonchi and no wheezes Cardio Rate: regular rate Rhythm: regular rhythm Skin General skin exam: no rashes or lesions noted Neuro General: patient oriented x3 Gait exam (Neuro): Normal gait present Extrem General: Yes normal to inspection, Yes full ROM and No edema Psych Affect: normal affect Attitude: cooperative Insight: Good insight present (Psych) Judgement: Good judgement present (Psych) Coding Level of Care Code Est Pt Level 3 (52532) Diagnoses Impacted cerumen H61.20 Otitis externa H60.90 Assessment & Plan Assessment & Plan (1) Impacted cerumen: Code(s): H61.20 - Impacted cerumen, unspecified ear Category: Medical Plan: Cerumen and tissue successfully removed at last visit. No cerumen in the canal at this time. (2) Otitis externa: Code(s): H60.90 - Unspecified otitis externa, unspecified ear Category: Medical Plan: During the encounter, an evaluation confirmed the presence of a fungal infection in the patient's left ear contributing to the reported tinnitus. I have recommended the use of clotrimazole ear drops to effectively target this condition. Instructions were made to cease the prior usage of antibiotic and clwj-hqy-ddfdmsy ear drops, as they were unsuitable for the fungal etiology. I instructed the patient to refrain from using Q-tips to prevent further irritation. Plan This note was constructed using voice recognition software. While every effort has been made to ensure accuracy and senior ui software engineer, still areas may have been included sometimes these areas may affect the content or meeting of the given symptoms. Total time spent caring for the patient today was 20 minutes. This includes time spent before the visit reviewing the chart, time spent during the visit, and time spent after the visit and documentation. Patient was informed and verbally consented to the use of an ambient scribe for clinic note documentation during this visit. Medications: New clotrimazole 1% 1 appl topical BID 2 weeks 10 mL 0RF Discontinued apgktpdz-axrnbnmhz-EF 3.5-10,000-1 mg/mL-unit/mL-% Discontinued Reason: Patient no longer taking 4 drps otic (ears) Q8H 7 days 10 mL 0RF
[2025-04-12 11:36] VITALS: BP 130/60; PULSE 62; TEMP 36.2; O2SAT 97; BMI 23.2
== END 2025-04-12 12:03 | disposition home or self-care (01) ==
LOC: HO.HMCH 11:32
PROVIDERS: PCP Internal Medicine
DX: H61.22 Impacted cerumen, left ear (principal); H60.92 Unspecified otitis externa, left ear

== ENCOUNTER → 2025-04-12 11:31 | Outpatient (BNVA) | payer OTHER, SELFPAY | PROVIDERS: PCP Internal Medicine | DX: H60.92 Unspecified otitis externa, left ear (principal) | CPT/HCPCS: 99212 ==

== ENCOUNTER 2025-04-24 10:30 | Emergency (ER) | payer OTHER, SELFPAY ==
--- NOTE | ~2025-04-24 | XR_ITS ---
EXAMINATION: XR CHEST CLINICAL INFORMATION: SOB, cough COMPARISON: May 17, 2024 TECHNIQUE: 2 views of the chest were obtained. FINDINGS: No significant abnormality is noted involving the heart, lungs, mediastinum, bony thorax or soft tissues. XR/XR chest 2V IMPRESSION: Stable Chex x-ray, no acute disease Electronically signed by: João Bermeo MD 04/24/2025 01:01 PM EDT
--- NOTE | 2025-04-24 10:37 | ECG_ITS ---
Test Reason : SOB Blood Pressure : */* mmHG Vent. Rate : 69 BPM Atrial Rate : 69 BPM P-R Int : 154 ms QRS Dur : 120 ms QT Int : 406 ms P-R-T Axes : 49 -79 31 degrees QTcB Int : 435 ms Normal sinus rhythm Right bundle branch block Left anterior fascicular block Bifascicular block Abnormal ECG When compared with ECG of 17-May-2024 14:39, T wave inversion no longer evident in Inferior leads Referred By: Generic ED Physician Electronically Signed By: DIANE TAFOYA
[2025-04-24 10:42] VITALS: BP 108/70; PULSE 74; RESP 16; TEMP 36.7; O2SAT 97; BMI 22.6
--- NOTE | 2025-04-24 11:19 | ED.DIZZY ---
HPI - Dizziness General Chief Complaint: Dizziness Stated Complaint: Diff Walking Diff Breathing Dizzy Time Seen by Provider: 04/24/25 11:03 Source: patient, RN notes reviewed and old records reviewed Limitations: physical limitation History of Present Illness ED Provider: Carolyn Beach PA-C HPI Narrative: Patient reports to ED today for evaluation of dizziness/ lightheadedness that started 3 days ago. BIBA with different CC. PMH significant for schizophrenia and gait instability. She lives at home alone and has both a cane and walker to ambulate. SHe has had to go to PT before for gait stability but it has been a while . When she woke up three days ago she felt slightly light headed when she got her self out of bed. She had to steady herself before getting up again. For the following two days she had to use her walker more so she would not get the sensation of passing out while walking. She did not syncope or experience any extremity weakness, cp, palpitation, or sob during those times. WHen she continues to changes position or try to ambulate, she feels light headed again. No falls. She reports to feelng like she drinks enough and has no bowel/urinary incontinence, dysuria, urgency, frequency, headaches, sore throat, nasal congestion, coughing, abd pain nausea or vomiting. SHe did have single episode of brown loose stools yesterday but attributes this to the big frozen pot pie she ate. According to patient-Over one month ago, she was seen by PCP and diagnosed with AOM. She followed up a week later although improved, due to still discomfort on the right side. She was then dx'd with an external ear infection same side, told it was fungus and given trops that have 4 medications in one . This ear still bothers her. MD elicited complaint: dizziness, lightheadedness and difficulty walking Timing: gradual onset, intermittent and episodic Severity: mild Description: room spinning , lightheadedness and difficulty walking Context: change in body position Exacerbating factors: movement/ambulation and change in body position Relieving factors: remaining still and lying down Associated symptoms: other (generalized weakness) Related Data Home Medications ?Medication ?Instructions ?Recorded ?Confirmed garlic 1,000 mg capsule 1,000 mg PO DAILY 03/24/23 04/12/25 peg [id number] 1 1 drp ophthalmic (eye) TID 03/24/23 04/12/25 %-0.2 %-0.2 % eye drops (Artificial Tears ([id number])) trifluoperazine 5 mg tablet 5 mg PO DAILY 03/24/23 04/12/25 magnesium oxide 400 mg PO DAILY 02/11/25 04/12/25 vitamin B complex 1 tab PO DAILY 02/11/25 04/12/25 vitamin E mixed 400 unit capsule unit PO 02/11/25 04/12/25 Previous Rx's ?Medication ?Instructions ?Recorded DISPOSABLE UNDERWEAR #120 ea 04/14/22 Disposable Underpad 30 x 36 heavy #100 ea 04/14/22 flow OFFSET HANDLE CANE #1 ea 04/14/22 PERSONAL CLEASING WIPES #100 ea 04/14/22 FOLDING ALUMINUM ROLLATOR WALKER #1 ea 10/08/22 POWDER FREESYNTHETIC EXAM GLOVES #1 ea 10/08/22 INCONTINENCE BED PADS #100 ea 09/29/23 INCONTINENCE WIPES #1 ea 09/29/23 Incontinence pull ups LARGE #100 ea 09/29/23 QUAD CANE #1 ea 09/29/23 gloves #1 ea 09/29/23 esomeprazole magnesium 20 mg 20 mg PO DAILY #60 caps 05/09/24 capsule,delayed release losartan 25 mg tablet 25 mg PO DAILY 90 days #90 tabs 09/24/24 hydrochlorothiazide 25 mg tablet 25 mg PO DAILY #90 tabs 10/04/24 hydroxyzine HCl 10 mg tablet 10 mg PO .QD PRN Anxiety 90 days 11/08/24 #90 tabs triamcinolone acetonide 0.5 % 1 appl topical DAILY #15 grams 12/19/24 topical cream atorvastatin 10 mg tablet 10 mg PO DAILY #90 tabs 02/04/25 clotrimazole 1 % topical solution 1 appl topical BID 2 weeks #10 mL 04/12/25 Allergies Allergy/AdvReac Type Severity Reaction Status Date / Time MYESHA Inhibitors Allergy Severe ANGIOEDEMA Verified 04/24/25 10:45 WITH LISINOPRIL caffeine [CAFFEINE] Allergy Severe EXTREME Verified 04/24/25 10:45 PAIN IN BILATERAL KIDNEYS clozapine [From Clozaril] Allergy Severe Stomach Verified 04/24/25 10:45 Upset lisinopril Allergy Severe ANGIOEDEMA Verified 04/24/25 10:45 amoxicillin [AMOXICILLIN] Allergy Intermediate Stomach Verified 04/24/25 10:45 Upset atropine [Lomotil] Allergy Intermediate Stomach Verified 04/24/25 10:45 Upset bee pollen [BEE STINGS] Allergy Intermediate Swelling Verified 04/24/25 10:45 lovastatin Allergy Intermediate Cramps Verified 04/24/25 10:45 ziprasidone [From GEODON] Allergy Intermediate HALLUCINATI Verified 04/24/25 10:45 ONS TUNA FISH Allergy Severe SEVERE Uncoded 04/12/25 11:47 INDIGESTION, rash From PROLIXIN Allergy Intermediate UNKNOWN Uncoded 04/12/25 11:47 lovastatin Allergy Intermediate cramping Uncoded 04/12/25 11:47 prolixen Allergy Intermediate seizure Uncoded 04/12/25 11:47 amox Allergy Mild GI upset Uncoded 04/12/25 11:47 Review of Systems Review of Systems: Yes all other systems are reviewed and are negative PMFSH Past Medical History Attestation statement: The following information was validated with the patient. Source: old records reviewed and nursing notes reviewed Medical History Impacted cerumen Schizophrenia Breast cancer screening by mammogram Upper respiratory infection Nasal congestion Tremors of nervous system UTI (urinary tract infection) Meningitis Otitis externa of right ear Pernicious anemia Obesity (BMI 30-39.9) Hyperbilirubinemia Hypercholesterolemia Vitamin D deficiency Urinary incontinence GERD (gastroesophageal reflux disease) Hypertension Thrombocytopenia Leukopenia Surgical History History of total abdominal hysterectomy and bilateral salpingo-oophorectomy H/O right wrist surgery History of tooth extraction History of tonsillectomy Family History Family History Father Cancer Colon cancer Mother Cancer Colon cancer History of breast cancer Social History Social History Household Members: Unknown / Unable to assess Household Members Other:: patient states Alone Housing: Apartment Alcohol intake: never Patient Tobacco Use Status: Former Tobacco user Tobacco use type: Cigarette Years Smoked: quit 1960 e-Cigarette/Vaping Use: Never Used Second Hand Smoke Exposure: Yes Advance Directives: Yes Advance Directives on File: Yes Advance Directives Date on File: 12/14/22 service: No Current occupational status: disabled Cognitive needs: No Hearing needs: No Vision needs: Yes Physical Exam Vital Signs: Vital Signs: Last Vital Signs Temp 97.8 F 04/24/25 15:03 Pulse 56 04/24/25 15:03 Resp 16 04/24/25 15:03 BP 156/84 H 04/24/25 15:03 Pulse Ox 100 04/24/25 15:03 O2 Del Method Room Air 04/24/25 15:03 BMI result Body Mass Index 22.6 Const: General: cooperative, healthy appearing, comfortable and no acute distress Nutritional Appearance: average body habitus Orientation/consciousness: patient oriented x3 Limitations: no limitations HEENT: Head: Yes normal to inspection and Yes No palpable skull fracture present Ears: hearing grossly normal bilaterally General nose exam: Normal external nose present Face and sinus: Yes normal facial exam Mouth: Abnormal oral and palatal mucosa present (dry) Throat: Yes posterior oropharynx normal Eyes: General: appearance normal, both eyes and all related structures Visual Nicholson: normal visual nicholson by confrontation Alignment and Position: alignment normal Periorbital: periorbital findings normal Eyelids: Yes eyelids normal Conjunctivae: conjunctivae normal Sclerae: sclerae normal Corneas: corneas normal Pupils: Equal, round and reactive pupils present Neck: Neck: Yes normal visual inspection, Yes full ROM and Yes no lymphadenopathy Chest: Chest palpation & inspection: normal inspection of the chest Resp: Effort & Inspection: normal respiratory effort and able to speak in complete sentences Auscultation: clear to auscultation bilaterally Cardio: Jugular venous distension: no JVD Rhythm: regular rhythm GI: Inspection: Yes normal to inspection and Yes other (nontender) Auscultation: normal bowel sounds : Other: NO CVA/ bladder TTP Skin: General skin exam: no rashes or lesions noted and elasticity normal Lesions: no lesions Neuro: General: patient oriented x3 Cranial nerves: Yes CN's II-XII intact bilaterally, Yes Facial sensation intact/muscles of mastication intact, Yes Equal, round and reactive pupils present and Yes Bilaterally intact EOM present Cognition (Neuro): normal cognition Motor exam (neuro): 5/5 motor strength present throughout Extrem: General: Yes normal to inspection, Yes full ROM and Yes capillary refill normal Psych: Appearance: grossly normal Mental Status: mental status grossly normal Medications Administered Discontinued Medications Generic Name Dose Route Start Last Admin Trade Name Unique PRN Reason Stop Dose Admin Sodium Chloride 1,000 mls @ 999 mls/hr 04/24/25 11:30 04/24/25 13:02 Ns IV 04/24/25 12:30 Infused .Q1H1M ONE Infusion Medical Decision Making Medical Decision Making [facility] Narrative: Well-appearing 80-year-old female with history of schizophrenia presenting to emergency department today over concerns of feeling slightly dehydrated and lightheaded. She is denying any cardiac or respiratory symptoms in his voiding regularly however on physical exam she appears to have mild dry mucous membranes. Basic labs were ordered along with IV fluids. Orthostatics were positive. We will continue to monitor and update plan based on response to IVFs and labs results. She has clear lungs and a soft abdomen and imaging not indicated at this time. Labs show mild PASCUAL. 2:45 pm: IVF finished, BMP repeated, closed gap. Patient feels back to her baseline. Passed her gait evaluation. She will be discharged to home with instructions to stay hydrated and to follow up outpatient with ENT as she has chronic right ear pain. Will give acetic acid drops. Differential Diagnosis Differential Diagnoses: The differential diagnosis associated with the presentation includes dehydration, PASCUAL, UTI, anemia, serous OM, BPPV Admission/Observation Consideration of admission/observation: Escalation of care including admission/observation considered Patient would have been admitted to the hospital had her work up had any findings where hospital admission was appropriate and her clinical presentation warranted hospital admission. Lab Data MDM Lab Attestation statement: I reviewed the patient's lab results. Mild PASCUAL. No anemia. 04/24/25 11:34 04/24/25 13:44 Labs: Lab Results 04/24/25 04/24/25 04/24/25 Range/Units 11:34 12:57 13:44 WBC 3.7 L (4.8-10.8) X10*3/uL RBC 4.64 (4.20-5.50) X10*6/uL Hgb 12.4 (12.0-16.0) g/dl Hct 38.0 (37.0-47.0) % MCV 81.9 (80.0-98.0) fL MCH 26.7 L (27.0-33.0) pg MCHC 32.6 (31.0-35.0) g/dl RDW 16.0 (11.0-16.0) % Plt Count 143 L (160-400) X10*3/uL MPV 11.7 (9.4-12.3) fL Immature Gran % (Auto) 0.0 (0.0-0.4) % Neut % (Auto) 46.5 (45-73) % Lymph % (Auto) 37.8 (20-40) % [place] % (Auto) 12.4 H (2-11) % Eos % (Auto) 2.2 (0-4) % Baso % (Auto) 1.1 (0-2) % Lymph # (Auto) 1.4 (1.2-4.9) X10*3/uL [place] # (Auto) 0.5 (0.1-1.2) X10*3/uL Eos # (Auto) 0.1 (0.0-0.4) X10*3/uL Baso # (Auto) 0.0 (0.0-0.2) X10*3/uL Abs Immat Gran (auto) 0.00 (0.00-0.03) X10*3/uL Absolute Neuts (auto) 1.7 L (2.0-8.3) x10*3/uL Absolute Nucleated RBC 0.000 (0.0-0.012) X10*3/uL Nucleated RBC % (auto) 0.0 (0.0-0.2) /100WBC Smear Tech's Comments VERIFIED Sodium 142 142 (135-145) mmol/L Potassium 4.0 4.2 (3.3-5.1) mmol/L Chloride 104 105 (96-108) mmol/L Carbon Dioxide 32 H 29 (22-29) mmol/L Anion Gap 10 L 12 (12-20) BUN 20 H 18 H (9-16) mg/dL Creatinine 0.97 0.85 (0.5-1.4) mg/dL Estim Creat Clear Calc 40.2 45.9 Estimated GFR 55 > 60 Random Glucose 77 92 (60-115) mg/dL Calcium 9.4 9.6 (8.4-10.2) mg/dL Troponin I High Sens < 2.7 (<3.5-17.0) ng/L Urine Color Dark Yellow Urine Appearance Clear Urine pH 7.5 (5.0-9.0) Ur Specific [place] 1.010 (1.005-1.025) Urine Protein Negative (Neg-Trace) mg/dL Urine Glucose (UA) Negative (Negative) mg/dL Urine Ketones Negative (Negative) mg/dL Urine Blood Negative (Negative) Urine Nitrite Negative (Negative) Ur Leukocyte Esterase Negative (Negative) Influenza Type A (PCR) NEGATIVE (Negative) Influenza Type B (PCR) NEGATIVE (Negative) RSV RNA Qual (PCR) NEGATIVE (Negative) SARS-CoV-2 RNA (RT-PCR) NEGATIVE (Negative) Independent Interpretation I performed an independent interpretation of an: EKG and Plain X-Ray Interpretation: RBBB, no ischemia HR 69 bpm. RBBB LAFB, Compared to EKG on 05/17/24, no sig changes. Radiology Impression Discussion of test interpretation with radiology: I have reviewed the radiologist's reading. Radiologist Impression: no acute findings External Record Review External record reviewed: Office record Tests considered The following testing was considered but not selected: would had considered stroke work up and imaging had patient's symptoms and presentation been concerning for central cause of vertigo Prescription Management I considered prescription management with: Other (antivert considered, not needed no BPPV) Social Determinants Patient?s care significantly limited by Social Determinants of Health including: Other Social Determinant of Health Discharge Plan Discharge Clinical Impression: PASCUAL (acute kidney injury), Mild dehydration, Otalgia of right ear Patient Disposition: Home, Self-Care Instructions: Dehydration (DC), Earache (ED) Additional Instructions: You were seen in the emergency department today over concerns of dizzy/lightheadedness. On physical exam new. Mildly dehydrated by her dry mucous membranes. He has no overt infectious symptoms or signs of trauma. We initiated basic labs and EKG to screen for potential anemia electrolyte imbalance, UTI, or ischemia. You had labs suggestive of mild dehydration he received IV fluids while here and we repeated your labs which shows improvement. As your back to your baseline any past or ambulation trial we will discharge her to home please focus on hydration over the next several days. Please return for any new or worsening symptoms. Hop you continue to be well. Prescriptions: No Action (DME) OFFSET HANDLE CANE See Rx Instructions .Route .MEDSUPPLY Qty: 1 0RF Rx Instructions: As directed (DME) Disposable Underpad 30 x 36 heavy flow See Rx Instructions .Route .MEDSUPPLY Qty: 100 12RF Rx Instructions: As directed (DME) PERSONAL CLEASING WIPES See Rx Instructions .Route .MEDSUPPLY Qty: 100 12RF Rx Instructions: As directed (DME) DISPOSABLE UNDERWEAR XL MODERATE ABSORBENCY See Rx Instructions .Route .MEDSUPPLY Qty: 120 12RF Rx Instructions: As directed (DME) FOLDING ALUMINUM ROLLATOR WALKER See Rx Instructions .Route .MEDSUPPLY Qty: 1 12RF Rx Instructions: As directed (DME) POWDER FREESYNTHETIC EXAM GLOVES See Rx Instructions .Route .MEDSUPPLY Qty: 1 0RF Rx Instructions: As directed (DME) gloves See Rx Instructions .Route .MEDSUPPLY Qty: 1 12RF Rx Instructions: As directed1. Quad Cane 2. Incontinence pull ups 3. Gloves 4. Incontinence wipes 5. Incontinence bed pads (DME) INCONTINENCE BED PADS See Rx Instructions .Route .MEDSUPPLY Qty: 100 12RF Rx Instructions: As directed1. Quad Cane 2. Incontinence pull ups 3. Gloves 4. Incontinence wipes 5. Incontinence bed pads (DME) Incontinence pull ups LARGE See Rx Instructions .Route .MEDSUPPLY Qty: 100 11RF Rx Instructions: As directed1. Quad Cane 2. Incontinence pull ups 3. Gloves 4. Incontinence wipes 5. Incontinence bed pads (DME) INCONTINENCE WIPES See Rx Instructions .Route .MEDSUPPLY Qty: 1 12RF Rx Instructions: As directed1. Quad Cane 2. Incontinence pull ups 3. Gloves 4. Incontinence wipes 5. Incontinence bed pads (DME) QUAD CANE See Rx Instructions .Route .MEDSUPPLY Qty: 1 0RF Rx Instructions: As directed1. Quad Cane 2. Incontinence pull ups 3. Gloves 4. Incontinence wipes 5. Incontinence bed pads esomeprazole magnesium 20 mg capsule,delayed release(DR/EC) 20 mg PO DAILY Qty: 60 5RF losartan 25 mg tablet 25 mg PO DAILY 90 Days Qty: 90 2RF hydrochlorothiazide 25 mg tablet 25 mg PO DAILY Qty: 90 1RF triamcinolone acetonide 0.5 % cream 1 appl topical DAILY Qty: 15 0RF atorvastatin 10 mg tablet 10 mg PO DAILY Qty: 90 2RF Artificial Tears(vb-[id number]) 1-0.2-0.2 % Drops 1 drp ophthalmic (eye) TID trifluoperazine 5 mg Tablet 5 mg PO DAILY garlic 1,000 mg Capsule 1,000 mg PO DAILY hydroxyzine HCl 10 mg tablet 10 mg PO .QD PRN (Reason: Anxiety) 90 Days Qty: 90 1RF magnesium oxide 400 mg magnesium capsule 400 mg PO DAILY vitamin B complex Tablet 1 tab PO DAILY vitamin E mixed 400 unit capsule PO clotrimazole 1 % solution 1 appl topical BID 14 Days Qty: 10 0RF Referrals: Po,Erik Almonte MD [Primary Care Provider] - 3 days Interventions: ED Discharge Assessment Last Done: 04/24/25 15:03 Discharge Date/Time: 04/24/25 15:03 Print Language: Yemeni
[2025-04-24 11:49] LABS: Basophils Percent Auto 1.1 % (0-2); Eosinophils Absolute Auto 0.1 X10*3/uL (0.0-0.4); Eosinophils Percent Auto 2.2 % (0-4); Hemoglobin 12.4 g/dl (12.0-16.0); Lymphocytes Absolute Auto 1.4 X10*3/uL (1.2-4.9); Lymphocytes Percent Auto 37.8 % (20-40); MANUAL DIFF FLAG SCAN; Mean Corpuscular HGB Conc 32.6 g/dl (31.0-35.0); Mean Corpuscular Hemoglobin 26.7 pg (27.0-33.0); Mean Corpuscular Volume 81.9 fL (80.0-98.0); Mean Platelet Volume 11.7 fL (9.4-12.3); Monocytes Absolute Auto 0.5 X10*3/uL (0.1-1.2); Monocytes Percent Auto 12.4 % (2-11); Neutrophils Absolute Auto 1.7 x10*3/uL (2.0-8.3); Neutrophils Percent Auto 46.5 % (45-73); Platelet Count 143 X10*3/uL (160-400); Red Blood Count 4.64 X10*6/uL (4.20-5.50); SCAN SMEAR FLAG 1; White Blood Count 3.7 X10*3/uL (4.8-10.8)
[2025-04-24] MEDS: 0.9 % Sodium Chloride 1,000 ML 999 ML IV (11:51)
[2025-04-24 12:04] LABS: Anion Gap 10 (12-20); Blood Urea Nitrogen 20 mg/dL (9-16); Calcium 9.4 mg/dL (8.4-10.2); Carbon Dioxide 32 mmol/L (22-29); Chloride 104 mmol/L (96-108); Creatinine Clr Calc Pharmacy 40.2; Estimated Glomerular Filt Rate 55; Glucose Random 77 mg/dL (60-115); Sodium 142 mmol/L (135-145)
[2025-04-24 12:11] LABS: SLIDE REVIEW VERIFIED
[2025-04-24 12:16] LABS: Troponin-I High Sensitivity < 2.7 ng/L (<3.5-17.0)
[2025-04-24 12:24] LABS: Influenza A PCR NEGATIVE (Negative); Influenza B PCR NEGATIVE (Negative); Resp Syncy Virus RNA Qual PCR NEGATIVE (Negative); SARS COV2 PCR INHOUSE NEGATIVE (Negative)
--- OUTSIDE RECORDS SUMMARY | 2025-04-24 12:28 | XMS_ITS | Patient Health Record ---
Author Organization [facility] Address [address] [place] [address] Care Team Providers Care Composition Worker Name Role Phone Bryant Marina MD Primary Care Provider Unavaila ble Feng Rosi Unavailable [phone] Reason For Referral No Information Medications Medication SIG (Take, Route, Fr equency, Duration) Notes Start Date End Date Status Lipitor 10 MG 1 tablet Orally Once a day Active Aspir-81 81 MG 1 tablet Orally Once a day Active Cane as directed 09/30/2014 Active Physical Therapy . . . 2-3x/week for 3-4 weeks Active Geodon 60 MG 1 capsule with food Orally Twice a day Active Cortisone Active hydroCHLOROthiazide Active Toviaz 10 1 tablet Orally Once a day Active Problems Problem Type SNOMED Code ICD Code Onset Dates Problem Status W/U Status Risk Notes Problem Ankle sprain (26834137) Ankle Sprain (845.00) Active confirmed Problem Sprain of calcaneofibular ligament (95591167) Ankle Sprain/Late ral Ankle Sprain (845.02) Active confirmed Problem Edema (89019571) Edema (782.3) Active confirmed Problem Pain in limb (79296283) Pain in Limb (729.5) Active confirmed Plan Of Treatment Pending Test Test Name Order Date [id number] NAIL, 6 OR MORE 07/17/2014 [id number] NAIL, 6 OR MORE 09/30/2014 Insurance Providers Payer Name Payer Address Payer Phone Subscriber Number Group Number Insured Name Patient Relationship to Insured Coverage Start Date Coverage End Date [facility] [address] [place] [address] [id number] [facility] Hannah Self - patient is the insured Medical (General) History Medical History History ICD Code Anemia Anxiety Back,Hip,and Knee pain Cholesterol Cataracts Fibromyalgia Glaucoma Heart disease High blood pressure Kidney disease Macular degeneration RSD Psoriasis Measles Mumps Surgical History Surgery Date(Month/Year) tonsillectomy hysterectomy Hospitalization History Reason Date(Month/Year) [facility], overnight, troub le breathing 09/16/2014
[2025-04-24 12:48] VITALS: BP 141/68; PULSE 58
[2025-04-24 12:49] VITALS: BP 146/71; PULSE 58
[2025-04-24 12:51] VITALS: BP 147/79; PULSE 63
[2025-04-24 12:54] VITALS: BP 160/79; PULSE 60; RESP 20; TEMP 36.7; O2SAT 98
[2025-04-24 13:06] LABS: Appearance Urine Clear; Color Urine Dark Yellow; Glucose Urine UA Negative (Negative); Leukocyte Esterase Urine Negative (Negative); Nitrite Urine Negative (Negative); PH 7.5 (5.0-9.0); Urine Blood Negative (Negative); Urine Ketones Negative (Negative); Urine Protein Negative (Neg-Trace)
[2025-04-24 14:05] LABS: Anion Gap 12 (12-20); Blood Urea Nitrogen 18 mg/dL (9-16); Calcium 9.6 mg/dL (8.4-10.2); Carbon Dioxide 29 mmol/L (22-29); Chloride 105 mmol/L (96-108); Creatinine Clr Calc Pharmacy 45.9; Estimated Glomerular Filt Rate > 60; Glucose Random 92 mg/dL (60-115); Potassium 4.2 mmol/L (3.3-5.1); Sodium 142 mmol/L (135-145)
[2025-04-24 15:03] VITALS: BP 156/84; PULSE 56; RESP 16; TEMP 36.6; O2SAT 100
== END 2025-04-24 15:03 | disposition home or self-care (01) ==
PROVIDERS: Physician Assistant Medical; Emergency Provider Emergency Medicine Emergency Medical Services; PCP Internal Medicine
DX: N17.9 Acute kidney failure, unspecified (principal); E86.0 Dehydration; H92.01 Otalgia, right ear; R06.02 Shortness of breath; R05.9 Cough, unspecified; R26.89 Other abnormalities of gait and mobility; F20.9 Schizophrenia, unspecified; Z03.818 Encounter for observation for suspected exposure to other biological agents ruled out
CPT/HCPCS: 0241U; 36415; 71046; 80048; 81003; 84484; 85025; 93005; 96360; 99284; 99285

== ENCOUNTER → 2025-04-24 10:37 | Outpatient (BNV) | payer OTHER, SELFPAY | PROVIDERS: Emergency Provider Emergency Medicine Emergency Medical Services; PCP Internal Medicine; Visit Provider Internal Medicine | DX: I45.2 Bifascicular block (principal) | CPT/HCPCS: 93010 ==

== ENCOUNTER → 2025-04-24 10:45 | Outpatient (BNV) | payer OTHER, SELFPAY | PROVIDERS: PCP Internal Medicine; Visit Provider Radiology Diagnostic Radiology | DX: R06.02 Shortness of breath (principal) | CPT/HCPCS: 71046 ==

== ENCOUNTER 2025-06-05 13:08 | Outpatient (AMB) | payer OTHER, SELFPAY ==
--- NOTE | 2025-06-05 13:25 | A.OFFPC_ITS ---
Vital Signs 06/05/25 13:26 Height 5 ft 5 in Weight 135 lb BMI 22.5 BP 122/78 Blood Pressure Location Rt brachial Position Sitting Intake Visit Reasons: schizophrenia Internet Consultant Required: No Accompanied by: Self / Same As Patient Allergies MYESHA Inhibitors Allergy (Severe, Verified 06/05/25 13:38) ANGIOEDEMA WITH LISINOPRIL caffeine (CAFFEINE) Allergy (Severe, Verified 06/05/25 13:38) EXTREME PAIN IN BILATERAL KIDNEYS clozapine (From Clozaril) Allergy (Severe, Verified 06/05/25 13:38) Stomach Upset lisinopril Allergy (Severe, Verified 06/05/25 13:38) ANGIOEDEMA amoxicillin (AMOXICILLIN) Allergy (Intermediate, Verified 06/05/25 13:38) Stomach Upset atropine (Lomotil) Allergy (Intermediate, Verified 06/05/25 13:38) Stomach Upset bee pollen (BEE STINGS) Allergy (Intermediate, Verified 06/05/25 13:38) Swelling lovastatin Allergy (Intermediate, Verified 06/05/25 13:38) Cramps ziprasidone (From GEODON) Allergy (Intermediate, Verified 06/05/25 13:38) HALLUCINATIONS TUNA FISH Allergy (Severe, Uncoded 04/12/25 11:47) SEVERE INDIGESTION, rash From PROLIXIN Allergy (Intermediate, Uncoded 04/12/25 11:47) UNKNOWN lovastatin Allergy (Intermediate, Uncoded 04/12/25 11:47) cramping prolixen Allergy (Intermediate, Uncoded 04/12/25 11:47) seizure amox Allergy (Mild, Uncoded 04/12/25 11:47) GI upset Medication List - Last Reconciled 06/05/25 by Erik Bailey MD atorvastatin 10 mg PO DAILY clotrimazole 1% 1 appl topical BID 2 weeks [Disposable Underpad 30 x 36 heavy flow As directed] [DISPOSABLE UNDERWEAR As directed] esomeprazole magnesium 20 mg PO DAILY [FOLDING ALUMINUM ROLLATOR WALKER As directed] garlic 1,000 mg PO DAILY [gloves As directed1. Quad Cane 2. Incontinence pull ups 3. Gloves 4. Incontinence wipes 5. Incontinence bed pads] hydrochlorothiazide 25 mg PO DAILY hydroxyzine HCl 10 mg PO .QD PRN 90 days [INCONTINENCE BED PADS As directed1. Quad Cane 2. Incontinence pull ups 3. Gloves 4. Incontinence wipes 5. Incontinence bed pads] [Incontinence pull ups LARGE As directed1. Quad Cane 2. Incontinence pull ups 3. Gloves 4. Incontinence wipes 5. Incontinence bed pads] [INCONTINENCE WIPES As directed1. Quad Cane 2. Incontinence pull ups 3. Gloves 4. Incontinence wipes 5. Incontinence bed pads] losartan 25 mg PO DAILY 90 days magnesium oxide 400 mg PO DAILY [OFFSET HANDLE CANE As directed] peg 874-ghmajqvqjvzs-vpbaiqlt 1-0.2-0.2 % (Artificial Tears ([id number])) 1 drp ophthalmic (eye) TID [PERSONAL CLEASING WIPES As directed] [POWDER FREESYNTHETIC EXAM GLOVES As directed] [QUAD CANE As directed1. Quad Cane 2. Incontinence pull ups 3. Gloves 4. Incontinence wipes 5. Incontinence bed pads] triamcinolone acetonide 0.5% 1 appl topical DAILY trifluoperazine 5 mg PO DAILY vitamin B complex 1 tab PO DAILY vitamin E mixed units PO Tobacco use date assessed: 04/12/25 Fall risk assessment: No Falls in past year Last assessed Fall Risk: 06/05/25 Dental Screening Dental Screen Date: 02/28/25 [facility] Medical History Impacted cerumen Schizophrenia Breast cancer screening by mammogram Upper respiratory infection Nasal congestion Tremors of nervous system UTI (urinary tract infection) Meningitis Otitis externa of right ear Pernicious anemia Obesity (BMI 30-39.9) Hyperbilirubinemia Hypercholesterolemia Vitamin D deficiency Urinary incontinence GERD (gastroesophageal reflux disease) Hypertension Thrombocytopenia Leukopenia Surgical History History of total abdominal hysterectomy and bilateral salpingo-oophorectomy H/O right wrist surgery History of tooth extraction History of tonsillectomy Family History Father Cancer Colon cancer Mother Cancer Colon cancer History of breast cancer Social History Household Members: Unknown / Unable to assess Household Members Other:: patient states Alone Housing: Apartment Alcohol intake: never Patient Tobacco Use Status: Former Tobacco user Tobacco use type: Cigarette Years Smoked: quit 1960 e-Cigarette/Vaping Use: Never Used Second Hand Smoke Exposure: Yes Advance Directives Date on File: 12/14/22 service: No Current occupational status: disabled Cognitive needs: No Hearing needs: No Vision needs: Yes Questionnaire Thrive Questionnaire Date Thrive assessed: 02/11/25 I am a: Patient What is your living situation today?: I have a steady place to live Within the past 12 months, did the food you bought not last and you didn't have the money to get more?: Never true Within the past 12 months, did you worry whether your food would run out before you got money to buy more?: Sometimes True Do you have trouble paying for medicines?: No Do you have trouble getting transportation to medical appointments?: No Do you have trouble paying your heating and electricity bill?: No Do you have trouble taking care of your child, family member or friend?: I choose not to answer this question Do you have trouble with day-to-day activities such as bathing, preparing meals, shopping, managing finances, etc.?: No Are you currently unemployed and looking for a job?: Yes Are you interested in more education?: Yes THRIVE Score: 1 TRACEE-7 AMB Questionnaire TRACEE-7 Date TRACEE - 7 assessed: 02/28/25 Source: Developed by Drs. Alejandro Barnes, Kianna Garcia, Devan Freeman and colleagues, with an educational neetu from [employer]. Physical exam (Primary Care) Vital Signs: Last Vital Signs BP 122/78 06/05/25 13:26 BMI result Body Mass Index 22.5 Tobacco/Smoking Status: Tobacco use Status Tobacco use date assessed 04/12/25 06/05/25 13:37 Patient Tobacco Use Status Former Tobacco user 06/05/25 13:37 Tobacco use type Cigarette 06/05/25 13:37 e-Cigarette/Vaping Use Never Used 06/05/25 13:37 Thrive Assessment: Date of Thrive Assessment Date Thrive assessed 02/11/25 06/05/25 13:37 Const General: alert; No acute distress Eyes Conjunctivae: conjunctivae normal Resp Auscultation: clear to auscultation bilaterally Cardio Rate: regular rate Rhythm: regular rhythm GI Inspection: Yes normal to inspection Extrem General: Yes normal to inspection and No edema Coding Level of Care Code Est Pt Level 4 (74989) Complex EM visit Add On G2211 Diagnoses Essential hypertension I10 Hypertension type: essential hypertension Hypercholesterolemia E78.00 Osteopenia of multiple sites M85.89 Osteopenia location: multiple sites Gastroesophageal reflux disease without esophagitis K21.9 Esophagitis presence: without esophagitis 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 Decrease salt intake and exercise patient is on losartan 25 mg once a day (2) Hypercholesterolemia: Code(s): E78.00 - Pure hypercholesterolemia, unspecified Category: Medical Plan: Avoid fried foods, chicken skin, eggs, butter margarine, pastries and meat. Be it pork or beef they have a lot of cholesterol LDL goal of less than 130 and triglyceride of less than 150 patient is taking atorvastatin 10 mg once a day (3) Osteopenia: Code(s): M85.80 - Other specified disorders of bone density and structure, unspecified site Category: Medical Qualifiers: Osteopenia location: multiple sites Qualified Code(s): M85.89 - Other specified disorders of bone density and structure, multiple sites Plan: Patient is reminded about bone density discussed about calcium vitamin-D and be active (4) GERD (gastroesophageal reflux disease): Comment: Very pleasant somewhat difficult to assess 78-year-old frail female referred with GERD, symptoms vague She does mention distant past GI issues difficult to follow no detail Taking PPI p.r.n. She was here today alone-for visit, had transportation Code(s): K21.9 - Gastro-esophageal reflux disease without esophagitis Category: Medical Qualifiers: Esophagitis presence: without esophagitis Qualified Code(s): K21.9 - Gastro-esophageal reflux disease without esophagitis Plan: Avoid the foods that causes that usually spicy foods, tomato products, juices, coffee, soda and foods that your sensitive to. After eating do not lie down, allow 3-4 hours before in lie down. And keep the head of bed above 30 degrees to avoid the acid from going up. (5) Schizophrenia: Comment: Dr. Guevara psychologist Code(s): F20.9 - Schizophrenia, unspecified Category: Medical Plan: Continue to follow-up with psychiatry and therapy (6) Gait instability: Code(s): R26.81 - Unsteadiness on feet Category: Medical Plan History of Present Illness The patient is an 80-year-old female presenting for routine follow-up and management of chronic conditions. She has a history of hypertension, managed with losartan 25 mg daily, and hypercholesterolemia, for which she takes atorvastatin 10 mg daily. Her LDL cholesterol was last recorded at 99 mg/dL in February, which is within the target range. The patient also has a history of gastroesophageal reflux disease (GERD) and schizophrenia, with ongoing psychiatric follow-up and therapy. Recent blood work in April showed mild leukopenia and thrombocytopenia, likely related to her medications, but no intervention is currently required. Her renal function and electrolytes are normal, and she is not anemic. The patient reports experiencing dizziness, which may be related to her m edication trifluoperazine, known to cause such side effects. She also reports a sensation of roaring in her ears, indicative of possible hearing loss, and has been scheduled for a hearing test. She experiences occasional constipation, managed with herbal teas and prunes. The patient has difficulty walking, worsened recently, and has been referred for physical therapy. Health Maintenance - Mammogram and bone density screening are due - Vaccinations: Up to date with shingles, tetanus, and pneumonia vaccines Social History - Functional status: Uses a walker for mobility, reports difficulty walking - Dietary habits: Consumes herbal teas and prunes to manage constipation Review of Systems - Cardiovascular: Denies chest pain or palpitations - Neurological: Reports dizziness, denies headaches - Gastrointestinal: Reports occasional constipation, denies abdominal pain - Musculoskeletal: Reports difficulty walking, denies joint pain - Auditory: Reports roaring sound in ears, indicative of hearing loss Physical Exam - Cardiovascular: Regular heart rate and rhythm, no murmurs, rubs, or gallops - Neurological: Presence of earwax in both ears, no pain on manipulation Results - Labs: Mild leukopenia and thrombocytopenia, normal renal function and electrolytes, LDL cholesterol at 99 mg/dL - Imaging: Chest x-ray normal Plan The patient will continue her current antihypertensive regimen with losartan 25 mg daily and atorvastatin 10 mg daily for hypercholesterolemia, aiming to maintain LDL levels below 130 mg/dL. For her gastroesophageal reflux disease, she will continue with her current management plan. She is advised to maintain regular follow-ups with her psychiatrist and therapist for schizophrenia management. A hearing test has been scheduled to assess her reported hearing loss, and earwax removal will be performed if necessary. The patient is referred to physical therapy to address her difficulty walking, and she is reminded to stay active and consider calcium and vitamin D supplementation for bone health. Preventative care measures include scheduling a mammogram and bone density screening. Patient was informed and verbally consented to the use of an ambient scribe for clinic note documentation during this visit. Discussion Notes During the visit, I discussed with the patient the importance of continuing her current medications for hypertension and hypercholesterolemia to maintain her blood pressure and cholesterol levels within target ranges. We reviewed her recent lab results, noting mild leukopenia and thrombocytopenia, which are likely medication-related and do not require immediate intervention. I emphasized the need for regular psychiatric follow-ups to manage her schizophrenia effectively. We also discussed her auditory symptoms, and I ar ranged for a hearing test to evaluate potential hearing loss. The patient expressed concerns about her mobility, and I have referred her to physical therapy to improve her walking ability. Preventative care, including mammogram and bone density screening, was highlighted as essential for her ongoing health maintenance. Patient Instructions - Continue taking losartan 25 mg daily and atorvastatin 10 mg daily as prescribed. - Follow up with your psychiatrist and therapist regularly. - Attend the scheduled hearing test and follow recommendations for earwax management. - Participate in physical therapy sessions to improve mobility. - Schedule and attend mammogram and bone density screenings. - Maintain an active lifestyle and consider calcium and vitamin D supplements for bone health. Orders: Orders XR DEXA axial skeleton Today M81.0 - Age-related osteoporosis without current pathological fracture, M85.89 - Other specified disorders of bone density and structure, multiple sites PT Evaluation and Treatment Today R26.81 - Unsteadiness on feet Referrals Speech and Hearing Referral H91.90 - Unspecified hearing loss, unspecified ear
[2025-06-05 13:26] VITALS: BP 122/78; BMI 22.5
--- OUTSIDE RECORDS SUMMARY | 2025-06-05 13:59 | XMS_ITS | Patient Health Record ---
Author Organization [facility] Address [address] [place] [address] Care Team Providers Care Instrumentation Technician Name Role Phone Po Erik ALEXANDER Primary Care Provider Alejandro Anglin [phone] Allergies Allergen (clinical drug ingredient) Drug/Non Drug [...] Problem Status W/U Status Risk Notes Problem 710608158 Encounter for screening for malignant neoplasm of colon (Z12.11) Active confirmed Problem 799296784 History of adenomatous polyp of colon (Z86.010) Active confirmed Problem Screening for malignant neoplasm of rectum (912001134) Encounter for screening for malignant neoplasm of rectum (Z12.12) Active confirmed Problem 480402541 Preprocedural examination (Z01.818) Active confirmed Problem 683021249 Long-term use of aspirin therapy (Z79.82) Active confirmed Problem 91191581 Constipation, unspecified constipation type (K59.00) Active confirmed Plan Of Treatment Future Test Test Name Order Date COLONOSCOPY 12/10/2011 COLONOSCOPY 03/17/2017 Insurance Providers Payer Name Payer Address Payer Phone Subscriber Number Group Number Insured Name Patient Relationship to Insured Coverage Start Date Coverage End Date [facility] [address] [address] [place] [id number] [place], [place] Self - patient is the insured Medical (General) History Medical History History ICD Code Small tubular adenoma remove d in 2000 during a screening colonoscopy----negative colonoscopies in 2005 and 12/2011 except for diverticulosis and internal hemorrhoids Hypertension Bipolar disease and schizophrenia Hyperlipidemia Denies [place],DM,CVA,Lung disease,renal dise ase Negative CT of abdomen in 05/2022 except some diverticulosis and constipation Surgical History Surgery Date(Month/Year) ALANNA Benign breast biopsies Broken right wrist
--- OUTSIDE RECORDS SUMMARY | 2025-06-05 13:59 | XMS_ITS | Patient Health Record ---
Author Organization [facility] Address [address] [place] [address] Care Team Providers Care Sap Bi Developer Name Role Phone Bryant Marina MD Primary Care Provider Unavaila ble Black Rosi Unavailable [phone] Reason For Referral No Information Medications Medication SIG (Take, Route, Fr equency, Duration) Notes Start Date End Date Status Lipitor 10 MG 1 tablet Orally Once a day Active Aspir-81 81 MG 1 tablet Orally Once a day Active Cane as directed 09/30/2014 Active Physical Therapy . . . 2-3x/week; Durat ion: 3-4 weeks 07/17/2014 Active Geodon 60 MG 1 capsule with food Orally Twice a day Active Cortisone Active hydroCHLOROthiazide Active Toviaz 10 1 tablet Orally Once a day Active Problems Problem Type SNOMED Code ICD Code Onset Dates Problem Status W/U Status Risk Notes Problem Ankle sprain (31780333) Ankle Sprain (845.00) Active confirmed Problem Sprain of calcaneofibular ligament (09544661) Ankle Sprain/Late ral Ankle Sprain (845.02) Active confirmed Problem Edema (18547267) Edema (782.3) Active confirmed Problem Pain in limb (64365826) Pain in Limb (729.5) Active confirmed Plan Of Treatment Pending Test Test Name Order Date [id number] NAIL, 6 OR MORE 07/17/2014 [id number] NAIL, 6 OR MORE 09/30/2014 Insurance Providers Payer Name Payer Address Payer Phone Subscriber Number Group Number Insured Name Patient Relationship to Insured Coverage Start Date Coverage End Date [id number] [address] [address] [place] [address] [id number] [place], [place] Self - patient is the insured Medical (General) History Medical History History ICD Code Anemia Anxiety Back,Hip,and Knee pain Cholesterol Cataracts Fibromyalgia Glaucoma Heart disease High blood pressure Kidney disease Macular degeneration RSD Psoriasis Measles Mumps Surgical History Surgery Date(Month/Year) tonsillectomy hysterectomy Hospitalization History Reason Date(Month/Year) [facility], overnight, troub le breathing 09/16/2014
--- OUTSIDE RECORDS SUMMARY | 2025-06-05 13:59 | XMS_ITS | Encounter Summary ---
Author Organization [facility] Address [address] [place] [address] [address] [place] [address] Care Team Providers Care Pattern Scratcher Name Role Phone Unavailable Primary Care Provider Unavailabl e Encounter Details Date Type Department Care Team (Latest Contact Info) Description 09/03/2022 Abstract [facility] CONVERSIONS Dental, Provider, DDS Social History [...]
== END 2025-06-05 14:15 | disposition home or self-care (01) ==
LOC: HO.HMCH 13:08
PROVIDERS: PCP Internal Medicine; Visit Provider Internal Medicine
DX: I10 Essential (primary) hypertension (principal); E78.00 Pure hypercholesterolemia, unspecified; M85.89 Other specified disorders of bone density and structure, multiple sites; K21.9 Gastro-esophageal reflux disease without esophagitis; F20.9 Schizophrenia, unspecified; R26.81 Unsteadiness on feet

== ENCOUNTER → 2025-06-05 13:08 | Outpatient (BNVA) | payer OTHER, SELFPAY | PROVIDERS: PCP Internal Medicine; Visit Provider Internal Medicine | DX: I10 Essential (primary) hypertension (principal); E78.00 Pure hypercholesterolemia, unspecified; M85.89 Other specified disorders of bone density and structure, multiple sites; K21.9 Gastro-esophageal reflux disease without esophagitis; F20.9 Schizophrenia, unspecified; R26.81 Unsteadiness on feet | CPT/HCPCS: 99212 ==